=== PATIENT | male | born 1975 | race Caucasian/White ===

== ENCOUNTER → 2018-03-05 10:16 | Outpatient (CLI) | payer MEDICARE, MEDICAID, SELFPAY ==
--- NOTE | 2018-03-05 10:34 | XR_ITS ---
XR chest 2V HISTORY: ITS.REASON: COUGH, cough one year ORDERING PHYSICIAN: Fatimah Granger PATIENT AGE: 42 years Technique: PA and lateral chest COMPARISON: May 2017 FINDINGS:. Nothing definitely acute. No definite change since 2016. large patient,, diminished detail. Minimal density towards the lung bases reflects overlapping structures including overlapping of vascular marking, ribs, costochondral calcification and chest soft tissue density as well as some minimal linear scarring/atelectasis just above the right and left hemidiaphragm.... On final review Also note upper normal prominence at the right suprahilar region. If chest symptoms should persist or progress consider follow-up CT chest. No significant acute findings. The. Pulmonary vascularity are within normal limits. .. But no pleural findings no pleural effusion. Chest wall unremarkable. No acute bony abnormalities. IMPRESSION: Nothing definitely acute. However I would question very slight additional density at right suprahilar region.-Upper normal prominence Also trace minimal density towards the lung bases which currently attending to minimal overlapping structures,. If symptoms should persist, low threshold for CT chest would be encouraged
== END ==
PROVIDERS: PCP Nurse Practitioner Family; Visit Provider Nurse Practitioner Family
DX: R05 Cough (principal)
CPT/HCPCS: 71046

== ENCOUNTER → 2018-05-22 08:36 | Outpatient (CLI) | payer MEDICARE, MEDICAID, SELFPAY ==
[2018-05-22 14:07] LABS: Basophils % 0.4 % (0.1-2.0); Eosinophils # 0.2 K/mm3 (0.0-0.4); Hematocrit 44.1 % (42.0-52.0); Hemoglobin 14.6 g/dL (14.1-18.0); Lymphocytes # 1.1 K/mm3 (0.7-4.5); Lymphocytes % 25.7 % (10-50); Mean Corpuscular HGB Conc 33.1 g/dL (31.8-35.4); Mean Corpuscular Hemoglobin 29.2 pg (27.0-31.2); Mean Corpuscular Volume 88.1 fl (80-94); Mean Platelet Volume 9.3 fl (7.4-10.4); Monocytes # 0.3 K/mm3 (0.1-1.0); Monocytes % 7.6 % (1.7-9.3); Neutrophils # 2.7 K/mm3 (1.8-7.8); Neutrophils % 61.3 % (37.0-80.0); Platelet Count 155 K/mm3 (142-424); Red Cell Distribution Width 13.3 % (11.5-17.5); White Blood Count 4.4 K/mm3 (4.8-10.8)
[2018-05-22 14:50] LABS: Alanine Aminotransferase 39 U/L (12-78); Albumin Level 3.4 gm/dL (3.4-5.0); Albumin/Globulin Ratio 1.3 (1.1-1.8); Alkaline Phosphatase 83 U/L (46-116); Anion Gap 11.7 mEq/L (5-15); Aspartate Amino Transferase 17 U/L (15-37); Bilirubin,Total 0.6 mg/dL (0.2-1.0); Blood Urea Nitrogen 11 mg/dL (7-18); Calcium 8.3 mg/dL (8.5-10.1); Carbon Dioxide 30 mmol/L (21.0-32.0); Chloride 106 mmol/L (98-107); Creatinine,Serum 1.32 mg/dL (0.70-1.30); Estimated Glomerular Filt Rate 59 ml/min (>60); GFR (African American) 71 ML/MIN (>60); Globulin 2.7 gm/dl (1.3-3.2); Glucose 108 mg/dL (74-106); Potassium 3.7 mmoL/L (3.5-5.1); Sodium 144 mmol/L (136-145); Total Protein,Serum 6.1 gm/dL (6.4-8.2); Valproic Acid, (Depakene) 28.9 ug/mL (50-100)
== END ==
PROVIDERS: PCP Nurse Practitioner Family; Visit Provider Psychiatry & Neurology Psychiatry
DX: F31.32 Bipolar disorder, current episode depressed, moderate (principal)
CPT/HCPCS: 36415; 80053; 80164; 85025

== ENCOUNTER → 2018-06-13 09:15 | Outpatient (CLI) | payer MEDICARE, MEDICAID, SELFPAY ==
[2018-06-13 14:32] LABS: Valproic Acid, (Depakene) 52.6 ug/mL (50-100)
== END ==
PROVIDERS: PCP Nurse Practitioner Family; Visit Provider Psychiatry & Neurology Psychiatry
DX: F31.32 Bipolar disorder, current episode depressed, moderate (principal)
CPT/HCPCS: 36415; 80164

== ENCOUNTER → 2018-10-30 08:35 | Outpatient (CLI) | payer MEDICARE, MEDICAID, SELFPAY ==
[2018-10-30 14:42] LABS: Alanine Aminotransferase 36 U/L (12-78); Albumin Level 3.4 gm/dL (3.4-5.0); Albumin/Globulin Ratio 1.2 (1.1-1.8); Alkaline Phosphatase 86 U/L (46-116); Anion Gap 14.9 mEq/L (5-15); Aspartate Amino Transferase 13 U/L (15-37); Bilirubin,Total 0.5 mg/dL (0.2-1.0); Blood Urea Nitrogen 11 mg/dL (7-18); Calcium 8.2 mg/dL (8.5-10.1); Carbon Dioxide 25 mmol/L (21.0-32.0); Chloride 105 mmol/L (98-107); Creatinine,Serum 1.34 mg/dL (0.70-1.30); Estimated Glomerular Filt Rate 58 ml/min (>60); GFR (African American) 70 ML/MIN (>60); Globulin 2.8 gm/dl (1.3-3.2); Glucose 103 mg/dL (74-106); Potassium 3.9 mmoL/L (3.5-5.1); Sodium 141 mmol/L (136-145); Thyroid Stimulating Hormone 0.82 uIU/ml (0.358-3.740); Total Protein,Serum 6.2 gm/dL (6.4-8.2)
[2018-10-30 15:12] LABS: Hemoglobin A1C 5.2 % (0.0-7.0)
[2018-10-30 15:42] LABS: Basophils % 0.4 % (0.1-2.0); Eosinophils # 0.2 K/mm3 (0.0-0.4); Hematocrit 41.8 % (42.0-52.0); Hemoglobin 14.3 g/dL (14.1-18.0); Lymphocytes % 24.9 % (10-50); Mean Corpuscular HGB Conc 34.3 g/dL (31.8-35.4); Mean Corpuscular Hemoglobin 29.7 pg (27.0-31.2); Mean Corpuscular Volume 86.7 fl (80-94); Mean Platelet Volume 10.8 fl (7.4-10.4); Monocytes # 0.3 K/mm3 (0.1-1.0); Monocytes % 6.2 % (1.7-9.3); Neutrophils # 2.6 K/mm3 (1.8-7.8); Neutrophils % 64.6 % (37.0-80.0); Platelet Count 117 K/mm3 (142-424); Red Blood Count 4.82 M/mm3 (4.60-6.20); Red Cell Distribution Width 12.7 % (11.5-17.5); White Blood Count 4.1 K/mm3 (4.8-10.8)
== END ==
PROVIDERS: Visit Provider Psychiatry & Neurology Psychiatry
DX: F31.32 Bipolar disorder, current episode depressed, moderate (principal); Z79.899 Other long term (current) drug therapy
CPT/HCPCS: 36415; 80053; 80164; 83036; 84443; 85025

== ENCOUNTER → 2019-06-27 09:29 | Outpatient (CLI) | payer MEDICARE, MEDICAID, SELFPAY ==
[2019-06-27 14:16] LABS: Alanine Aminotransferase 25 U/L (12-78); Albumin/Globulin Ratio 1.3 (1.1-1.8); Alkaline Phosphatase 64 U/L (46-116); Anion Gap 12.4 mEq/L (5-15); Aspartate Amino Transferase 13 U/L (15-37); Bilirubin,Total 0.4 mg/dL (0.2-1.0); Blood Urea Nitrogen 7 mg/dL (7-18); Carbon Dioxide 26 mmol/L (21.0-32.0); Chloride 107 mmol/L (98-107); Chol/HDL Ratio 3.5 (1-3.5); Cholesterol 128 mg/dL (140-200); Creatinine,Serum 1.55 mg/dL (0.70-1.30); Estimated Glomerular Filt Rate 49 ml/min (>60); GFR (African American) 59 ML/MIN (>60); Globulin 2.3 gm/dl (1.3-3.2); Glucose 124 mg/dL (74-106); HDL Cholesterol 37 mg/dL (27-67); LDL Cholesterol 68 mg/dL (0-130); Potassium 3.4 mmoL/L (3.5-5.1); Sodium 142 mmol/L (136-145); Thyroid Stimulating Hormone 1.82 uIU/ml (0.358-3.740); Total Protein,Serum 5.3 gm/dL (6.4-8.2); Triglycerides 114 mg/dL (30-200); VLDL Cholesterol 23 mg/dL (0-40); Valproic Acid, (Depakene) 38.6 ug/mL (50-100)
[2019-06-27 14:21] LABS: Hemoglobin A1C 5.1 % (0.0-7.0)
[2019-06-27 15:25] LABS: Basophils % 0.5 % (0.1-2.0); Eosinophils # 0.3 K/mm3 (0.0-0.4); Hematocrit 40.9 % (42.0-52.0); Hemoglobin 13.9 g/dL (14.1-18.0); Lymphocytes # 1.2 K/mm3 (0.7-4.5); Lymphocytes % 25.2 % (10-50); Mean Corpuscular HGB Conc 33.9 g/dL (31.8-35.4); Mean Corpuscular Volume 88.5 fl (80-94); Mean Platelet Volume 11.1 fl (7.4-10.4); Monocytes # 0.3 K/mm3 (0.1-1.0); Monocytes % 5.7 % (1.7-9.3); Neutrophils # 2.9 K/mm3 (1.8-7.8); Neutrophils % 61.7 % (37.0-80.0); Platelet Count 132 K/mm3 (142-424); Red Blood Count 4.62 M/mm3 (4.60-6.20); Red Cell Distribution Width 13.5 % (11.5-17.5); White Blood Count 4.7 K/mm3 (4.8-10.8)
== END ==
PROVIDERS: Visit Provider Psychiatry & Neurology Psychiatry
DX: F31.32 Bipolar disorder, current episode depressed, moderate (principal); Z79.899 Other long term (current) drug therapy
CPT/HCPCS: 36415; 80053; 80061; 80164; 83036; 84443; 85025

== ENCOUNTER 2020-04-19 11:49 | Inpatient (IN) | payer MEDICARE, MEDICAID, SELFPAY ==
[2020-04-19] VITALS (10 sets, daily range): BP systolic 142–178; BP diastolic 88–110; PULSE 71–92; RESP 16–20; TEMP 36.5–37.4; O2SAT 92–96; BMI 48.4; BMI 47.7
--- NOTE | 2020-04-19 12:06 | HMH.EDGENADL ---
ED Disposition Clinical Impression: Left ureteral calculus Closed left ankle fracture Qualifiers: Encounter type: initial encounter Qualified Code(s): S82.892A - Other fracture of left lower leg, initial encounter for closed fracture Disposition: Admitted as Observation Condition on Discharge: Fair - Critical Care Critical Care Time: No Attestation: On 04/19/20, the high probability of a clinically significant, sudden or life threatening deterioration of the following system(s) required my full and direct attention, intervention and personal management. The time I documented below is in addition to time spent performing reported procedures but includes the following listed in this critical care notation. Medical Decision Making - Talha Inquiry Pt receiving controlled substance: Yes Talha was queried for this patient: No Reason not queried -: Emergent pt cond-no time Risks and benefits of using a controlled substance: were not discussed with pt by me Vital Signs: 04/19/20 11:49 04/19/20 12:36 04/19/20 13:00 Temperature 99.3 F Temperature Source Oral Pulse Rate [Right Radial] 74 75 76 Respiratory Rate 18 20 18 Blood Pressure [Right Arm] 155/99 H 155/107 H 178/97 H Blood Pressure Mean [Right Arm] 117 123 124 Blood Pressure Source [Right Arm] Automatic Cuff Automatic Cuff Automatic Cuff Blood Pressure Position [Right Arm] Sitting Sitting Sitting 02 Sat by Pulse Oximetry 95 95 96 Oxygen Delivery Method Room Air Room Air Room Air 04/19/20 13:31 04/19/20 15:19 04/19/20 16:00 Temperature Temperature Source Pulse Rate [Right Radial] 73 77 78 Respiratory Rate 18 16 16 Blood Pressure [Right Arm] 155/88 H 163/101 H 151/110 H Blood Pressure Mean [Right Arm] 110 121 123 Blood Pressure Source [Right Arm] Automatic Cuff Automatic Cuff Automatic Cuff Blood Pressure Position [Right Arm] Sitting Supine 02 Sat by Pulse Oximetry 94 L 95 93 L Oxygen Delivery Method Room Air Room Air Room Air 04/19/20 16:30 Temperature Temperature Source Pulse Rate [Right Radial] 79 Respiratory Rate 16 Blood Pressure [Right Arm] 161/97 H Blood Pressure Mean [Right Arm] 118 Blood Pressure Source [Right Arm] Automatic Cuff Blood Pressure Position [Right Arm] Sitting 02 Sat by Pulse Oximetry 93 L Oxygen Delivery Method Room Air - Lab Data Lab Results 04/19/20 12:11: WBC 8.8, RBC 4.66, Hgb 14.7, Hct 42.6, MCV 91.3, MCH 31.4 H, MCHC 34.4, RDW 14.1, Plt Count 113 L, MPV 9.5, Neut % (Auto) 69.5, Lymph % (Auto) 17.6, [place] % (Auto) 10.3 H, Eos % (Auto) 2.5, Baso % (Auto) 0.2, Neut # (Auto) 6.1, Lymph # (Auto) 1.5, [place] # (Auto) 0.9, Eos # (Auto) 0.2, Baso # (Auto) 0.0 04/19/20 12:11: Sodium 138, Potassium 4.1, Chloride 105, Carbon Dioxide 28, Anion Gap 9.1, BUN 23 H, Creatinine 1.90 H, Estimated Creat Clear 44, Estimated GFR 38 L, Est GFR ( Amer) 46 L, Glucose 101 H, Calcium 8.8, Total Bilirubin 1.1, AST 27, ALT 20, Alkaline Phosphatase 50, Total Protein 6.0 L, Albumin 3.4 L, Globulin 2.6, Albumin/Globulin Ratio 1.3, Amylase 57, Lipase 34 04/19/20 12:11: SARS-CoV-2 IgG Ab (Rapid) Negative, SARS-CoV-2 IgM Ab (Rapid) Negative 04/19/20 14:45: Urine Color Yellow, Urine Appearance Clear, Urine pH 6.0, Ur Specific [place] >= 1.030, Urine Protein Negative, Urine Glucose (UA) Negative, Urine Ketones Negative, Urine Blood 2+, Urine Nitrate Negative, Urine Bilirubin Negative, Urine Urobilinogen 0.2, Ur Leukocyte Esterase Negative, Urine RBC 3-5, Urine WBC 3-5, Ur Squamous Epith Cells Occasional, Amorphous Sediment Trace, Urine Bacteria None, Urine Mucus 1+ Result diagrams: 04/19/20 12:11 04/19/20 12:11 Orders (Tests/Meds): ED MEDICATIONS Generic Name Dose Route Start Last Admin Trade Name Freq PRN Reason Stop Dose Admin Acetaminophen 650 mg 04/19/20 17:00 Acetaminophen 325mg Tab PO 05/19/20 16:59 Q4HP PRN As Needed for Fever or Pain Hydromorphone HCl 1 mg 04/19/20 17:00 Hydromorphone 2mg/Ml Syringe IV
--- NOTE | 2020-04-19 12:17 | CT_ITS ---
Procedure: CT ABDOMEN PELVIS W CON Referring Doctor: Sander Villegas Patient Age:44Y CLINICAL INDICATION: lower abdominal pain Lower abdominal pain since last night. 1 episode of vomiting. Last bowel movement 3 days ago. COMPARISON: No exams were available for comparison TECHNIQUE: 75 cc Isovue 370 IV contrast utilized Axial images obtained with sagittal and coronal reformats. All CT scans at the facility use one or more dose reduction, viz: automated exposure control, ma/kV adjustment per patient size (including targeted exams where dose is matched to indication, i.e. head), or iterative reconstruction technique. FINDINGS: Lower thorax: No significant findings trace basilar atelectasis left base. Heart upper normal in size ABDOMEN: Postcontrast Liver: Unremarkable no masses or biliary dilatation. Gallbladder: Nondistended. No radio opaque stones. Pancreas: No masses or peripancreatic fluid collections. Spleen: Overall normal volume but does measures slight increase length at 15 cm Adrenals unremarkable. tract Left kidney: Mild hydronephrosis with mild dilatation left ureter down to a 7.5 mm AP 5.5 mm transverse X 8 mm length stone at the distal left ureter just above the left UVJ. With this there is periureteral stranding and subtle hazy appearance about the ureter. Also subtle perinephric stranding minimal wispy tracking inferior to Gerota fascia along the left para colic gutter with some subtle scant fluid inferior left pericolic gutter towards pelvis,) axial image [id number] coronal 45, 44)... These above features reflection of the obstructive uropathy. Right kidney 18 mm cyst upper pole. Equivocal tiny less than just over 1 mm calculus lower pole calyx nonobstructive Bladder: Nondistended. No obvious stones or masses. Prostate normal size with central calcification. Appendix: Unremarkable. No distention or periappendiceal phlegmonous change. GI tract Stomach and small bowel bowel: Nondistended. No obvious mass or thickening. Appendix normal Large bowel. Gaseous distension hepatic flexure, transverse colon and descending colon. Gas distended transverse colon measuring up to 8 cm with air-fluid levels at the transverse colon and splenic flexure. Findings suggest localized ileus secondary to the a the obstructive uropathy and the wispy fluid along the left pericolic gutter Upper normal wall thickness at rectum likely reflecting lack of distension Moderate residual stool at cecum, right colon and rectosigmoid Laxity at the left inguinal ring with slight increased fat along the left inguinal canal may reflect small developing left inguinal hernia. No bowel loops here. Peritoneum: . No free air.. Wispy fluid and subtle inflammatory changes are mainly along the pericolic gutter and more retroperitoneal on the left Lymph nodes: No enlarged lymph nodes apparent. Vasculature: No evidence of abdominal aortic aneurysm. No retroperitoneal hemorrhage evident. Bones: No acute fracture no lesions. Mild developing facet hypertrophy lower L-spine noted IMPRESSION: 1.. Left obstructive uropathy. Mild left hydronephrosis with mild dilatation of left ureter down to a 7.5 mm x 5.5 mm times 8 mm length stone at the distal left ureter just above the left UVJ. Mild stranding and hazy appearance about left ureter and left kidney reflecting the obstructive uropathy. These features yields minimal trace wispy fluid along the left pericolic gutter to the left pelvis. 2.. Moderate gaseous distention in air-fluid levels at transverse colon and flexures. Likely reflects localized ileus in part secondary to the patient's of the left flank findings and obstructiv
--- NOTE | 2020-04-19 12:19 | PC.NURSE ---
notified rad of CT order, spoke with sandra
[2020-04-19 12:26] LABS: Basophils % 0.2 % (0.1-2.0); Eosinophils # 0.2 K/mm3 (0.0-0.4); Eosinophils % 2.5 % (0.1-12.0); Hematocrit 42.6 % (42.0-52.0); Hemoglobin 14.7 g/dL (14.1-18.0); Lymphocytes # 1.5 K/mm3 (0.7-4.5); Lymphocytes % 17.6 % (10-50); Mean Corpuscular HGB Conc 34.4 g/dL (31.8-35.4); Mean Corpuscular Hemoglobin 31.4 pg (27.0-31.2); Mean Corpuscular Volume 91.3 fl (80-94); Mean Platelet Volume 9.5 fl (7.4-10.4); Monocytes # 0.9 K/mm3 (0.1-1.0); Monocytes % 10.3 % (1.7-9.3); Neutrophils # 6.1 K/mm3 (1.8-7.8); Neutrophils % 69.5 % (37.0-80.0); Platelet Count 113 K/mm3 (142-424); Red Blood Count 4.66 M/mm3 (4.60-6.20); Red Cell Distribution Width 14.1 % (11.5-17.5); White Blood Count 8.8 K/mm3 (4.8-10.8)
[2020-04-19 12:27] LABS: Chloride 105 mmol/L (98-107); Potassium 4.1 mmoL/L (3.5-5.1); Sodium 138 mmol/L (136-145)
[2020-04-19 12:30] LABS: Alanine Aminotransferase 20 U/L (12-78); Alkaline Phosphatase 50 U/L (38-126); Amylase 57 U/L (30-110); Anion Gap 9.1 mEq/L (5-15); Aspartate Amino Transferase 27 U/L (17-59); Bilirubin,Total 1.1 mg/dl (0.2-1.3); Blood Urea Nitrogen 23 mg/dl (9-20); Calcium 8.8 mg/dl (8.4-10.2); Carbon Dioxide 28 mmol/L (22.0-30.0); Creatinine Clearance Estimated 44 mL/min (50-200); Estimated Glomerular Filt Rate 38 ml/min (>60); GFR (African American) 46 ML/MIN (>60); Glucose 101 mg/dl (74-100); Lipase 34 U/L (23-300)
[2020-04-19 12:31] LABS: Albumin Level 3.4 g/dl (3.5-5.0); Albumin/Globulin Ratio 1.3 (1.1-1.8); Globulin 2.6 g/dL (1.3-3.2)
--- NOTE | 2020-04-19 13:00 | PC.NURSE ---
per radiology staff from radiologist pt needs to be hydrated with IV fluids prior to getting IV contrast for CT scan.
[2020-04-19 14:49] LABS: Microscopic, Urine URINE MICROSCOPIC (MICROSCOPIC)
[2020-04-19 14:52] LABS: Appearance,Urine CLEAR (Clear); Blood, Urine 2+ (Negative); Color,Urine YELLOW (Yellow); Glucose,Urine (UA) Negative (Negative); Ketones,Urine Negative (Negative); Leukocyte Esterase,Urine Negative (Negative); Nitrate,Urine Negative (Negative); Protein,Urine Negative (Negative); Specific Gravity, Urine >= 1.030 (1.005-1.030); Urobilinogen,Urine 0.2 EU/dl (0.2)
[2020-04-19 14:54] LABS: Bilirubin,Urine Negative (Negative)
[2020-04-19 15:04] LABS: Amorphous Sediment,Urine Trace /lpf; Mucus,Urine 1+ /lpf; Squamous Epithelial Cell,Urine Occasional #/hpf (0-5)
--- NOTE | 2020-04-19 15:40 | PC.NURSE ---
Dr fontaine speaking with Dr Wei
--- NOTE | 2020-04-19 15:46 | PC.NURSE ---
Dr Villegas speaking with Dr Rai
--- NOTE | 2020-04-19 15:50 | PC.NURSE ---
Placed call to [facility] for records on pt broken foot.
--- NOTE | 2020-04-19 15:52 | XR_ITS ---
PROCEDURE: XR ANKLE LT MIN 3V Referring Doctor: CollinSander aguirre Patient Age:44Y CLINICAL INDICATION: fracture patient fracture left ankle last week but was seen and treated at [facility] no previous ankle studies at this facility COMPARISON: No exams were available for comparison No previous studies at this facility FINDINGS: Bimalleolar fracture with fiberglass cast material/posterior splint in place. There is a slight oblique vertical fracture through the base of the medial malleolus.. Nondisplaced and is seen extending to medial corner of articular cortex distal tibia. Suggestion subtle sclerosis suggested along fracture zone reflects that it is subacute rather than acute . Slight oblique transverse fracture through the base of the lateral malleolus extending to the lateral corner articular cortex distal tibia. Good apposition with no significant displacement-only scant just 1.4 mm lateral offset of the distal fracture fragment Relationships at the ankle mortise appears intact. Dome of the talus is intact but The patient has old healed fracture of the distal tibial shaft with long metallic christiano through the tibia extending to to the distal epiphysis of tibia just above the ankle joint, and secured by 2 screws entering medially. There is good healing at this old fracture with mountain of prominent remodeling bone most evident anteriorly at distal tibial shaft. The fracture of the medial malleolus begins just distal below the more inferior screw.. IMPRESSION: The sub acute/recent bimalleolar fracture is evident with splint/cast in place-Good position of these fracture elements Remote old healed fracture of the distal tibial shaft with long intramedullary christiano at tibia Dictated by: Gerald Quinonez MD 04/19/2020 21:21 Gerald Quinonez MD in [place] 04/19/2020 21:21
--- NOTE | 2020-04-19 15:53 | PC.NURSE ---
notified lab of new orders on pt, spoke with nila
--- NOTE | 2020-04-19 16:03 | PC.NURSE ---
pt unable to give a list of his home medications, pt mother states she will go home and call with the names of his medications, pt mother states he takes a bunch .
--- NOTE | 2020-04-19 16:05 | PC.NURSE ---
notified ER MD of pt bp remaining high despite pt reporting his pain is better, pt reports he has not taken his bp medications today. ER MD states we can reorder his home medications for bp once we know what they are. BP 151/110 at this time, will continue to monitor
[2020-04-19 16:15] LABS: Coronavirus 19 IgG Antibody Negative (Negative); Coronavirus 19 IgM Antibody Negative (Negative)
--- NOTE | 2020-04-19 16:51 | PC.NURSE ---
report given to meg fajardo at this time
--- NOTE | 2020-04-19 16:51 | PC.NURSE ---
pt mother called with list of pt medications at this time, will update medications in the system and notify ER MD.
--- NOTE | 2020-04-19 17:55 | PC.NURSE ---
duplicate insert briscoe order placed deleted one
[2020-04-19 18:01] LABS: Microscopic, Urine URINE MICROSCOPIC (MICROSCOPIC)
[2020-04-19 18:09] LABS: Appearance,Urine CLEAR (Clear); Bilirubin,Urine Negative (Negative); Blood, Urine 1+ (Negative); Color,Urine YELLOW (Yellow); Glucose,Urine (UA) Negative (Negative); Ketones,Urine Negative (Negative); Leukocyte Esterase,Urine Negative (Negative); Nitrate,Urine Negative (Negative); PH,Urine 5.5 (5.0-8.5); Protein,Urine Negative (Negative); Specific Gravity, Urine >= 1.030 (1.005-1.030); Urobilinogen,Urine 0.2 EU/dl (0.2)
[2020-04-19 18:13] LABS: Amorphous Sediment,Urine 1+ /lpf; Mucus,Urine 1+ /lpf
--- NOTE | 2020-04-19 18:37 | PC.NURSE ---
ABRASION NOTED MEASURING 5IN IN LENGTH AND 1IN IN WIDTH. NO DRAINAGE NOTED.
--- NOTE | 2020-04-19 18:38 | PC.NURSE ---
SCRATHCES NOTED, 6IN IN LENGTH.
--- NOTE | 2020-04-19 18:40 | PC.NURSE ---
DURING REPORT FROM Gaby KRISHNAMURTHY RN IN ED, PATIENT'S MOTHER PHONED AND PROVIDED A MEDICATION LIST FOR PATIENT. PER Gaby KRISHNAMURTHY RN, SHE WILL COMPLETE MED REC AND SPEAK WITH ER MD ON HOME MEDICATIONS. PATIENT ARRIVED ON FLOOR VIA STRETCHER, THIS RN ALONG WITH Estrella HUNT RN AND Kunal LLANOS RN PROVIDED A BED BATH AND ASSESSED PATIENT' SKIN, PATIENT ARRIVED WITH A LEFT ANKLE FRACTURE, WRAPPED IN CHENTE BANDAGE. PATIENT COMPLAINED OF PRESSURE TO URINATE, AFTER SEVERAL ATTEMPTS, PATIENT WAS UNABLE TO PRODUCE URINE. THIS RN PHONED DR. CHANG AND OBTAINED AN ORDER FOR A HARDING CATH. FIRST ATEMPT WAS MADE BY Estrella HUNT RN WITH A 16FR. RESISTANCE WAS MET, A SECOND ATTEMPT WAS MADE WITH A 14FR COUDE CATH, INSERTED BY THIS RN. PATIENT DENIES ANY PROSTATE PROBLEMS. PATIENT'S SKIN HAS AN ABRASION ON THE LOWER RIGHT SIDE OF ABDOMEN. PATIENT STATED THAT IT IS FROM WHEN HE FELL. PATIENT STATES THAT HE HAS NO HEART OR LUNG PROBLEMS. THIS RN INQUIRED WHY HE IS TAKING THE MEDICATIONS THAT HE TAKES, PATIENT STATED, I DON'T KNOW, THERE ARE SO MANY. PATIENT STATED DURING HIS ADMISSION THAT HE HAS BEEN SUICIDAL IN THE PAST AND IS UNDER THERAPY. PATIENT STATES THAT IT HAS BEEN OVER A YEAR SINCE ATTEMPTING TO TAKE HIS LIFE. THIS RN ATTEMPTED TO COMPLETE MED REC AND WOULD NOT ALLOW A DUPLICATE SOURCE FOR INFORMATION.
[2020-04-20 03:24] VITALS: BP 133/91; PULSE 91; RESP 18; TEMP 36.9; O2SAT 95
--- NOTE | 2020-04-20 05:33 | PC.NURSE ---
pt refused to be weight at this time due to pain. will pass on to dayshift RN for pt to be weigh once pain is better
--- NOTE | 2020-04-20 05:35 | PC.NURSE ---
Pt A&OX4 diminished throughout lungs. prt c/o abd pain medicated per AUG. f/c draining taryn urine. pt has slept intervals throughout shift
[2020-04-20 07:03] LABS: Chloride 108 mmol/L (98-107)
[2020-04-20 07:04] LABS: Potassium 4.8 mmoL/L (3.5-5.1); Sodium 136 mmol/L (136-145)
[2020-04-20 07:07] LABS: Anion Gap 11.8 mEq/L (5-15); Blood Urea Nitrogen 24 mg/dl (9-20); Calcium 8.4 mg/dl (8.4-10.2); Carbon Dioxide 21 mmol/L (22.0-30.0); Creatinine Clearance Estimated 52 mL/min (50-200); Estimated Glomerular Filt Rate 47 ml/min (>60); GFR (African American) 57 ML/MIN (>60); Glucose 94 mg/dl (74-100)
--- NOTE | 2020-04-20 07:29 | HMH.PHAVTE ---
[facility] Pharm[facility] VTE Monitoring - Patient Demographics Admission date: 04/19/20 Report Date: 04/20/20 Time: 07:29 Allergies/Adverse Reactions: Patient Allergies prochlorperazine [From COMPAZINE] Allergy (Unknown, Verified 04/19/20 12:18) Height: 1.7 m Weight: 137.92 kg Patient Problems: Current Active Problems Left ureteral calculus (Acute) Closed left ankle fracture (Acute) - VTE Risk Labs: VTE Related Lab Results Hgb 14.7 g/dL (14.1-18.0) 04/19/20 12:11 Hct 42.6 % (42.0-52.0) 04/19/20 12:11 Plt Count 113 K/mm3 (142-424) L 04/19/20 12:11 BUN 24 mg/dl (9-20) H 04/20/20 06:16 Creatinine 1.60 mg/dl (0.66-1.25) H 04/20/20 06:16 Estimated Creat Clear 52 mL/min (50-200) 04/20/20 06:16 VTE Score: 7 VTE Risk Level: Moderate Risk - Prophylaxis VTE Prophylaxis Ordered?: Yes Types of VTE Prophylaxis: TEDS Knee High Location of Applied Device: Bilateral Lower Extremeties
[2020-04-20 08:00] VITALS: BP 159/95; PULSE 77; RESP 20; TEMP 36.8; O2SAT 96
--- NOTE | 2020-04-20 08:18 | PC.NURSE ---
Notified Addis about Dr. Smiley consult.
--- NOTE | 2020-04-20 11:58 | HMH.CONS ---
*Admission Date: 04/19/20 *Reason for consult:: Left ureteral stone *History of present illness: Patient is a 44-year-old white male who presented to the emergency room yesterday with left lower quadrant pain. He had some associated nausea and a CT scan revealed an 8 x 7 mm distal left ureteral stone. He was admitted for pain control. This morning he had a pretty comfortable night and is afebrile. His white count in the emergency room was 8.8 and his creatinine was elevated to 1.9 that has improved as of this morning. Patient had difficulty urinating on the floor last evening and the German catheter was placed with a 700 cc residual reported. Patient denies a history of urinary difficulties. He did have a recent ankle fracture and has a cast on his left ankle. [facility] History Medical History: Reports:: Hypertension Denies:: Cancer, Diabetes Mellitus Type 1, Diabetes Mellitus Type 2, MRSA *Have you ever received a pneumonia vaccine?: No *Have you received a flu vaccine this season?: No Fractures: Yes (L ankle) - *Social History Last grade of school completed: High school graduate Smoking Status: Never smoker Alcohol Intake: never *Occupational Status:: employed Housing: house Household Members: family *Travel in the last 8 weeks: None Family Hx:: Cancer Review of Systems - Review of Systems Review of systems:: pertinent systems reviewed and negative unless documented below Meds Home Medications Medication Instructions Recorded Confirmed Type Benztropine Mesylate 0.5 mg PO BID 04/19/20 04/19/20 History Buspirone HCl [Buspirone 15 mg 15 mg PO TID 04/19/20 04/19/20 History Tablets] Divalproex Sodium [Depakote 125 mg PO QID 04/19/20 04/19/20 History Sprinkle 125mg capsule] Hydrocodone/Acetaminophen 1 each PO Q6HP PRN 04/19/20 04/19/20 History [Hydrocodone-Acetamin 5-325 mg] Lurasidone HCl [Latuda] 80 mg PO DAILY 04/19/20 04/19/20 History Simvastatin 20 mg PO DAILY 04/19/20 04/19/20 History buPROPion HCL [Bupropion Xl] 300 mg PO DAILY 04/19/20 04/19/20 History Propranolol HCl [Inderal 20mg 20 mg PO BID 04/20/20 04/20/20 History Tablet] Allergies Allergy/AdvReac Type Severity Reaction Status Date / Time prochlorperazine Allergy Unknown Verified 04/19/20 12:18 [From COMPAZINE] Exam Vital signs and Labs for Last 24 Hours: Temp Pulse Resp BP Pulse Ox 98.2 F 77 20 159/95 H 96 04/20/20 08:00 04/20/20 08:00 04/20/20 08:00 04/20/20 08:00 04/20/20 08:00 Laboratory Results - last 24 hr 04/19/20 12:11: WBC 8.8, RBC 4.66, Hgb 14.7, Hct 42.6, MCV 91.3, MCH 31.4 H, MCHC 34.4, RDW 14.1, Plt Count 113 L, MPV 9.5, Neut % (Auto) 69.5, Lymph % (Auto) 17.6, [place] % (Auto) 10.3 H, Eos % (Auto) 2.5, Baso % (Auto) 0.2, Neut # (Auto) 6.1, Lymph # (Auto) 1.5, [place] # (Auto) 0.9, Eos # (Auto) 0.2, Baso # (Auto) 0.0 04/19/20 12:11: Sodium 138, Potassium 4.1, Chloride 105, Carbon Dioxide 28, Anion Gap 9.1, BUN 23 H, Creatinine 1.90 H, Estimated Creat Clear 44, Estimated GFR 38 L, Est GFR ( Amer) 46 L, Glucose 101 H, Calcium 8.8, Total Bilirubin 1.1, AST 27, ALT 20, Alkaline Phosphatase 50, Total Protein 6.0 L, Albumin 3.4 L, Globulin 2.6, Albumin/Globulin Ratio 1.3, Amylase 57, Lipase 34 04/19/20 12:11: SARS-CoV-2 IgG Ab (Rapid) Negative, SARS-CoV-2 IgM Ab (Rapid) Negative 04/19/20 14:45: Urine Color Yellow, Urine Appearance Clear, Urine pH 6.0, Ur Specific [place] >= 1.030, Urine Protein Negative, Urine Glucose (UA) Negative, Urine Ketones Negative, Urine Blood 2+, Urine Nitrate Negative, Urine Bilirubin Negative, Urine Urobilinogen 0.2, Ur Leukocyte Esterase Negative, Urine RBC 3-5, Urine WBC 3-5, Ur Squamous Epith Cells Occasional, Amorphous Sediment Trace, Urine Bacteria None, Urine Mucus 1+ 04/19/20 17:45: Urine Color Yellow, Urine Appearance Clear, Urine pH 5.5, Ur Specific [place] >= 1.030, Urine Protein Negative, Urine Glucose (UA) Negative, Urine Ketones Negative, Urine Blood 1+, Urine Nitrate Negative,
--- NOTE | 2020-04-20 12:02 | HMH.HP ---
*Admission Date: 04/19/20 *Chief complaint: abd pain *History of present illness: 44 yr old male presented to ed c/o lower abd pain. Pt describes pain sharp in nature. Pt states pain began last night, pt reports 3 episode of vomiting last night. Pt states he recently starting a prescriptions for norco for pain r/t L ankle fracture, pt reports last BM was 2-3 days ago.Diagnosed with a left ankle fracture on 3 days ago in [place] at [facility]. He has a splint on his left ankle. He is on pain medication for that condition. He has not yet seen orthopedics and does not have an appointment. He would like to see orthopedics at this hospital. No prior similar abdominal pain. No history of abdominal surgeries. Pt admitted for urology and ortho consult. [facility] History I have reviewed the patient's past medical history: Yes Medical History: Reports:: Hypertension Denies:: Cancer, Diabetes Mellitus Type 1, Diabetes Mellitus Type 2, MRSA *Have you ever received a pneumonia vaccine?: No *Have you received a flu vaccine this season?: No Fractures: Yes (L ankle) - *Social History Last grade of school completed: High school graduate Smoking Status: Never smoker Alcohol Intake: never *Occupational Status:: employed Housing: house Household Members: family *Travel in the last 8 weeks: None Family Hx:: Cancer Review of Systems - Review of Systems Review of systems:: pertinent systems reviewed and negative unless documented below - Constitutional Denies body ache(s) - Eyes Denies bulging eyes - ENT Denies neck pain - *Cardiovascular Denies chest pain with activity - *Respiratory Denies chest congestion - *Gastrointestinal Reports abdominal pain, Denies change in bowel habits, Denies nausea, Denies vomiting - *Genitourinary Denies difficulty urinating, Denies painful urination, Denies urinary frequency - *Musculoskeletal Denies decreased muscle mass, Denies back pain - Integumentary/Breasts Denies rash - *Neurologic Denies dizziness - Psychiatric Denies anxiety - Endocrine Denies heat intolerance - Hematologic/Lymphatic Denies enlarged lymph nodes - Allergic/Immunologic Denies itchy eyes Meds Home Medications Medication Instructions Recorded Confirmed Type Benztropine Mesylate 0.5 mg PO BID 04/19/20 04/19/20 History Buspirone HCl [Buspirone 15 mg 15 mg PO TID 04/19/20 04/19/20 History Tablets] Divalproex Sodium [Depakote 125 mg PO QID 04/19/20 04/19/20 History Sprinkle 125mg capsule] Hydrocodone/Acetaminophen 1 each PO Q6HP PRN 04/19/20 04/19/20 History [Hydrocodone-Acetamin 5-325 mg] Lurasidone HCl [Latuda] 80 mg PO DAILY 04/19/20 04/19/20 History Simvastatin 20 mg PO DAILY 04/19/20 04/19/20 History buPROPion HCL [Bupropion Xl] 300 mg PO DAILY 04/19/20 04/19/20 History Propranolol HCl [Inderal 20mg 20 mg PO BID 04/20/20 04/20/20 History Tablet] Allergies Allergy/AdvReac Type Severity Reaction Status Date / Time prochlorperazine Allergy Unknown Verified 04/19/20 12:18 [From COMPAZINE] Exam Vital signs and Labs for Last 24 Hours: Temp Pulse Resp BP Pulse Ox 98.2 F 77 20 159/95 H 96 04/20/20 08:00 04/20/20 08:00 04/20/20 08:00 04/20/20 08:00 04/20/20 08:00 Laboratory Results - last 24 hr 04/19/20 12:11: WBC 8.8, RBC 4.66, Hgb 14.7, Hct 42.6, MCV 91.3, MCH 31.4 H, MCHC 34.4, RDW 14.1, Plt Count 113 L, MPV 9.5, Neut % (Auto) 69.5, Lymph % (Auto) 17.6, [place] % (Auto) 10.3 H, Eos % (Auto) 2.5, Baso % (Auto) 0.2, Neut # (Auto) 6.1, Lymph # (Auto) 1.5, [place] # (Auto) 0.9, Eos # (Auto) 0.2, Baso # (Auto) 0.0 04/19/20 12:11: Sodium 138, Potassium 4.1, Chloride 105, Carbon Dioxide 28, Anion Gap 9.1, BUN 23 H, Creatinine 1.90 H, Estimated Creat Clear 44, Estimated GFR 38 L, Est GFR ( Amer) 46 L, Glucose 101 H, Calcium 8.8, Total Bilirubin 1.1, AST 27, ALT 20, Alkaline Phosphatase 50, Total Protein 6.0 L, Albumin 3.4 L, Globulin 2.6, [place]
--- NOTE | 2020-04-20 12:09 | HMH.ORTHOCON ---
*Admission Date: 04/19/20 *Reason for consult:: Bimalleolar fracture, left ankle *History of present illness: Patient is a 44-year-old male presented to the ER yesterday with left lower abdominal pain. Patient's mother is by his bedside at the time of the consultation. Following evaluation in the ER he was diagnosed with a left ureteric stone and is admitted for management of the same. Patient states he fell down from a height of about 6 feet 4 days ago at a ball game, injuring his left ankle. He says he was seen for this injury in the ER at [facility]. As per the patient, he was diagnosed with a left ankle fracture and was placed in a short leg splint. He was advised to follow-up with orthopedics for further management. Patient says he has not seen any orthopedic surgeon yet for this injury. He reports no other injuries from this fall. No history of any distal tingling or numbness. He has remote history of left tibial fracture treated with intramedullary nailing. I understand, patient is provisionally scheduled for urological procedure tomorrow here at [facility]. His medical history includes hyperlipidemia, hypertension, bipolar disorder and obesity. 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 [facility] History I have reviewed the patient's past medical history: Yes Medical History: Reports:: Hypertension Denies:: Cancer, Diabetes Mellitus Type 1, Diabetes Mellitus Type 2, MRSA *Have you ever received a pneumonia vaccine?: No *Have you received a flu vaccine this season?: No Fractures: Yes (L ankle) - *Social History Last grade of school completed: High school graduate Smoking Status: Never smoker Alcohol Intake: never *Occupational Status:: employed Housing: house Household Members: family *Travel in the last 8 weeks: None Family Hx:: Cancer Review of Systems - Review of Systems Review of systems:: pertinent systems reviewed and negative unless documented below - Constitutional Denies body ache(s), Denies chills, Denies fever(s) - Eyes Denies change in vision - ENT Denies neck pain - *Cardiovascular Denies chest pain, Denies shortness of breath - *Respiratory Denies chest congestion, Denies cough, Denies shortness of breath - *Gastrointestinal Reports abdominal pain, Denies change in bowel habits, Denies nausea, Denies vomiting - *Genitourinary Denies difficulty urinating, Denies painful urination - *Musculoskeletal Reports abnormal walking, Reports joint pain, Reports joint swelling, Reports limited joint movement - Integumentary/Breasts Denies rash - *Neurologic Reports abnormal walking, Reports unsteadiness, Denies seizure-like activity, Denies dizziness - Hematologic/Lymphatic Denies easy bleeding, Denies easy bruising Meds Home Medications Medication Instructions Recorded Confirmed Type Benztropine Mesylate 1 mg PO BID 04/19/20 04/20/20 History Buspirone HCl [Buspirone 15 mg 15 mg PO TID 04/19/20 04/19/20 History Tablets] Divalproex Sodium [Depakote 500 mg PO TID 04/19/20 04/20/20 History Sprinkle 125mg capsule] Hydrocodone/Acetaminophen 1 each PO Q6HP PRN 04/19/20 04/19/20 History [Hydrocodone-Acetamin 5-325 mg] Lurasidone HCl [Latuda] 80 mg PO DAILY 04/19/20 04/19/20 History Simvastatin 20 mg PO HS 04/19/20 04/20/20 History buPROPion HCL [Bupropion Xl] 300 mg PO DAILY 04/19/20 04/19/20 History Propranolol HCl [Inderal 20mg 20 mg PO BID 04/20/20 04/20/20 History Tablet] cloNIDine HCL [cloNIDine 0.1mg 0.1 mg PO TID 04/20/20 04/20/20 History Tablet] Allergies Allergy/AdvReac Type Severity Reaction Status Date / Time prochlorperazine Allergy Unknown Verified 04/19/20 12:18 [From COMPAZINE] Exam Vital signs and Labs for Last 24 Hours: Temp Pulse Resp BP Pulse Ox 98.2 F 77 20 159/95 H 96 04/20/20 08:00 04/20/20 08:00 04/20/20 08:00 04/20/20 08:00 04/20/20 08:00 Laboratory Results - last 24 hr 04/19
--- NOTE | 2020-04-20 12:19 | HMH.PHAINT ---
MEDICATION RECONCILIATION COMPLETED ON PATIENT USING EXTERNAL FILL HISTORY FROM PHARMACY AND LIST FROM MD OFFICE. -GRIFFIN QUINONESD
[2020-04-20 14:14] VITALS: BMI 47.7
--- NOTE | 2020-04-20 15:42 | SW/DCPLANNER ---
Addendum entered by [facility] 04/24/20 11:39: No further COVID testing is needed per [facility]. Patient will discharge once orders are in computer. Addendum entered by [facility] 04/24/20 11:30: PT/OT evaluation has been faxed to [facility]. Addendum entered by [facility] 04/24/20 09:49: Updated patient information has been faxed to [facility]. I will also fax therapy notes once available in computer. Alem has stated she can accept this patient for today after lunch. Patient will discharge later today. Addendum entered by [facility] 04/23/20 16:33: I have informed mother of discharge plans to [facility] and being accepted. Patient is currently still in surgery at this time. Addendum entered by [facility] 04/23/20 13:36: This patient has been accepted to [facility] at time of discharge. I will follow up with this patient once he is out of surgery regarding being accept to [facility]. I will also contact patients mother. Addendum entered by [facility] 04/23/20 10:47: I have spoke with this patient again this morning regarding discharge plans. Patient again was limited with communication but agreeable to explore the option of [facility] level of care at time of discharge. Patient will have ankle surgery today and will be non weight bearing afterwards. Alem at [facility] has stated that she does have a bed available. Patient information has been faxed to [facility]. Patient could be ready for discharge tomorrow. Original Note: I have spoke with this patient regarding discharge plans. Patient stated that he was unsure regarding discharge plans: I haven't really thought about it . Patients mother did contact me this afternoon stating that patient will need an ambulance transportation home at time of discharge. I have explain to patient and his mother that an ambulance would not cover non emergent transportation home and this would have to be private pay. I also explained different discharge plans to this patient: home health vs placement. I explained the importance of considering discharge options tonight and I would follow up with patient tomorrow morning. Patient did not communicate a lot during my visit.
[2020-04-20 16:00] VITALS: BP 155/80; PULSE 78; RESP 20; TEMP 36.7; O2SAT 97
--- NOTE | 2020-04-20 19:27 | PC.NURSE ---
PATIENT A&O X4, LUNGS DIMINISHED, PULSES EQUAL. DR. KIMBLE AT BEDSIDE, REMOVED SOFT CAST AND SPOKE WITH PATIENT IN REGARDS TO SURGERY AFTER UROLOGY CLEARS PATIENT. PATIENT'S MOTHER AT BEDSIDE. PATIENT'S MOTHER VOICED CONCERN IN REGARDS TO HER AND HER FRAILE BEING ABLE TO TAKE CARE OF PATIENT AT HOME. PATIENT'S MOTHER STATED THAT THEY CAN NOT DO IT. PATIENT HAS A FLAT EFFECT. DR. OLIVO AT BEDSIDE, SURGERY WILL BE ON 04/21/2020 @ 10:30. KUB ORDERED FOR 8:00AM. PATIENT REFUSED TO BE TURNED OR AMBULATE THRU THIS RN SHIFT. PATIENT REFUSED TO BE WEIGHED. NO OTHER CONCERNS AT THIS TIME.
[2020-04-20 20:00] VITALS: BP 134/75; PULSE 89; RESP 17; TEMP 36.6; O2SAT 90
[2020-04-21] VITALS (23 sets, daily range): BP systolic 125–172; BP diastolic 77–105; PULSE 60–94; RESP 16–22; TEMP 36.3–37.6; O2SAT 91–97; BMI 47.7
--- NOTE | 2020-04-21 04:32 | PC.NURSE ---
Pt has slept little this shift. Dilaudid has been administered thrice thus far this shift for severe pain. Lung sounds remain clear. Urine dk yellow in appearance. Denies soa. Pt has declined repositioning, other than slight self movement of his upper body.
--- NOTE | 2020-04-21 08:00 | XR_ITS ---
PROCEDURE: XR KUB CLINICAL INDICATION: LEFT CALCULI Follow-up renal calculi COMPARISON: CT CT ABDOMEN PELVIS W CON from 04/19/2020 FINDINGS: There is moderate gaseous distension of the entire colon. Calcification is present in the left pelvic region and may be related to residual ureteral calculus having a similar appearance on the component prep operator exam of the CT of the [facility]. This measures approximately 6-7 mm. IMPRESSION: Persistent left distal ureteral calculus. Persistent gaseous distention of the colon Dictated by: Landen Sal MD 04/21/2020 09:26 Landen Sal MD in OV 04/21/2020 09:26
--- NOTE | 2020-04-21 08:46 | PC.NURSE ---
Told ZARIA Haro about BP 147/105
--- NOTE | 2020-04-21 09:21 | HMH.ACPN2 ---
Internal Medicine - PN: Subj *Date: 04/21/20 *Time: 16:09 Interval history: 44 YOM in bed, reports Abd feels full, he denies pain and reports tenderness. awaiting Urology to see. 04/21/20 KUB XR: FINDINGS: There is moderate gaseous distension of the entire colon. Calcification is present in the left pelvic region and may be related to residual ureteral calculus having a similar appearance on the clinical transplant coordinator exam of the CT of the [facility]. This measures approximately 6-7 mm. IMPRESSION: Persistent left distal ureteral calculus. Persistent gaseous distention of the colon Dictated by: Doron, Exam Vital signs and Labs for Last 24 Hours: Temp Pulse Resp BP Pulse Ox 98.5 F 94 H 20 152/98 H 93 L 04/21/20 08:00 04/21/20 08:00 04/21/20 08:00 04/21/20 09:01 04/21/20 08:00 I & O for Last 24 hours: Intake & Output 04/18/20 04/19/20 04/20/20 04/21/20 23:59 23:59 23:59 23:59 Intake Total 1000 / 1000 1679 / 1679 1539 / 1539 Output Total 700 / 700 1400 / 1400 400 / 400 Balance 300 / 300 279 / 279 1139 / 1139 Weight 304 lb 1 oz 304 lb 3.806 oz 304 lb - Constitutional no acute distress, obese - *Routine HEENT Exam Head: Present: normocephalic ENT: Present: mucous membranes moist - *Routine Neck Exam Present: trachea midline. Absent: JVD, tracheal deviation - *Routine Respiratory Exam Present: CTA bilaterally. Absent: accessory muscle use - *Routine Cardiovascular Exam Present: RRR - *Routine Abdominal Exam Present: soft, normoactive bowel sounds, distended, obese - *Routine Extremities Exam Present: edema, full ROM, pulses intact. Absent: clubbing, calf tenderness - *Routine Skin Exam Present: intact, warm. Absent: erythema - *Routine Neurological Exam Present: alert Flat Affect - Routine Psychiatric Exam Present: normal thought process Comments: Flat Affect Assessment and Plan (1) Left ureteral calculus Status: Acute Category: Medical Code(s): N20.1 - Calculus of ureter (2) Closed left ankle fracture Status: Acute Qualifiers: Encounter type: initial encounter Qualified Code(s): S82.892A - Other fracture of left lower leg, initial encounter for closed fracture Category: Medical Code(s): S82.892A - Other fracture of left lower leg, initial encounter for closed fracture (3) BMI greater than 40 Status: Acute Category: Medical (4) Obesity Status: Acute Qualifiers: Obesity type: due to excess calories Body mass index: BMI 45.0-49.9 Category: Medical Code(s): E66.9 - Obesity, unspecified - Assessment and plan all Dx Assessment and Plan for all problems:: Rounded w/ Dr. Rai, alll orders per Dr. Rai 1. Awaiting Urology to see 2. Bisacodyl Suppos 3. Up to chair and walking
--- NOTE | 2020-04-21 10:02 | P.PN_ITS ---
Internal Medicine - PN: Subj *Date: 04/21/20 *Time: 17:13 Interval history: Patient continues to have some mild to moderate left flank discomfort. KUB reveals the stone is still in the distal left ureter. Unfortunately the patient had breakfast this morning in the n.p.o. order did not make it to the chart. His KUB shows an ileus type pattern. Vital signs are stable and he is afebrile Exam Vital signs and Labs for Last 24 Hours: Temp Pulse Resp BP Pulse Ox 98.5 F 94 H 20 152/98 H 93 L 04/21/20 08:00 04/21/20 08:00 04/21/20 08:00 04/21/20 09:01 04/21/20 08:00 I & O for Last 24 hours: Intake & Output 04/18/20 04/19/20 04/20/20 04/21/20 23:59 23:59 23:59 23:59 Intake Total 1000 / 1000 1679 / 1679 1539 / 1539 Output Total 700 / 700 1400 / 1400 400 / 400 Balance 300 / 300 279 / 279 1139 / 1139 Weight 137.92 kg 138 kg 137.892 kg Radiology Reports for the Last 24 Hours: KUB today shows a calcification in the distal ureter Narrative: Obese white male in no apparent distress Pupils equal round react light Head is normocephalic Neck is symmetric Normal respiratory effort Abdomen soft nontender Alert and oriented x3 - *Routine HEENT Exam Head: Present: normocephalic Eye: Present: PERRL ENT: Present: mucous membranes dry - *Routine Respiratory Exam Present: accessory muscle use - *Routine Cardiovascular Exam Present: RRR - *Routine Abdominal Exam Present: soft - *Routine Extremities Exam Absent: cyanosis, clubbing, edema Comments: Patient with a cast on his left lower extremity Assessment and Plan (1) Left ureteral calculus Start date: 04/19/20 Status: Acute Category: Medical Code(s): N20.1 - Calculus of ureter 44-year-old white male with distal left ureteral calculus. unFortunately he had breakfast this morning and we will reschedule his procedure for later this afternoon. - Assessment and plan all Dx Assessment and Plan for all problems:: 44-year-old white male with a 7 mm distal left ureteral calculus. Fortunately he had breakfast this morning so will have to put his procedure off till this afternoon. The KUB indicates the stone is still present in the distal ureter a nd he remains symptomatic. Continue to strain the urine today until the operating room.
--- NOTE | 2020-04-21 15:20 | PC.NURSE ---
Pt. to surgery via bed with surgery staff.
--- NOTE | 2020-04-21 15:23 | XR_ITS ---
PROCEDURE: XR KUB CLINICAL INDICATION: C-ARM CASE CYSTO IN OR Ureteral stone COMPARISON: CT CT ABDOMEN PELVIS W CON from 04/19/2020 FINDINGS: Fluoroscopy time: 1 minutes and 24 seconds. C-arm is utilized for placement of a left ureteral stent with select images submitted during the stent placement showing the proximal aspect of the stent curled in the left upper quadrant of the distal aspect curled in the region the urinary bladder. IMPRESSION: Status post stent placement with fluoroscopic guidance Dictated by: Landen Sal MD 04/21/2020 17:39 Landen Sal MD in OV 04/21/2020 17:39
--- NOTE | 2020-04-21 15:46 | PC.NURSE ---
Spoke with Ike Cummings APRN Update given on Pt. in surgery with Urology. MIL wishes pt. to get up and move today after surgery.
--- NOTE | 2020-04-21 16:14 | SUR.OPER ---
1549-while prepping pt, pt had large, loose/liquid light brown bowel movement, pt re-prepped and draped at this time
--- NOTE | 2020-04-21 17:01 | PC.NURSE ---
Pt. remains off floor at this time.
--- NOTE | 2020-04-21 17:04 | P.OP_ITS ---
Date of procedure: 04/21/20 Pre-op Diagnosis:: Left ureteral stone Post-op Diagnosis:: Left ureteral stone, left ureteral stenosis Procedure performed:: Left ureteroscopy dilation of the ureter, laser lithotripsy of stone, left stent placement Surgeon:: Ford Wei MD ROOF MECHANIC:: Erik Ozuna Anesthesia: GETA Estimated blood loss (mL): 0 Clinical Note:: Patient is 44-year-old white male admitted for left renal colic and noted to have a 7 mm distal ureteral stone on CT scan. He presents for urologic management. Operative findings:: Patient has a very high bladder neck making cystoscopy and ureteroscopy difficult. The left ureter was stenotic and was dilated to accept the rigid ureteroscope. The ureter was very inflamed and the stone was difficult to reach. We were able to laser it but it was a very hard stone and retracted more proximally where we could not get to it with the semirigid ureteroscope. Operative note:: Patient taken to the operating room after informed consent was obtained. Placed on the operating table in the supine position and general anesthesia administered. Preoperative antibiotics administered and sequential compression devices placed on the right leg. His left leg he has a cast for ankle fracture that was suffered recently. He was gently placed into the dorsolithotomy position and prepped and draped in the standard surgical fashion. A 22 Kosovan cystoscope was passed into the urethra and patient had to have a very high bladder neck making it very difficult to place a scope in the bladder but we were able to do so by torquing the scope pretty significantly. Bladder was examined in a systematic fashion there was no abnormalities. The ureteral o rifices in their normal anatomic position. A 0.035 guidewire was passed into the left ureteral orifice and under fluoroscopy passed into the renal pelvis without difficulty. We then removed the cystoscope and placed our semirigid ureteroscope into the bladder but we were unable to negotiate that distal ureter due to some stenosis. The cystoscope removed and the distal ureter dilated to 12 julieta for 3 minutes. The balloon then deflated and removed and the ureteroscope passed by the stricture down up to the level of the stone which was noted to be several centimeters above the left ureteral orifice and was difficult to negotiate due to the patient's high bladder neck. We were able to get up to the stone in the we attempted to basket it with the triceps basket to try to bring it down a bit where we could laser it better but we could not get a good purchase on the stone. And then were able to pass the scope up to the level of the stone and a 200 nm laser fiber used to fragment the stone and was found to be very hard and a couple fragments chipped off but the stone migrated more proximally where we could not reach it. At this point I decided to just place a stent and dilate the ureter and come back another time. The ureteroscope removed and the cystoscope was replaced and and a 6 x 28 Kosovan stent was passed over the safety wire and the safety wire removed with a good curl proximally and distally. We taped the end of the string attached to the distal of the stent onto the glans penis and a 16 Kosovan coud? German placed without difficulty. Patient tolerated seizure well for to recovery in stable condition. Condition: stable Disposition: PACU Specimens:: None Complications:: None
--- NOTE | 2020-04-21 17:17 | P.PN_ITS ---
[facility] Anesthesia Checklist - Patient Identification Patient Identification: Arm Band - Structural Data Admitted From: Inpatient Planned Operative Procedure/s: Left ureteroscopy with stone extraction Consent for Planned Operative Procedure(s) Verified: Yes Verified Documents: Surgical Consent, History and Physical - NPO Status Verified Time NPO: 00:00 - Additional verifications Anesthesia Reactions: No - Airway Assessment C-Spine Mobility Assessed: Yes (mp3) TMJ Mobility Assessed: Yes Dentition: Poor Dentition - Neurological Assessment Level of Consciousness: Awake, Alert - Anesthesia Plan Anesthesia Risk discussed: Yes Anesthesia Plan: Verified ASA Class: III Anesthesia Type: General [facility] History I have reviewed the patient's past medical history: Yes Medical History: Reports:: Hypertension, Lung Disease (QUAN-cpap hs) Denies:: Cancer, Diabetes Mellitus Type 1, Diabetes Mellitus Type 2, MRSA *Have you ever received a pneumonia vaccine?: No *Have you received a flu vaccine this season?: No Anesthesia experience/problems:: nac Other Surgeries: Yes: Other Fractures: Yes (L ankle) - *Social History Last grade of school completed: High school graduate Smoking Status: Never smoker Alcohol Intake: never Substance Use Type: denies use *Occupational Status:: employed Housing: house Household Members: family *Travel in the last 8 weeks: None Family Hx:: Cancer
--- NOTE | 2020-04-21 17:17 | HMH.ANESI ---
[facility] Anesthesia Record Part I Intake, IV Amount: 1,000 Estimated blood loss (mL): 0 Urine output (mL): 0 Blood Pressure: 125/95 SaO2: 93 Pulse Rate: 92 Respiratory Rate: 16 Temperature: 99.7 F Patient is:: Drowsy, Stable Stable to PACU at:: 17:10
--- NOTE | 2020-04-21 17:40 | PC.NURSE ---
Report Received from David Johnson RN.
--- NOTE | 2020-04-21 17:52 | PC.NURSE ---
1732-detailed report called to ZARIA Mendoza 0919-pt transported to 2nd floor room 208 via hospital bed with miracle rails up per ZARIA Chua and HOWARD Camargo, pt left in care of ZARIA Mendoza with bed locked in lowest position, pt's mother at bedside, vss, pt stable
--- NOTE | 2020-04-21 17:55 | PC.NURSE ---
Pt. arrived to room 208 via bed, by David Johnson RN, and Bipin Ozuna CRNA. Pt. alert to person, place, and situation, unsure of date/time. Pt. denies pain and nausea. Stent wire remains in place with tegaderm. Assessment completed. BS present but hypoactive x4. No further acute changes noted from previous assessment. Post op vitals started. Ice water and Popcicle provided. Pt. denies needs, will continue to monitor.
--- NOTE | 2020-04-21 19:35 | PC.NURSE ---
Report given to Kunal Arango RN.
[2020-04-21 21:30] LABS: POC Glucose,Bedside 150 (70-110)
[2020-04-22] VITALS (7 sets, daily range): BP systolic 124–175; BP diastolic 82–99; PULSE 58–88; RESP 16–18; TEMP 36.6–37.1; O2SAT 94–98; BMI 47.5
--- NOTE | 2020-04-22 05:13 | PC.NURSE ---
Pt A&O x3 is currently up to chair this am. Ambulated with asssist x2 to chair. Tolerated fair. Pt has c/o discomfort to abdomen, oanh area and LLE this shift. Medication administered per aug. Coude catheter draining to chairside with dark taryn urine. DSG remains on LLE. VSS. at this time. Call light within reach. Will continue to monitor.
[2020-04-22 07:07] LABS: Basophils % 0.2 % (0.1-2.0); Eosinophils # 0.1 K/mm3 (0.0-0.4); Hematocrit 38.4 % (42.0-52.0); Hemoglobin 12.5 g/dL (14.1-18.0); Lymphocytes # 0.9 K/mm3 (0.7-4.5); Lymphocytes % 16.7 % (10-50); Mean Corpuscular HGB Conc 32.6 g/dL (31.8-35.4); Mean Corpuscular Hemoglobin 29.8 pg (27.0-31.2); Mean Corpuscular Volume 91.5 fl (80-94); Mean Platelet Volume 10.5 fl (7.4-10.4); Monocytes # 0.4 K/mm3 (0.1-1.0); Neutrophils # 4.1 K/mm3 (1.8-7.8); Neutrophils % 74.1 % (37.0-80.0); Platelet Count 116 K/mm3 (142-424); Red Blood Count 4.19 M/mm3 (4.60-6.20); Red Cell Distribution Width 13.1 % (11.5-17.5); White Blood Count 5.5 K/mm3 (4.8-10.8)
[2020-04-22 07:17] LABS: Chloride 110 mmol/L (98-107); Sodium 136 mmol/L (136-145)
[2020-04-22 07:18] LABS: Potassium 4.2 mmoL/L (3.5-5.1)
[2020-04-22 07:20] LABS: Blood Urea Nitrogen 22 mg/dl (9-20); Creatinine Clearance Estimated 76 mL/min (50-200); Estimated Glomerular Filt Rate 72 ml/min (>60); GFR (African American) 87 ML/MIN (>60)
[2020-04-22 07:21] LABS: Anion Gap 11.2 mEq/L (5-15); Calcium 8.3 mg/dl (8.4-10.2); Carbon Dioxide 19 mmol/L (22.0-30.0); Glucose 137 mg/dl (74-100)
--- NOTE | 2020-04-22 09:07 | P.PN_ITS ---
[facility] Anesthesia Record Part II Discharge Time: 17:40 Destination: Medical Surgical Department PACU nurse assessment reviewed?: Yes Patient Condition:: Good Anesthesia Complications:: None Swallowing reflex intact?: Yes Cyanosis?: No Blood Pressure: 158/92 Pulse Rate: 88 Temperature: 98.1 F Mental Status: Alert & Oriented Pain level:: 0 Nausea and/or vomitting:: None Intake, IV Amount: 0
--- NOTE | 2020-04-22 09:15 | PC.NURSE ---
Dark taryn / blood colored urine noted in drainage bag. Coude briscoe remains in place to bsd.
--- NOTE | 2020-04-22 09:57 | HMH.ACPN2 ---
Internal Medicine - PN: Subj *Date: 04/22/20 *Time: 13:02 Interval history: 44-year-old male patient sitting up in the recliner, he reports he is feeling a lot better German catheter draining pinkish urine he did have a lithotripsy performed yesterday. Geophysical Support Specialist discussed care with Ortho, Ortho reported that they will operate on him tomorrow. Informed patient of decision he is agreeable to this. Patient has a very flat affect requiring longer time to answer questions. Exam Vital signs and Labs for Last 24 Hours: Temp Pulse Resp BP Pulse Ox 98.1 F 88 16 158/92 H 96 04/22/20 09:08 04/22/20 09:08 04/22/20 08:00 04/22/20 09:08 04/22/20 08:00 Laboratory Results - last 24 hr 04/21/20 21:08: POC Glucose 150 H 04/22/20 06:27: WBC 5.5 D, RBC 4.19 L, Hgb 12.5 L, Hct 38.4 L, MCV 91.5, MCH 29.8, MCHC 32.6, RDW 13.1, Plt Count 116 L, MPV 10.5 H, Neut % (Auto) 74.1, Lymph % (Auto) 16.7, [place] % (Auto) 8.0, Eos % (Auto) 1.0, Baso % (Auto) 0.2, Neut # (Auto) 4.1, Lymph # (Auto) 0.9, [place] # (Auto) 0.4, Eos # (Auto) 0.1, Baso # (Auto) 0.0 04/22/20 06:27: Sodium 136, Potassium 4.2, Chloride 110 H, Carbon Dioxide 19 L, Anion Gap 11.2, BUN 22 H, Creatinine 1.10 D, Estimated Creat Clear 76, Estimated GFR 72, Est GFR ( Amer) 87 D, Glucose 137 H, Calcium 8.3 L I & O for Last 24 hours: Intake & Output 04/19/20 04/20/20 04/21/20 04/22/20 23:59 23:59 23:59 23:59 Intake Total 1000 / 1000 1679 / 1679 2539 / 2539 240 / 240 Output Total 700 / 700 1400 / 1400 550 / 550 900 / 900 Balance 300 / 300 279 / 279 1989 / 1988 -660 / -660 Weight 304 lb 1 oz 304 lb 3.806 oz 304 lb 303 lb - Constitutional no acute distress, obese - *Routine HEENT Exam Head: Present: normocephalic ENT: Present: mucous membranes moist - *Routine Neck Exam Present: trachea midline. Absent: JVD, tracheal deviation - *Routine Respiratory Exam Present: CTA bilaterally - *Routine Cardiovascular Exam Present: RRR - *Routine Abdominal Exam Present: normoactive bowel sounds, distended. Absent: tenderness - *Routine Extremities Exam Present: full ROM, pulses intact. Absent: cyanosis, calf tenderness Comments: Mark wrap L toes to L Mid-calf - *Routine Skin Exam Present: intact, erythema, warm. Absent: pallor, jaundice - *Routine Neurological Exam Present: alert, altered mental status - Routine Psychiatric Exam Present: unable to assess. Absent: normal affect Comments: Flat Affect Assessment and Plan (1) Left ureteral calculus Start date: 04/19/20 Status: Acute Category: Medical Code(s): N20.1 - Calculus of ureter (2) Closed left ankle fracture Status: Acute Qualifiers: Encounter type: initial encounter Qualified Code(s): S82.892A - Other fracture of left lower leg, initial encounter for closed fracture Category: Medical Code(s): S82.892A - Other fracture of left lower leg, initial encounter for closed fracture (3) BMI greater than 40 Status: Acute Category: Medical (4) Obesity Status: Acute Qualifiers: Obesity type: due to excess calories Body mass index: BMI 45.0-49.9 Category: Medical Code(s): E66.9 - Obesity, unspecified - Assessment and plan all Dx Assessment and Plan for all problems:: Rounded w/ Dr. Rai, all orders per Dr. Rai: 1. L Ankle Surg tomorrow
--- NOTE | 2020-04-22 10:45 | PC.NURSE ---
Discontinued IV site from right hand r/t infiltration. Rt hand swollen. Warm compress applied and elevated. 2x2 gauze and coban applied to site. Pt tolerated well.
[2020-04-22 11:40] LABS: Appearance,Urine CLEAR (Clear); Blood, Urine 3+ (Negative); Color,Urine BROWN (Yellow); Glucose,Urine (UA) Negative (Negative); Ketones,Urine Negative (Negative); Leukocyte Esterase,Urine TRACE (Negative); Microscopic, Urine URINE MICROSCOPIC (MICROSCOPIC); Nitrate,Urine Negative (Negative); Protein,Urine 2+ (Negative); Specific Gravity, Urine >= 1.030 (1.005-1.030)
[2020-04-22 11:42] LABS: Bilirubin,Urine 1+ (Negative)
[2020-04-22 11:48] LABS: RBC,Urine 20-50 #/hpf (0-3)
--- NOTE | 2020-04-22 12:40 | DIET.NUTRFU ---
PO intakes 75%, weight stable, pt with no nutritional questions/concerns at this time.
--- NOTE | 2020-04-22 17:16 | HMH.ORTHPN ---
Subjective Date: 04/22/20 Time: 09:00 Principal diagnosis: Bimalleolar fracture, left ankle Interval history: Patient is 44-year-old male with a minimally displaced bimalleolar fracture left ankle. He underwent a urological procedure yesterday. There are no and symptoms of any urological infection. Patient is keen for his ankle fracture to be fixed during this admission. The ankle is in a short leg splint and he reports minimal pain around the left ankle. No fevers, chills or rigors. No history of any distal tingling or numbness. He is eating and drinking well. PN: Obj Ex Vital signs: Temp Pulse Resp BP Pulse Ox 97.8 F 62 18 163/91 H 97 04/22/20 16:00 04/22/20 16:00 04/22/20 16:00 04/22/20 16:00 04/22/20 16:00 Narrative: Laboratory Results - last 24 hr 04/21/20 21:08: POC Glucose 150 H 04/22/20 06:27: WBC 5.5 D, RBC 4.19 L, Hgb 12.5 L, Hct 38.4 L, MCV 91.5, MCH 29.8, MCHC 32.6, RDW 13.1, Plt Count 116 L, MPV 10.5 H, Neut % (Auto) 74.1, Lymph % (Auto) 16.7, [place] % (Auto) 8.0, Eos % (Auto) 1.0, Baso % (Auto) 0.2, Neut # (Auto) 4.1, Lymph # (Auto) 0.9, [place] # (Auto) 0.4, Eos # (Auto) 0.1, Baso # (Auto) 0.0 04/22/20 06:27: Sodium 136, Potassium 4.2, Chloride 110 H, Carbon Dioxide 19 L, Anion Gap 11.2, BUN 22 H, Creatinine 1.10 D, Estimated Creat Clear 76, Estimated GFR 72, Est GFR ( Amer) 87 D, Glucose 137 H, Calcium 8.3 L Exam General appearance: alert, active, awake, no acute distress Eyes: normal exam ENT: normal exam Neck: normal inspection Cardiovascular: regular rate & rhythm, normal peripheral pulses Respiratory: Clear to auscultation, normal breath sounds no respiratory distress noted, speaks in full sentences ABD: soft and non tender Neuro: alert, awake, oriented x 3 On examination of the lower extremities the limb lengths are equal. Thigh and calf are soft and nontender. On examination of the left ankle, the short leg splint is in place. No purulence from the splint noted. Distal sensation is intact to light touch throughout. He has good range of toe movements and the toes are pink and warm. - Urinary Catheter Management Coude Cath placed during this visit: no Progress Note: A&P (1) Left ureteral calculus Status: Acute (2) Closed left ankle fracture Status: Acute Assessment and plan: I have again reviewed the clinical and x-ray findings and with the patient. Patient is keen for surgical fixation of the left ankle during this admission. As there is no evidence of neurological infection, I am planning for ORIF of the left ankle tomorrow. I have again discussed about the procedure, risks and benefits cellulitis in detail. I told the patient that I may need to remove the distal locking screws from the tibial nail in order to fix the medial malleolus in a stable f fashion. The complications discussed include but are not limited to infection, injury to nerves and blood vessels, bleeding, loss of fixation, arthritis, stiffness, likely need for further surgery in future. All the questions were answered and he verbalized a good understanding. No guarantees or assurances were given or implied. Consent patient for open reduction internal fixation of the left ankle. Keep n.p.o. after midnight. Continue elevation of the ankle, ice frequently, mobilize nonweightbearing on the left side and mobilize the toes. Patient is scheduled for surgery with OR on 04/23/2020. Continue medical management as per Dr. Rai. (3) BMI greater than 40 Status: Acute (4) Obesity Status: Acute
--- NOTE | 2020-04-22 19:14 | PC.NURSE ---
report given to hyun
[2020-04-23] VITALS (19 sets, daily range): BP systolic 116–165; BP diastolic 67–99; PULSE 51–82; RESP 16–20; TEMP 36.4–43; O2SAT 93–97; BMI 47.5
--- NOTE | 2020-04-23 06:13 | PC.NURSE ---
Pt is A&Ox3 and lopez ambulated to BSC 1x this shift and tolerated fair with staff x3 assist and walker. Pt has c/o pain 3x and medicated per AUG. Lovenox for VT. Dressing and splint to LLE and elevated on a pillow for most of the shift. Naqvi cath draining dark tea/red-brown colored urine, a few clots noted. Lungs CTA. Swelling to R Hand d/t infiltrated IV from previous shift. VSS, call light within reach, will continue to monitor.
--- NOTE | 2020-04-23 09:30 | PC.NURSE ---
PT STATES THAT HE CANNOT TAKE MEDICATIONS WITHOUT FOOD, BP MEDICATIONS HAVE BEEN GIVEN, DR KIMBLE CONTACTED REGARDING LOVENOX INJECTIONS AND IT HAS BEEN HELD WELL, REFUSED MEDICATIONS HAVE BEEN CHARTED ON MAR
--- NOTE | 2020-04-23 13:07 | HMH.ACPN2 ---
Internal Medicine - PN: Subj *Date: 04/23/20 *Time: 09:00 Interval history: pt has no c/o today. surgery today Exam Vital signs and Labs for Last 24 Hours: Temp Pulse Resp BP Pulse Ox 98.7 F 82 16 130/78 96 04/23/20 12:00 04/23/20 12:00 04/23/20 12:00 04/23/20 12:00 04/23/20 12:00 I & O for Last 24 hours: Intake & Output 04/21/20 04/22/20 04/23/20 04/24/20 11:59 11:59 11:59 11:59 Intake Total 2821 / 2821 1480 / 1480 2510 / 2510 Output Total 1300 / 1300 950 / 950 1575 / 1575 Balance 1521 / 1521 530 / 530 935 / 935 Weight 304 lb 303 lb 302 lb 15.983 oz - Constitutional no acute distress, morbidly obese - *Routine HEENT Exam Head: Present: normocephalic Eye: Present: PERRL ENT: Present: mucous membranes moist - *Routine Neck Exam Present: supple. Absent: lymphadenopathy - *Routine Respiratory Exam Present: CTA bilaterally - *Routine Cardiovascular Exam Present: RRR - *Routine Abdominal Exam Present: soft, normoactive bowel sounds. Absent: tenderness - *Routine Extremities Exam Absent: cyanosis, clubbing, edema Comments: left foot in splint - *Routine Skin Exam Present: warm. Absent: rash - *Routine Neurological Exam Present: alert, oriented X3 - Routine Psychiatric Exam Present: normal affect Assessment and Plan (1) Left ureteral calculus Start date: 04/19/20 Status: Acute Category: Medical Code(s): N20.1 - Calculus of ureter (2) Closed left ankle fracture Status: Acute Qualifiers: Encounter type: initial encounter Qualified Code(s): S82.892A - Other fracture of left lower leg, initial encounter for closed fracture Category: Medical Code(s): S82.892A - Other fracture of left lower leg, initial encounter for closed fracture (3) BMI greater than 40 Status: Acute Category: Medical (4) Obesity Status: Acute Qualifiers: Obesity type: due to excess calories Body mass index: BMI 45.0-49.9 Category: Medical Code(s): E66.9 - Obesity, unspecified - Assessment and plan all Dx Assessment and Plan for all problems:: rounded with dr de oliveira all orders per dr de oliveira
--- NOTE | 2020-04-23 15:09 | P.PN_ITS ---
[facility] Anesthesia Checklist - Patient Identification Patient Identification: Arm Band - Structural Data Admitted From: Inpatient Planned Operative Procedure/s: ORIF Left Ankle Consent for Planned Operative Procedure(s) Verified: Yes Verified Documents: Surgical Consent, History and Physical - NPO Status Verified Time NPO: 00:00 - Additional verifications Anesthesia Reactions: No - Airway Assessment C-Spine Mobility Assessed: Yes (mp2) TMJ Mobility Assessed: Yes Dentition: Poor Dentition - Neurological Assessment Level of Consciousness: Awake, Alert - Anesthesia Plan Anesthesia Risk discussed: Yes Anesthesia Plan: Verified ASA Class: III Anesthesia Type: General w/block (Popliteal/saphenous. Risks/benefits of nerve block explained. Pt verbalizes understanding) [facility] History I have reviewed the patient's past medical history: Yes Medical History: Reports:: Hypertension, Lung Disease (QUAN-cpap hs) Denies:: Cancer, Diabetes Mellitus Type 1, Diabetes Mellitus Type 2, MRSA *Have you ever received a pneumonia vaccine?: No *Have you received a flu vaccine this season?: No Anesthesia experience/problems:: nac Other Surgeries: Yes: Other Fractures: Yes (L ankle) - *Social History Last grade of school completed: High school graduate Smoking Status: Never smoker Alcohol Intake: never Substance Use Type: denies use *Occupational Status:: employed Housing: house Household Members: family *Travel in the last 8 weeks: None Family Hx:: Cancer
--- NOTE | 2020-04-23 16:34 | XR_ITS ---
PROCEDURE: XR ANKLE LT 2V CLINICAL INDICATION: ORIF LEFT ANKLE IN OR COMPARISON: No exams were available for comparison FINDINGS: Fluoroscopy time: 2 minutes and 15 seconds. Multiple images are submitted with C-arm demonstrating placement a lateral bone plate at the distal fibula. Two screws were removed from the intramedullary christiano that was present in the distal tibia. A bone plate is placed also at the medial aspect of the distal tibia stabilizing the medial malleolar fracture. An additional oblique screw is pressed through the medial malleolar fragment as well into the distal tibia. IMPRESSION: Good alignment status post ORIF distal tib fib. Dictated by: Landen Sal MD 04/23/2020 18:08 Landen Sal MD in OV 04/23/2020 18:08
--- NOTE | 2020-04-23 17:15 | P.PN_ITS ---
[facility] Anesthesia Record Part I Intake, IV Amount: 1,500 Estimated blood loss (mL): 10 Urine output (mL): 100 Blood Pressure: 143/67 SaO2: 93 Pulse Rate: 72 Respiratory Rate: 16 Temperature: 97.5 F Patient is:: Drowsy, Stable Stable to PACU at:: 17:05
--- NOTE | 2020-04-23 18:10 | HMH.OPNOTE ---
Date of procedure: 04/23/20 Pre-op Diagnosis:: 1. Closed, bimalleolar fracture, left ankle 2. History of tibial nailing, left Post-op Diagnosis:: Same Procedure performed:: 1. Removal of distal locking screws, left tibia 2. Open reduction and internal fixation, left ankle Surgeon:: Xander Smiley MD Program Services Planner(s):: Queenie Fischer GROCERY CLERK STOCKING:: Erik Feeruthie Anesthesia: GETA, regional (Saphenous and popliteal nerve blocks) Estimated blood loss (mL): 10 Clinical Note:: Patient is a 44-year-old male who sustained a closed, mildly displaced and unstable bimalleolar fracture of the LEFT ankle about a week ago after a fall. Patient is admitted to hospital 4 days ago with abdominal pain secondary to ureteric calculus. Patient underwent urological surgery 2 days ago. Following detailed discussion regarding management options including both nonoperative and operative, for his left ankle fracture, he opted for surgical remediation in the form of ORIF left ankle. Patient has a left tibial nail in place which was performed many years ago. We have discussed about removal of the distal locking screws given that they are in the way of fixing the medial malleus fracture. He was brought to the OR for surgery after he recovered from his urological procedure and the swelling has sufficiently improved following few days of elevation and icing. Surgery is indicated to anatomically reduce and stabilize the fracture in order to relieve the pain and restore/improve the function. Operative findings:: Preoperative imaging findings and diagnosis correlate with the intraoperative findings. There is contusion of the soft tissue with ecchymosis over both medial and lateral aspect of the ankle. There is a minimally displaced Maldonado B type lateral malleolus fracture with a displaced vertical fracture of the medial malleolus. There is a tibial nail in situ with 2 distal interlocking screws; the distal tibial fracture is old and well-healed. The inferior tibiofibular syndesmosis is noted to be stable and was therefore fixation was not needed. Operative note:: On the day of surgery patient was met on the floor and positively identified. I again reviewed the clinical and imaging findings, diagnosis, management options including both nonsurgical and surgical and the expected results. Given the clinical and radiological findings, I have recommended an open reduction and internal fixation of the left ankle fractures. I have told the patient that I may have to remove the distal locking screws from the tibial nail in order to fix the medial malleolus fracture in a stable fashion. I have outlined where the incisions would be on the skin. Risks of surgery discussed include but are not limited to- infection, injury to nerves and blood vessels, injury to tendons, compartment syndrome, DVT/PE, malunion, nonunion, stiffness, CRPS (complex regional pain syndrome- pain, sensory and temperature changes, swelling and stiffness), painful hardware, loss of fixation, arthritis, incomplete relief of pain, incomplete return of function, and likely need for further surgery in future and also the risks of anesthesia including heart attack, stroke, and even . We've discussed how there is a small but real possibility of loss of use of the leg, loss of the leg or loss of life itself. I have explained the weightbearing status, immobilization required, the likely need for physical therapy, the possibility of stiffness, chronic pain and we've also discussed the option of nonsurgical treatment. The patient expressed full understanding and asked appropriate questions. All the questions were answered by me and patient verbalized a good understanding. Patient understood the risks, agreed to proceed with surgery, signed the consent form and no guarantees or assurances were given or implied. A physical examination was performed and documented. The limb was marked and the consent form was reviewed and signed. The tea
--- NOTE | 2020-04-23 18:14 | PC.NURSE ---
1733-detailed report called to ZARIA Moreno 1738-pt transported to 2nd floor room 208 via hospital bed with miracle rails up per ZARIA Chua and HOWARD Fortune and left in care of ZARIA Moreno with bed locked in lowest position, vss, family at bedside, pt stable
--- NOTE | 2020-04-23 19:15 | PC.NURSE ---
report given to hyun
[2020-04-24] VITALS (7 sets, daily range): BP systolic 116–148; BP diastolic 73–96; PULSE 53–80; RESP 16–20; TEMP 36.6–36.9; O2SAT 93–98; BMI 47.8
--- NOTE | 2020-04-24 04:29 | PC.NURSE ---
Pt is A&Ox4 and has c/o pain 1x thus far, medicated per MAR with effectiveness noted. LLE elevated on 2 pillows with ice pack in place. RLE also elevated on 1 pillow for comfort. PT was able to be wean off NC that had been started in PACU. Current SaO2 96%. IS teaching given to pt and goal not met but pt has been completing IS very often, currently reaches 750ml. Diminished base on lung auscultation. Pt denies any nausea and has had a great appetite this shift, eating several snacks and has great oral intake. 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 Pt can move toes well. Lovenox for VTE. German cath in place draining red/brown colored urine and is being strained. VSS, call light in place, report passed onto Kunal Bar RN
--- NOTE | 2020-04-24 07:00 | P.PN_ITS ---
[facility] Anesthesia Record Part II Discharge Time: 17:35 Destination: Medical Surgical Department PACU nurse assessment reviewed?: Yes Patient Condition:: Good Anesthesia Complications:: None Swallowing reflex intact?: Yes Cyanosis?: No Blood Pressure: 116/76 Pulse Rate: 73 Temperature: 97.8 F Mental Status: Alert & Oriented Pain level:: 0 Nausea and/or vomitting:: None Intake, IV Amount: 30
[2020-04-24 07:05] LABS: Chloride 108 mmol/L (98-107); Potassium 3.5 mmoL/L (3.5-5.1); Sodium 138 mmol/L (136-145)
[2020-04-24 07:08] LABS: Anion Gap 11.5 mEq/L (5-15); Blood Urea Nitrogen 19 mg/dl (9-20); Calcium 8.3 mg/dl (8.4-10.2); Carbon Dioxide 22 mmol/L (22.0-30.0); Creatinine Clearance Estimated 93 mL/min (50-200); Estimated Glomerular Filt Rate 91 ml/min (>60); GFR (African American) 110 ML/MIN (>60); Glucose 108 mg/dl (74-100)
[2020-04-24 07:12] LABS: Basophils % 0.1 % (0.1-2.0); Eosinophils % 0.4 % (0.1-12.0); Hemoglobin 13.3 g/dL (14.1-18.0); Lymphocytes # 0.8 K/mm3 (0.7-4.5); Lymphocytes % 12.1 % (10-50); Mean Corpuscular HGB Conc 34.2 g/dL (31.8-35.4); Mean Corpuscular Hemoglobin 30.8 pg (27.0-31.2); Mean Corpuscular Volume 89.9 fl (80-94); Mean Platelet Volume 10.7 fl (7.4-10.4); Monocytes # 0.4 K/mm3 (0.1-1.0); Neutrophils # 5.6 K/mm3 (1.8-7.8); Neutrophils % 81.4 % (37.0-80.0); Platelet Count 156 K/mm3 (142-424); Red Blood Count 4.33 M/mm3 (4.60-6.20); Red Cell Distribution Width 13.8 % (11.5-17.5); White Blood Count 6.9 K/mm3 (4.8-10.8)
--- NOTE | 2020-04-24 08:25 | PC.NURSE ---
Told ZARIA Baldwin about BP 148/93
--- NOTE | 2020-04-24 09:49 | HMH.CONFU ---
Internal Medicine - PN: Subj *Date: 04/24/20 *Time: 09:49 Interval history: Patient sitting up in chair, denies any significant flank pain. He appears to be tolerating the stent well. Vital signs are stable and he is afebrile Exam Vital signs and Labs for Last 24 Hours: Temp Pulse Resp BP Pulse Ox 97.9 F 61 18 148/93 H 98 04/24/20 08:00 04/24/20 08:00 04/24/20 08:14 04/24/20 08:00 04/24/20 08:00 Laboratory Results - last 24 hr 04/24/20 06:04: WBC 6.9 D, RBC 4.33 L, Hgb 13.3 L, Hct 39.0 L, MCV 89.9, MCH 30.8, MCHC 34.2, RDW 13.8, Plt Count 156 D, MPV 10.7 H, Neut % (Auto) 81.4 H, Lymph % (Auto) 12.1, [place] % (Auto) 6.0, Eos % (Auto) 0.4, Baso % (Auto) 0.1, Neut # (Auto) 5.6, Lymph # (Auto) 0.8, [place] # (Auto) 0.4, Eos # (Auto) 0.0, Baso # (Auto) 0.0 04/24/20 06:04: Sodium 138, Potassium 3.5, Chloride 108 H, Carbon Dioxide 22, Anion Gap 11.5, BUN 19, Creatinine 0.90, Estimated Creat Clear 93, Estimated GFR 91, Est GFR ( Amer) 110 D, Glucose 108 H, Calcium 8.3 L I & O for Last 24 hours: Intake & Output 04/21/20 04/22/20 04/23/20 04/24/20 23:59 23:59 23:59 23:59 Intake Total 2539 / 2539 2610 / 2990 1905 / 1905 933 / 933 Output Total 550 / 550 1475 / 1475 1250 / 1250 1075 / 1075 Balance 1988 / 1988 1135 / 1515 655 / 655 -142 / -142 Weight 137.892 kg 137.438 kg 137.438 kg 138.348 kg Narrative: Pupils equal round reactive to light Head is normocephalic Neck is symmetric Normal respiratory effort Abdomen normal visual inspection Alert and oriented x3 - *Routine HEENT Exam Head: Present: normocephalic Eye: Present: EOMI, PERRL ENT: Present: mucous membranes moist - *Routine Neck Exam Present: supple. Absent: lymphadenopathy - *Routine Respiratory Exam Present: CTA bilaterally - *Routine Cardiovascular Exam Present: RRR - *Routine Abdominal Exam Present: soft, normoactive bowel sounds. Absent: tenderness Assessment and Plan (1) Left ureteral calculus Start date: 04/19/20 Status: Acute Category: Medical Code(s): N20.1 - Calculus of ureter Patient status post left ureteroscopy attempted stone removal earlier this week but ureter was too narrow and inflamed and stent was placed for passive dilation and repeat ureteroscopy and stone extraction planned. Patient going to rehab facility today and we will arrange operative procedure from there. He has had a German catheter in during his admission and it may be removed prior to discharge. Patient does have a ureteral stent in place with a string on it and I will order a KUB after the German is removed to make sure the stent has not been dislodged. (2) Closed left ankle fracture Status: Acute Qualifiers: Encounter type: initial encounter Qualified Code(s): S82.892A - Other fracture of left lower leg, initial encounter for closed fracture Category: Medical Code(s): S82.892A - Other fracture of left lower leg, initial encounter for closed fracture (3) BMI greater than 40 Status: Acute Category: Medical (4) Obesity Status: Acute Qualifiers: Obesity type: due to excess calories Body mass index: BMI 45.0-49.9 Category: Medical Code(s): E66.9 - Obesity, unspecified
--- NOTE | 2020-04-24 09:55 | XR_ITS ---
PROCEDURE: XR KUB CLINICAL INDICATION: ensure stent placement Evaluate stent placement COMPARISON: CT CT ABDOMEN PELVIS W CON from 04/19/2020 FINDINGS: Left ureteral stent is in place. The proximal aspect is curled in the left mid abdominal region and distal aspect curled in the region of the lower pelvis. There is mild gaseous distention of the transverse colon at 10 cm. IMPRESSION: Left ureteral stent in good position. Mild gaseous distention of the colon Dictated by: Landen Sal MD 04/24/2020 13:59 Landen Sal MD in OV 04/24/2020 13:59
--- NOTE | 2020-04-24 11:04 | HMH.OTEV ---
OT Inpatient Evaluation Rehab OT IP Evaluation Start: 04/23/20 18:04 Freq: ONCE Status: Complete Protocol: Document 04/24/20 10:54 [facility] (Rec: 04/24/20 11:03 [facility] [id number]) Rehab OT IP Assessment Subjective History Pt oriented x 3 on arrival. Pt admitted via ED on 04/19 due to abdominal pain and vomiting. Pt had fallen and broken his left ankle 3 days prior to admission and had not seen ortho since [place]. Pt required surgery on 04/23 for removal of distal lokcing screws and open reduction and internal fixation of left ankle. Pt has a past medical history of HTN. Pt reports prior to being hospitalized he lived at home with his parents. He claims he was independent with all ADL's and IADL's. Pt also still drove. He did not require any type of AE during ambulation. Subjective It is hurting. Objective Patient Orientation Person,Place,Birthday Upper Extremity Gross ROM WFL Transfer Training Sit/Stand Transfer Assist Level Maximum x 1 (75% assist) Rehab OT IP prob,goals,plan Problems Date of Evaluation: 04/24/20 OT IP Problems Bed Mobility,Transfers,Gait, Balance,Self care,Safety Rehab Potential Rehab Potential Good Equipment Needs Assistive Devices Rolling / Wheeled Walker Plan OT intervention Plan Bed Mobility,Transfers,Gait, Balance,Self care,Safety, Therapeutic Exercise OT Plan Frequency Daily Duration LOS Discharge Goals Bed Mobility Ability Assistance x1 Sit to Stand Chair Transfer Ability Moderate x 1 (50% assist) Chair Transfer Ability Moderate x 1 (50% assist) Chair Transfer Technique Sit to/from Ambulatory Chair Transfer Assistive Devices Rolling Walker Feeding Ability Independent Lower Body Dressing Ability Assistance X1 Upper Body Dressing Ability Standby Assistance Bathing Ability Assistance x1 Performing Toilet Hygiene Ability Standby Assistance Overall Commode/Toilet Transfer Ability Assistance x1 Commode/Toilet Transfer Technique Sit to/from Ambulatory Discharge Plan OT Discharge Plan
--- NOTE | 2020-04-24 11:19 | PC.NURSE ---
Told ZARIA Baldwin about BP 148/83
--- NOTE | 2020-04-24 11:25 | HMH.PTEV ---
Physical Therapy Evaluation Rehab PT IP Evaluation Start: 04/23/20 18:04 Freq: ONCE Status: Active Protocol: Document 04/24/20 11:23 [facility] (Rec: 04/24/20 11:25 [facility] [id number]) Subjective/History History History 44 yowm adm to [facility] with abd pain, now S/P L ankle ORIF. Pt reports he lives with family, no steps to enter the home. Subjective Subjective Pt c/o pain in L ankle 8 currently. Rehab PT IP Eval Objective Appearance Patient Behavior Appropriate Patient Orientation Person,Place,Time Difficulty following instructions none Speech Pattern Clear Ambulation Patient Able to Ambulate No Balance Ability to Arise Able, uses arms to help Sitting Balance Steady, safe Standing Balance Steady, wide stance Dynamic Sitting Balance Ability Good Dynamic Standing Balance Ability Fair Transfers Bed Transfer Ability Minimal x 1 (25% assist) Chair Transfer Ability Minimal x 1 (25% assist) Sit to Stand Bed Transfer Ability Minimal x 1 (25% assist) Sit to Stand Chair Transfer Ability Minimal x 1 (25% assist) ROM All Extremities PT ROM Status WFL Abnormal ROM Comment except L ankle NT MMT All Extremities PT MMT WFL Abnormal MMT Grade except L ankle NT Rehab PT IP prob,goals,plan Problems Date of Evaluation: 04/24/20 PT IP Problems Bed Mobility,Transfers,Gait Rehab Potential Rehab Potential Good Equipment Needs Assistive Devices Rolling / Wheeled Walker Plan PT Intervention Plan Bed Mobility,Transfers,Gait, Therapeutic Exercise PT Plan Frequency BID Duration LOS Discharge Goals Bed Transfer Ability Contact Guard/Hand Hold Sit to Stand Chair Transfer Ability Minimal x 1 (25% assist) Ambulation Assistive Device Rolling Walker Ambulation Distance (feet) 3 Discharge Plan PT Discharge Plan Pt is most appropriate for rehab placement once medically stable. G -code Required No Eval Complexity Eval Charge Codes 32354 - Moderate Complexity PHYSICIAN CERTIFICATION: I certify the specified therapy services for Taurus Senior are required, authorized, and reviewed every 30 days.
--- NOTE | 2020-04-24 12:56 | HMH.DCSUM ---
General - General Admission date:: 04/19/20 Discharge date: 04/24/20 HPI HPI: 44 yr old male presented to ed c/o lower abd pain. Pt describes pain sharp in nature. Pt states pain began last night, pt reports 3 episode of vomiting last night. Pt states he recently starting a prescriptions for norco for pain r/t L ankle fracture, pt reports last BM was 2-3 days ago.Diagnosed with a left ankle fracture on 3 days ago in [place] at [facility]. He has a splint on his left ankle. He is on pain medication for that condition. He has not yet seen orthopedics and does not have an appointment. He would like to see orthopedics at this hospital. No prior similar abdominal pain. No history of abdominal surgeries. Pt admitted for urology and ortho consult. Hospital Course Hospital Course: Laboratory Tests 04/19/20 04/19/20 04/19/20 12:11 12:11 12:11 WBC 8.8 RBC 4.66 Hgb 14.7 Hct 42.6 MCV 91.3 MCH 31.4 H MCHC 34.4 RDW 14.1 Plt Count 113 L MPV 9.5 Neut % (Auto) 69.5 Lymph % (Auto) 17.6 [place] % (Auto) 10.3 H Eos % (Auto) 2.5 Baso % (Auto) 0.2 Neut # (Auto) 6.1 Lymph # (Auto) 1.5 [place] # (Auto) 0.9 Eos # (Auto) 0.2 Baso # (Auto) 0.0 Sodium 138 Potassium 4.1 Chloride 105 Carbon Dioxide 28 Anion Gap 9.1 BUN 23 H Creatinine 1.90 H Estimated Creat Clear 44 Estimated GFR 38 L Est GFR ( Amer) 46 L Glucose 101 H POC Glucose Calcium 8.8 Total Bilirubin 1.1 AST 27 ALT 20 Alkaline Phosphatase 50 Total Protein 6.0 L Albumin 3.4 L Globulin 2.6 Albumin/Globulin Ratio 1.3 Amylase 57 Lipase 34 Urine Color Urine Appearance Urine pH Ur Specific [place] Urine Protein Urine Glucose (UA) Urine Ketones Urine Blood Urine Nitrate Urine Bilirubin Urine Urobilinogen Ur Leukocyte Esterase Urine RBC Urine WBC Ur Squamous Epith Cells Amorphous Sediment Urine Bacteria Urine Mucus SARS-CoV-2 IgG Ab (Rapid) Negative SARS-CoV-2 IgM Ab (Rapid) Negative 04/19/20 04/19/2020 14:45 17:45 06:16 WBC RBC Hgb Hct MCV MCH MCHC RDW Plt Count MPV Neut % (Auto) Lymph % (Auto) [place] % (Auto) Eos % (Auto) Baso % (Auto) Neut # (Auto) Lymph # (Auto) [place] # (Auto) Eos # (Auto) Baso # (Auto) Sodium 136 Potassium 4.8 Chloride 108 H Carbon Dioxide 21 L D Anion Gap 11.8 BUN 24 H Creatinine 1.60 H Estimated Creat Clear 52 Estimated GFR 47 L Est GFR ( Amer) 57 L D Glucose 94 POC Glucose Calcium 8.4 Total Bilirubin AST ALT Alkaline Phosphatase Total Protein Albumin Globulin Albumin/Globulin Ratio Amylase Lipase Urine Color Yellow Yellow Urine Appearance Clear Clear Urine pH 6.0 5.5 Ur Specific [place] >= 1.030 >= 1.030 Urine Protein Negative Negative Urine Glucose (UA) Negative Negative Urine Ketones Negative Negative Urine Blood 2+ 1+ Urine Nitrate Negative Negative Urine Bilirubin Negative Negative Urine Urobilinogen 0.2 0.2 Ur Leukocyte Esterase Negative Negative Urine RBC 3-5 3-5 Urine WBC 3-5 Ur Squamous Epith Cells Occasional 5-10 Amorphous Sediment Trace 1+ Urine Bacteria None Urine Mucus 1+ 1+ SARS-CoV-2 IgG Ab (Rapid) SARS-CoV-2 IgM Ab (Rapid) 04/21/20 04/22/20 04/22/20 21:08 06:27 06:27 WBC 5.5 D RBC 4.19 L Hgb 12.5 L Hct 38.4 L MCV 91.5 MCH 29.8 MCHC 32.6 RDW 13.1 Plt Count 116 L MPV 10.5 H Neut % (Auto) 74.1 Lymph % (Auto) 16.7 J[place] % (Auto) 8.0 Eos % (Auto) 1.0 Baso % (Auto) 0.2 Neut # (Auto) 4.1 Lymph # (Auto) 0.9 Jasper # (Auto) 0.4 Eos # (Auto) 0.1 Baso # (Auto) 0.0 Sodium 136 Potassium 4.2 Chloride
--- NOTE | 2020-04-24 13:24 | P.PN_ITS ---
Subjective Date: 04/24/20 Time: 13:00 Principal diagnosis: Bimalleolar fracture, left ankle Interval history: Status post ORIF left ankle, postop day 1. Patient says he is doing well and reports no problems in relation to his left ankle. He reports minimal pain and says it is well controlled with as needed pain medication. I understand he is being discharged today. No history of any fevers, chills or rigors. No history of any distal tingling or numbness. He is eating and drinking well. PN: Obj Ex Vital signs: Temp Pulse Resp BP Pulse Ox 98.5 F 80 18 148/83 H 96 04/24/20 11:16 04/24/20 11:16 04/24/20 13:03 04/24/20 11:16 04/24/20 11:16 Narrative: Laboratory Results - last 24 hr 04/24/20 06:04: WBC 6.9 D, RBC 4.33 L, Hgb 13.3 L, Hct 39.0 L, MCV 89.9, MCH 30.8, MCHC 34.2, RDW 13.8, Plt Count 156 D, MPV 10.7 H, Neut % (Auto) 81.4 H, Lymph % (Auto) 12.1, [place] % (Auto) 6.0, Eos % (Auto) 0.4, Baso % (Auto) 0.1, Neut # (Auto) 5.6, Lymph # (Auto) 0.8, [place] # (Auto) 0.4, Eos # (Auto) 0.0, Baso # (Auto) 0.0 04/24/20 06:04: Sodium 138, Potassium 3.5, Chloride 108 H, Carbon Dioxide 22, Anion Gap 11.5, BUN 19, Creatinine 0.90, Estimated Creat Clear 93, Estimated GFR 91, Est GFR ( Amer) 110 D, Glucose 108 H, Calcium 8.3 L Exam General appearance: alert, active, awake, no acute distress; morbidly obese Cardiovascular: regular rate & rhythm, normal peripheral pulses Respiratory: No respiratory distress noted, speaks in full sentences ABD: soft and non tender Neuro: alert, awake, oriented x 3 On examination of the left ankle, he is in a well fitting short leg splint. He reports no problems with the splint. No bleeding or soakage noted. Thigh is soft and nontender. Patient has good range of active toe movements. No stretch pain or signs of compartment syndrome noted. Capillary refill is brisk. Sensation is intact to light touch throughout. The toes are pink and warm. - Urinary Catheter Management Coude Cath placed during this visit: no German Cath placed during this visit: no Progress Note: A&P (1) Left ureteral calculus Status: Acute (2) Closed left ankle fracture Status: Acute (3) BMI greater than 40 Status: Acute (4) Obesity Status: Acute Assessment and Plan for All Diagnoses:: I have reviewed the clinical and operative findings and procedure performed progress with the patient. Patient is doing well from an orthopedic standpoint and reports no problems. Mobilize nonweightbearing on the left lower extremity as comfortable. Continue elevation, icing, active toe movements and as needed pain medication. DVT prophylaxis as per admitting physician. I understand patient is being discharged today. Follow-up in my office in 7 to 10 days? time. Please feel free to call our office at [phone] for any orthopaedic questions. Continue medical management as per Dr. Rai.
[2020-04-24 15:36] LABS: Coronavirus 19 IgG Antibody Negative (Negative); Coronavirus 19 IgM Antibody Negative (Negative)
== END 2020-04-24 15:35 | DRG 660 ==
LOC: ER 15:55 → 2ND 16:06
PROVIDERS: Nurse Practitioner Family; Orthopaedic Surgery; Urology; Admitting Provider Emergency Medicine; Emergency Provider Emergency Medicine; PCP Nurse Practitioner; Visit Provider Emergency Medicine
PROC: 0T778DZ Dilation of Left Ureter with Intraluminal Device, Via Natural or Artificial Opening Endoscopic (ICD-10-PCS; CPT 52352; principal; 2020-04-21 15:15)
PROC: 0QSK04Z Reposition Left Fibula with Internal Fixation Device, Open Approach (ICD-10-PCS; principal; 2020-04-23 13:30)
DX: N20.1 Calculus of ureter (principal); Z68.42 Body mass index [BMI] 45.0-49.9, adult; S82.842A Displaced bimalleolar fracture of left lower leg, initial encounter for closed fracture; I10 Essential (primary) hypertension; E66.9 Obesity, unspecified; W17.89XA Other fall from one level to another, initial encounter; Z87.81 Personal history of (healed) traumatic fracture; N13.5 Crossing vessel and stricture of ureter without hydronephrosis
CPT/HCPCS: 52356; 52344; 27814; 36415; 73600; 73610; 74018; 74177; 76000; 80048; 80053; 81001; 82150; 82962; 83690; 85025; 86328; 96365; 96375; 96376; 97162; 97166; 97530; 99282; C1713; C1776; C2617; J2405; J2710; Q9967

== ENCOUNTER 2020-04-27 08:30 | Day surgery (SDC) | payer MEDICARE, MEDICAID, SELFPAY ==
[2020-04-24 15:25] VITALS: BMI 47.7
[2020-04-27 08:58] VITALS: BP 139/77; PULSE 96; RESP 18; TEMP 36.6; O2SAT 96
--- NOTE | 2020-04-27 09:40 | SUR.PREOP ---
Pt. ate breakfast at 0630 am this morning, per Dr. Wei, pt. will be rescheduled for 05/01/20 at 1045 am.
--- NOTE | 2020-04-27 09:45 | SUR.PREOP ---
NOTIFIED SUNI DEAN, PT'S MOTHER AND DIANE AT [facility]. [facility] NOTIFIED FOR TRANSPORT BACK TO FACILITY. PT RESTING AT PRESENT WITH EYES CLOSED, NO C/O.
--- NOTE | 2020-04-27 10:35 | SUR.PREOP ---
PT RESTING IN BED, STILL AWAITING [facility] FOR TRANSPORT TO [facility]. HAVE CHECKED ON PT T/O STAY IN PREOP. PT HAING DISCOMFORT IN GROWN AREA/LOWER ABDOMEN AREA, REQUESTED WATER. WATCHING CARTOONS AND SLEEPING OFF AND ON.
--- NOTE | 2020-04-27 12:19 | HMH.OPNOTE ---
Date of procedure: 04/27/20 Pre-op Diagnosis:: Left ureteral stone Post-op Diagnosis:: Left ureteral stone Procedure performed:: Procedure not performed today as patient ate breakfast before coming to the hospital. Surgeon:: Ford Wei MD Anesthesia: none Estimated blood loss (mL): 0 Operative findings:: Procedure canceled Operative note:: Procedure canceled Condition: stable Disposition: no change (Patient's procedure canceled due to the fact that he ate breakfast before coming to the hospital today.) Complications:: None
== END 2020-06-08 09:40 | disposition home or self-care (01) ==
LOC: OR 08:32
PROVIDERS: PCP Emergency Medicine; Visit Provider Urology
PROC: (CPT 52352; principal; 2020-04-27 10:00)
DX: N20.1 Calculus of ureter (principal); Z53.8 Procedure and treatment not carried out for other reasons; Z91.19 Patient's noncompliance with other medical treatment and regimen
CPT/HCPCS: 52000

== ENCOUNTER 2020-05-01 09:01 | Day surgery (SDC) | payer MEDICARE, MEDICAID, SELFPAY ==
[2020-04-28 10:59] VITALS: BMI 47.7
[2020-05-01] VITALS (18 sets, daily range): BP systolic 137–233; BP diastolic 74–160; PULSE 56–78; RESP 13–19; TEMP 36.4–43; O2SAT 93–98
--- NOTE | 2020-05-01 10:56 | HMH.ANESCL ---
[facility] Anesthesia Checklist - Patient Identification Patient Identification: Arm Band, Verbal (Name & ) - Structural Data Admitted From: Long-term Nursing Facility Planned Operative Procedure/s: cysto Consent for Planned Operative Procedure(s) Verified: Yes Verified Documents: History and Physical - NPO Status Verified Time NPO: 00:00 - Additional verifications Patient : No Anesthesia Reactions: No Hx Blood Transfusions: No Blood Transfusion Reaction: No Cephalosporin Allergy: No Previous Colonoscopy: No - Cardiovascular Assessment Heart Sounds: S1 & S2 Pulse Strength: Baseline Pulse Rhythm: Regular - Airway Assessment C-Spine Mobility Assessed: No TMJ Mobility Assessed: No Dentition: Poor Dentition - Neurological Assessment Level of Consciousness: Awake, Alert, Lethargic Hx Seizures: No Numbness or tingling in extremities: No - Anesthesia Plan Anesthesia Risk discussed: Yes Anesthesia Plan: Verified ASA Class: III Anesthesia Type: General [facility] History I have reviewed the patient's past medical history: Yes Medical History: Reports:: Hypertension, Lung Disease (QUAN-cpap hs) Denies:: Cancer, Diabetes Mellitus Type 1, Diabetes Mellitus Type 2, Internal Pacemaker, MRSA, Seizures *Have you ever received a pneumonia vaccine?: No *Have you received a flu vaccine this season?: Yes Other Medical History: Denies: Blood Transfusion Reaction Anesthesia experience/problems:: none Other Surgeries: Yes: Other. No: Pacemaker Amputation: No Fractures: Yes (L ankle) - *Social History Smoking Status: Never smoker Alcohol Intake: never Substance Use Type: denies use *Occupational Status:: disabled Housing: assisted living facility Household Members: family *Travel in the last 8 weeks: None Family Hx:: Cancer
--- NOTE | 2020-05-01 13:19 | P.PN_ITS ---
[facility] Anesthesia Record Part I Intake, IV Amount: 800 Estimated blood loss (mL): 0 Urine output (mL): 0 Blood Products used (#): none Blood Pressure: 190/105 SaO2: 93 Pulse Rate: 59 Respiratory Rate: 16 Temperature: 98.2 F Patient is:: Drowsy, Nasal O2, Stable Stable to PACU at:: 13:15
--- NOTE | 2020-05-01 13:19 | XR_ITS ---
PROCEDURE: XR ABDOMEN MIN 2V CLINICAL INDICATION: Stent placement COMPARISON: No exams were available for comparison FINDINGS: Fluoroscopy: 51 seconds There are 3 images submitted 1 showing a ureteral scope in place on the left with a wire the lower pelvis the 2nd showing a ureteral stent with the catheter in the lower pelvic region on left IMPRESSION: Status post left-sided stent placed. Dictated by: Landen Sal MD 05/02/2020 09:32 Landen Sal MD in [place] 05/02/2020 09:32
--- NOTE | 2020-05-01 15:55 | P.OP_ITS ---
Date of procedure: 05/01/20 Pre-op Diagnosis:: Left ureteral stone Post-op Diagnosis:: Left ureteral stone Procedure performed:: Left ureteroscopy with laser lithotripsy, stone extraction and left stent placement/cystoscopy with left stent removal Surgeon:: Ford Wei MD MENAGERIE SUPERINTENDENT:: Byron Carvalho Anesthesia: GETA Estimated blood loss (mL): 0 Clinical Note:: Patient is a 44-year-old white male with history of left ureteral stone. He underwent attempted ureteroscopy stone extraction 2 weeks ago but stone was too high in the ureter and too narrow to allow the ureteroscope access so a stent was placed and he returns today for ureteroscopy and stone extraction. Operative findings:: Patient with high bladder neck and access again to the stone was difficult due to the patient's body habitus but we were able to place the ureteroscope up to the stone and fragment the stone and remove all the fragments. The stent was removed prior to procedure and replaced at the end. Operative note:: Patient taken to the operating room after informed consent was obtained. Placed on the operating table in the supine position and general anesthesia administered. Antibiotics and sequential compression devices placed. Then placed into the dorsolithotomy position and prepped and draped in the standard surgical fashion. The 25 Lithuanian cystoscope sheath was passed into the urethra after dilating the distal urethra to 28 Lithuanian. Scope passed to the bladder neck which was noted to be quite high and was able to be manipulated into the bladder. A flexible grasper was passed through the scope and the left ureteral stent was grasped and removed to the urethral meatus. The end of the stent was then cannulated with a 0.035 guidewire and passed cephalad through the stent and into the left renal pelvis which was visualized under fluoroscopy. The stent was removed and our semirigid ureteroscope was then passed into the bladder and into the left ureter. We again passed the ureteroscope into the left ureter but there was some angulation of the ureter which made passing it more proximally very diffic ult. The rigid ureteroscope was removed and an 04/24 navigator ureteral sheath then passed over a second guidewire that was placed. The flexible ureteroscope was passed through the sheath and into the ureter. Scope passed up to the kidney without difficulty and no stone was visualized above the sheath. On removing the scope we observe the ureter in its entirety while pulling the sheath back as well and the stone was noted to be just below the pelvic brim. Triceps graspers were used to grasp the stone and it was brought down a little more distally and it was then thought that I could get the semirigid ureteroscope up to the stone in its current location. So the flexible scope and sheath were removed and the semirigid ureteroscope passed into the left ureter and was able to pass it up to the level of the stone. The 200 nm laser fiber was used to fragment the stone into small pieces and the 1.9 Lithuanian stone basket then used to basket all the stone fragments out of the ureter. Scope then removed and the cystoscope was replaced over the guidewire and a 6 x 26 Lithuanian stent was passed over the guidewire and under fluoroscopy. The wire was removed and a good curl was noted proximally and distally. String was left on for later removal and a Tegaderm was used to tape it to the glans penis. Urojet was placed into the urethra. The patient tolerated the procedure well there are no complications. Stone was sent off for evaluation as it was not well seen on fluoroscopic images. Condition: stable Disposition: same day Specimens:: Stone Complica
--- NOTE | 2020-05-01 18:27 | P.PN_ITS ---
[facility] Anesthesia Record Part II Discharge Time: 14:00 Destination: Surgical Day Care (OP Surgery) PACU nurse assessment reviewed?: Yes Patient Condition:: Good Anesthesia Complications:: None Swallowing reflex intact?: Yes Cyanosis?: No Blood Pressure: 184/103 Pulse Rate: 59 Temperature: 98.2 F Mental Status: Alert & Oriented Pain level:: 0 Nausea and/or vomitting:: None Intake, IV Amount: 0
[2020-05-23 06:34] LABS: Specimen Type LEFT URETER
[2020-05-23 06:35] LABS: Photo TO FOLLOW
== END 2020-05-01 15:30 | disposition home or self-care (01) ==
LOC: OR 09:03
PROVIDERS: PCP Nurse Practitioner; Visit Provider Urology
PROC: (CPT 52352; principal; 2020-05-01 10:45)
DX: N20.1 Calculus of ureter (principal); I10 Essential (primary) hypertension; G47.33 Obstructive sleep apnea (adult) (pediatric); Z80.9 Family history of malignant neoplasm, unspecified
CPT/HCPCS: 52310; 74019; 76000; 82370; 96374; C2617; J2405

== ENCOUNTER → 2020-05-05 10:20 | Outpatient (CLI) | payer MEDICARE, MEDICAID, SELFPAY ==
--- NOTE | 2020-05-05 10:27 | XR_ITS ---
PROCEDURE: XR ANKLE LT MIN 3V CLINICAL INDICATION: LT ankle FX Follow-up fracture/ORIF COMPARISON: CR XR ANKLE LT MIN 3V from 04/19/2020 FINDINGS: There has been interval placement of a lateral and medial bone plate as well as a screw within the medial malleolar region. And I am christiano is present in the distal tibia. There is good alignment fracture fragments. There is an overlying cast in place. IMPRESSION: Good alignment status post ORIF distal tib fib Dictated by: Landen Sal MD 05/05/2020 15:29 Landen Sal MD in [place] 05/05/2020 15:29
== END ==
PROVIDERS: PCP Nurse Practitioner; Visit Provider Orthopaedic Surgery
DX: S82.892A Other fracture of left lower leg, initial encounter for closed fracture
CPT/HCPCS: 73610

== ENCOUNTER → 2020-05-15 13:58 | Outpatient (CLI) | payer MEDICARE, MEDICAID, SELFPAY ==
--- NOTE | 2020-05-15 14:07 | XR_ITS ---
PROCEDURE: XR KUB CLINICAL INDICATION: KIDNEY STONE Left flank pain COMPARISON: CT CT ABDOMEN PELVIS W CON from 04/19/2020 FINDINGS: Nonspecific bowel gas pattern. There is a mild amount of retained colonic feces. Previously noted left distal ureteral stone is no longer identified. IMPRESSION: Left distal ureteral calculus no longer identified Dictated by: Ladnen Sal MD 05/15/2020 15:13 Landen Sal MD in [facility] 05/15/2020 15:13
== END ==
PROVIDERS: PCP Nurse Practitioner; Visit Provider Urology
DX: N20.0 Calculus of kidney (principal)
CPT/HCPCS: 74018

== ENCOUNTER → 2020-06-17 09:10 | Outpatient (CLI) | payer MEDICARE, MEDICAID, SELFPAY ==
--- NOTE | 2020-06-17 09:17 | XR_ITS ---
PROCEDURE: XR ANKLE LT MIN 3V CLINICAL INDICATION: sp ORIF LT ankle, dos 04/23/2020, OUT OF CAST COMPARISON: CR XR ANKLE LT MIN 3V from 04/19/2020 CR XR ANKLE LT MIN 3V from 05/05/2020 FINDINGS: The cast has been removed. Lateral fibular bone plate mural tibial bone plate and intramedullary christiano remain in place along with a cortical screw stabilizing the medial malleolar fracture. Fracture line is somewhat less apparent. There is an old fracture of the distal tibia. IMPRESSION: Good alignment status post ORIF distal tib fib as described above Dictated by: Landen Sal MD 06/17/2020 18:39 Landen Sal MD in [place] 06/17/2020 18:39
== END ==
PROVIDERS: PCP Emergency Medicine; Visit Provider Orthopaedic Surgery
DX: S82.892A Other fracture of left lower leg, initial encounter for closed fracture (principal); Z09 Encounter for follow-up examination after completed treatment for conditions other than malignant neoplasm
CPT/HCPCS: 73610

== ENCOUNTER 2020-06-17 10:11 | Outpatient (RCR) | payer MEDICARE, MEDICAID, SELFPAY | END 2020-06-17 11:00 | disposition home or self-care (01) | LOC: PT 10:11 | PROVIDERS: Visit Provider Orthopaedic Surgery | DX: Z09 Encounter for follow-up examination after completed treatment for conditions other than malignant neoplasm (principal); M25.572 Pain in left ankle and joints of left foot | CPT/HCPCS: 97760 ==

== ENCOUNTER 2020-07-03 11:36 | Emergency (ER) | payer MEDICARE, MEDICAID, SELFPAY ==
[2020-07-03 11:38] VITALS: BP 122/78; PULSE 62; RESP 18; TEMP 37.1; O2SAT 98; BMI 47.0
--- NOTE | 2020-07-03 11:39 | HMH.EDGENADL ---
ED Disposition Clinical Impression: Cellulitis Qualifiers: Site of cellulitis: extremity Site of cellulitis of extremity: lower extremity Laterality: right Qualified Code(s): L03.115 - Cellulitis of right lower limb Disposition: Home, Self-Care Condition on Discharge: Good Additional Instructions: Use antibiotic as prescribed. If any worsening symptoms such as increased pain, decreased ability to range ankle, decreased ability to bear weight, fever/chills, other systemic signs of illness, spread of redness, or any other new concerning symptoms please immediately report back to our emergency department. Prescriptions: cephALEXin [cephALEXin 500mg capsule*] 500 mg PO Q6H 7 Days #28 cap Transmission Status: Pending to [facility] Referrals: Palak Martinez APRN [Primary Care Provider] - - Critical Care Critical Care Time: No Attestation: On , the high probability of a clinically significant, sudden or life threatening deterioration of the following system(s) required my full and direct attention, intervention and personal management. The time I documented below is in addition to time spent performing reported procedures but includes the following listed in this critical care notation. Medical Decision Making - Medical Records Medical records reviewed: Yes: I reviewed the patient's medical records. - Talha Inquiry Pt receiving controlled substance: No Vital Signs: 07/03/20 11:38 07/03/20 12:24 07/03/20 13:50 Temperature 98.8 F Temperature Source Oral Pulse Rate [Left Radial] 62 62 54 L Respiratory Rate 18 20 16 Blood Pressure [Right Arm] 122/78 119/78 124/70 Blood Pressure Mean [Right Arm] 92 91 88 Blood Pressure Source [Right Arm] Automatic Cuff Blood Pressure Position [Right Arm] Sitting 02 Sat by Pulse Oximetry 98 96 100 Oxygen Delivery Method Room Air Medical Decision Narrative: patient is a 44-year-old male presenting with right lower extremity swelling and pain. Differential diagnosis does include DVT versus chronic venous insufficiency versus lymphedema versus infectious process versus traumatic injury. Patient with no overlying skin changes such as erythema. No warmth to touch. No reduced range of active or passive range of motion of the right ankle/foot. At this time, DVT is of concern as patient does have injury to his left lower extremity and has been somewhat immobile over the past several weeks. Ultrasound will be obtained to ensure no DVT. Also plain films of patient's ankle/foot will also be obtained to ensure no bony injury or other acute abnormalities. DVT study negative. X-ray demonstrates no bony abnormality but there is some swelling noted to the dorsum of patient's foot. At this time, patient could be suffering from some early cellulitis as there is mild erythema noted to the lateral aspect of his right foot with swelling as noted above. I do believe a conservative approach would be to start patient on Keflex as he has a nonpurulent cellulitis suspicious for MSSA/strep infection. I have urged patient to elevate his foot at night, use ice, and compression socks. Patient and family bedside verbalized understanding agree. He does need to follow-up with his PCP for recheck within 24 to 48 hours. If any worsening symptoms such as increased pain, decreased ability to range ankle, decreased ability to bear weight, fever/chills, other systemic signs of illness, spread of redness, or any other new concerning symptoms he is to immediately report back to our emergency department. Assessment: Right foot swelling Cellulitis Disposition: Home on antibiotics with follow-up General Adult HPI - General Stated complaint: R ankle pain/swelling Time Seen by Provider: 07/03/20 12:04 - History of Present Illness HPI narrative: Patient 44-year-old male history of obesity presenting with right lower leg complaint. Patient recently had injury to his left lower extremity and was
--- NOTE | 2020-07-03 12:01 | XR_ITS ---
PROCEDURE: XR FOOT RT MIN 3V CLINICAL INDICATION: R ankle/foot pain lateral aspect COMPARISON: CR XR ANKLE RT MIN 3V from 07/03/2020 FINDINGS: No fracture or dislocation. No lytic or blastic change. There is normal mineralization. Mild soft tissue swelling is present at the mid foot dorsally. Minimal metatarsus varus. There is an intramedullary christiano in the distal tibia with an old fracture of the distal tibia and mid shaft of the fibula. Other findings:None. IMPRESSION: Soft tissue swelling along the dorsal aspect of the foot with postsurgical changes of the distal tib fib. No acute finding Dictated by: Landen Sal MD 07/03/2020 12:57 Landen Sal MD in [place] 07/03/2020 12:57
[2020-07-03 12:24] VITALS: BP 119/78; PULSE 62; RESP 20; O2SAT 96
--- NOTE | 2020-07-03 12:35 | CA_ITS ---
APPROVED REPORT Right Lower Extremity Venous Study for DVT. Cushion Installer: DARYL ShearerT Indications Lower Extremity Pain: Right Lower Extremity Edema: Right rule out dvt,PAIN SWELLING RT ANKLE/FOOT,S/P FX LLE Risk Factors Obesity Vein Imaging CFV (R): compressive, spontaneous, phasic, augmentation FEM (R): compressive, spontaneous, phasic, augmentation POP (R): compressive, spontaneous, phasic, augmentation PTV (R): Compressible GSV (R): Compressible Peroneals (R):Compressible GAS (R): Compressible Findings Study suggests no evidence of DVT of the right lower extremity. Study suggests no evidence of SVT of the right lower extremity. Conclusion Study suggests no evidence of DVT of the right lower extremity. Study suggests no evidence of SVT of the right lower extremity. Critical Notification Physician Notified Date: 07/03/2020 Time: 13:22 Physician Name: Dr Parker Electronically signed by : Landen Sal MD 07/03/2020 15:18:34
--- NOTE | 2020-07-03 12:36 | PC.NURSE ---
called vascular for Doppler study
--- NOTE | 2020-07-03 12:58 | PC.NURSE ---
vascular here to do doppler study
[2020-07-03 13:50] VITALS: BP 124/70; PULSE 54; RESP 16; O2SAT 100
[2020-07-03 14:30] VITALS: BP 139/78; PULSE 78; RESP 16; TEMP 36.6; O2SAT 98
== END 2020-07-03 14:32 | disposition home or self-care (01) ==
PROVIDERS: Emergency Provider Emergency Medicine; PCP Nurse Practitioner
DX: L03.115 Cellulitis of right lower limb (principal); F41.9 Anxiety disorder, unspecified; E78.5 Hyperlipidemia, unspecified; I10 Essential (primary) hypertension; G40.909 Epilepsy, unspecified, not intractable, without status epilepticus; Z87.442 Personal history of urinary calculi; Z79.899 Other long term (current) drug therapy
CPT/HCPCS: 73610; 73630; 93971; 99282

== ENCOUNTER → 2020-07-29 10:12 | Outpatient (CLI) | payer MEDICARE, MEDICAID, SELFPAY ==
--- NOTE | 2020-07-29 10:16 | XR_ITS ---
PROCEDURE: XR ANKLE LT MIN 3V CLINICAL INDICATION: sp ORIF LT ankle, dos 04/23/2020 COMPARISON: CR XR ANKLE LT MIN 3V from 04/19/2020 CR XR ANKLE LT MIN 3V from 05/05/2020 CR XR ANKLE LT MIN 3V from 06/17/2020 CR XR ANKLE RT MIN 3V from 07/03/2020 FINDINGS: There is redemonstration of plate and screw, there is complete or near complete fusion of the bone across the fracture. There is questionable slight retraction of the middle screw of the medial fixation plate. There is persistent distal tibial cortical thickening similar to the contralateral tibia. There is no acute fracture. IMPRESSION: Questionable slight amount of movement of the middle medial hardware screw. Near-complete healing across the bimalleolar fracture. Dictated by: Annabelle Lincoln MD 07/29/2020 11:23 Annabelle Lincoln MD in [place] 07/29/2020 11:23
== END ==
PROVIDERS: PCP Nurse Practitioner; Visit Provider Orthopaedic Surgery
DX: Z09 Encounter for follow-up examination after completed treatment for conditions other than malignant neoplasm (principal); S82.892D Other fracture of left lower leg, subsequent encounter for closed fracture with routine healing
CPT/HCPCS: 73610

== ENCOUNTER 2020-09-29 11:00 | Outpatient (RCR) | payer MEDICARE, MEDICAID, SELFPAY ==
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
== END 2020-09-29 14:07 | disposition home or self-care (01) ==
LOC: PT.CARL 11:00
PROVIDERS: PCP Physician Assistant; Visit Provider Orthopaedic Surgery
DX: S82.892D Other fracture of left lower leg, subsequent encounter for closed fracture with routine healing (principal)
CPT/HCPCS: 97010; 97014; 97110; 97112; 97116; 97140; 97163; 97164; G0283

== ENCOUNTER 2021-01-13 15:28 | Emergency (ER) | payer MEDICARE, MEDICAID, SELFPAY ==
[2021-01-13] VITALS (8 sets, daily range): BP systolic 136–166; BP diastolic 87–106; PULSE 62–88; RESP 16–18; TEMP 36.6–36.9; O2SAT 96–99; BMI 46.0
[2021-01-13 16:06] LABS: Coronavirus 19, PCR Not Detected (NotDetected); Influenza A, PCR Not Detected (NotDetected); Influenza B, PCR Not Detected (NotDetected)
[2021-01-13 16:59] LABS: Basophils % 0.7 % (0.1-2.0); Eosinophils # 0.3 K/mm3 (0.0-0.4); Eosinophils % 6.1 % (0.1-12.0); Hematocrit 40.5 % (42.0-52.0); Hemoglobin 14.2 g/dL (14.1-18.0); Lymphocytes # 1.5 K/mm3 (0.7-4.5); Lymphocytes % 29.6 % (10-50); Mean Corpuscular Hemoglobin 29.7 pg (27.0-31.2); Mean Corpuscular Volume 84.7 fl (80-94); Monocytes # 0.4 K/mm3 (0.1-1.0); Monocytes % 6.8 % (1.7-9.3); Neutrophils # 2.9 K/mm3 (1.8-7.8); Neutrophils % 56.8 % (37.0-80.0); Platelet Count 135 K/mm3 (142-424); Red Blood Count 4.79 M/mm3 (4.60-6.20); Red Cell Distribution Width 13.7 % (11.5-17.5); White Blood Count 5.1 K/mm3 (4.8-10.8)
[2021-01-13 17:07] LABS: Alanine Aminotransferase 26 U/L (12-78); Albumin Level 3.8 g/dl (3.5-5.0); Albumin/Globulin Ratio 1.7 (1.1-1.8); Alkaline Phosphatase 71 U/L (38-126); Aspartate Amino Transferase 28 U/L (17-59); Bilirubin,Total 1.2 mg/dl (0.2-1.3); Blood Urea Nitrogen 12 mg/dl (9-20); Calcium 8.5 mg/dl (8.4-10.2); Carbon Dioxide 27 mmol/L (22.0-30.0); Chloride 107 mmol/L (98-107); Creatinine Clearance Estimated 85 mL/min (50-200); Estimated Glomerular Filt Rate 80 ml/min (>60); GFR (African American) 97 ML/MIN (>60); Globulin 2.3 g/dL (1.3-3.2); Glucose 100 mg/dl (74-100); Lipase 68 U/L (23-300); Sodium 142 mmol/L (136-145); Total Protein,Serum 6.1 g/dl (6.3-8.2)
--- NOTE | 2021-01-13 17:29 | HMH.EDGENADL ---
ED Disposition Clinical Impression: Viral gastroenteritis Disposition: Home, Self-Care Condition on Discharge: Good Instructions: DI for Acute Abdominal Pain Additional Instructions: Stay well-hydrated. Follow-up with PCP in 2 to 3 days. Return to emergency department for fever, abdominal distention/bloating, blood per rectum. Referrals: Palak Martinez APRN [Primary Care Provider] - 3 days Time of Disposition: 19:13 - Critical Care Critical Care Time: No Attestation: On 01/13/21, the high probability of a clinically significant, sudden or life threatening deterioration of the following system(s) required my full and direct attention, intervention and personal management. The time I documented below is in addition to time spent performing reported procedures but includes the following listed in this critical care notation. Medical Decision Making - Talha Inquiry Pt receiving controlled substance: No Vital Signs: 01/13/21 15:30 01/13/21 15:50 01/13/21 16:01 Temperature 98.4 F Temperature Source Oral Pulse Rate 80 68 Pulse Rate [Left Radial] 85 Respiratory Rate 18 18 18 Blood Pressure 145/92 H 136/87 Blood Pressure [Left Arm] 145/92 H Blood Pressure Mean 101 103 Blood Pressure Mean [Left Arm] 109 Blood Pressure Source [Left Arm] Automatic Cuff Blood Pressure Position [Left Arm] Sitting 02 Sat by Pulse Oximetry 96 98 98 Oxygen Delivery Method Room Air 01/13/21 16:35 01/13/21 17:03 01/13/21 17:31 Temperature Temperature Source Pulse Rate 68 68 62 Pulse Rate [Left Radial] Respiratory Rate 18 18 18 Blood Pressure 147/93 H 166/98 H 163/96 H Blood Pressure [Left Arm] Blood Pressure Mean 111 115 114 Blood Pressure Mean [Left Arm] Blood Pressure Source [Left Arm] Blood Pressure Position [Left Arm] 02 Sat by Pulse Oximetry 98 98 99 Oxygen Delivery Method 01/13/21 18:01 Temperature Temperature Source Pulse Rate 62 Pulse Rate [Left Radial] Respiratory Rate 18 Blood Pressure 163/106 H Blood Pressure [Left Arm] Blood Pressure Mean 114 Blood Pressure Mean [Left Arm] Blood Pressure Source [Left Arm] Blood Pressure Position [Left Arm] 02 Sat by Pulse Oximetry 98 Oxygen Delivery Method - Lab Data Lab results reviewed: Yes: I reviewed the patient's lab results. Lab Results 01/13/21 16:00: SARS-CoV-2 (PCR) Not detected, Influenza A Untype (PCR) Not detected, Influenza Type B (PCR) Not detected 01/13/21 16:35: WBC 5.1, RBC 4.79, Hgb 14.2, Hct 40.5 L, MCV 84.7, MCH 29.7, MCHC 35.0, RDW 13.7, Plt Count 135 L, MPV 9.0, Neut % (Auto) 56.8, Lymph % (Auto) 29.6, [place] % (Auto) 6.8, Eos % (Auto) 6.1, Baso % (Auto) 0.7, Neut # (Auto) 2.9, Lymph # (Auto) 1.5, [place] # (Auto) 0.4, Eos # (Auto) 0.3, Baso # (Auto) 0.0 01/13/21 16:35: Sodium 142, Potassium 4.0, Chloride 107, Carbon Dioxide 27, Anion Gap 12.0, BUN 12, Creatinine 1.00, Estimated Creat Clear 85, Estimated GFR 80, Est GFR ( Amer) 97, Glucose 100, Calcium 8.5, Total Bilirubin 1.2, AST 28, ALT 26, Alkaline Phosphatase 71, Total Protein 6.1 L, Albumin 3.8, Globulin 2.3, Albumin/Globulin Ratio 1.7, Lipase 68 Result diagrams: 01/13/21 16:35 01/13/21 16:35 Orders (Tests/Meds): ED MEDICATIONS Generic Name Dose Route Start Last Admin Trade Name Freq PRN Reason Stop Dose Admin Lactated Ringer's 1,000 mls @ 999 mls/hr 01/13/21 17:30 01/13/21 17:46 Lactated Ringer's 1000 Ml Bag IV 01/13/21 18:30 999 mls/hr .Q1H1M LIDIA Administration Discontinued Medications Generic Name Dose Route Start Last Admin Trade Name Freq PRN Reason Stop Dose Admin Dicyclomine HCl 10 mg 01/13/21 17:28 01/13/21 17:46 Dicyclomine 10mg Capsule PO 01/13/21 17:29 10 mg ONCE ONE Administration Ketorolac Tromethamine 15 mg 01/13/21 17:28 01/13/21 17:46 Ketorolac 30mg/Ml Vial IV 01/13/21 17:29 15 mg ONCE ONE Administration Ondansetron HCl 4 mg 01/13/21 17:27 01/13/21 17:46 Ondansetr
== END 2021-01-13 19:25 | disposition home or self-care (01) ==
PROVIDERS: Emergency Provider Family Medicine; PCP Nurse Practitioner
DX: A08.4 Viral intestinal infection, unspecified (principal); I10 Essential (primary) hypertension; E78.5 Hyperlipidemia, unspecified; F41.9 Anxiety disorder, unspecified; Z79.899 Other long term (current) drug therapy
CPT/HCPCS: 80053; 83690; 85025; 96365; 96375; 99282; J2405; U0003

== ENCOUNTER → 2021-01-15 14:45 | Outpatient (CLI) | payer MEDICARE, MEDICAID, SELFPAY ==
--- NOTE | 2021-01-15 15:07 | XR_ITS ---
PROCEDURE: XR ABDOMEN MIN 2V CLINICAL INDICATION: GENERALIZED ABD PAIN COMPARISON: No exams were available for comparison FINDINGS: The bowel gas pattern is nonspecific. There is no evidence of obstruction. The hemidiaphragms are not covered by the upright views therefore, cannot exclude the possibility of a pneumoperitoneum. No acute bony anomalies or abnormal calcifications. IMPRESSION: No acute finding. Please see above for detail. Dictated by: Landen Sal MD 01/15/2021 18:22 Landen Sal MD in [place] 01/15/2021 18:22
[2021-01-15 16:07] LABS: Amylase 46 U/L (30-110); Lipase 65 U/L (23-300)
== END ==
PROVIDERS: PCP Nurse Practitioner; Visit Provider Nurse Practitioner
DX: R10.84 Generalized abdominal pain (principal)
CPT/HCPCS: 36415; 74019; 82150; 83690

== ENCOUNTER → 2021-02-16 08:14 | Outpatient (CLI) | payer MEDICARE, MEDICAID, SELFPAY ==
[2021-02-16 09:02] LABS: Basophils % 0.7 % (0.1-2.0); Eosinophils # 0.4 K/mm3 (0.0-0.4); Hematocrit 45.2 % (42.0-52.0); Hemoglobin 15.3 g/dL (14.1-18.0); Lymphocytes # 1.5 K/mm3 (0.7-4.5); Lymphocytes % 27.3 % (10-50); Mean Corpuscular Hemoglobin 30.4 pg (27.0-31.2); Mean Corpuscular Volume 89.5 fl (80-94); Mean Platelet Volume 9.8 fl (7.4-10.4); Monocytes # 0.4 K/mm3 (0.1-1.0); Monocytes % 7.1 % (1.7-9.3); Neutrophils # 3.2 K/mm3 (1.8-7.8); Neutrophils % 57.9 % (37.0-80.0); Platelet Count 176 K/mm3 (142-424); Red Blood Count 5.05 M/mm3 (4.60-6.20); Red Cell Distribution Width 13.5 % (11.5-17.5); White Blood Count 5.5 K/mm3 (4.8-10.8)
[2021-02-16 11:09] LABS: Alanine Aminotransferase 26 U/L (12-78); Albumin Level 3.8 g/dl (3.5-5.0); Albumin/Globulin Ratio 1.6 (1.1-1.8); Alkaline Phosphatase 70 U/L (38-126); Aspartate Amino Transferase 26 U/L (17-59); Bilirubin,Total 0.5 mg/dl (0.2-1.3); Blood Urea Nitrogen 12 mg/dl (9-20); Calcium 8.7 mg/dl (8.4-10.2); Carbon Dioxide 23 mmol/L (22.0-30.0); Chloride 109 mmol/L (98-107); Chol/HDL Ratio 3.4 (1-3.5); Cholesterol 110 mg/dl (140-200); Estimated Glomerular Filt Rate 72 ml/min (>60); GFR (African American) 87 ML/MIN (>60); Globulin 2.4 g/dL (1.3-3.2); Glucose 101 mg/dl (74-100); HDL Cholesterol 32 mg/dl (40-60); Sodium 143 mmol/L (136-145); Total Protein,Serum 6.2 g/dl (6.3-8.2); Triglycerides 102 mg/dl (30-150); VLDL Cholesterol 20 mg/dL (0-40)
[2021-02-16 11:20] LABS: Direct LDL Cholesterol 61.38 mg/dL (100-129)
[2021-02-17 06:12] LABS: Hemoglobin A1C 5.1 % (4.0-6.0)
[2021-03-06 15:45] LABS: Free Valproic Acid (Depakote) 5.9
== END ==
PROVIDERS: PCP Nurse Practitioner; Visit Provider Psychiatry & Neurology Psychiatry
DX: F31.32 Bipolar disorder, current episode depressed, moderate (principal); Z79.899 Other long term (current) drug therapy
CPT/HCPCS: 36415; 80053; 80061; 80165; 83036; 84443; 85025

== ENCOUNTER → 2021-05-25 10:08 | Outpatient (CLI) | payer MEDICARE, MEDICAID, SELFPAY ==
[2021-05-25 11:01] LABS: Basophils % 0.4 % (0.1-2.0); Eosinophils # 0.3 K/mm3 (0.0-0.4); Hematocrit 44.4 % (42.0-52.0); Hemoglobin 15.7 g/dL (14.1-18.0); Lymphocytes # 1.4 K/mm3 (0.7-4.5); Lymphocytes % 25.4 % (10-50); Mean Corpuscular HGB Conc 35.5 g/dL (31.8-35.4); Mean Corpuscular Hemoglobin 30.8 pg (27.0-31.2); Mean Corpuscular Volume 86.9 fl (80-94); Mean Platelet Volume 9.3 fl (7.4-10.4); Monocytes # 0.4 K/mm3 (0.1-1.0); Monocytes % 7.1 % (1.7-9.3); Neutrophils # 3.5 K/mm3 (1.8-7.8); Neutrophils % 61.2 % (37.0-80.0); Platelet Count 127 K/mm3 (142-424); Red Blood Count 5.11 M/mm3 (4.60-6.20); Red Cell Distribution Width 13.1 % (11.5-17.5); White Blood Count 5.6 K/mm3 (4.8-10.8)
[2021-05-25 12:13] LABS: Alanine Aminotransferase 21 U/L (12-78); Albumin Level 4.1 g/dl (3.5-5.0); Albumin/Globulin Ratio 1.8 (1.1-1.8); Alkaline Phosphatase 77 U/L (38-126); Anion Gap 12.9 mEq/L (5-15); Aspartate Amino Transferase 25 U/L (17-59); Bilirubin,Total 0.6 mg/dl (0.2-1.3); Blood Urea Nitrogen 11 mg/dl (9-20); Calcium 8.7 mg/dl (8.4-10.2); Carbon Dioxide 26 mmol/L (22.0-30.0); Chloride 105 mmol/L (98-107); Cholesterol 142 mg/dl (140-200); Estimated Glomerular Filt Rate 65 ml/min (>60); GFR (African American) 79 ML/MIN (>60); Globulin 2.3 g/dL (1.3-3.2); Glucose 101 mg/dl (74-100); HDL Cholesterol 47 mg/dl (40-60); Potassium 3.9 mmoL/L (3.5-5.1); Sodium 140 mmol/L (136-145); Total Protein,Serum 6.4 g/dl (6.3-8.2); Triglycerides 100 mg/dl (30-150); VLDL Cholesterol 20 mg/dL (0-40)
[2021-05-25 12:24] LABS: Valproic Acid, (Depakene) 33.2 ug/ml (50-100)
[2021-05-25 12:43] LABS: Thyroid Stimulating Hormone 1.18 uIU/mL (0.465-4.68)
== END ==
PROVIDERS: Visit Provider Psychiatry & Neurology Psychiatry
DX: F31.32 Bipolar disorder, current episode depressed, moderate (principal); Z79.899 Other long term (current) drug therapy
CPT/HCPCS: 36415; 80053; 80061; 80164; 83036; 84443; 85025

== ENCOUNTER → 2021-10-18 13:54 | Outpatient (CLI) | payer MEDICARE, MEDICAID, SELFPAY ==
--- NOTE | 2021-10-18 13:58 | CT_ITS ---
FINAL REPORT CLINICAL HISTORY: MIGRAINE FINDINGS: Axial images of the head were obtained without contrast. Coronal reformatted images were also obtained.This study was performed with techniques to keep radiation doses as low as reasonably achievable (ALARA). Individualized dose reduction techniques using automated exposure control or adjustment of mA and/or kV according to the patient''s size were employed. There is no evidence of intracranial hemorrhage or mass. The ventricular size is within normal limits. There is no evidence of shift of the midline structures. No abnormal extra axial fluid collection is identified. No skull abnormality is seen on the bone window images. There is a retention cyst or polyp in the left maxillary sinus. IMPRESSION: No acute intracranial abnormality. Reviewed, Interpreted and Dictated by Eugenio Sandy III, MD Transcribed by Vin Mackey Authenticated by Eugenio Sandy III, MD on 10/18/2021 04:37:20 PM [facility]
== END ==
PROVIDERS: PCP Nurse Practitioner; Visit Provider Nurse Practitioner
DX: G43.909 Migraine, unspecified, not intractable, without status migrainosus (principal)
CPT/HCPCS: 70450

== ENCOUNTER 2021-12-29 07:54 | Emergency (ER) | payer MEDICARE, MEDICAID, SELFPAY ==
[2021-12-29] VITALS (11 sets, daily range): BP systolic 99–143; BP diastolic 64–93; PULSE 60–90; RESP 18–20; TEMP 36.7–37; O2SAT 95–100; BMI 44.6
--- NOTE | 2021-12-29 08:11 | PC.NURSE ---
ED MD AT BEDSIDE FOR EVALUATION
--- NOTE | 2021-12-29 08:27 | HMH.EDGENADL ---
ED Disposition Clinical Impression: Gastroenteritis Disposition: Home, Self-Care Condition on Discharge: Good Instructions: DI for Nausea -- Adult Prescriptions: Ondansetron [Zofran 4mg ODT] 4 mg PO BIDP PRN #10 tab PRN Reason: Nausea Transmission Status: Pending to [facility] Referrals: Palak Martinez APRN [Primary Care Provider] - - Critical Care Critical Care Time: No Attestation: On 12/29/21, the high probability of a clinically significant, sudden or life threatening deterioration of the following system(s) required my full and direct attention, intervention and personal management. The time I documented below is in addition to time spent performing reported procedures but includes the following listed in this critical care notation. Medical Decision Making - Medical Records Medical records reviewed: Yes: I reviewed the patient's medical records. - Talha Inquiry Pt receiving controlled substance: No Vital Signs: 12/29/21 07:55 12/29/21 08:21 12/29/21 08:30 Temperature 98.6 F Temperature Source Oral Pulse Rate 82 77 Pulse Rate [Brachial] 90 Respiratory Rate 20 18 Blood Pressure 119/87 127/90 Blood Pressure [Left Arm] 99/64 L Blood Pressure Mean 97 103 Blood Pressure Mean [Left Arm] 75 Blood Pressure Source [Left Arm] Automatic Cuff Blood Pressure Position [Left Arm] Supine 02 Sat by Pulse Oximetry 96 95 97 Oxygen Delivery Method Room Air Room Air 12/29/21 09:00 12/29/21 09:31 12/29/21 09:40 Temperature Temperature Source Pulse Rate 75 64 66 Pulse Rate [Brachial] Respiratory Rate 19 18 Blood Pressure 120/81 135/89 139/85 Blood Pressure [Left Arm] Blood Pressure Mean 93 104 103 Blood Pressure Mean [Left Arm] Blood Pressure Source [Left Arm] Blood Pressure Position [Left Arm] 02 Sat by Pulse Oximetry 98 100 99 Oxygen Delivery Method Room Air 12/29/21 10:01 12/29/21 10:30 12/29/21 11:01 Temperature Temperature Source Pulse Rate 62 60 63 Pulse Rate [Brachial] Respiratory Rate Blood Pressure 117/84 133/85 129/88 Blood Pressure [Left Arm] Blood Pressure Mean 95 104 109 Blood Pressure Mean [Left Arm] Blood Pressure Source [Left Arm] Blood Pressure Position [Left Arm] 02 Sat by Pulse Oximetry 99 98 98 Oxygen Delivery Method Room Air Room Air Room Air - Lab Data Lab Results 12/29/21 08:20: WBC 7.2, RBC 5.18, Hgb 15.6, Hct 43.9, MCV 84.8, MCH 30.1, MCHC 35.5 H, RDW 13.5, Plt Count 158, MPV 9.3, Neut % (Auto) 75.2, Lymph % (Auto) 12.1, [place] % (Auto) 8.4, Eos % (Auto) 4.0, Baso % (Auto) 0.2, Neut # (Auto) 5.4, Lymph # (Auto) 0.9, [place] # (Auto) 0.6, Eos # (Auto) 0.3, Baso # (Auto) 0.0 12/29/21 08:20: Sodium 139, Potassium 3.1 L, Chloride 110 H, Carbon Dioxide 20 L, Anion Gap 12.1, BUN 15, Creatinine 1.50 H, Estimated Creat Clear 58, Estimated GFR 50 L, Est GFR ( Amer) 60, Glucose 115 H, Calcium 8.2 L, Total Bilirubin 0.6, AST 18, ALT 19, Alkaline Phosphatase 79, Total Protein 6.2 L, Albumin 3.7, Globulin 2.5, Albumin/Globulin Ratio 1.5, Lipase 61 12/29/21 09:33: Urine Color Yellow, Urine Appearance Clear, Urine pH 6.0, Ur Specific [place] <= 1.005, Urine Protein Negative, Urine Glucose (UA) Negative, Urine Ketones Negative, Urine Blood Negative, Urine Nitrate Negative, Urine Bilirubin Negative, Urine Urobilinogen 0.2, Ur Leukocyte Esterase Negative, Urine RBC None, Urine WBC None, Ur Squamous Epith Cells Occasional, Urine Bacteria Trace, Urine Mucus Trace Result diagrams: 12/29/21 08:20 12/29/21 08:20 Orders (Tests/Meds): ED MEDICATIONS Generic Name Dose Route Start Last Admin Trade Name Freq PRN Reason Stop Dose Admin Sodium Chloride 8 ml 12/29/21 08:13 Sodium Chloride 0.9% 10ml Vial IV 01/28/22 08:12 NEEDED PRN dilute pepcid Discontinued Medications Generic Name Dose Route Start Last Admin Trade Name Freq PRN Reason Stop Dose Admin Diphenhydramine HCl 25 mg
[2021-12-29 08:33] LABS: Basophils % 0.2 % (0.1-2.0); Eosinophils # 0.3 K/mm3 (0.0-0.4); Hematocrit 43.9 % (42.0-52.0); Hemoglobin 15.6 g/dL (14.1-18.0); Lymphocytes # 0.9 K/mm3 (0.7-4.5); Lymphocytes % 12.1 % (10-50); Mean Corpuscular HGB Conc 35.5 g/dL (31.8-35.4); Mean Corpuscular Hemoglobin 30.1 pg (27.0-31.2); Mean Corpuscular Volume 84.8 fl (80-94); Mean Platelet Volume 9.3 fl (7.4-10.4); Monocytes # 0.6 K/mm3 (0.1-1.0); Monocytes % 8.4 % (1.7-9.3); Neutrophils # 5.4 K/mm3 (1.8-7.8); Neutrophils % 75.2 % (37.0-80.0); Platelet Count 158 K/mm3 (142-424); Red Blood Count 5.18 M/mm3 (4.60-6.20); Red Cell Distribution Width 13.5 % (11.5-17.5); White Blood Count 7.2 K/mm3 (4.8-10.8)
--- NOTE | 2021-12-29 08:41 | PC.NURSE ---
PT MEDICATED AT THIS TIME, WARM BLANKET PROVIDED, ROOM DARKENED. PT WITHOUT FURTHER NEEDS. CALL LIGHT WITHIN REACH
[2021-12-29 08:42] LABS: Alanine Aminotransferase 19 U/L (12-78); Albumin Level 3.7 g/dl (3.5-5.0); Albumin/Globulin Ratio 1.5 (1.1-1.8); Alkaline Phosphatase 79 U/L (38-126); Anion Gap 12.1 mEq/L (5-15); Aspartate Amino Transferase 18 U/L (17-59); Bilirubin,Total 0.6 mg/dl (0.2-1.3); Blood Urea Nitrogen 15 mg/dl (9-20); Calcium 8.2 mg/dl (8.4-10.2); Carbon Dioxide 20 mmol/L (22.0-30.0); Chloride 110 mmol/L (98-107); Creatinine Clearance Estimated 58 mL/min (50-200); Estimated Glomerular Filt Rate 50 ml/min (>60); GFR (African American) 60 ML/MIN (>60); Globulin 2.5 g/dL (1.3-3.2); Glucose 115 mg/dl (74-100); Lipase 61 U/L (23-300); Potassium 3.1 mmoL/L (3.5-5.1); Sodium 139 mmol/L (136-145); Total Protein,Serum 6.2 g/dl (6.3-8.2)
--- NOTE | 2021-12-29 09:00 | PC.NURSE ---
Patient called out and said that his belly was still hurting. RN and aware.
--- NOTE | 2021-12-29 09:17 | PC.NURSE ---
pt lying in bed with light dimmed for comfort. Pain medicine given per mar
--- NOTE | 2021-12-29 09:18 | CT_ITS ---
FINAL REPORT TECHNIQUE: Axial images through the abdomen and pelvis were performed without contrast. This study was performed with techniques to keep radiation doses as low as reasonably achievable, (ALARA). Individualized dose reduction techniques using automated exposure control or adjustment of mA and/or kV according to the patient's size were employed. CLINICAL HISTORY: abdominal pain x 1 week with NVD COMPARISON: 04/19/2020 FINDINGS: ABDOMEN: There is calcified granuloma in the left lung base. The heart size is normal. Limited images of the liver are unremarkable. There are numerous gallstones in the gallbladder, new since previous. There is no evidence of gallbladder wall thickening. There is no biliary ductal dilatation. The spleen is normal. No adrenal mass is identified. The aorta is normal in caliber. There is no significant free fluid. There is no nephrolithiasis. There is no hydronephrosis. PELVIS: The appendix is normal. There are multiple mildly enlarged mesenteric nodes which are nonspecific, may be reactive. There is a small left inguinal hernia containing fat. There is also a small umbilical hernia containing fat. The urinary bladder is unremarkable. There is no significant free fluid. IMPRESSION: The left phthisis common new since prior. Small left inguinal hernia and umbilical hernia, both containing fat. Reviewed, Interpreted and Dictated by Eugenio Sandy III, MD Transcribed by Camila Koroma Authenticated and [facility]
--- NOTE | 2021-12-29 09:33 | PC.NURSE ---
PT ASSISTED TO BR. UA OBTAINED AT THIS TIME
[2021-12-29 09:41] LABS: Microscopic, Urine URINE MICROSCOPIC (MICROSCOPIC)
[2021-12-29 09:42] LABS: Appearance,Urine CLEAR (Clear); Bilirubin,Urine Negative (Negative); Blood, Urine Negative (Negative); Color,Urine YELLOW (Yellow); Glucose,Urine (UA) Negative (Negative); Ketones,Urine Negative (Negative); Leukocyte Esterase,Urine Negative (Negative); Nitrate,Urine Negative (Negative); Protein,Urine Negative (Negative); Specific Gravity, Urine <= 1.005 (1.005-1.030); Urobilinogen,Urine 0.2 EU/dl (0.2)
--- NOTE | 2021-12-29 09:47 | PC.NURSE ---
PT TO CT AT THIS TIME PER WC
[2021-12-29 09:55] LABS: Bacteria,Urine Trace /lpf; Mucus,Urine Trace /lpf; Squamous Epithelial Cell,Urine Occasional #/hpf (0-5)
--- NOTE | 2021-12-29 09:55 | PC.NURSE ---
PT RETURNED FROM CT AT THIS TIME
--- NOTE | 2021-12-29 11:03 | PC.NURSE ---
PT RESTING WITH EYES CLOSED. AWAKENS EASILY UPON ENTERING ROOM. UPDATED ON POC. NO NEEDS AT THIS TIME
--- NOTE | 2021-12-29 11:04 | PC.NURSE ---
Preliminary report of CT given to GABRIELA TOVAR
--- NOTE | 2021-12-29 11:24 | PC.NURSE ---
ER reviewing pt Ct scan at this time
--- NOTE | 2021-12-29 12:00 | PC.NURSE ---
[place] RN at going over discharge instructions
== END 2021-12-29 12:04 | disposition home or self-care (01) ==
PROVIDERS: Emergency Medicine; Emergency Provider Emergency Medicine; PCP Nurse Practitioner
DX: K52.9 Noninfective gastroenteritis and colitis, unspecified (principal); Z88.8 Allergy status to other drugs, medicaments and biological substances
CPT/HCPCS: 74176; 80053; 81001; 83690; 85025; 96365; 96375; 99284; J2405

== ENCOUNTER 2022-01-14 11:51 | Emergency (ER) | payer MEDICARE, MEDICAID, SELFPAY ==
[2022-01-14 11:52] VITALS: BP 159/91; PULSE 62; RESP 18; TEMP 36.8; O2SAT 99; BMI 44.6
--- NOTE | 2022-01-14 12:07 | XR_ITS ---
FINAL REPORT CLINICAL HISTORY: FALL FINDINGS: TWO-VIEW CHEST The heart size is normal. The mediastinum is normal. There is no focal infiltrate or edema. There are no pleural effusions. There is no pneumothorax. IMPRESSION: No acute cardiopulmonary process. RIBS UNIL 3 views of the left ribs were obtained. There are fractures of the left 6th and 7th distal ribs. There is no pleural fluid collection or pneumothorax. IMPRESSION: Distal left 6th and 7th rib fractures without pneumothorax. Reviewed, Interpreted and Dictated by Eugenio Sandy III, MD Transcribed by Vin Mackey Authenticated and . [facility]
[2022-01-14 12:10] VITALS: BP 159/91; PULSE 62; RESP 18; TEMP 36.8; O2SAT 99; BMI 44.5
--- NOTE | 2022-01-14 12:16 | HMH.EDUTC ---
[facility] [place] Clinical Impression: Ribs, multiple fractures Qualifiers: Encounter type: initial encounter Fracture type: closed Laterality: left Qualified Code(s): S22.42XA - Multiple fractures of ribs, left side, initial encounter for closed fracture Disposition: Home, Self-Care Condition on Discharge: Good Instructions: Rib Fracture, DI for Rib Fracture, Lidocaine Transdermal Patch, Ibuprofen Additional Instructions: Over the counter Motrin as directed on package if you have been told that you can take it if you need something more you take Tylenol Topical lidocaine patch may help with pain and discomfort Follow up with your Family Doctor if no improvement or any worsening of symptoms Make sure to be taking deep breaths and cough to help prevent pneumonia Straight to ER if any shortness of breath Prescriptions: Lidocaine [Lidocaine Pain Relief] 1 each TP DIRECTED #6 patch Transmission Status: Received by [facility] Referrals: Palak Martinez APRN [Primary Care Provider] - As needed Time of Disposition: 14:12 Medical Decision Making - Talha Inquiry Pt receiving controlled substance: No Talha was queried for this patient: No Vital Signs: 01/14/22 11:52 01/14/22 12:10 01/14/22 12:41 Temperature 98.2 F 98.2 F 98.2 F Temperature Source Oral Oral Pulse Rate 62 Pulse Rate [Radial] 62 62 Respiratory Rate 18 18 18 Blood Pressure 159/91 H Blood Pressure [Right Arm] 159/91 H 159/91 H Blood Pressure Mean [Right Arm] 113 113 Blood Pressure Source [Right Arm] Automatic Cuff Automatic Cuff Blood Pressure Position [Right Arm] Sitting Sitting 02 Sat by Pulse Oximetry 99 99 Oxygen Delivery Method Room Air Room Air Orders (Tests/Meds): ED MEDICATIONS Discontinued Medications Generic Name Dose Route Start Last Admin Trade Name Freq PRN Reason Stop Dose Admin Ketorolac Tromethamine 30 mg 01/14/22 14:10 01/14/22 14:15 Ketorolac 60mg/2ml Vial IM 01/14/22 14:11 30 mg ONCE ONE Administration - Radiology Data #1 Image(s): Chest (with left ribs) Image Reviewed: Yes I reviewed the patient's radiology image fractures of 6th and 7th ribs no acute finding in CXR [facility] [place] - General Stated complaint: Fell 01/10/22; pain on LT side Time Seen by Provider: 01/14/22 12:16 Mode of Arrival: Ambulatory Source of Information: Patient Limitations: No Limitations Description of Symptoms (Recalled from Triage Doc. by RN): SLIPPED ON SHOWER ON MONDAY AND STRUCK LEFT SIDE ON TUB WALL, NO LOC, DID NOT STRIKE HEAD. - History of Present Illness Provider Complaint: Patient states that he slipped in the tub on Monday and landed on his left side on the tub wall States that he has been having pain in his left ribs ever since Denies any other injury States that pain is worse with movement - Related Data Previous Rx's Medication Instructions Recorded Lidocaine [Lidocaine Pain Relief] 1 each TP DIRECTED #6 patch 01/14/22 Allergies Allergy/AdvReac Type Severity Reaction Status Date / Time prochlorperazine Allergy Verified 01/14/22 12:18 [From Compazine] [facility] History - Hepatitis A Screen Attestation statement:: This patient has been screened for Hepatitis A risk factors. I have reviewed the patient's past medical history: Yes ROS Obtained: Yes All systems reviewed & no additional complaints, Yes Systems reviewed as appropriate & no additional complaints - Constitutional Constitutional: Reports system reviewed and no additional complaints, except as docu, Denies body ache, Denies chills, Denies fever(s) - ENT Ears, Nose, Mouth, and Throat: Reports system reviewed and no additional complaints, except as docu - Cardiovascular Cardiovascular: Reports system reviewed and no additional complaints, except as docu - Respiratory Respiratory: Reports system reviewed and no additional complaints, except as docu - Musculoskeletal Musculoskeletal: Reports system
[2022-01-14 12:41] VITALS: BP 159/91; PULSE 62; RESP 18; TEMP 36.8; O2SAT 99
== END 2022-01-14 14:25 | disposition home or self-care (01) ==
PROVIDERS: Emergency Provider Nurse Practitioner; PCP Nurse Practitioner
DX: S22.42XA Multiple fractures of ribs, left side, initial encounter for closed fracture (principal); W18.2XXA Fall in (into) shower or empty bathtub, initial encounter; Y92.002 Bathroom of unspecified non-institutional (private) residence as the place of occurrence of the external cause
CPT/HCPCS: 71101; 96372; 99213; 99283; G0463

== ENCOUNTER 2023-03-19 10:23 | Emergency (ER) | payer MEDICARE, MEDICAID, SELFPAY ==
[2023-03-19 10:25] VITALS: BP 162/101; PULSE 78; RESP 19; TEMP 36.8; O2SAT 99; BMI 45.6
--- NOTE | 2023-03-19 10:40 | HMH.EDGENADL ---
Discharge Plan Disposition Patient Disposition: Home, Self-Care Condition: Good Prescriptions Prescriptions: New ondansetron 4 mg tablet,disintegrating 4 mg PO Q8H PRN (Reason: nausea and vomiting) 5 Days Qty: 10 0RF No Action hydrocodone-acetaminophen 5-325 mg tablet 1 tab PO Q6H PRN (Reason: pain) Qty: 120 0RF bupropion HCl 300 mg tablet extended release 24 hr 300 mg PO DAILY Qty: 30 0RF buspirone 15 mg tablet 15 mg PO TID Qty: 90 0RF divalproex 125 mg capsule, delayed rel sprinkle 500 mg PO TID Qty: 360 0RF simvastatin 20 mg tablet 20 mg PO HS Qty: 30 0RF lurasidone [Latuda] 80 mg tablet See Rx Instructions .ROUTE .COMPLEX Qty: 30 0RF Dose Instruction: TAKE 1 TABLET BY MOUTH DAILY FOR MOOD Rx Instructions: TAKE 1 TABLET BY MOUTH DAILY FOR MOOD propranolol 20 mg tablet See Rx Instructions .ROUTE .COMPLEX Qty: 60 0RF Dose Instruction: TAKE 1 TABLET BY MOUTH TWICE DAILY FOR HIGH BLOOD PRESSURE Rx Instructions: TAKE 1 TABLET BY MOUTH TWICE DAILY FOR HIGH BLOOD PRESSURE benztropine 1 mg tablet See Rx Instructions .ROUTE .COMPLEX Qty: 60 0RF Dose Instruction: TAKE 1 TABLET BY MOUTH TWICE DAILY Rx Instructions: TAKE 1 TABLET BY MOUTH TWICE DAILY clonidine HCl 0.1 mg tablet See Rx Instructions .ROUTE .COMPLEX Qty: 90 0RF Dose Instruction: TAKE 1 TABLET BY MOUTH THREE TIMES DAILY FOR HYPERTENSION Rx Instructions: TAKE 1 TABLET BY MOUTH THREE TIMES DAILY FOR HYPERTENSION cephalexin 500 MG capsule 500 mg PO Q6H 7 Days Qty: 28 0RF ondansetron 4 MG tablet,disintegrating 4 mg PO BIDP PRN (Reason: Nausea) Qty: 10 0RF Referrals Follow up/Referrals: Palak Martinez APRN [Primary Care Provider] - See instructions Activity Restrictions/Add. Instructions Additional Instructions/Restrictions: Please continue to drink plenty of liquids. I have prescribed nausea medication for you to have as needed. Please return to the emergency department if you experience any new or worsening symptoms. Clinical Impressions Clinical Impression: Gastroenteritis Instructions Patient Instructions: DI for Bacterial Gastroenteritis -- Adult Discharge ED Provider: Bob Cleveland Adult [facility] General Chief complaint: Nausea/Vomiting/Diarrhea Stated complaint: V/D stomach ache Time Seen by Provider: 03/19/23 10:29 History of Present Illness HPI narrative: The patient presents with chief complaints of vomiting, stomach ache, and diarrhea, which began this morning after consuming hush puppies from [employer] last night. The patient suspects food poisoning as the cause of their symptoms. The patient denies experiencing any fevers, chills, pain with urination, blood in diarrhea, or vomiting up blood. They report a history of bipolar disorder and hypertension, for which they take Latuda and an unspecified high blood pressure medication. The patient has a surgical history involving their legs but no abdominal surgeries. Upon examination, the patient describes generalized abdominal soreness without any specific focal point of pain. They have been unable to keep liquids down. Related Data Previous Rx's Medication Instructions Recorded hydrocodone 5 mg-acetaminophen 325 1 tab PO Q6H PRN pain #120 tabs 11/16/20 mg tablet bupropion HCl 300 mg 24 hr tablet, 300 mg PO DAILY mood #30 tabs 06/30/20 extended release buspirone 15 mg tablet 15 mg PO TID Anxiety #90 tabs 06/30/20 divalproex 125 mg capsule,delayed 500 mg PO TID SEIZURES #360 caps 06/30/20 release sprinkle simvastatin 20 mg tablet 20 mg PO HS Cholesterol #30 tabs 06/30/20 cephalexin 500 mg capsule 500 mg PO Q6H 7 days #28 caps 07/03/20 lurasidone 80 mg tablet (Latuda) See Rx Instructions .Route 07/21/20 .COMPLEX #30 tabs benztropine 1 mg tablet See Rx Instructions .Route 08/05/20 .COMPLEX #60 tabs propranolol 20 mg tablet See Rx Instructions .Route 07/14
[2023-03-19 10:56] LABS: Basophils % 0.4 % (0.1-2.0); Eosinophils # 0.3 K/mm3 (0.0-0.4); Eosinophils % 5.2 % (0.1-12.0); Hematocrit 47.2 % (42.0-52.0); Hemoglobin 15.8 g/dL (14.1-18.0); Lymphocytes # 1.3 K/mm3 (0.7-4.5); Lymphocytes % 21.2 % (10-50); Mean Corpuscular HGB Conc 33.6 g/dL (31.8-35.4); Mean Corpuscular Hemoglobin 29.7 pg (27.0-31.2); Mean Corpuscular Volume 88.5 fl (80-94); Mean Platelet Volume 9.9 fl (7.4-10.4); Monocytes # 0.3 K/mm3 (0.1-1.0); Monocytes % 5.4 % (1.7-9.3); Neutrophils # 4.2 K/mm3 (1.8-7.8); Neutrophils % 67.8 % (37.0-80.0); Platelet Count 163 K/mm3 (142-424); Red Blood Count 5.33 M/mm3 (4.60-6.20); Red Cell Distribution Width 13.7 % (11.5-17.5); White Blood Count 6.2 K/mm3 (4.8-10.8)
[2023-03-19 10:57] LABS: Chloride 111 mmol/L (98-107)
[2023-03-19 10:58] LABS: Potassium 3.9 mmoL/L (3.5-5.1); Sodium 140 mmol/L (136-145)
[2023-03-19 11:00] LABS: Alanine Aminotransferase 35 U/L (12-78); Alkaline Phosphatase 70 U/L (38-126); Anion Gap 10.9 mEq/L (5-15); Aspartate Amino Transferase 33 U/L (17-59); Bilirubin,Total 0.7 mg/dl (0.2-1.3); Blood Urea Nitrogen 9 mg/dl (9-20); Carbon Dioxide 22 mmol/L (22.0-30.0); Creatinine Clearance Estimated 79 mL/min (50-200); Estimated Glomerular Filt Rate 71 ml/min (>60); GFR (African American) 86 ML/MIN (>60); Lipase 66 U/L (23-300)
[2023-03-19 11:01] VITALS: BP 174/96; PULSE 75; RESP 18; O2SAT 97
[2023-03-19 11:01] LABS: Albumin Level 3.9 g/dl (3.5-5.0); Albumin/Globulin Ratio 1.4 (1.1-1.8); Calcium 8.3 mg/dl (8.4-10.2); Globulin 2.7 g/dL (1.3-3.2); Glucose 124 mg/dl (74-100); Total Protein,Serum 6.6 g/dl (6.3-8.2)
[2023-03-19 11:31] VITALS: BP 157/88; PULSE 58; RESP 20; O2SAT 98
--- NOTE | 2023-03-19 12:13 | PC.NURSE ---
Dr. Cleveland at bedside discussing d/c
[2023-03-19 12:17] VITALS: BP 161/83; PULSE 68; RESP 18; TEMP 36.8; O2SAT 98
== END 2023-03-19 12:17 | disposition home or self-care (01) ==
PROVIDERS: Emergency Provider Emergency Medicine; PCP Nurse Practitioner
DX: K52.9 Noninfective gastroenteritis and colitis, unspecified (principal); R10.9 Unspecified abdominal pain; R11.2 Nausea with vomiting, unspecified; I10 Essential (primary) hypertension; F31.9 Bipolar disorder, unspecified
CPT/HCPCS: 80053; 83690; 85025; 96361; 96374; 99284

== ENCOUNTER 2023-06-15 08:57 | Outpatient (CLI) | payer MEDICARE, MEDICAID, SELFPAY ==
[2023-06-15 09:10] LABS: Microscopic, Urine URINE MICROSCOPIC (MICROSCOPIC)
[2023-06-15 09:32] LABS: Appearance,Urine CLEAR (Clear); Bilirubin,Urine Negative (Negative); Blood, Urine Negative (Negative); Color,Urine YELLOW (Yellow); Glucose,Urine (UA) Negative (Negative); Ketones,Urine Negative (Negative); Leukocyte Esterase,Urine Negative (Negative); Nitrate,Urine Negative (Negative); Protein,Urine Negative (Negative); Specific Gravity, Urine 1.025 (1.005-1.030); Urobilinogen,Urine 0.2 EU/dl (0.2)
[2023-06-15 09:34] LABS: Basophils % 0.7 % (0.1-2.0); Eosinophils # 0.3 K/mm3 (0.0-0.4); Hematocrit 44.9 % (42.0-52.0); Hemoglobin 15.6 g/dL (14.1-18.0); Lymphocytes # 1.3 K/mm3 (0.7-4.5); Lymphocytes % 25.3 % (10-50); Mean Corpuscular HGB Conc 34.8 g/dL (31.8-35.4); Mean Corpuscular Hemoglobin 31.1 pg (27.0-31.2); Mean Corpuscular Volume 89.3 fl (80-94); Mean Platelet Volume 9.9 fl (7.4-10.4); Monocytes # 0.4 K/mm3 (0.1-1.0); Platelet Count 163 K/mm3 (142-424); Red Blood Count 5.03 M/mm3 (4.60-6.20); Red Cell Distribution Width 13.7 % (11.5-17.5)
[2023-06-15 09:48] LABS: Bacteria,Urine Trace /lpf; Mucus,Urine 2+ /lpf; Squamous Epithelial Cell,Urine Occasional #/hpf (0-5)
[2023-06-15 10:05] LABS: Alanine Aminotransferase 34 U/L (12-78); Albumin Level 3.9 g/dl (3.5-5.0); Albumin/Globulin Ratio 1.9 (1.1-1.8); Alkaline Phosphatase 79 U/L (38-126); Anion Gap 5.9 mEq/L (5-15); Aspartate Amino Transferase 32 U/L (17-59); Bilirubin,Total 0.4 mg/dl (0.2-1.3); Blood Urea Nitrogen 13 mg/dl (9-20); Calcium 8.4 mg/dl (8.4-10.2); Carbon Dioxide 27 mmol/L (22.0-30.0); Chloride 109 mmol/L (98-107); Estimated Glomerular Filt Rate 59 ml/min (>60); GFR (African American) 71 ML/MIN (>60); Globulin 2.1 g/dL (1.3-3.2); Glucose 99 mg/dl (74-100); Potassium 3.9 mmoL/L (3.5-5.1); Sodium 138 mmol/L (136-145)
[2023-06-20 12:28] LABS: 25-OH Vitamin D, Total 25.1 ng/mL (30-100)
== END 2023-06-15 23:59 ==
LOC: LAB 08:59
PROVIDERS: PCP Nurse Practitioner; Visit Provider Internal Medicine Nephrology
DX: I10 Essential (primary) hypertension (principal); E78.5 Hyperlipidemia, unspecified; F31.9 Bipolar disorder, unspecified; N18.2 Chronic kidney disease, stage 2 (mild); E55.9 Vitamin D deficiency, unspecified
CPT/HCPCS: 36415; 80053; 81001; 82306; 85025

== ENCOUNTER 2023-06-23 09:43 | Emergency (ER) | payer MEDICARE, MEDICAID, SELFPAY ==
[2023-06-23] VITALS (9 sets, daily range): BP systolic 141–188; BP diastolic 88–110; PULSE 63–78; RESP 17–20; TEMP 36.7–36.8; O2SAT 96–100; BMI 49.8
--- NOTE | 2023-06-23 09:56 | CT_ITS ---
FINAL REPORT TECHNIQUE: Thin section axial CT with IV contrast supplemented with multiplanar reconstruction under CT angiogram protocol. 3-D reconstructions were performed. This study was performed with techniques to keep radiation doses as low as reasonably achievable (ALARA). Individualized dose reduction techniques using automated exposure control or adjustment of mA and/or kV according to the patient''s size were employed. CLINICAL HISTORY: numbness BLE, shuffling gait FINDINGS: The distal vertebral, basilar and distal internal carotid arteries have an unremarkable appearance. No aneurysm is seen. Major intracranial vessels are patent without significant stenosis. IMPRESSION: No evidence of significant stenosis. Reviewed, Interpreted and Dictated by Eugenio Sandy III, MD Transcribed by Camila Koroma Authenticated and [facility]
--- NOTE | 2023-06-23 09:56 | CT_ITS ---
FINAL REPORT TECHNIQUE: Axial images were performed through the lumbar spine by computed tomography. Sagittal reconstruction images were also performed. This study was performed with techniques to keep radiation doses as low as reasonably achievable, (ALARA). Individualized dose reduction techniques using automated exposure control or adjustment of mA and/or kV according to the patient''s size were employed. CLINICAL HISTORY: numbness BLE, shuffling gait FINDINGS: Sagittal reconstruction images demonstrate no subluxation. No fracture is identified. There are mild degenerative changes. There are multilevel disc bulges and osteophytes. L1-2: An annular disc bulge and osteophytes are present. There is no significant canal stenosis or neural foraminal narrowing. L2-3: An annular disc bulge and osteophytes are present. There is moderate bilateral neural foraminal narrowing. L3-4: An annular disc bulge and osteophytes are present. There is severe right and moderate left neural foraminal narrowing. L4-5: An annular disc bulge is present with moderate bilateral neural foraminal narrowing. L5-S1: An annular disc bulge is present. Facet arthropathy and osteophytes are present. There is severe right and moderate left neural foraminal narrowing. Note is made of multiple gallstones in the gallbladder. IMPRESSION: Multilevel degenerative disc disease and spondylosis. Cholelithiasis. Reviewed, Interpreted and Dictated by Eugenio Sandy III, MD Transcribed by Camila Koroma Authenticated and [facility]
--- NOTE | 2023-06-23 09:56 | CT_ITS ---
FINAL REPORT TECHNIQUE: Thin section axial CT with IV contrast supplemented with multiplanar reconstruction under CT angiogram protocol. This study was performed with techniques to keep radiation doses as low as reasonably achievable (ALARA). Individualized dose reduction techniques using automated exposure control or adjustment of mA and/or kV according to the patient''s size were employed. NASCET criteria was utilized during interpretation. CLINICAL HISTORY: numbness BLE, shuffling gait FINDINGS: Aortic arch: Arch shows no significant narrowing. Great vessel origins are widely patent. Right carotid: No significant stenosis is seen of the cervical common or internal carotid artery. Left carotid: No significant stenosis is seen of the cervical common or internal carotid artery. Vertebral: Left vertebral artery is dominant. No significant stenosis is present. IMPRESSION: No evidence of significant stenosis. Reviewed, Interpreted and Dictated by Eugenio Sandy III, MD Transcribed by Camila Koroma Authenticated and [facility]
--- NOTE | 2023-06-23 09:56 | CT_ITS ---
FINAL REPORT CLINICAL HISTORY: numbness BLE, shuffling gait COMPARISON: 10/18/2021 FINDINGS: Axial images of the head were obtained without contrast. Coronal reformatted images were also obtained.This study was performed with techniques to keep radiation doses as low as reasonably achievable (ALARA). Individualized dose reduction techniques using automated exposure control or adjustment of mA and/or kV according to the patient's size were employed. There is no evidence of intracranial hemorrhage or mass. The ventricular size is within normal limits. There is no evidence of shift of the midline structures. No abnormal extra axial fluid collection is identified. No skull abnormality is seen on the bone window images. IMPRESSION: No acute intracranial abnormality. Reviewed, Interpreted and Dictated by Eugenio Sandy III, MD Transcribed by Camila Koroma Authenticated and [facility]
--- NOTE | 2023-06-23 10:00 | HMH.EDGENADL ---
Discharge Plan Disposition Patient Disposition: Xfer Short-Term Hosp Prescriptions Prescriptions: No Action hydrocodone-acetaminophen 5-325 mg tablet 1 tab PO Q6H PRN (Reason: pain) Qty: 120 0RF bupropion HCl 300 mg tablet extended release 24 hr 300 mg PO DAILY Qty: 30 0RF buspirone 15 mg tablet 15 mg PO TID Qty: 90 0RF divalproex 125 mg capsule, delayed rel sprinkle 500 mg PO TID Qty: 360 0RF simvastatin 20 mg tablet 20 mg PO HS Qty: 30 0RF lurasidone [Latuda] 80 mg tablet See Rx Instructions .ROUTE .COMPLEX Qty: 30 0RF Dose Instruction: TAKE 1 TABLET BY MOUTH DAILY FOR MOOD Rx Instructions: TAKE 1 TABLET BY MOUTH DAILY FOR MOOD propranolol 20 mg tablet See Rx Instructions .ROUTE .COMPLEX Qty: 60 0RF Dose Instruction: TAKE 1 TABLET BY MOUTH TWICE DAILY FOR HIGH BLOOD PRESSURE Rx Instructions: TAKE 1 TABLET BY MOUTH TWICE DAILY FOR HIGH BLOOD PRESSURE benztropine 1 mg tablet See Rx Instructions .ROUTE .COMPLEX Qty: 60 0RF Dose Instruction: TAKE 1 TABLET BY MOUTH TWICE DAILY Rx Instructions: TAKE 1 TABLET BY MOUTH TWICE DAILY clonidine HCl 0.1 mg tablet See Rx Instructions .ROUTE .COMPLEX Qty: 90 0RF Dose Instruction: TAKE 1 TABLET BY MOUTH THREE TIMES DAILY FOR HYPERTENSION Rx Instructions: TAKE 1 TABLET BY MOUTH THREE TIMES DAILY FOR HYPERTENSION cephalexin 500 MG capsule 500 mg PO Q6H 7 Days Qty: 28 0RF ondansetron 4 MG tablet,disintegrating 4 mg PO BIDP PRN (Reason: Nausea) Qty: 10 0RF ondansetron 4 mg tablet,disintegrating 4 mg PO Q8H PRN (Reason: nausea and vomiting) 5 Days Qty: 10 0RF lidocaine 1 EACH adhesive patch,medicated 1 each TP DIRECTED Qty: 6 0RF Rx Instructions: Apply patch and wear for 12 hours then remove and leave off for 12 hrs Referrals Follow up/Referrals: Palak Martinez APRN [Primary Care Provider] - See instructions Clinical Impressions Clinical Impression: Polyneuropathy Stand Alone Forms Stand Alone Forms: Transfer Record - ED Discharge ED Provider: Vito Clifton General Adult HPI General Chief complaint: Neuro Symptoms/Deficit Stated complaint: number feet and legs, referred by Dr. Martinez Time Seen by Provider: 01/12/24 09:48 History of Present Illness HPI narrative: Patient is a 47-year-old male with past medical history of hypertension, bipolar disorder, seizure disorder well-controlled on divalproex who presents emergency department for evaluation of altered sensorium. Patient states that beginning on Monday patient had numbness in his bilateral lower extremities which is since a ascended to his hips. States that he has decreased or absent sensation bilateral lower extremities. No urinary or bowel incontinence. No falls. No preceding viral or diarrheal prodrome. Patient has a history of traumatic fractures of the lower extremities bilaterally status post surgical intervention many years ago without resultant sequela. Patient's seizure frequency is less than 1 a year and has been over a year since his most recent one. Due to the symptoms he presents here for continued evaluation. Related Data Previous Rx's Medication Instructions Recorded hydrocodone 5 mg-acetaminophen 325 1 tab PO Q6H PRN pain #120 tabs 16/20 mg tablet bupropion HCl 300 mg 24 hr tablet, 300 mg PO DAILY mood #30 tabs 06/30/20 extended release buspirone 15 mg tablet 15 mg PO TID Anxiety #90 tabs 06/30/20 divalproex 125 mg capsule,delayed 500 mg PO TID SEIZURES #360 caps 06/30/20 release sprinkle simvastatin 20 mg tablet 20 mg PO HS Cholesterol #30 tabs 06/30/20 cephalexin 500 mg capsule 500 mg PO Q6H 7 days #28 caps 07/03/20 lurasidone 80 mg tablet (Latuda) See Rx Instructions .Route 07/21/20 .COMPLEX #30 tabs benztropine 1 mg tablet See Rx Instructions .Route 08/05/20 .COMPLEX #60 tabs propranolol 20 mg tablet See Rx Instructions .Route 08/05/20 .COMPLEX #60 tabs clonidine HCl 0.1 mg tablet See Rx Instructions .Route 09/24/20 .COMPLEX #90 tabs ondansetron 4 mg disintegrating 4 mg PO BIDP PRN Nausea #10 tabs 12/29/21 tablet lidocaine 4 % topical patch 1 each topical DIRECTED #6 01/14/22 patches ondansetron 4 mg disintegrating 4 mg PO Q8H PRN nausea and 03/19/23 tablet vomiting 5 days #10 tabs Allergies Allergy/AdvReac Type Severity Reaction Status Date / Time prochlorperazine Allergy Unknown Verified 06/23/23 09:43 [From COMPAZINE] [facility] Disclaimer: The information contained in this section may have been updated after the patient was seen, as this information can be updated by other users. 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 current occupational exposures/hazards: No caffeine: Yes ROS Obtained: Yes Systems reviewed as appropriate & no additional complaints except as documented Physical Exam General General appearance: alert and in no apparent distress Head Head exam: atraumatic and normocephalic Eye Eye exam: Present PERRL and EOMI ENT ENT exam: Present mucous membranes moist Neck Neck exam: Present normal inspection Chest Chest inspection: Present normal inspection and symmetric chest wall rise Respiratory Respiratory exam: Present normal lung sounds bilaterally; Absent respiratory distress Cardiovascular Cardiovascular exam: Present regular rate and normal rhythm Abdominal Exam Abdominal exam: Present soft; Absent tenderness Extremities Exam Extremities exam: Present normal inspection Neurological Exam Neurological exam: Present alert, oriented X3, CN II-XII intact and motor sensory deficit (5 out of 5 strength bilateral lower extremities, rhythmic firing of extensors at the knee when strength is assessed. Palpable dorsal pedal pulses bilaterally. Decreased sensation thighs, absent sensation distal to the knees bilaterally. Downgoing Babinski's.) Psychiatric Psychiatric exam: Present normal affect Skin Skin exam: Present warm and dry Medical Decision Making Talha Inquiry Pt receiving controlled substance: No Vital Signs: 06/23/23 09:44 06/23/23 10:00 06/23/23 11:54 Temperature 98.3 F Temperature Source Oral Pulse Rate 70 66 Pulse Rate [Left Radial] 78 Respiratory Rate 17 20 Blood Pressure 141/100 H 183/101 H Blood Pressure [Right Arm] 155/110 H Blood Pressure Mean 124 115 Blood Pressure Mean [Right Arm] 125 02 Sat by Pulse Oximetry 96 96 99 Oxygen Delivery Method Room Air Room Air 06/23/23 12:00 06/23/23 12:30 06/23/23 13:00 Temperature Temperature Source Pulse Rate 69 63 65 Pulse Rate [Left Radial] Respiratory Rate Blood Pressure 142/91 H 159/88 H 173/99 H Blood Pressure [Right Arm] Blood Pressure Mean 108 108 109 Blood Pressure Mean [Right Arm] 02 Sat by Pulse Oximetry 99 100 99 Oxygen Delivery Method Room Air Room Air Room Air 06/23/23 13:31 Temperature Temperature Source Pulse Rate 66 Pulse Rate [Left Radial] Respiratory Rate Blood Pressure 188/99 H Blood Pressure [Right Arm] Blood Pressure Mean Blood Pressure Mean [Right Arm] 02 Sat by Pulse Oximetry 99 Oxygen Delivery Method Room Air Lab Data Lab Results 06/23/23 10:20: WBC 5.5, RBC 5.23, Hgb 16.0, Hct 47.2, MCV 90.3, MCH 30.7, MCHC 34.0, RDW 13.8, Plt Count 154, MPV 10.0, Neut % (Auto) 60.0, Lymph % (Auto) 26.7, Cobb % (Auto) 6.0, Eos % (Auto) 6.8, Baso % (Auto) 0.6, Neut # (Auto) 3.3, Lymph # (Auto) 1.5, Cobb # (Auto) 0.3, Eos # (Auto) 0.4, Baso # (Auto) 0.0, ESR 1, Sodium 141, Potassium 4.4, Chloride 110 H, Carbon Dioxide 25, Anion Gap 10.4, BUN 14, Creatinine 1.30 H, Estimated Creat Clear 67, Estimated GFR 59, Est GFR ( Amer) 71, Glucose 80, Calcium 8.4, Magnesium 2.3, Total Bilirubin 0.7, AST 37, ALT 32, Alkaline Phosphatase 60, C-Reactive Protein 2.2, Total Protein 6.8, Albumin 4.0, Globulin 2.8, Albumin/Globulin Ratio 1.4 06/23/23 10:20 06/23/23 10:20 Orders (Tests/Meds): ED MEDICATIONS Generic Name Dose Route Start Last Admin Trade Name Freq PRN Reason Stop Dose Admin Sodium Chloride 10 ml 06/23/23 11:02 Sodium Chloride 0.9% 10ml Syr (Rad Only) IV 07/23/23 11:01 NEEDED PRN Maintain IV Site Discontinued Medications Generic Name Dose Route Start Last Admin Trade Name Freq PRN Reason Stop Dose Admin Lactated Ringer's 1,000 mls @ 999 mls/hr 06/23/23 11:26 06/23/23 11:59 Lactated Ringer's 1000 Ml Bag IV 06/23/23 12:26 999 mls/hr .Q1H1M ONE Administration Iopamidol 100 ml 06/23/23 11:02 06/23/23 11:49 Iopamidol-370 (76%);100ml Bottle IV 06/23/23 11:03 Not Given ONCE ONE Iopamidol 75 ml 06/23/23 11:20 06/23/23 11:30 Iopamidol-370 (76%);100ml Bottle IV 06/23/23 11:21 Not Given ONCE ONE Iopamidol 275 ml 06/23/23 11:50 06/23/23 11:51 Iopamidol-370 (76%);100ml Bottle IV 06/23/23 11:51 275 ml ONCE ONE Administration Sodium Chloride 50 ml 06/23/23 11:02 06/23/23 11:49 0.9 % Sodium Chloride 50 Ml Vial IV 06/23/23 11:03 50 ml ONCE ONE Administration Sodium Chloride 50 ml 06/23/23 11:50 06/23/23 11:51 0.9 % Sodium Chloride 50 Ml Vial IV 06/23/23 11:51 50 ml ONCE ONE Administration ORDERS Category Date Time Status CT angio head Stat Cat Scan 06/23/23 09:[address] angio neck Stat Cat Scan 06/23/23 09:[address] head/brain wo con Stat Cat Scan 06/23/23 09:[address] lumbar spine wo con Stat Cat Scan 06/23/23 09:56 Completed CBC w/Auto Diff [Complete Blood Count Auto Diff] Stat Lab 06/23/23 10:20 Completed CMP [Comprehensive Metabolic Panel] Stat Lab 06/23/23 10:20 Completed CRP [C-Reactive Protein] Stat Lab 06/23/23 10:20 Completed ESR [Erythrocyte Sedimentation Rate] Stat Lab 06/23/23 10:20 Completed Magnesium Stat Lab 06/23/23 10:20 Completed US Arterial Lower Ext Rest Routine Ultrasound 06/23/23 10:28 Completed Medical Decision Narrative: In summary patient is a 47-year-old male with past medical history described above presents emergency department for evaluation of altered sensation of bilateral lower extremities. Patient is hemodynamically stable nontoxic-appearing upon arrival, afebrile. Clinically patient has ascending polyneuropathy of undetermined etiology. Doubt Guillain-Miller? because patient has 5 out of 5 strength in his bilateral lower extremities and his chief complaint is sensory. Differential includes demyelinating polyneuropathy, electrolyte abnormality, atypical CVA, among others. Workup will be conducted with hematologic labs, noncontrasted CT scan lumbar spine and head, CTA of the head and neck. Repeat evaluation patient has significant burning of his bilateral lower extremities in a nondermatomal distribution, he has absent sensation to sharp touch distal to the knee, decreased sensation proximal to the knee right worse than left. Broad-based shuffling gait staring at his feet while they walk. ABIs were obtained bilaterally and are nonactionable. Patient does have some evidence of arterial disease in the digits with the right MICHELLE digit 0.76, left MICHELLE digit 0.88, all other ABIs proximally including the ankle, calf, thighs are greater than 0.9 and do not explain patient's symptoms. Workup reviewed by me, hematologic labs are nonactionable, inflammatory markers negative. Stable CKD. CT imaging shows no acute pathology. The case was discussed with [facility] neurology who recommends inpatient evaluation due to progressive symptoms. Unfortunately they are on high-level divert and recommended contacting [place] for transfer for neurology evaluation. Case was discussed with [place] transfer center who graciously accepted patient for transfer for continued evaluation at this time. Procedure: Procedure performed was ultrasound-guided IV. Procedure performed by Vito Clifton. Using real-time ultrasound a long 18-gauge IV was inserted into the left basilic vein. Patient tolerated the procedure well. There were no immediate complications. Images were not saved to apartment archive. Critical Care Critical Care Time Critical Care Time: No
--- NOTE | 2023-06-23 10:28 | US_ITS ---
FINAL REPORT CLINICAL HISTORY: HTN, hyperlipidemia, bilateral rest pain, bilateral claudication, obesity. COMPARISON: None FINDINGS: ANKLE-BRACHIAL PRESSURE INDICES Pressure indices are as follows: RIGHT LOWER EXTREMITY: Ankle-brachial pressure index: 1.1 Comments: Normal LEFT LOWER EXTREMITY: Ankle-brachial pressure index: 1.2 Comments: Normal IMPRESSION: No evidence of significant obstructive peripheral vascular disease of the lower extremities Reviewed, Interpreted and Dictated by Eugenio Sandy III, MD Transcribed by Breanne Mendez Authenticated and [facility]
[2023-06-23 10:31] LABS: Basophils % 0.6 % (0.1-2.0); Eosinophils # 0.4 K/mm3 (0.0-0.4); Eosinophils % 6.8 % (0.1-12.0); Hematocrit 47.2 % (42.0-52.0); Lymphocytes # 1.5 K/mm3 (0.7-4.5); Lymphocytes % 26.7 % (10-50); Mean Corpuscular Hemoglobin 30.7 pg (27.0-31.2); Mean Corpuscular Volume 90.3 fl (80-94); Monocytes # 0.3 K/mm3 (0.1-1.0); Neutrophils # 3.3 K/mm3 (1.8-7.8); Platelet Count 154 K/mm3 (142-424); Red Blood Count 5.23 M/mm3 (4.60-6.20); Red Cell Distribution Width 13.8 % (11.5-17.5); White Blood Count 5.5 K/mm3 (4.8-10.8)
[2023-06-23 10:32] LABS: Chloride 110 mmol/L (98-107)
[2023-06-23 10:33] LABS: Potassium 4.4 mmoL/L (3.5-5.1); Sodium 141 mmol/L (136-145)
[2023-06-23 10:35] LABS: Alanine Aminotransferase 32 U/L (12-78); Alkaline Phosphatase 60 U/L (38-126); Aspartate Amino Transferase 37 U/L (17-59); Bilirubin,Total 0.7 mg/dl (0.2-1.3); Blood Urea Nitrogen 14 mg/dl (9-20); Creatinine Clearance Estimated 67 mL/min (50-200); Estimated Glomerular Filt Rate 59 ml/min (>60); GFR (African American) 71 ML/MIN (>60)
[2023-06-23 10:36] LABS: Albumin/Globulin Ratio 1.4 (1.1-1.8); Anion Gap 10.4 mEq/L (5-15); Calcium 8.4 mg/dl (8.4-10.2); Carbon Dioxide 25 mmol/L (22.0-30.0); Globulin 2.8 g/dL (1.3-3.2); Glucose 80 mg/dl (74-100); Magnesium 2.3 mg/dl (1.6-2.3); Total Protein,Serum 6.8 g/dl (6.3-8.2)
[2023-06-23 10:41] LABS: C-Reactive Protein 2.2 mg/L (0-4)
--- NOTE | 2023-06-23 10:47 | PC.NURSE ---
Vascular at BS
[2023-06-23 11:01] LABS: Erythrocyte Sedimentation Rate 1 mm/hr (0-15)
[2023-06-23] MEDS: 0.9 % SODIUM CHLORIDE 50 ML VIAL IV ×2 (11:49→11:51)
[2023-06-23] MEDS: IOPAMIDOL-370 (76%);100ML BOTTLE 275 ML IV (11:51)
--- NOTE | 2023-06-23 11:54 | PC.NURSE ---
ice pack placed on pts right arm due to infiltration of contrast during CT scan.
[2023-06-23] MEDS: LACTATED RINGERS 1000ML 1,000 ML 999 ML IV (11:59)
--- NOTE | 2023-06-23 13:18 | PC.NURSE ---
call made to transfer center for neurology consult.
--- NOTE | 2023-06-23 14:02 | PC.NURSE ---
placed call to [place] for possible transfer
== END 2023-06-23 15:17 | disposition short-term general hospital (02) ==
PROVIDERS: Emergency Provider Emergency Medicine; PCP Nurse Practitioner
DX: G62.9 Polyneuropathy, unspecified (principal); R20.0 Anesthesia of skin; I10 Essential (primary) hypertension; G40.909 Epilepsy, unspecified, not intractable, without status epilepticus; F31.9 Bipolar disorder, unspecified; M79.604 Pain in right leg; M79.605 Pain in left leg
CPT/HCPCS: 70450; 70496; 70498; 72131; 80053; 83735; 85025; 85651; 86140; 93923; 96360; 99285; Q9967

== ENCOUNTER 2023-08-20 11:45 | Emergency (ER) | payer MEDICARE, MEDICAID, SELFPAY ==
[2023-08-20 11:48] VITALS: BP 137/103; PULSE 79; RESP 20; TEMP 36.7; O2SAT 97; BMI 50.1
--- NOTE | 2023-08-20 12:49 | PC.NURSE ---
DR BOSE AT BEDSIDE
--- NOTE | 2023-08-20 12:51 | CT_ITS ---
PROCEDURE INFORMATION: Exam: CT Abdomen And Pelvis With Contrast Exam date and time: 08/20/2023 12:09 PM Age: 47 years old Clinical indication: Abdominal pain; Additional info: Diffuse cramping, no bm 48h TECHNIQUE: Imaging protocol: Computed tomography of the abdomen and pelvis with contrast. Radiation optimization: All CT scans at this facility use at least one of these dose optimization techniques: automated exposure control; mA and/or kV adjustment per patient size (includes targeted exams where dose is matched to clinical indication); or iterative reconstruction. Contrast material: ISOVUE; Contrast volume: 75 ml; Contrast route: IV; COMPARISON: CT ABDOMEN PELVIS WO CON 12/29/2021 9:45 AM FINDINGS: Liver: Normal. No mass. Gallbladder and bile ducts: Numerous stones in the gallbladder. Pancreas: Normal. No ductal dilation. Spleen: Normal. No splenomegaly. Adrenal glands: Normal. No mass. Kidneys and ureters: 1.8 cm simple appearing right kidney cyst. Left kidney unremarkable. Stomach and bowel: Unremarkable. No obstruction. No mucosal thickening. Appendix: No evidence of appendicitis. Intraperitoneal space: Unremarkable. No free air. No significant fluid collection. Vasculature: Atherosclerosis. Lymph nodes: Unremarkable. No enlarged lymph nodes. Urinary bladder: Unremarkable as visualized. Reproductive: Prostate calcifications. Bones/joints: Unremarkable. No acute fracture. Soft tissues: Mild dependent subcutaneous edema. Small fat containing left inguinal hernia. Small fat containing umbilical hernia. IMPRESSION: No acute findings. COMMENTS: Consistent with the [employer]'s Incidental Findings Committee white paper (J Am Marie Radiol 2018): Any incidental renal lesion less than 1 cm or classified as too small to characterize, or any incidental cystic renal lesion characterized as simple-appearing, is likely benign. No follow-up imaging is recommended for these lesions per consensus recommendations based on imaging criteria.
--- NOTE | 2023-08-20 12:54 | ECG_ITS ---
APPROVED REPORT Exam: Resting ECG HR:77 bpm ECG Measurements Heart Rate 77 AXES NV 163 P 33 QRSd 95 QRS 2 QT 391 T 41 QTc 423 Conclusion SINUS RHYTHM LOW QRS VOLTAGE IN PRECORDIAL LEADS [QRS DEFLECTION < 1.0 mV IN CHEST LEADS] BORDERLINE ECG Electronically signed by : SHARATH BOSE, 08/21/2023 07:31:17
--- NOTE | 2023-08-20 12:55 | HMH.EDGENADL ---
Discharge Plan Disposition Patient Disposition: Home, Self-Care Chief Complaint: Nausea/Vomiting/Diarrhea Prescriptions Prescriptions: No Action hydrocodone-acetaminophen 5-325 mg tablet 1 tab PO Q6H PRN (Reason: pain) Qty: 120 0RF bupropion HCl 300 mg tablet extended release 24 hr 300 mg PO DAILY Qty: 30 0RF buspirone 15 mg tablet 15 mg PO TID Qty: 90 0RF divalproex 125 mg capsule, delayed rel sprinkle 500 mg PO TID Qty: 360 0RF simvastatin 20 mg tablet 20 mg PO HS Qty: 30 0RF lurasidone [Latuda] 80 mg tablet See Rx Instructions .ROUTE .COMPLEX Qty: 30 0RF Dose Instruction: TAKE 1 TABLET BY MOUTH DAILY FOR MOOD Rx Instructions: TAKE 1 TABLET BY MOUTH DAILY FOR MOOD propranolol 20 mg tablet See Rx Instructions .ROUTE .COMPLEX Qty: 60 0RF Dose Instruction: TAKE 1 TABLET BY MOUTH TWICE DAILY FOR HIGH BLOOD PRESSURE Rx Instructions: TAKE 1 TABLET BY MOUTH TWICE DAILY FOR HIGH BLOOD PRESSURE benztropine 1 mg tablet See Rx Instructions .ROUTE .COMPLEX Qty: 60 0RF Dose Instruction: TAKE 1 TABLET BY MOUTH TWICE DAILY Rx Instructions: TAKE 1 TABLET BY MOUTH TWICE DAILY clonidine HCl 0.1 mg tablet See Rx Instructions .ROUTE .COMPLEX Qty: 90 0RF Dose Instruction: TAKE 1 TABLET BY MOUTH THREE TIMES DAILY FOR HYPERTENSION Rx Instructions: TAKE 1 TABLET BY MOUTH THREE TIMES DAILY FOR HYPERTENSION cephalexin 500 MG capsule 500 mg PO Q6H 7 Days Qty: 28 0RF ondansetron 4 MG tablet,disintegrating 4 mg PO BIDP PRN (Reason: Nausea) Qty: 10 0RF ondansetron 4 mg tablet,disintegrating 4 mg PO Q8H PRN (Reason: nausea and vomiting) 5 Days Qty: 10 0RF lidocaine 1 EACH adhesive patch,medicated 1 each TP DIRECTED Qty: 6 0RF Rx Instructions: Apply patch and wear for 12 hours then remove and leave off for 12 hrs Referrals Follow up/Referrals: Palak Martinez APRN [Primary Care Provider] - See instructions Activity Restrictions/Add. Instructions Additional Instructions/Restrictions: At this time it was felt you are safe to be discharged home. If new or worsening symptoms please do not hesitate to return the emergency department. If symptoms persist please follow-up with your family doctor as you are able. Clinical Impressions Clinical Impression: Headache, Abdominal pain, Acute viral syndrome, Hypokalemia Instructions Patient Instructions: DI for Diarrhea and Traveler's Diarrhea -- Adult, DI for Nausea -- Adult Discharge ED Provider: [facility] HPI General Chief complaint: Nausea/Vomiting/Diarrhea Stated complaint: lopez vomiting abd pain Time Seen by Provider: 08/20/23 12:03 Mode of Arrival: Ambulatory Source of Information: Patient Limitations: No Limitations Description of Symptoms (Recalled from ER Triage Doc. by RN): nausea,vomiting, stomach cramping History of Present Illness HPI narrative: Patient is a 47-year-old male with no pertinent past medical history who presents emergency department for evaluation of multiple complaints. Over the last 48 hours patient has had diffuse abdominal cramping, frontal headache. No chest pain, no vomiting. Last bowel movement 48 hours ago however he is still able to pass flatus. Nonbloody bowel movement. Due to persistent symptoms he presents here for continued evaluation. Related Data Previous Rx's Medication Instructions Recorded hydrocodone 5 mg-acetaminophen 325 1 tab PO Q6H PRN pain #120 tabs 11/16/20 mg tablet bupropion HCl 300 mg 24 hr tablet, 300 mg PO DAILY mood #30 tabs 06/30/20 extended release buspirone 15 mg tablet 15 mg PO TID Anxiety #90 tabs 06/30/20 divalproex 125 mg capsule,delayed 500 mg (4 x 125 mg) PO TID 06/30/20 release sprinkle SEIZURES #360 caps simvastatin 20 mg tablet 20 mg PO HS Cholesterol #30 tabs 06/30/20 cephalexin 500 mg capsule 500 mg PO Q6H 7 days #28 caps 07/03/20 lurasidone 80 mg tablet (Latuda) See Rx Instructions .Route 07/21/20 .COMPLEX #30 tabs benztropine 1 mg tablet See Rx Instructions .Route 08/05/20 .COMPLEX #60 tabs propranolol 20 mg tablet See Rx Instructions .Route 08/05/20 .COMPLEX #60 tabs clonidine HCl 0.1 mg tablet See Rx Instructions .Route 09/24/20 .COMPLEX #90 tabs ondansetron 4 mg disintegrating 4 mg PO BIDP PRN Nausea #10 tabs 12/29/21 tablet lidocaine 4 % topical patch 1 each topical DIRECTED #6 01/14/22 patches ondansetron 4 mg disintegrating 4 mg PO Q8H PRN nausea and 03/19/23 tablet vomiting 5 days #10 tabs Allergies Allergy/AdvReac Type Severity Reaction Status Date / Time prochlorperazine Allergy Unknown Verified 06/23/23 09:43 [From COMPAZINE] [facility] Disclaimer: The information contained in this section may have been updated after the patient was seen, as this information can be updated by other users. 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 current occupational exposures/hazards: No caffeine: Yes ROS Obtained: Yes Systems reviewed as appropriate & no additional complaints except as documented Physical Exam General General appearance: alert and in no apparent distress Head Head exam: atraumatic and normocephalic Eye Eye exam: Present PERRL and EOMI ENT ENT exam: Present mucous membranes moist Neck Neck exam: Present normal inspection Chest Chest inspection: Present normal inspection and symmetric chest wall rise Respiratory Respiratory exam: Present normal lung sounds bilaterally; Absent respiratory distress Cardiovascular Cardiovascular exam: Present regular rate and normal rhythm Abdominal Exam Abdominal exam: Present soft and tenderness (Mild, diffuse); Absent guarding or rebound Extremities Exam Extremities exam: Present normal inspection Neurological Exam Neurological exam: Present alert Psychiatric Psychiatric exam: Present normal affect Skin Skin exam: Present warm and dry Medical Decision Making Talha Inquiry Pt receiving controlled substance: No Vital Signs: 08/20/23 11:48 08/20/23 13:44 08/20/23 14:00 Temperature 98.1 F Temperature Source Oral Pulse Rate 78 81 Pulse Rate [Right Radial] 79 Respiratory Rate 20 20 20 Blood Pressure 127/82 133/79 Blood Pressure [Right Arm] 137/103 H Blood Pressure Mean 97 98 Blood Pressure Mean [Right Arm] 114 02 Sat by Pulse Oximetry 97 95 95 Oxygen Delivery Method Room Air Lab Data Lab Results 08/20/23 11:50: WBC 5.4, RBC 5.07, Hgb 15.7, Hct 46.0, MCV 90.9, MCH 31.0, MCHC 34.2, RDW 13.7, Plt Count 151, MPV 9.3, Neut % (Auto) 65.9, Lymph % (Auto) 22.9, [place] % (Auto) 6.8, Eos % (Auto) 3.8, Baso % (Auto) 0.6, Neut # (Auto) 3.5, Lymph # (Auto) 1.2, [place] # (Auto) 0.4, Eos # (Auto) 0.2, Baso # (Auto) 0.0, Sodium 139, Potassium 3.3 L, Chloride 112 H, Carbon Dioxide 22, Anion Gap 8.3, BUN 11, Creatinine 1.20, Estimated Creat Clear 72, Estimated GFR 64, Est GFR ( Amer) 78, Glucose 109 H, Calcium 7.8 L, Total Bilirubin 0.6, AST 30, ALT 32, Alkaline Phosphatase 97, Troponin I < 0.01, Total Protein 5.9 L, Albumin 3.5, Globulin 2.4, Albumin/Globulin Ratio 1.5, Lipase 44, SARS-CoV-2 (PCR) Not detected, Influenza A Untype (PCR) Not detected, Influenza Type B (PCR) Not detected 08/20/23 12:20: Urine Color Yellow, Urine Appearance Clear, Urine pH 7.0, Ur Specific [place] 1.010, Urine Protein Negative, Urine Glucose (UA) Negative, Urine Ketones Negative, Urine Blood Negative, Urine Nitrate Negative, Urine Bilirubin Negative, Urine Urobilinogen 0.2, Ur Leukocyte Esterase Negative, Urine RBC None, Urine WBC None, Ur Squamous Epith Cells None, Urine Bacteria None 08/20/23 11:50 08/20/23 11:50 Orders (Tests/Meds): ED MEDICATIONS Discontinued Medications Generic Name Dose Route Start Last Admin Trade Name Maged PRN Reason Stop Dose Admin Acetaminophen 1,000 mg 08/20/23 12:51 08/20/23 13:24 Acetaminophen 1,000mg/100ml Vial IV 08/20/23 12:52 1,000 mg ONCE ONE Administration Belladonna Alkaloids 60 ml 08/20/23 12:51 08/20/23 13:24 Belladonna Alkaloids 60 Ml Ml PO 08/20/23 12:52 60 ml ONCE ONE Administration Lactated Ringer's 1,000 mls @ 999 mls/hr 08/20/23 12:51 08/20/23 13:24 Lactated Ringer's 1000 Ml Bag IV 08/20/23 13:51 999 mls/hr .Q1H1M ONE Administration Iopamidol 75 ml 08/20/23 13:19 08/20/23 13:20 Iopamidol-370 (76%);100ml Bottle IV 08/20/23 13:20 75 ml ONCE ONE Administration Ketorolac Tromethamine 30 mg 08/20/23 12:51 08/20/23 13:24 Ketorolac 30mg/Ml Vial IV 08/20/23 12:52 30 mg ONCE ONE Administration Ondansetron HCl 4 mg 08/20/23 12:51 08/20/23 13:24 Ondansetron 4mg/2ml Vial IV 08/20/23 12:52 4 mg ONCE ONE Administration Sodium Chloride 10 ml 08/20/23 13:19 08/20/23 13:20 Sodium Chloride 0.9% 10ml Syr (Rad Only) IV 08/20/23 13:20 10 ml ONCE ONE Administration ORDERS Category Date Time Status CT abdomen pelvis w con Stat Cat Scan 08/20/23 12:51 Completed CBC w/Auto Diff [Complete Blood Count Auto Diff] Stat Lab 08/20/23 11:50 Completed CMP [Comprehensive Metabolic Panel] Stat Lab 08/20/23 11:50 Completed Lipase Stat Lab 08/20/23 11:50 Completed Rapid PCR Covid and Flu A/B Stat Lab 08/20/23 11:50 Completed Trop I [Troponin I] Stat Lab 08/20/23 11:50 Completed Troponin I Q3H Lab 08/20/23 16:00 Ordered Troponin I Q3H Lab 08/20/23 19:00 Ordered UA [Urinalysis and Microscopic] Stat Lab 08/20/23 12:20 Completed EKG Request [ECG Request] Stat Y 08/20/23 12:54 Ordered ECG Data Tracing #1: Independently interpreted by me, rate is 77, rhythm is regular, axis is normal, no ST elevation in anatomical contiguous leads, QTc 423. Medical Decision Narrative: In summary patient is a 47-year-old male with past medical history described above presents emergency department for evaluation of abdominal pain and headache. Patient is hemodynamically stable nontoxic-appearing upon arrival, afebrile. Given the patient normally has multiple bowel movements a day and has not had 1 in 48 hours incomplete bowel obstruction is on the differential however he is still passing flatus. Viral syndrome with constipation is more likely. Given epigastric pain atypical ACS is also a consideration although unlikely. Workup will be conducted with hematologic labs, urinalysis, viral swab, CT of the abdomen pelvis IV contrast. Initial inventions include multimodal pain control, crystalloid bolus, Zofran. Patient has a nonfocal neurologic exam therefore workup with intracranial imaging was considered but will be deferred. Initial workup reviewed by me, hematologic labs are nonactionable, mild hypokalemia which will be repleted orally. Initial troponin below detectable limit. Urinalysis interpreted by me and not consistent with infection. Viral swab negative. CT abdomen pelvis shows no acute pathology. Given this patient likely has viral syndrome and is appropriate for outpatient management at this time. Critical Care Critical Care Time Critical Care Time: No
[2023-08-20 12:59] LABS: Coronavirus 19, PCR Not Detected (NotDetected); Influenza A, PCR Not Detected (NotDetected); Influenza B, PCR Not Detected (NotDetected)
[2023-08-20 13:01] LABS: Basophils % 0.6 % (0.1-2.0); Eosinophils # 0.2 K/mm3 (0.0-0.4); Eosinophils % 3.8 % (0.1-12.0); Hemoglobin 15.7 g/dL (14.1-18.0); Lymphocytes # 1.2 K/mm3 (0.7-4.5); Lymphocytes % 22.9 % (10-50); Mean Corpuscular HGB Conc 34.2 g/dL (31.8-35.4); Mean Corpuscular Volume 90.9 fl (80-94); Mean Platelet Volume 9.3 fl (7.4-10.4); Monocytes # 0.4 K/mm3 (0.1-1.0); Monocytes % 6.8 % (1.7-9.3); Neutrophils # 3.5 K/mm3 (1.8-7.8); Neutrophils % 65.9 % (37.0-80.0); Platelet Count 151 K/mm3 (142-424); Red Blood Count 5.07 M/mm3 (4.60-6.20); Red Cell Distribution Width 13.7 % (11.5-17.5); White Blood Count 5.4 K/mm3 (4.8-10.8)
[2023-08-20 13:02] LABS: Chloride 112 mmol/L (98-107)
[2023-08-20 13:03] LABS: Potassium 3.3 mmoL/L (3.5-5.1); Sodium 139 mmol/L (136-145)
[2023-08-20 13:05] LABS: Alanine Aminotransferase 32 U/L (12-78); Alkaline Phosphatase 97 U/L (38-126); Aspartate Amino Transferase 30 U/L (17-59); Bilirubin,Total 0.6 mg/dl (0.2-1.3); Blood Urea Nitrogen 11 mg/dl (9-20); Creatinine Clearance Estimated 72 mL/min (50-200); Estimated Glomerular Filt Rate 64 ml/min (>60); GFR (African American) 78 ML/MIN (>60)
[2023-08-20 13:06] LABS: Albumin Level 3.5 g/dl (3.5-5.0); Albumin/Globulin Ratio 1.5 (1.1-1.8); Anion Gap 8.3 mEq/L (5-15); Calcium 7.8 mg/dl (8.4-10.2); Carbon Dioxide 22 mmol/L (22.0-30.0); Globulin 2.4 g/dL (1.3-3.2); Glucose 109 mg/dl (74-100); Lipase 44 U/L (23-300); Total Protein,Serum 5.9 g/dl (6.3-8.2)
[2023-08-20 13:19] LABS: Troponin I < 0.01 ng/ml (0.00-0.034)
[2023-08-20] MEDS: IOPAMIDOL-370 (76%);100ML BOTTLE 75 ML IV (13:20)
[2023-08-20] MEDS: SODIUM CHLORIDE 0.9% 10ML SYR (RAD ONLY) 10 ML IV (13:20)
[2023-08-20] MEDS: BELLADONNA ALKALOIDS 60 ML ML PO (13:24)
[2023-08-20] MEDS: ONDANSETRON 4MG/2ML VIAL 4 MG IV (13:24)
[2023-08-20] MEDS: KETOROLAC 30MG/ML VIAL 30 MG IV (13:24)
[2023-08-20] MEDS: ACETAMINOPHEN 1,000MG/100ML VIAL 1000 MG IV (13:24)
[2023-08-20] MEDS: LACTATED RINGERS 1000ML 1,000 ML 999 ML IV (13:24)
[2023-08-20 13:44] VITALS: BP 127/82; PULSE 78; RESP 20; O2SAT 95
--- NOTE | 2023-08-20 13:45 | PC.NURSE ---
Rounded on pt. No needs voiced at this time. Call light within reach.
[2023-08-20 14:00] VITALS: BP 133/79; PULSE 81; RESP 20; O2SAT 95
--- NOTE | 2023-08-20 14:14 | PC.NURSE ---
I rounded on the pt, he is going to attempt to give us a urine sample.
[2023-08-20 14:23] LABS: Microscopic, Urine URINE MICROSCOPIC (MICROSCOPIC)
[2023-08-20 14:26] LABS: Appearance,Urine CLEAR (Clear); Bilirubin,Urine Negative (Negative); Blood, Urine Negative (Negative); Color,Urine YELLOW (Yellow); Glucose,Urine (UA) Negative (Negative); Ketones,Urine Negative (Negative); Leukocyte Esterase,Urine Negative (Negative); Nitrate,Urine Negative (Negative); Protein,Urine Negative (Negative); Urobilinogen,Urine 0.2 EU/dl (0.2)
[2023-08-20 14:30] VITALS: BP 131/94; PULSE 79; RESP 20; O2SAT 97
[2023-08-20 15:01] VITALS: BP 147/104; PULSE 72; RESP 20; O2SAT 97
--- NOTE | 2023-08-20 15:05 | PC.NURSE ---
PT PROVIDED PEPSI AT THIS TIME
[2023-08-20] MEDS: POTASSIUM CHLORIDE 20MEQ TAB 40 MEQ PO (15:16)
[2023-08-20] MEDS: ONDANSETRON 4MG ODT 4 MG SL (15:16)
[2023-08-20 15:20] VITALS: BP 130/100; PULSE 86; RESP 18; TEMP 36.7; O2SAT 97
== END 2023-08-20 15:20 | disposition home or self-care (01) ==
PROVIDERS: Emergency Provider Emergency Medicine; PCP Nurse Practitioner
DX: R10.84 Generalized abdominal pain (principal); E87.6 Hypokalemia; R11.2 Nausea with vomiting, unspecified; R51.9 Headache, unspecified
CPT/HCPCS: 74177; 80053; 81001; 83690; 84484; 85025; 87636; 93005; 96361; 96374; 96375; 99285; J0131; J2405; Q9967

== ENCOUNTER 2023-10-03 08:00 | Outpatient (RCR) | payer MEDICARE, MEDICAID, SELFPAY | END 2023-10-12 10:59 | disposition home or self-care (01) | LOC: PT 08:00 | PROVIDERS: PCP Nurse Practitioner; Visit Provider Nurse Practitioner | DX: G62.89 Other specified polyneuropathies (principal) | CPT/HCPCS: 97110; 97112; 97116; 97163; 97164; 97530 ==

== ENCOUNTER 2023-10-18 07:49 | Outpatient (CLI) | payer MEDICARE, MEDICAID, SELFPAY ==
--- NOTE | 2023-10-18 07:50 | MR_ITS ---
FINAL REPORT CLINICAL HISTORY: numbness,tingling waist to toes FINDINGS: Multiplanar MR imaging of the thoracic spine was performed without and with contrast. On the sagittal T2-weighted images, disc degeneration is seen at multiple levels. There is no evidence of fracture. The vertebral alignment is normal. No bony mass is identified. Focal abnormal T2 signal is seen within the dorsal aspect of the thoracic cord centered at T9-10. This measures 14 mm in length and 5 mm in diameter. There is no evidence of significant canal stenosis. On the axial images, annular bulges are seen at multiple levels. Multiple vertebral osteophytes are present. There is no evidence of disc protrusion. No significant canal stenosis is identified. On the postcontrast images, no abnormal contrast enhancement is identified. No abnormal contrast-enhancement is seen of the thoracic cord lesion. IMPRESSION: Focal area of abnormal T2 signal in the dorsal thoracic cord centered at T9-10. This has a nonspecific appearance but does not have the typical appearance of neoplasm and is worrisome for demyelination. Multilevel mild degenerative change. Authenticated and [facility]
--- NOTE | 2023-10-18 07:50 | MR_ITS ---
FINAL REPORT CLINICAL HISTORY: numbness,tingling waist to toes FINDINGS: Multiplanar MR imaging of the brain was performed without contrast. There is no evidence of intracranial hemorrhage or mass. The ventricular size is normal. There is no evidence of shift of the midline structures. No abnormal extra-axial fluid collection is identified. The posterior fossa and brainstem have an unremarkable appearance. No area of abnormal restricted diffusion is identified. Normal major vessel vascular flow voids are seen. IMPRESSION: Unremarkable brain with no acute intracranial abnormality. Reviewed, Interpreted and Dictated by Eugenio Sandy III, MD Transcribed by Camila Koroma Authenticated and [facility]
[2023-10-18] MEDS: SODIUM CHLORIDE 0.9% 10ML SYR (RAD ONLY) 10 ML IV (09:55)
[2023-10-18] MEDS: GADOTERIDOL INJ 17ML SYRINGE 30 ML IV (09:56)
== END 2023-10-18 23:59 | disposition home or self-care (01) ==
LOC: RAD 07:50
PROVIDERS: PCP Nurse Practitioner; Visit Provider Specialist
DX: G37.3 Acute transverse myelitis in demyelinating disease of central nervous system (principal); R25.1 Tremor, unspecified
CPT/HCPCS: 70551; 72157; A9576

== ENCOUNTER 2023-10-20 09:18 | Outpatient (CLI) | payer MEDICARE, MEDICAID, SELFPAY ==
[2023-10-20] MEDS: METHYLPREDN SOD SUCC 1,000 MG in 0.9 % SODIUM CHLORIDE 250 ML 500 MG IV (10:01)
[2023-10-20] MEDS: SODIUM CHLORIDE 0.9% 50ML BAG 50 ML IV (10:02)
[2023-10-20 10:05] VITALS: BP 150/89; PULSE 58; RESP 18; O2SAT 99
[2023-10-20 10:15] VITALS: BP 144/76; PULSE 59; RESP 18
[2023-10-20 10:45] VITALS: BP 151/86; PULSE 61; RESP 18; O2SAT 96
== END 2023-10-20 10:45 | disposition home or self-care (01) ==
LOC: INF 09:19
PROVIDERS: PCP Nurse Practitioner; Visit Provider Specialist
DX: G37.3 Acute transverse myelitis in demyelinating disease of central nervous system (principal)
CPT/HCPCS: 96365

== ENCOUNTER 2023-10-21 09:13 | Outpatient (CLI) | payer MEDICARE, MEDICAID, SELFPAY ==
[2023-10-21 09:13] VITALS: BP 163/85; PULSE 89; RESP 16; TEMP 36.7; O2SAT 97
[2023-10-21] MEDS: METHYLPREDN SOD SUCC 1,000 MG in 0.9 % SODIUM CHLORIDE 250 ML 500 MG IV (09:42)
== END 2023-10-21 10:55 | disposition home or self-care (01) ==
LOC: INF 09:14
PROVIDERS: PCP Nurse Practitioner; Visit Provider Specialist
DX: G37.3 Acute transverse myelitis in demyelinating disease of central nervous system (principal)
CPT/HCPCS: 96365; G0463

== ENCOUNTER 2023-10-22 09:17 | Outpatient (CLI) | payer MEDICARE, MEDICAID, SELFPAY ==
[2023-10-22 09:17] VITALS: BP 160/89; PULSE 67; RESP 18; TEMP 36.6; O2SAT 100
[2023-10-22] MEDS: METHYLPREDN SOD SUCC 1,000 MG in 0.9 % SODIUM CHLORIDE 250 ML 500 MG IV (09:55)
== END 2023-10-22 10:35 | disposition home or self-care (01) ==
LOC: INF 09:18
PROVIDERS: PCP Physician Assistant; Visit Provider Specialist
DX: G37.3 Acute transverse myelitis in demyelinating disease of central nervous system (principal)
CPT/HCPCS: 96365; G0463

== ENCOUNTER 2023-12-07 12:48 | Outpatient (CLI) | payer MEDICARE, MEDICAID, SELFPAY ==
--- NOTE | 2023-12-07 12:49 | MR_ITS ---
FINAL REPORT CLINICAL HISTORY: Repeat TSpine in 6-8weeks. ABNORMAL PRIOR MRI COMPARISON: 10/18/2023 FINDINGS: MRI THORACIC SPINE, WITHOUT AND WITH CONTRAST TECHNIQUE: Multiplanar MR without and with contrast administration. FINDINGS: No acute fracture is present. Alignment is normal. The marrow signal pattern is normal. There is an ovoid lesion in the thoracic spinal cord extending inferiorly from the T9-10 disc space level in the posterior aspect of the cord. The lesion measures up to 14 mm in length and 4 mm in diameter. This abnormal signal focus does not enhance after contrast administration.. Minimal changes of degenerative disc disease are present scattered in the thoracic region. There is no canal stenosis or cord compression. There is no abnormal enhancement. IMPRESSION: Abnormal signal in the thoracic spinal cord, unchanged since the prior MRI of October 17, and not enhancing on either exam. The differential diagnosis includes demyelination or low-grade tumor. Reviewed, Interpreted and Dictated by Estrella Napoles MD Transcribed by Jojo Andres Authenticated and . [facility]
[2023-12-07 13:20] LABS: Blood Urea Nitrogen 12 mg/dl (9-20); Estimated Glomerular Filt Rate 59 ml/min (>60); GFR (African American) 71 ML/MIN (>60)
[2023-12-07] MEDS: SODIUM CHLORIDE 0.9% 10ML SYR (RAD ONLY) 10 ML IV (14:05)
[2023-12-07] MEDS: GADOTERIDOL INJ 20ML SYRINGE 20 ML IV (14:06)
[2023-12-07] MEDS: GADOTERIDOL INJ 10ML SYRINGE 9 ML IV (14:06)
== END 2023-12-07 23:59 | disposition home or self-care (01) ==
LOC: RAD 12:49
PROVIDERS: PCP Nurse Practitioner; Visit Provider Specialist
DX: G37.3 Acute transverse myelitis in demyelinating disease of central nervous system (principal)
CPT/HCPCS: 36415; 72157; 82565; 84520; A9576

== ENCOUNTER 2023-12-20 15:48 | Outpatient (CLI) | payer MEDICARE, MEDICAID, SELFPAY ==
--- NOTE | 2023-12-20 15:48 | MR_ITS ---
FINAL REPORT CLINICAL HISTORY: lumbar radiculopathy FINDINGS: Multiplanar MR imaging of the lumbar spine was performed without and with contrast. On the sagittal T2-weighted images, disc degeneration is seen at multiple levels. The vertebral alignment is normal. Endplate changes are noted at multiple levels. There is no evidence of fracture. The conus is seen at approximately the L1 level and has an unremarkable appearance. L1-2: Unremarkable. L2-3: An annular bulge is present. Vertebral osteophytes and bilateral facet arthropathy are present. There is a small right foraminal disc protrusion. Mild bilateral neural foraminal narrowing is seen. L3-4: An annular bulge is present. Mild bilateral neural foraminal narrowing is seen. L4-5: An annular bulge is present. There is mild left neural foraminal narrowing. L5-S1: An annular bulge is present. Mild bilateral neural foraminal narrowing is seen. A focus of contrast-enhancement is seen in the anterior aspect of the L5-S1 disc that may represent an annular tear. IMPRESSION: Multilevel mild degenerative disc disease and spondylosis with areas of neural foraminal narrowing as described. Small right foraminal L2-3 disc protrusion. Authenticated and [facility]
[2023-12-20] MEDS: GADOTERIDOL INJ 20ML SYRINGE 20 ML IV (16:55)
[2023-12-20] MEDS: GADOTERIDOL INJ 10ML SYRINGE 9 ML IV (16:55)
[2023-12-20] MEDS: SODIUM CHLORIDE 0.9% 10ML FLUSH SYRINGE 10 ML IV (16:55)
== END 2023-12-20 23:59 | disposition home or self-care (01) ==
LOC: RAD 15:48
PROVIDERS: PCP Nurse Practitioner; Visit Provider Specialist
DX: M54.16 Radiculopathy, lumbar region (principal)
CPT/HCPCS: 72158; A9576

== ENCOUNTER 2024-02-17 11:12 | Emergency (ER) | payer MEDICARE, MEDICAID, SELFPAY ==
[2024-02-17 11:14] VITALS: BP 139/97; PULSE 77; RESP 18; TEMP 36.8; O2SAT 100; BMI 48.4
[2024-02-17 11:30] VITALS: BP 147/82; PULSE 62; RESP 18; O2SAT 95
[2024-02-17] MEDS: MAGNESIUM CITRATE 10OZ BOTTLE 10 OZ PO (11:31)
--- NOTE | 2024-02-17 11:36 | HMH.EDGENADL ---
Discharge Plan Disposition Patient Disposition: Home, Self-Care Chief Complaint: Recheck/Abnormal Lab/Rx Prescriptions Prescriptions: No Action methylprednisolone 4 mg tablets,dose pack See Rx Instructions PO PER PKG DIR Qty: 21 0RF Rx Instructions: PO PER PKG DIR for 6 days topiramate 50 mg tablet 50 mg PO BID propranolol 20 mg tablet 20 mg PO BID hydrocodone-acetaminophen 5-325 mg tablet 1 tab PO Q6H PRN (Reason: pain) Qty: 120 0RF bupropion HCl 300 mg tablet extended release 24 hr 300 mg PO DAILY Qty: 30 0RF buspirone 15 mg tablet 15 mg PO TID Qty: 90 0RF divalproex 125 mg capsule, delayed rel sprinkle 500 mg PO TID Qty: 360 0RF simvastatin 20 mg tablet 20 mg PO HS Qty: 30 0RF lurasidone [Latuda] 80 mg tablet See Rx Instructions .ROUTE .COMPLEX Qty: 30 0RF Dose Instruction: TAKE 1 TABLET BY MOUTH DAILY FOR MOOD Rx Instructions: TAKE 1 TABLET BY MOUTH DAILY FOR MOOD benztropine 1 mg tablet See Rx Instructions .ROUTE .COMPLEX Qty: 60 0RF Dose Instruction: TAKE 1 TABLET BY MOUTH TWICE DAILY Rx Instructions: TAKE 1 TABLET BY MOUTH TWICE DAILY clonidine HCl 0.1 mg tablet See Rx Instructions .ROUTE .COMPLEX Qty: 90 0RF Dose Instruction: TAKE 1 TABLET BY MOUTH THREE TIMES DAILY FOR HYPERTENSION Rx Instructions: TAKE 1 TABLET BY MOUTH THREE TIMES DAILY FOR HYPERTENSION Referrals Follow up/Referrals: Palak Martinez APRN [Primary Care Provider] - See instructions Activity Restrictions/Add. Instructions Additional Instructions/Restrictions: supervisory it specialist some MiraLAX (polyethylene glycol is the generic) from local pharmacy and take 1 capful daily for the next 3 days. If you continue to become constipated, 2 capfuls of MiraLAX a day for 3 days, 1 capful thereafter. Titrate up or down from 1 capful until having 1-2 soft bowel movements a day the consistency of toothpaste. Chronically could help. Call your family doctor to establish care for this visit to the emergency department and schedule follow-up within 48 hours to ensure improvement. If you have any worsening of your condition or any other concerning signs or symptoms, return to the emergency department or your primary care doctor for further evaluation. Clinical Impressions Clinical Impression: Acute constipation, Abdominal pain Print Language Print Language: Lithuanian Discharge ED Provider: Francisco Traylor General Adult HPI General Chief complaint: Recheck/Abnormal Lab/Rx Stated complaint: hasnt had a BM since 02/15/24, abd pain Time Seen by Provider: 02/17/24 11:18 Mode of Arrival: Ambulatory Source of Information: Patient Limitations: No Limitations Description of Symptoms (Recalled from ER Triage Doc. by RN): pt has not pooped since night History of Present Illness HPI narrative: Please note that above description of symptoms, in this electronic medical record under categorization of recalled from ER triage doctor by RN are reflective of an initial nursing assessment, however, is not reflective of my full history and physical exam that was personally taken and clarified. Consequentially, this preceding description of symptoms, which may include the patient's categorized chief complaint in the EMR, do not reflect my personal clinical impression, and the ultimate description of history of present illness and patient stated complaints should be deferred to this section of the note. Unless stated otherwise or congruent with this section of the note, additional signs, symptoms, or incongruence should be interpreted as inaccurate with my clinical impression. Related Data Home Medications ?Medication ?Instructions ?Recorded ?Confirmed propranolol 20 mg tablet 20 mg PO BID 10/02/23 01/09/24 topiramate 50 mg tablet 50 mg PO BID 10/02/23 12/12/23 Previous Rx's ?Medication ?Instructions ?Recorded hydrocodone 5 mg-acetaminophen 325 1 tab PO Q6H PRN pain #120 tabs 11/16/20 mg tablet bupropion HCl 300 mg 24 hr tablet, 300 mg PO DAILY mood #30 tabs 06/30/20 extended release buspirone 15 mg tablet 15 mg PO TID Anxiety #90 tabs 06/30/20 divalproex 125 mg capsule,delayed 500 mg (4 x 125 mg) PO TID 06/30/20 release sprinkle SEIZURES #360 caps simvastatin 20 mg tablet 20 mg PO HS Cholesterol #30 tabs 06/30/20 lurasidone 80 mg tablet (Latuda) See Rx Instructions .Route 07/21/20 .COMPLEX #30 tabs benztropine 1 mg tablet See Rx Instructions .Route 08/05/20 .COMPLEX #60 tabs clonidine HCl 0.1 mg tablet See Rx Instructions .Route 09/24/20 .COMPLEX #90 tabs methylprednisolone 4 mg tablets in See Rx Instructions PO PER PKG DIR 01/09/24 a dose pack #21 tabs Allergies Allergy/AdvReac Type Severity Reaction Status Date / Time prochlorperazine Allergy Unknown Verified 01/09/24 08:20 [From [facility]PAZINE] [facility] Disclaimer: The information contained in this section may have been updated after the patient was seen, as this information can be updated by other users. 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 current occupational exposures/hazards: No caffeine: Yes ROS Obtained: Yes All systems reviewed & no additional complaints except as documented Physical Exam General General appearance: alert Head Head exam: atraumatic and normocephalic Eye Eye exam: Present normal appearance, PERRL and EOMI Neck Neck exam: Present normal inspection, full ROM and trachea midline Respiratory Respiratory exam: Absent respiratory distress, wheezes, stridor, accessory muscle use or prolonged expiratory phase Cardiovascular Cardiovascular exam: Present other (Pulses equal symmetric in upper and lower extremities) Abdominal Exam Abdominal exam: Present soft; Absent distention, tenderness or pulsatile mass Extremities Exam Extremities exam: Absent edema Neurological Exam Neurological exam: Present alert, oriented X3 and CN II-XII intact; Absent motor sensory deficit Skin Skin exam: Present warm and dry; Absent diaphoresis or erythema Medical Decision Making Medical Records Medical records reviewed: Yes I reviewed the patient's medical records. Talha Inquiry Pt receiving controlled substance: No Talha was queried for this patient: No Vital Signs: 02/17/24 11:14 02/17/24 11:30 Temperature 98.3 F Temperature Source Oral Pulse Rate 62 Pulse Rate [Right] 77 Respiratory Rate 18 18 Blood Pressure 147/82 H Blood Pressure [Right Arm] 139/97 H Blood Pressure Mean [Right Arm] 111 02 Sat by Pulse Oximetry 100 95 Oxygen Delivery Method Room Air Lab Data Lab Results 02/17/24 13:13: Urine Color Yellow, Urine Appearance Clear, Urine pH 6.0, Ur Specific Reasnor 1.025, Urine Protein Negative, Urine Glucose (UA) Negative, Urine Ketones Negative, Urine Blood Negative, Urine Nitrate Negative, Urine Bilirubin Negative, Urine Urobilinogen 0.2, Ur Leukocyte Esterase Negative Orders (Tests/Meds): ED MEDICATIONS Discontinued Medications Generic Name Dose Route Start Last Admin Trade Name Freq PRN Reason Stop Dose Admin Magnesium Citrate 10 oz 02/17/24 11:28 02/17/24 11:31 Magnesium Citrate 10oz Bottle PO 02/17/24 11:29 10 oz ONCE ONE Administration ORDERS Category Date Time Status UA [Urinalysis and Microscopic] Stat Lab 02/17/24 13:13 Results Medical Decision Narrative: 48-year-old male no relevant medical history presenting with concern for constipation. Patient states that he has not had a bowel movement in approximately 48 hours, this is abnormal for him, he normally has 1-2 bowel movements a day that are soft. States he is having lower abdominal cramping. No overt pain. Tried 3 stimulant laxatives at home, did not produce bowel movement. Came in for further evaluation. No fevers or chills, nausea or vomiting, no radiation of pain. Its dull, cramping. States that he is still passing gas without issue. History obtained with patient. On arrival, patient very well-appearing. Walking around the room. Abdomen is soft, nontender, nondistended. Not actually tender on my exam. Fluids constipation, enteritis, gastritis, diverticulitis, nephrolithiasis, among others. Because patient so well-appearing, nontachycardic, normotensive, afebrile, no hematologic workup initially deemed necessary. Magnesium citrate was offered. Patient drink this, result was 2 bowel movements and improvement in symptoms. Nonactionable findings without concern for UTI on UA. Previous imaging from August 2023 was independently interpreted. Patient does not have nephrolithiasis, diverticulosis, or any other acute abdominal pathology at that time. Aorta is normal caliber. Because patient at baseline without signs or symptoms of clinical decompensation, deemed appropriate for discharge. Results were relayed to patient who voiced understanding and were agreeable to outpatient management and follow up. I discussed my clinical impression with patient and answered all questions. At this time, the evidence for any other entities in the differential is insufficient to warrant any further testing or ED observation. This was explained as well. Advisory was given that persistent or worsening symptoms require further evaluation. I confirmed the understanding of this discussion. Tube Machine Operator Helper disclaimer Much of this encounter note is an electronic aircraft refueler spoken language to printed text. Electronic aircraft refueler of the spoken language may permit errors. Although I have reviewed the note, some errors may still exist. Critical Care Critical Care Time Critical Care Time: No
--- NOTE | 2024-02-17 12:04 | PC.NURSE ---
SMALL SOFT BOWEL MOVEMENT NOTED
[2024-02-17 13:19] LABS: Microscopic, Urine URINE MICROSCOPIC (MICROSCOPIC)
[2024-02-17 13:21] LABS: Appearance,Urine CLEAR (Clear); Bilirubin,Urine Negative (Negative); Blood, Urine Negative (Negative); Color,Urine YELLOW (Yellow); Glucose,Urine (UA) Negative (Negative); Ketones,Urine Negative (Negative); Leukocyte Esterase,Urine Negative (Negative); Nitrate,Urine Negative (Negative); Protein,Urine Negative (Negative); Specific Gravity, Urine 1.025 (1.005-1.030); Urobilinogen,Urine 0.2 EU/dl (0.2)
[2024-02-17 13:37] VITALS: BP 158/111; PULSE 86; RESP 18; TEMP 36.7; O2SAT 98
[2024-02-17 13:44] LABS: Bacteria,Urine Trace /lpf; Mucus,Urine Trace /lpf; Squamous Epithelial Cell,Urine Occasional #/hpf (0-5); WBC,Urine Occasional #/hpf (0-3)
== END 2024-02-17 13:40 | disposition home or self-care (01) ==
PROVIDERS: Emergency Provider Emergency Medicine; PCP Nurse Practitioner
DX: R10.30 Lower abdominal pain, unspecified (principal); K59.00 Constipation, unspecified; G37.3 Acute transverse myelitis in demyelinating disease of central nervous system; E78.5 Hyperlipidemia, unspecified
CPT/HCPCS: 81001; 99283

== ENCOUNTER 2024-03-31 14:19 | Observation (INO) | payer MEDICARE, MEDICAID, SELFPAY ==
[2024-03-31] VITALS (8 sets, daily range): BP systolic 144–161; BP diastolic 82–99; PULSE 67–88; RESP 16–20; TEMP 36.6–37.1; O2SAT 95–98; BMI 49.8; BMI 47.7
--- NOTE | 2024-03-31 14:31 | ED_ITS ---
<Statement entered by Se Sabillon MD - 04/01/24 15:49> I was consulted by the LESLIE, and we discussed the complexity of the problems being addressed. I approved the treatment and management plan for this patient's care in the emergency department, thus performing a substantive portion of the medical decision making. Se Sabillon MD, CHRIS, FACEP Discharge Plan Disposition Patient Disposition: Admitted Condition: Good Clinical Impressions Clinical Impression: Abdominal pain, acute Acute appendicitis Qualifiers: Acute appendicitis type: unspecified acute appendicitis type Qualified Code(s): K35.80 - Unspecified acute appendicitis Discharge ED Provider: Se Sabillon General Adult HPI <АЛЕКСАНДР White - Last Filed: 03/31/24 17:16> General Chief complaint: Headache Stated complaint: vomiting,abd pain, headache Time Seen by Provider: 03/31/24 14:27 Mode of Arrival: Ambulatory Source of Information: Patient Limitations: No Limitations Description of Symptoms (Recalled from ER Triage Doc. by RN): States that he has a stomach ache that started yesterday. States he has vomitted once and has a headache. History of Present Illness HPI narrative: Patient presents for evaluation of multiple complaints. Patient states that his chief complaint is a headache that began last night now followed by diffuse abdominal pain. Patient denies shortness of breath fever chills cough hemoptysis hematochezia melena hematemesis hematuria and reports that he has had a bowel movement today as well as passing flatus. He is not intolerant of oral intake. Patient has attempted to treat it with Gatorade which did not help. Regarding his headache he had no prodrome that began slowly and has persisted since last night. Patient reports that he has had no abdominal surgery. Related Data Home Medications ?Medication ?Instructions ?Recorded ?Confirmed propranolol 20 mg tablet 20 mg PO BID 10/02/23 03/31/24 topiramate 50 mg tablet 50 mg PO BID 10/02/23 03/31/24 Previous Rx's ?Medication ?Instructions ?Recorded bupropion HCl 300 mg 24 hr tablet, 300 mg PO DAILY mood #30 tabs 06/30/20 extended release buspirone 15 mg tablet 15 mg PO TID Anxiety #90 tabs 06/30/20 divalproex 125 mg capsule,delayed 500 mg (4 x 125 mg) PO TID 06/30/20 release sprinkle SEIZURES #360 caps lurasidone 80 mg tablet (Latuda) See Rx Instructions .Route 07/21/20 .COMPLEX #30 tabs benztropine 1 mg tablet See Rx Instructions .Route 08/05/20 .COMPLEX #60 tabs clonidine HCl 0.1 mg tablet See Rx Instructions .Route 09/24/20 .COMPLEX #90 tabs methylprednisolone 4 mg tablets in See Rx Instructions PO PER PKG DIR 01/09/24 a dose pack #21 tabs Allergies Allergy/AdvReac Type Severity Reaction Status Date / Time prochlorperazine Allergy Unknown Verified 01/09/24 08:20 [From COMPAZINE] [facility] <АЛЕКСАНДР White - Last Filed: 03/31/24 17:16> [facility] Disclaimer: The information contained in this section may have been updated after the patient was seen, as this information can be updated by other users. 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 No evidence of demyelinating lesions on brain MRI Bipolar 1 disorder Active [facility] [facility] [place] Hyperlipidemia Arthritis Depression Acute adjustment disorder with anxiety Surgical History History of surgery on lower extremity History of ankle surgery Family History Other Cancer Diabetes Heart attack Hypertension Social History (Updated 03/31/24 @ 18:40 by Larissa Arango RN) Smoking Status: Never smoker alcohol intake: former substance use type: denies use current occupational status: employed, unemployed and disabled Travel in the last 8 weeks: None household members: family housing: house marital status: single 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 current occupational exposures/hazards: No caffeine: Yes Other Medical History Have you received the Flu Vaccine for this season: No Have you received the Pneumonia Vaccine: No <АЛЕКСАНДР White - Last Filed: 03/31/24 17:16> ROS Obtained: Yes Systems reviewed as appropriate & no additional complaints except as documented Physical Exam <АЛЕКСАНДР White - Last Filed: 03/31/24 17:16> General General appearance: alert and in no apparent distress Respiratory Respiratory exam: Present normal lung sounds bilaterally Cardiovascular Cardiovascular exam: Present regular rate Neurological Exam Neurological exam: Present alert and oriented X3 Medical Decision Making <АЛЕКСАНДР White - Last Filed: 03/31/24 17:16> Medical Records Medical records reviewed: Yes I reviewed the patient's medical records. Screening: Per USPSTF and CDC recommendations, given the prevalence of disease in our region, it is our hospital?s policy to screen for HIV and viral Hepatitis for all patients aged 18 and over and those with ongoing risk factors. Talha Inquiry Pt receiving controlled substance: No Vital Signs: 03/31/24 14:20 03/31/24 14:27 03/31/24 14:30 Temperature 98.7 F Temperature Source Oral Pulse Rate 82 88 Pulse Rate [Radial] 87 Respiratory Rate 16 Blood Pressure 147/98 H 151/95 H Blood Pressure [Right Arm] 147/98 H Blood Pressure Mean 114 108 Blood Pressure Mean [Right Arm] 114 Blood Pressure Source [Right Arm] Automatic Cuff Blood Pressure Position [Right Arm] Sitting 02 Sat by Pulse Oximetry 97 98 97 Oxygen Delivery Method Room Air Room Air Room Air 03/31/24 15:30 03/31/24 16:01 03/31/24 17:47 Temperature 98.2 F Temperature Source Pulse Rate 77 77 77 Pulse Rate [Radial] Respiratory Rate 20 Blood Pressure 161/88 H 145/82 H 145/82 H Blood Pressure [Right Arm] Blood Pressure Mean 112 109 Blood Pressure Mean [Right Arm] Blood Pressure Source [Right Arm] Blood Pressure Position [Right Arm] 02 Sat by Pulse Oximetry 96 97 Oxygen Delivery Method Room Air Room Air Room Air Lab Data Lab results reviewed: Yes I reviewed the patient's lab results. Lab Results 03/31/24 14:26: Urine Color Yellow, Urine Appearance Clear, Urine pH 6.5, Ur Specific [place] 1.020, Urine Protein Negative, Urine Glucose (UA) Negative, Urine Ketones Negative, Urine Blood Negative, Urine Nitrate Negative, Urine Bilirubin 1+ A, Urine Urobilinogen 1.0, Ur Leukocyte Esterase Negative, Urine RBC None, Urine WBC None, Ur Squamous Epith Cells Occasional, Urine Bacteria None 03/31/24 14:38: WBC 3.4 L, RBC 4.76, Hgb 14.4, Hct 41.9 L, MCV 88.0, MCH 30.1, MCHC 34.2, RDW 13.5, Plt Count 110 L, MPV 9.0, Neut % (Auto) 73.6, Lymph % (Auto) 15.0, Archer % (Auto) 7.6, Eos % (Auto) 3.2, Baso % (Auto) 0.5, Neut # (Auto) 2.5, Lymph # (Auto) 0.5 L, Archer # (Auto) 0.3, Eos # (Auto) 0.1, Baso # (Auto) 0.0, Sodium 139, Potassium 3.4 L, Chloride 108 H, Carbon Dioxide 25, Anion Gap 9.4, BUN 10, Creatinine 1.30 H, Estimated Creat Clear 66, Estimated GFR 58 L, Est GFR ( Amer) 71, Glucose 114 H, Calcium 8.9, Total Bilirubin 1.2, AST 37, ALT 38, Alkaline Phosphatase 82, Total Protein 6.7, Albumin 4.0, Globulin 2.7, Albumin/Globulin Ratio 1.5, Lipase 37, Procalcitonin 1.73, HIV 1&2 Antibody Rapid Nonreactive 03/31/24 16:48: SARS-CoV-2 (PCR) Not detected, Influenza A Untype (PCR) Not detected, Influenza Type B (PCR) Not detected 03/31/24 14:38 03/31/24 14:38 Orders (Tests/Meds): ED MEDICATIONS Generic Name Dose Route Start Last Admin Trade Name Freq PRN Reason Stop Dose Admin Acetaminophen 650 mg 03/31/24 17:19 Acetaminophen 325mg Tab PO 04/30/24 17:18 Q4HP PRN Fever or Mild Pain (1-3) Enoxaparin Sodium 40 mg 04/01/24 09:00 Enoxaparin 40mg/0.4ml Syringe SQ 05/01/24 08:59 DAILY LIDIA Piperacillin Sod/Tazobactam 50 mls @ 100 mls/hr 03/31/24 17:15 03/31/24 17:23 Sod 3.375 gm/ Sodium Chloride IV 04/10/24 17:14 100 mls/hr Q6H LIDIA Administration Lactated Ringer's 1,000 mls @ 100 mls/hr 03/31/24 17:30 03/31/24 18:08 Lactated Ringer's 1000 Ml Bag IV 04/30/24 17:29 100 mls/hr .Q10H LIDIA Administration Piperacillin Sod/Tazobactam 50 mls @ 100 mls/hr 03/31/24 17:30 03/31/24 18:00 Sod 3.375 gm/ Sodium Chloride IV 04/10/24 17:29 Not Given Q8H LIDIA Morphine Sulfate 1 mg 03/31/24 17:19 03/31/24 18:07 Morphine 2mg/Ml Syringe IV 04/30/24 17:18 1 mg Q4HP PRN Administration Moderate Pain (4-6) Morphine Sulfate 2 mg 03/31/24 17:19 Morphine 4mg/Ml Syringe IV 04/30/24 17:18 Q4HP PRN Severe Pain (7-10) Nicotine 21 mg 03/31/24 17:19 Nicotine 21mg/24hr Patch TD 04/30/24 17:18 DAILYP PRN Nicotine Cravings Ondansetron HCl 4 mg 03/31/24 17:19 03/31/24 18:07 Ondansetron 4mg/2ml Vial IV 04/30/24 17:18 4 mg Q8HP PRN Administration Nausea Sodium Chloride 10 ml 03/31/24 15:27 03/31/24 15:28 Sodium Chloride 0.9% 10ml Syr (Rad Only) IV 04/30/24 15:26 10 ml NEEDED PRN Administration Maintain IV Site Sodium Chloride 10 ml 03/31/24 17:19 Sodium Chloride 0.9% 10ml Flush Syringe IV 04/30/24 17:18 NEEDED PRN Maintain IV Site Discontinued Medications Generic Name Dose Route Start Last Admin Trade Name Freq PRN Reason Stop Dose Admin Acetaminophen 1,000 mg 03/31/24 14:32 03/31/24 14:52 Acetaminophen 500mg Tab PO 03/31/24 14:33 1,000 mg ONCE ONE Administration Dexamethasone Sodium Phosphate 10 mg 03/31/24 14:32 03/31/24 14:52 Dexamethasone 4mg/Ml 5ml Mdv IV 03/31/24 14:33 10 mg ONCE ONE Administration Diphenhydramine HCl 50 mg 03/31/24 14:32 03/31/24 14:52 Diphenhydramine 50mg/Ml Vial IV 03/31/24 14:33 50 mg ONCE ONE Administration Iopamidol 75 ml 03/31/24 15:27 03/31/24 15:28 Iopamidol-370 (76%);100ml Bottle IV 03/31/24 15:28 75 ml ONCE ONE Administration Ketorolac Tromethamine 15 mg 03/31/24 14:32 03/31/24 14:52 Ketorolac 30mg/Ml Vial IV 03/31/24 14:33 15 mg ONCE ONE Administration Prochlorperazine Edisylate 10 mg 03/31/24 14:32 03/31/24 14:59 Prochlorperazine 10mg/2ml Vial IV 03/31/24 14:33 Not Given ONCE ONE ORDERS Category Date Time Status CT abdomen pelvis w con Stat Cat Scan 03/31/24 14:32 Completed General Surgery Consult [Consult to General Surgery] [ Cons 03/31/24 17:24 Ordered CONS] Routine Chest XR 2 view (NOT portable) [XR chest 2V] Stat Exams 03/31/24 14:32 Completed CBC w/Auto Diff [Complete Blood Count Auto Diff] Stat Lab 03/31/24 14:38 Completed CMP [Comprehensive Metabolic Panel] Stat Lab 03/31/24 14:38 Completed Complete Blood Count Auto Diff AMLAB Lab 04/01/24 06:00 Ordered Complete Blood Count Auto Diff AMLAB Lab 04/02/24 06:00 Ordered Complete Blood Count Auto Diff AMLAB Lab 04/03/24 06:00 Ordered Complete Blood Count Auto Diff AMLAB Lab 04/04/24 06:00 Ordered Complete Blood Count Auto Diff AMLAB Lab 04/05/24 06:00 Ordered Comprehensive Metabolic Panel AMLAB Lab 04/01/24 06:00 Ordered Comprehensive Metabolic Panel AMLAB Lab 04/02/24 06:00 Ordered Comprehensive Metabolic Panel AMLAB Lab 04/03/24 06:00 Ordered Comprehensive Metabolic Panel AMLAB Lab 04/04/24 06:00 Ordered Comprehensive Metabolic Panel AMLAB Lab 04/05/24 06:00 Ordered HIV (1&2) Antibody Rapid Stat Lab 03/31/24 14:38 Completed Hep C Ab with Reflex to RNA Stat Lab 03/31/24 14:38 Received Lipase Stat Lab 03/31/24 14:38 Completed Procalcitonin Stat Lab 03/31/24 14:38 Completed Rapid PCR Covid and Flu A/B Stat Lab 03/31/24 16:48 Completed UA [Urinalysis and Microscopic] Stat Lab 03/31/24 14:26 Completed Medical Decision Narrative: In summary patient is a 48-year-old male who presents to the emergency department for evaluation of headache and abdominal pain. Patient is hemodynamically stable upon arrival, afebrile. Physical exam is remarkable for diffusely mildly tender abdomen with no rebound or guarding no rigidity. Bowel sounds normal active. [place] Coma Score 15, patient has no nuchal rigidity, patient has normal oropharynx with no exudate, patient has no lymphadenopathy. Breath sounds are clear and equal bilaterally to the bases.. Differential diagnosis includes viral syndrome versus headache versus gastroenteritis versus cholecystitis etc. Initial workup will be conducted with hematologic labs urinalysis CT scan abdomen pelvis plain film chest x-ray. Initial interventions include Tylenol Decadron Benadryl Compazine Toradol. Initial workup reviewed by me shows that he actually has slight leukopenia with no neutrophilic shift and the remainder of his hematologic labs are nonactionable. My informal interpretation of his CT scan abdomen pelvis shows possible periappendiceal stranding but the appendix is retrocecal otherwise there is no acute findings although he does have hepatosplenomegaly chronically. Upon repeat evaluation patient actually reported that his headaches improved but his belly pain is not. Given this I had interactive discussion with Dr. Null of general surgery about patient management and patient will be admitted for IV antibiotics and serial abdominal exams and further evaluation and care <Francisco Traylor MD - Last Filed: 03/31/24 19:36> Vital Signs: 03/31/24 14:20 03/31/24 14:27 03/31/24 14:30 Temperature 98.7 F Temperature Source Oral Pulse Rate 82 88 Pulse Rate [Radial] 87 Respiratory Rate 16 Blood Pressure 147/98 H 151/95 H Blood Pressure [Right Arm] 147/98 H Blood Pressure Mean 114 108 Blood Pressure Mean [Right Arm] 114 Blood Pressure Source [Right Arm] Automatic Cuff Blood Pressure Position [Right Arm] Sitting 02 Sat by Pulse Oximetry 97 98 97 Oxygen Delivery Method Room Air Room Air Room Air 03/31/24 15:30 03/31/24 16:01 03/31/24 17:47 Temperature 98.2 F Temperature Source Pulse Rate 77 77 77 Pulse Rate [Radial] Respiratory Rate 20 Blood Pressure 161/88 H 145/82 H 145/82 H Blood Pressure [Right Arm] Blood Pressure Mean 112 109 Blood Pressure Mean [Right Arm] Blood Pressure Source [Right Arm] Blood Pressure Position [Right Arm] 02 Sat by Pulse Oximetry 96 97 Oxygen Delivery Method Room Air Room Air Room Air Lab Data Lab Results 03/31/24 14:26: Urine Color Yellow, Urine Appearance Clear, Urine pH 6.5, Ur Specific [place] 1.020, Urine Protein Negative, Urine Glucose (UA) Negative, Urine Ketones Negative, Urine Blood Negative, Urine Nitrate Negative, Urine Bilirubin 1+ A, Urine Urobilinogen 1.0, Ur Leukocyte Esterase Negative, Urine RBC None, Urine WBC None, Ur Squamous Epith Cells Occasional, Urine Bacteria None 03/31/24 14:38: WBC 3.4 L, RBC 4.76, Hgb 14.4, Hct 41.9 L, MCV 88.0, MCH 30.1, MCHC 34.2, RDW 13.5, Plt Count 110 L, MPV 9.0, Neut % (Auto) 73.6, Lymph % (Auto) 15.0, [place] % (Auto) 7.6, Eos % (Auto) 3.2, Baso % (Auto) 0.5, Neut # (Auto) 2.5, Lymph # (Auto) 0.5 L, [place] # (Auto) 0.3, Eos # (Auto) 0.1, Baso # (Auto) 0.0, Sodium 139, Potassium 3.4 L, Chloride 108 H, Carbon Dioxide 25, Anion Gap 9.4, BUN 10, Creatinine 1.30 H, Estimated Creat Clear 66, Estimated GFR 58 L, Est GFR ( Amer) 71, Glucose 114 H, Calcium 8.9, Total Bilirubin 1.2, AST 37, ALT 38, Alkaline Phosphatase 82, Total Protein 6.7, Albumin 4.0, Globulin 2.7, Albumin/Globulin Ratio 1.5, Lipase 37, Procalcitonin 1.73, HIV 1&2 Antibody Rapid Nonreactive 03/31/24 16:48: SARS-CoV-2 (PCR) Not detected, Influenza A Untype (PCR) Not detected, Influenza Type B (PCR) Not detected Orders (Tests/Meds): ED MEDICATIONS Generic Name Dose Route Start Last Admin Trade Name Freq PRN Reason Stop Dose Admin Acetaminophen 650 mg 03/31/24 17:19 Acetaminophen 325mg Tab PO 04/30/24 17:18 Q4HP PRN Fever or Mild Pain (1-3) Enoxaparin Sodium 40 mg 04/01/24 09:00 Enoxaparin 40mg/0.4ml Syringe SQ 05/01/24 08:59 DAILY LIDIA Piperacillin Sod/Tazobactam 50 mls @ 100 mls/hr 03/31/24 17:15 03/31/24 17:23 Sod 3.375 gm/ Sodium Chloride IV 04/10/24 17:14 100 mls/hr Q6H LIDIA Administration Lactated Ringer's 1,000 mls @ 100 mls/hr 03/31/24 17:30 03/31/24 18:08 Lactated Ringer's 1000 Ml Bag IV 04/30/24 17:29 100 mls/hr .Q10H LIDIA Administration Piperacillin Sod/Tazobactam 50 mls @ 100 mls/hr 03/31/24 17:30 03/31/24 18:00 Sod 3.375 gm/ Sodium Chloride IV 04/10/24 17:29 Not Given Q8H LIDIA Morphine Sulfate 1 mg 03/31/24 17:19 03/31/24 18:07 Morphine 2mg/Ml Syringe IV 04/30/24 17:18 1 mg Q4HP PRN Administration Moderate Pain (4-6) Morphine Sulfate 2 mg 03/31/24 17:19 Morphine 4mg/Ml Syringe IV 04/30/24 17:18 Q4HP PRN Severe Pain (7-10) Nicotine 21 mg 03/31/24 17:19 Nicotine 21mg/24hr Patch TD 04/30/24 17:18 DAILYP PRN Nicotine Cravings Ondansetron HCl 4 mg 03/31/24 17:19 03/31/24 18:07 Ondansetron 4mg/2ml Vial IV 04/30/24 17:18 4 mg Q8HP PRN Administration Nausea Sodium Chloride 10 ml 03/31/24 15:27 03/31/24 15:28 Sodium Chloride 0.9% 10ml Syr (Rad Only) IV 04/30/24 15:26 10 ml NEEDED PRN Administration Maintain IV Site Sodium Chloride 10 ml 03/31/24 17:19 Sodium Chloride 0.9% 10ml Flush Syringe IV 04/30/24 17:18 NEEDED PRN Maintain IV Site Discontinued Medications Generic Name Dose Route Start Last Admin Trade Name Freq PRN Reason Stop Dose Admin Acetaminophen 1,000 mg 03/31/24 14:32 03/31/24 14:52 Acetaminophen 500mg Tab PO 03/31/24 14:33 1,000 mg ONCE ONE Administration Dexamethasone Sodium Phosphate 10 mg 03/31/24 14:32 03/31/24 14:52 Dexamethasone 4mg/Ml 5ml Mdv IV 03/31/24 14:33 10 mg ONCE ONE Administration Diphenhydramine HCl 50 mg 03/31/24 14:32 03/31/24 14:52 Diphenhydramine 50mg/Ml Vial IV 03/31/24 14:33 50 mg ONCE ONE Administration Iopamidol 75 ml 03/31/24 15:27 03/31/24 15:28 Iopamidol-370 (76%);100ml Bottle IV 03/31/24 15:28 75 ml ONCE ONE Administration Ketorolac Tromethamine 15 mg 03/31/24 14:32 03/31/24 14:52 Ketorolac 30mg/Ml Vial IV 03/31/24 14:33 15 mg ONCE ONE Administration Prochlorperazine Edisylate 10 mg 03/31/24 14:32 03/31/24 14:59 Prochlorperazine 10mg/2ml Vial IV 03/31/24 14:33 Not Given ONCE ONE ORDERS Category Date Time Status CT abdomen pelvis w con Stat Cat Scan 03/31/24 14:32 Completed General Surgery Consult [Consult to General Surgery] [ Cons 03/31/24 17:24 Ordered CONS] Routine Chest XR 2 view (NOT portable) [XR chest 2V] Stat Exams 03/31/24 14:32 Completed CBC w/Auto Diff [Complete Blood Count Auto Diff] Stat Lab 03/31/24 14:38 Completed CMP [Comprehensive Metabolic Panel] Stat Lab 03/31/24 14:38 Completed Complete Blood Count Auto Diff AMLAB Lab 04/01/24 06:00 Ordered Complete Blood Count Auto Diff AMLAB Lab 04/02/24 06:00 Ordered Complete Blood Count Auto Diff AMLAB Lab 04/03/24 06:00 Ordered Complete Blood Count Auto Diff AMLAB Lab 04/04/24 06:00 Ordered Complete Blood Count Auto Diff AMLAB Lab 04/05/24 06:00 Ordered Comprehensive Metabolic Panel AMLAB Lab 04/01/24 06:00 Ordered Comprehensive Metabolic Panel AMLAB Lab 04/02/24 06:00 Ordered Comprehensive Metabolic Panel AMLAB Lab 04/03/24 06:00 Ordered Comprehensive Metabolic Panel AMLAB Lab 04/04/24 06:00 Ordered Comprehensive Metabolic Panel AMLAB Lab 04/05/24 06:00 Ordered HIV (1&2) Antibody Rapid Stat Lab 03/31/24 14:38 Completed Hep C Ab with Reflex to RNA Stat Lab 03/31/24 14:38 Received Lipase Stat Lab 03/31/24 14:38 Completed Procalcitonin Stat Lab 03/31/24 14:38 Completed Rapid PCR Covid and Flu A/B Stat Lab 03/31/24 16:48 Completed UA [Urinalysis and Microscopic] Stat Lab 03/31/24 14:26 Completed Medical Decision Narrative: In summary patient is a 48-year-old male who presents to the emergency department for evaluation of headache and abdominal pain. Patient is hemodynamically stable upon arrival, afebrile. Physical exam is remarkable for diffusely mildly tender abdomen with no rebound or guarding no rigidity. Bowel sounds normal active. [place] Coma Score 15, patient has no nuchal rigidity, patient has normal oropharynx with no exudate, patient has no lymphadenopathy. Breath sounds are clear and equal bilaterally to the bases.. Differential diagnosis includes viral syndrome versus headache versus gastroenteritis versus cholecystitis etc. Initial workup will be conducted with hematologic labs urinalysis CT scan abdomen pelvis plain film chest x-ray. Initial interventions include Tylenol Decadron Benadryl Compazine Toradol. Initial workup reviewed by me shows that he actually has slight leukopenia with no neutrophilic shift and the remainder of his hematologic labs are nonactionable. My informal interpretation of his CT scan abdomen pelvis shows possible periappendiceal stranding but the appendix is retrocecal otherwise there is no acute findings although he does have hepatosplenomegaly chronically. Upon repeat evaluation patient actually reported that his headaches improved but his belly pain is not. Given this I had interactive discussion with Dr. Null of general surgery about patient management and patient will be admitted for IV antibiotics and serial abdominal exams and further evaluation and care I was consulted by the LESLIE, and we discussed the complexity of the problems being addressed. I approved the treatment and management plan for this patient's care in the Emergency Department, thus performing a substantive portion of the medical decision making. Francisco Traylor MD Critical Care <АЛЕКСАНДР White - Last Filed: 03/31/24 17:16> Critical Care Time Critical Care Time: No
--- NOTE | 2024-03-31 14:32 | XR_ITS ---
PROCEDURE INFORMATION: Exam: XR Chest Exam date and time: 03/31/2024 3:08 PM Age: 48 years old Clinical indication: Other: Epigastric abominal pain; Additional info: Epigastric abdominal pain TECHNIQUE: Imaging protocol: Radiologic exam of the chest. Views: 2 views. COMPARISON: DX CXR2V XR chest 2V 03/05/2018 10:38 AM FINDINGS: Lungs: Unremarkable. No consolidation. Pleural spaces: Unremarkable. No pleural effusion. No pneumothorax. Heart/Mediastinum: Unremarkable. No cardiomegaly. Bones/joints: Unremarkable. Gastrointestinal tract: Air-filled loops of colon under the right hemidiaphragm IMPRESSION: No focal consolidation
--- NOTE | 2024-03-31 14:32 | CT_ITS ---
PROCEDURE INFORMATION: Exam: CT Abdomen And Pelvis With Contrast Exam date and time: 03/31/2024 3:26 PM Age: 48 years old Clinical indication: Abdominal pain; Acute; Additional info: Acute abdominal pain TECHNIQUE: Imaging protocol: Computed tomography of the abdomen and pelvis with contrast. Radiation optimization: All CT scans at this facility use at least one of these dose optimization techniques: automated exposure control; mA and/or kV adjustment per patient size (includes targeted exams where dose is matched to clinical indication); or iterative reconstruction. Contrast material: ISOVUE; Contrast volume: 75 ml; Contrast route: IV; COMPARISON: CT ABDOMEN PELVIS W CON 08/20/2023 12:09 PM FINDINGS: Liver: Hepatomegaly 21 cm. Gallbladder and biliary ducts: Gallstones in the gallbladder . Pancreas: Pancreatic atrophy Spleen: Splenomegaly 15.5 cm. Adrenal glands: Normal. No mass. Kidneys and ureters: 16 mm simple cyst posterior right kidney . No follow-up imaging recommended . Stomach and bowel: Unremarkable. No obstruction. No mucosal thickening. Appendix: The appendix measures 10 mm. There are mild periappendiceal inflammatory changes. Previously the appendix measured 6.8 mm. This may represent early acute appendicitis.. Intraperitoneal space: Unremarkable. No free air. No significant fluid collection. Vasculature: Unremarkable. No abdominal aortic aneurysm. Lymph nodes: Unremarkable. No enlarged lymph nodes. Urinary bladder: Unremarkable as visualized. Reproductive: Unremarkable as visualized. Bones/joints: Unremarkable. No acute fracture. Soft tissues: Unremarkable. IMPRESSION: 1. The appendix measures 10 mm. There are mild periappendiceal inflammatory changes. Previously the appendix measured 6.8 mm. This may represent early acute appendicitis.. 2. Gallstones in the gallbladder . 3. Splenomegaly 15.5 cm. 4. Hepatomegaly 21 cm. COMMENTS: Consistent with the [employer]'s Incidental Findings Committee white paper (J Am Marie Radiol 2018): Any incidental renal lesion less than 1 cm or classified as too small to characterize, or any incidental cystic renal lesion characterized as simple-appearing, is likely benign. No follow-up imaging is recommended for these lesions per consensus recommendations based on imaging criteria.
[2024-03-31 14:38] LABS: Microscopic, Urine URINE MICROSCOPIC (MICROSCOPIC)
[2024-03-31 14:44] LABS: Appearance,Urine CLEAR (Clear); Blood, Urine Negative (Negative); Color,Urine YELLOW (Yellow); Glucose,Urine (UA) Negative (Negative); Ketones,Urine Negative (Negative); Leukocyte Esterase,Urine Negative (Negative); Nitrate,Urine Negative (Negative); PH,Urine 6.5 (5.0-8.5); Protein,Urine Negative (Negative)
[2024-03-31 14:47] LABS: Bilirubin,Urine 1+ (Negative)
[2024-03-31 14:51] LABS: Basophils % 0.5 % (0.1-2.0); Eosinophils # 0.1 K/mm3 (0.0-0.4); Eosinophils % 3.2 % (0.1-12.0); Hematocrit 41.9 % (42.0-52.0); Hemoglobin 14.4 g/dL (14.1-18.0); Lymphocytes # 0.5 K/mm3 (0.7-4.5); Mean Corpuscular HGB Conc 34.2 g/dL (31.8-35.4); Mean Corpuscular Hemoglobin 30.1 pg (27.0-31.2); Monocytes # 0.3 K/mm3 (0.1-1.0); Monocytes % 7.6 % (1.7-9.3); Neutrophils # 2.5 K/mm3 (1.8-7.8); Neutrophils % 73.6 % (37.0-80.0); Platelet Count 110 K/mm3 (142-424); Red Blood Count 4.76 M/mm3 (4.60-6.20); Red Cell Distribution Width 13.5 % (11.5-17.5); White Blood Count 3.4 K/mm3 (4.8-10.8)
[2024-03-31] MEDS: DEXAMETHASONE 4MG/ML 5ML MDV 10 MG IV (14:52)
[2024-03-31] MEDS: diphenhydrAMINE 50MG/ML VIAL 50 MG IV (14:52)
[2024-03-31] MEDS: ACETAMINOPHEN 500MG TAB 1000 MG PO (14:52)
[2024-03-31] MEDS: KETOROLAC 30MG/ML VIAL 15 MG IV (14:52)
[2024-03-31 14:57] LABS: Chloride 108 mmol/L (98-107); Sodium 139 mmol/L (136-145)
[2024-03-31 14:58] LABS: Potassium 3.4 mmoL/L (3.5-5.1)
[2024-03-31 15:00] LABS: Alanine Aminotransferase 38 U/L (12-78); Anion Gap 9.4 mEq/L (5-15); Aspartate Amino Transferase 37 U/L (17-59); Blood Urea Nitrogen 10 mg/dl (9-20); Carbon Dioxide 25 mmol/L (22.0-30.0); Creatinine Clearance Estimated 66 mL/min (50-200); Estimated Glomerular Filt Rate 58 ml/min (>60); GFR (African American) 71 ML/MIN (>60)
[2024-03-31 15:01] LABS: Albumin/Globulin Ratio 1.5 (1.1-1.8); Alkaline Phosphatase 82 U/L (38-126); Bilirubin,Total 1.2 mg/dl (0.2-1.3); Calcium 8.9 mg/dl (8.4-10.2); Globulin 2.7 g/dL (1.3-3.2); Glucose 114 mg/dl (74-100); Lipase 37 U/L (23-300); Total Protein,Serum 6.7 g/dl (6.3-8.2)
[2024-03-31 15:02] LABS: Squamous Epithelial Cell,Urine Occasional #/hpf (0-5)
--- NOTE | 2024-03-31 15:13 | ECG_ITS ---
APPROVED REPORT Exam: Resting ECG HR:77 bpm ECG Measurements Heart Rate 77 AXES IN 160 P 33 QRSd 99 QRS -8 QT 406 T 50 QTc 438 Conclusion Sinus rhythm Electronically signed by : SHERLYN HORN, 03/31/2024 20:01:07
[2024-03-31] MEDS: SODIUM CHLORIDE 0.9% 10ML SYR (RAD ONLY) 10 ML IV (15:28)
[2024-03-31] MEDS: IOPAMIDOL-370 (76%);100ML BOTTLE 75 ML IV (15:28)
[2024-03-31 16:55] LABS: Coronavirus 19, PCR Not Detected (NotDetected); Influenza A, PCR Not Detected (NotDetected); Influenza B, PCR Not Detected (NotDetected)
--- NOTE | 2024-03-31 17:06 | PC.NURSE ---
[employer]ICE B[employer]ING OFFICER NOTIFIED OF ADMISSION
--- NOTE | 2024-03-31 17:21 | PC.NURSE ---
Report given to ZARIA Stoner on Med Surg.
[2024-03-31] MEDS: PIPERCILLIN/TAZO 3.375 GM in 0.9 % SODIUM CHLORIDE 50 ML IV ×2 (17:23→23:38)
[2024-03-31 17:26] LABS: Procalcitonin 1.73 ng/mL (0.0-2.0)
[2024-03-31 17:37] LABS: HIV (1&2) Antibody Rapid NONREACTIVE (NONREACTIVE)
[2024-03-31] MEDS: ONDANSETRON 4MG/2ML VIAL 4 MG IV (18:07)
[2024-03-31] MEDS: MORPHINE 2MG/ML SYRINGE 1 MG IV (18:07)
[2024-03-31] MEDS: LACTATED RINGERS 1000ML 1,000 ML 100 ML IV (18:08)
--- NOTE | 2024-03-31 19:56 | P.HP_ITS ---
History of Present Illness *Admission Date: 03/31/24 *Reason for visit:: Abdominal pain *History of present illness: Patient is a 48-year-old male past medical history of morbid obesity hyperlipidemia, depression who presents to the hospital for generalized abdominal pain. According to patient he has been having abdominal pain for past 1 day, has associated vomiting nausea. Patient otherwise denied chest pain shortness of breath diarrhea constipation dysuria fevers and chills. [facility] Disclaimer: The information contained in this section may have been updated after the patient was seen, as this information can be updated by other users. 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 No evidence of demyelinating lesions on brain MRI Bipolar 1 disorder Active follow-up with Scott Owens [place], [place] Hyperlipidemia Arthritis Depression Acute adjustment disorder with anxiety Surgical History History of surgery on lower extremity History of ankle surgery Family History Other Cancer Diabetes Heart attack Hypertension Social History (Updated 03/31/24 @ 18:40 by Larissa Arango RN) Smoking Status: Never smoker alcohol intake: former substance use type: denies use current occupational status: employed, unemployed and disabled Travel in the last 8 weeks: None household members: family housing: house marital status: single 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 current occupational exposures/hazards: No caffeine: Yes Other Medical History Have you received the Flu Vaccine for this season: No Have you received the Pneumonia Vaccine: No Review of Systems Review of Systems Review of systems:: pertinent systems reviewed and negative unless documented below Meds Home Medications and Allergies Home Medications ?Medication ?Instructions ?Recorded ?Confirmed ?Type bupropion HCl 300 mg 24 hr tablet, 300 mg PO DAILY mood #30 tabs 06/30/20 03/31/24 Rx extended release buspirone 15 mg tablet 15 mg PO TID Anxiety #90 tabs 06/30/20 03/31/24 Rx divalproex 125 mg capsule,delayed 500 mg (4 x 125 mg) PO TID 06/30/20 03/31/24 Rx release sprinkle SEIZURES #360 caps lurasidone 80 mg tablet (Latuda) See Rx Instructions .Route 07/21/20 03/31/24 Rx .COMPLEX #30 tabs benztropine 1 mg tablet See Rx Instructions .Route 08/05/20 03/31/24 Rx .COMPLEX #60 tabs clonidine HCl 0.1 mg tablet See Rx Instructions .Route 09/24/20 03/31/24 Rx .COMPLEX #90 tabs propranolol 20 mg tablet 20 mg PO BID 10/02/23 03/31/24 History topiramate 50 mg tablet 50 mg PO BID 10/02/23 03/31/24 History methylprednisolone 4 mg tablets in See Rx Instructions PO PER PKG DIR 01/09/24 03/31/24 Rx a dose pack #21 tabs New Prescriptions to Start Prescriptions: Allergies Allergy/AdvReac Type Severity Reaction Status Date / Time prochlorperazine Allergy Unknown Verified 01/09/24 08:20 [From COMPAZINE] Exam Data for Last 24 hours Vital signs and Labs for Last 24 Hours: Temp Pulse Resp BP Pulse Ox O2 Del Method 98.5 F 67 20 157/99 H 95 Room Air 03/31/24 17:55 03/31/24 17:55 03/31/24 17:55 03/31/24 17:55 03/31/24 17:55 03/31/24 17:55 Laboratory Results - last 24 hr 03/31/24 14:26: Urine Color Yellow, Urine Appearance Clear, Urine pH 6.5, Ur Specific [place] 1.020, Urine Protein Negative, Urine Glucose (UA) Negative, Urine Ketones Negative, Urine Blood Negative, Urine Nitrate Negative, Urine Bilirubin 1+ A, Urine Urobilinogen 1.0, Ur Leukocyte Esterase Negative, Urine RBC None, Urine WBC None, Ur Squamous Epith Cells Occasional, Urine Bacteria None 03/31/24 14:38: WBC 3.4 L, RBC 4.76, Hgb 14.4, Hct 41.9 L, MCV 88.0, MCH 30.1, MCHC 34.2, RDW 13.5, Plt Count 110 L, MPV 9.0, Neut % (Auto) 73.6, Lymph % (Auto) 15.0, [place] % (Auto) 7.6, Eos % (Auto) 3.2, Baso % (Auto) 0.5, Neut # (Auto) 2.5, Lymph # (Auto) 0.5 L, [place] # (Auto) 0.3, Eos # (Auto) 0.1, Baso # (Auto) 0.0, Sodium 139, Potassium 3.4 L, Chloride 108 H, Carbon Dioxide 25, Anion Gap 9.4, BUN 10, Creatinine 1.30 H, Estimated Creat Clear 66, Estimated GFR 58 L, Est GFR ( Amer) 71, Glucose 114 H, Calcium 8.9, Total Bilirubin 1.2, AST 37, ALT 38, Alkaline Phosphatase 82, Total Protein 6.7, Albumin 4.0, Globulin 2.7, Albumin/Globulin Ratio 1.5, Lipase 37, Procalcitonin 1.73, HIV 1&2 Antibody Rapid Nonreactive 03/31/24 16:48: SARS-CoV-2 (PCR) Not detected, Influenza A Untype (PCR) Not detected, Influenza Type B (PCR) Not detected I & O for Last 24 hours: Intake & Output 03/28/24 03/29/24 03/30/24 03/31/24 23:59 23:59 23:59 23:59 Weight 146.68 kg Constitutional Constitutional: no acute distress *Routine HEENT Exam Head: Present normocephalic Eye: Present EOMI and PERRL ENT: Present mucous membranes moist *Routine Neck Exam Neck: Present supple; Absent lymphadenopathy *Routine Respiratory Exam Respiratory: Present CTA bilaterally *Routine Cardiovascular Exam Cardiovascular: Present RRR *Routine Abdominal Exam Abdominal: Present soft and normoactive bowel sounds; Absent tenderness *Routine Rectal Exam Rectal:: deferred *Routine Genitalia Exam Genitalia:: deferred *Routine Extremities Exam Extremities: Absent cyanosis, clubbing or edema *Routine Skin Exam Skin: Present warm; Absent rash *Routine Neurological Exam Neurological: Present alert and oriented X3 Assessment and Plan *Assessment and plan (1) Acute appendicitis: Status: Acute Qualifiers: Acute appendicitis type: unspecified acute appendicitis type Qualified Code(s): K35.80 - Unspecified acute appendicitis Category: Medical Code(s): K35.80 - Unspecified acute appendicitis (2) Abdominal pain, acute: Status: Acute Category: Medical Code(s): R10.9 - Unspecified abdominal pain (3) Hyperlipidemia: Status: Acute Category: Medical Code(s): E78.5 - Hyperlipidemia, unspecified (4) Bipolar 1 disorder: Problem Comment: Active follow-up with Scott Owens [place], [place] Status: Chronic Category: Medical Code(s): F31.9 - Bipolar disorder, unspecified Plan Patient is a 48-year-old male past medical history of morbid obesity hyperlipidemia, depression who presents to the hospital for generalized abdominal pain. According to patient he has been having abdominal pain for past 1 day, has associated vomiting nausea. Patient otherwise denied chest pain shortness of breath diarrhea constipation dysuria fevers and chills. Assessment and plan Abdominal pain likely secondary to acute appendicitis N.p.o IV fluids Consult general surgery started on IV Zosyn Monitor and replace electrolytes CT abdomen pelvis reviewed, periappendiceal inflammatory changes consistent with early acute appendicitis chronic Medical conditions Bipolar disorder type I Hyperlipidemia Depression Resume home medications when able to take p.o. DVT prophylaxis-heparin
[2024-04-01] VITALS: BP 129/77; PULSE 63; RESP 18; TEMP 36.4; O2SAT 97
[2024-04-01 04:00] VITALS: BP 148/81; PULSE 61; RESP 18; TEMP 36.4; O2SAT 97; BMI 48.7
[2024-04-01] MEDS: LACTATED RINGERS 1000ML 1,000 ML 100 ML IV (05:11)
[2024-04-01] MEDS: PIPERCILLIN/TAZO 3.375 GM in 0.9 % SODIUM CHLORIDE 50 ML IV ×3 (05:12→17:23)
--- NOTE | 2024-04-01 05:49 | PC.NURSE ---
Pt is a&Ox4. Pt did c/o pain this shift and was treated per AUG. Pt has tolerated antibiotic therapy well this shift. Pt remains NPO for surgery consult. Pt denies pain and needs at this time.
--- NOTE | 2024-04-01 06:06 | EXP.SURG.CON ---
History of Present Illness *Admission Date: 03/31/24 *Reason for visit:: Possible appendicitis *History of present illness: Patient is a 48-year-old obese (BMI 49) male from [place] who presented to the emergency department with complaints of headache, nausea, and vague abdominal pain. He is somewhat of a poor historian. Evaluation in the emergency department revealed some mild diffuse abdominal tenderness and he therefore underwent CT scan. This revealed findings of 10 mm appendix with possible mild periappendiceal inflammatory changes. It was felt that this may represent early acute appendicitis. Given the possibility of early appendicitis he was admitted for inpatient management and surgical consultation. CBC reveals a white blood cell count of 3400 with normal differential. Of note, he had presentation to the emergency department with similar symptoms (headache and abdominal pain) in August of this year. [facility] Disclaimer: The information contained in this section may have been updated after the patient was seen, as this information can be updated by other users. 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 No evidence of demyelinating lesions on brain MRI Bipolar 1 disorder Active follow-up with [place], [place] Hyperlipidemia Arthritis Depression Acute adjustment disorder with anxiety Surgical History History of surgery on lower extremity History of ankle surgery Family History Other Cancer Diabetes Heart attack Hypertension Social History (Updated 03/31/24 @ 18:40 by Larissa Arango RN) Smoking Status: Never smoker alcohol intake: former substance use type: denies use current occupational status: employed, unemployed and disabled Travel in the last 8 weeks: None household members: family housing: house marital status: single 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 current occupational exposures/hazards: No caffeine: Yes Meds Home Medications and Allergies Home Medications ?Medication ?Instructions ?Recorded ?Confirmed ?Type bupropion HCl 300 mg 24 hr tablet, 300 mg PO DAILY mood #30 tabs 06/30/20 03/31/24 Rx extended release buspirone 15 mg tablet 15 mg PO TID Anxiety #90 tabs 06/30/20 03/31/24 Rx divalproex 125 mg capsule,delayed 500 mg (4 x 125 mg) PO TID 06/30/20 03/31/24 Rx release sprinkle SEIZURES #360 caps lurasidone 80 mg tablet (Latuda) See Rx Instructions .Route 07/21/20 03/31/24 Rx .COMPLEX #30 tabs benztropine 1 mg tablet See Rx Instructions .Route 08/05/20 03/31/24 Rx .COMPLEX #60 tabs clonidine HCl 0.1 mg tablet See Rx Instructions .Route 09/24/20 03/31/24 Rx .COMPLEX #90 tabs propranolol 20 mg tablet 20 mg PO BID 10/02/23 03/31/24 History topiramate 50 mg tablet 50 mg PO BID 10/02/23 03/31/24 History methylprednisolone 4 mg tablets in See Rx Instructions PO PER PKG DIR 01/09/24 03/31/24 Rx a dose pack #21 tabs New Prescriptions to Start Prescriptions: Allergies Allergy/AdvReac Type Severity Reaction Status Date / Time prochlorperazine Allergy Unknown Verified 01/09/24 08:20 [From COMPAZINE] Exam (Inpt) Vital signs and Labs for Last 24 Hours: Temp Pulse Resp BP Pulse Ox O2 Del Method 97.6 F 61 18 148/81 H 97 Room Air 04/01/24 04:00 04/01/24 04:00 04/01/24 04:00 04/01/24 04:00 04/01/24 04:00 04/01/24 05:00 Laboratory Results - last 24 hr 03/31/24 14:26: Urine Color Yellow, Urine Appearance Clear, Urine pH 6.5, Ur Specific [place] 1.020, Urine Protein Negative, Urine Glucose (UA) Negative, Urine Ketones Negative, Urine Blood Negative, Urine Nitrate Negative, Urine Bilirubin 1+ A, Urine Urobilinogen 1.0, Ur Leukocyte Esterase Negative, Urine RBC None, Urine WBC None, Ur Squamous Epith Cells Occasional, Urine Bacteria None 03/31/24 14:38: WBC 3.4 L, RBC 4.76, Hgb 14.4, Hct 41.9 L, MCV 88.0, MCH 30.1, MCHC 34.2, RDW 13.5, Plt Count 110 L, MPV 9.0, Neut % (Auto) 73.6, Lymph % (Auto) 15.0, [place] % (Auto) 7.6, Eos % (Auto) 3.2, Baso % (Auto) 0.5, Neut # (Auto) 2.5, Lymph # (Auto) 0.5 L, [place] # (Auto) 0.3, Eos # (Auto) 0.1, Baso # (Auto) 0.0, Sodium 139, Potassium 3.4 L, Chloride 108 H, Carbon Dioxide 25, Anion Gap 9.4, BUN 10, Creatinine 1.30 H, Estimated Creat Clear 66, Estimated GFR 58 L, Est GFR ( Amer) 71, Glucose 114 H, Calcium 8.9, Total Bilirubin 1.2, AST 37, ALT 38, Alkaline Phosphatase 82, Total Protein 6.7, Albumin 4.0, Globulin 2.7, Albumin/Globulin Ratio 1.5, Lipase 37, Procalcitonin 1.73, HIV 1&2 Antibody Rapid Nonreactive 03/31/24 16:48: SARS-CoV-2 (PCR) Not detected, Influenza A Untype (PCR) Not detected, Influenza Type B (PCR) Not detected I & O for Labs for Last 24 Hours: Intake & Output 03/29/24 03/30/24 03/31/24 04/01/24 11:59 11:59 11:59 11:59 Intake Total 410 / 410 Output Total 0 / 0 Balance 410 / 410 Weight 329 lb 1.6 oz Comments:: Obese, soft, nontender. Results Labs 03/31/24 14:38 03/31/24 14:38 Labs: Laboratory Results - last 24 hr 03/31/24 14:26: Urine Color Yellow, Urine Appearance Clear, Urine pH 6.5, Ur Specific [place] 1.020, Urine Protein Negative, Urine Glucose (UA) Negative, Urine Ketones Negative, Urine Blood Negative, Urine Nitrate Negative, Urine Bilirubin 1+ A, Urine Urobilinogen 1.0, Ur Leukocyte Esterase Negative, Urine RBC None, Urine WBC None, Ur Squamous Epith Cells Occasional, Urine Bacteria None 03/31/24 14:38: WBC 3.4 L, RBC 4.76, Hgb 14.4, Hct 41.9 L, MCV 88.0, MCH 30.1, MCHC 34.2, RDW 13.5, Plt Count 110 L, MPV 9.0, Neut % (Auto) 73.6, Lymph % (Auto) 15.0, [place] % (Auto) 7.6, Eos % (Auto) 3.2, Baso % (Auto) 0.5, Neut # (Auto) 2.5, Lymph # (Auto) 0.5 L, [place] # (Auto) 0.3, Eos # (Auto) 0.1, Baso # (Auto) 0.0, Sodium 139, Potassium 3.4 L, Chloride 108 H, Carbon Dioxide 25, Anion Gap 9.4, BUN 10, Creatinine 1.30 H, Estimated Creat Clear 66, Estimated GFR 58 L, Est GFR ( Amer) 71, Glucose 114 H, Calcium 8.9, Total Bilirubin 1.2, AST 37, ALT 38, Alkaline Phosphatase 82, Total Protein 6.7, Albumin 4.0, Globulin 2.7, Albumin/Globulin Ratio 1.5, Lipase 37, Procalcitonin 1.73, HIV 1&2 Antibody Rapid Nonreactive 03/31/24 16:48: SARS-CoV-2 (PCR) Not detected, Influenza A Untype (PCR) Not detected, Influenza Type B (PCR) Not detected Assessment and Plan *Assessment and plan (1) Abdominal pain: Status: Acute Category: Medical Code(s): R10.9 - Unspecified abdominal pain Plan No clear findings on presentation or physical examination suggestive of definite appendicitis at this time. I will send inflammatory markers. I will do a follow-up CT scan with IV and oral contrast.
--- NOTE | 2024-04-01 06:32 | CT_ITS ---
PROCEDURE INFORMATION: Exam: CT Abdomen And Pelvis With Contrast Exam date and time: 04/01/2024 9:20 AM Age: 48 years old Clinical indication: Abdominal pain; Localized; Right lower quadrant (rlq); Additional info: Right lower quadrant pain TECHNIQUE: Imaging protocol: Computed tomography of the abdomen and pelvis with contrast. Radiation optimization: All CT scans at this facility use at least one of these dose optimization techniques: automated exposure control; mA and/or kV adjustment per patient size (includes targeted exams where dose is matched to clinical indication); or iterative reconstruction. Contrast material: ISOVUE; Contrast volume: 75 ml; Contrast route: IV; COMPARISON: CT ABDOMEN PELVIS W CON 03/31/2024 3:26 PM FINDINGS: Lungs: Mild atelectasis is seen in the left lung base. Liver: Normal. No mass. Gallbladder and biliary ducts: Multiple calcified gallstones are seen in the gallbladder. Pancreas: Normal. No ductal dilation. Spleen: Normal. No splenomegaly. Adrenal glands: Normal. No mass. Kidneys and ureters: A cyst measuring 1.8 cm seen in the upper pole of the right kidney. Stomach and bowel: Unremarkable. No obstruction. No mucosal thickening. Appendix: No evidence of appendicitis. Intraperitoneal space: No evidence of free air in the abdomen. Vasculature: Mild atherosclerotic calcifications affect the aorta. Lymph nodes: Unremarkable. No enlarged lymph nodes. Urinary bladder: The urinary bladder is underdistended. Reproductive: Unremarkable as visualized. Bones/joints: Moderate degenerative changes affect the spine. Soft tissues: Unremarkable. IMPRESSION: No acute findings. Cholelithiasis without evidence of cholecystitis. COMMENTS: Consistent with the [employer]'s Incidental Findings Committee white paper (J Am Marie Radiol 2018): Any incidental renal lesion less than 1 cm or classified as too small to characterize, or any incidental cystic renal lesion characterized as simple-appearing, is likely benign. No follow-up imaging is recommended for these lesions per consensus recommendations based on imaging criteria.
[2024-04-01 06:59] LABS: Basophils % 0.1 % (0.1-2.0); Eosinophils % 0.1 % (0.1-12.0); Hemoglobin 13.9 g/dL (14.1-18.0); Lymphocytes # 0.6 K/mm3 (0.7-4.5); Lymphocytes % 9.2 % (10-50); Mean Corpuscular HGB Conc 35.6 g/dL (31.8-35.4); Mean Corpuscular Hemoglobin 31.1 pg (27.0-31.2); Mean Corpuscular Volume 87.4 fl (80-94); Mean Platelet Volume 9.1 fl (7.4-10.4); Monocytes # 0.2 K/mm3 (0.1-1.0); Monocytes % 3.4 % (1.7-9.3); Neutrophils # 5.5 K/mm3 (1.8-7.8); Neutrophils % 87.3 % (37.0-80.0); Platelet Count 120 K/mm3 (142-424); Red Blood Count 4.47 M/mm3 (4.60-6.20); Red Cell Distribution Width 13.8 % (11.5-17.5); White Blood Count 6.3 K/mm3 (4.8-10.8)
[2024-04-01 07:01] LABS: Alanine Aminotransferase 39 U/L (12-78); Albumin Level 3.7 g/dl (3.5-5.0); Albumin/Globulin Ratio 1.5 (1.1-1.8); Alkaline Phosphatase 65 U/L (38-126); Anion Gap 9.4 mEq/L (5-15); Aspartate Amino Transferase 37 U/L (17-59); Bilirubin,Total 0.9 mg/dl (0.2-1.3); Blood Urea Nitrogen 15 mg/dl (9-20); Calcium 8.9 mg/dl (8.4-10.2); Carbon Dioxide 21 mmol/L (22.0-30.0); Chloride 112 mmol/L (98-107); Creatinine Clearance Estimated 78 mL/min (50-200); Estimated Glomerular Filt Rate 71 ml/min (>60); GFR (African American) 86 ML/MIN (>60); Globulin 2.5 g/dL (1.3-3.2); Glucose 152 mg/dl (74-100); Potassium 4.4 mmoL/L (3.5-5.1); Sodium 138 mmol/L (136-145); Total Protein,Serum 6.2 g/dl (6.3-8.2)
[2024-04-01 07:06] LABS: C-Reactive Protein 44.8 mg/L (0-4)
[2024-04-01 07:12] LABS: MANUAL DIFFERENTIAL MANUAL DIFFERENTIAL (MANUAL DIFF)
[2024-04-01 08:00] VITALS: BP 150/88; PULSE 51; RESP 18; TEMP 36.6; O2SAT 97
[2024-04-01 08:19] LABS: Erythrocyte Sedimentation Rate 15 mm/hr (0-15)
[2024-04-01 08:33] LABS: Lymphocytes % 4 % (10-50); Monocytes % 3 % (2-9); Neutrophils % 93 % (42-76); Total Cells Counted 100
[2024-04-01 08:34] LABS: Platelet Estimate Slight Decrease; RBC Morphology Normal
[2024-04-01] MEDS: ENOXAPARIN 40MG/0.4ML SYRINGE 40 MG SQ (08:43)
--- NOTE | 2024-04-01 09:13 | PC.NURSE ---
pt off floor to radiology
[2024-04-01] MEDS: IOPAMIDOL-370 (76%);100ML BOTTLE 75 ML IV (09:26)
[2024-04-01] MEDS: DIATRIZOATE MEGLUMINE(GASTROGRAFIN) 66%-10% 120ML 30 ML PO (09:26)
--- NOTE | 2024-04-01 09:26 | PC.NURSE ---
pt back on floor from radiology
[2024-04-01] MEDS: SODIUM CHLORIDE 0.9% 10ML SYR (RAD ONLY) 10 ML IV (09:27)
[2024-04-01 11:41] VITALS: BP 147/93; PULSE 65; RESP 20; TEMP 36.6; O2SAT 97
[2024-04-01] MEDS: ACETAMINOPHEN 325MG TAB 650 MG PO (13:36)
[2024-04-01] MEDS: MORPHINE 2MG/ML SYRINGE 1 MG IV (14:28)
--- NOTE | 2024-04-01 15:34 | PC.NURSE ---
pt has remained on room air this shift. pt has c/o abdominal pain and been medicated per AUG. pt is currently on bland diet d/t the CT revealing no s/s of appendicitis. pt has been ambulating to and from bathroom w/o assistance. no new orders at this time. call light within reach.
[2024-04-01 16:00] VITALS: BP 150/90; PULSE 71; RESP 18; TEMP 36.7; O2SAT 97
--- NOTE | 2024-04-01 17:49 | P.DS_ITS ---
General Admission date:: 03/31/24 HPI HPI HPI: Patient is a 48-year-old obese (BMI 49) male from [place] who presented to the emergency department with complaints of headache, nausea, and vague abdominal pain. He is somewhat of a poor historian. Evaluation in the emergency department revealed some mild diffuse abdominal tenderness and he therefore underwent CT scan. This revealed findings of 10 mm appendix with possible mild periappendiceal inflammatory changes. It was felt that this may represent early acute appendicitis. Given the possibility of early appendicitis he was admitted for inpatient management and surgical consultation. CBC reveals a white blood cell count of 3400 with normal differential. Of note, he had presentation to the emergency department with similar symptoms (headache and abdominal pain) in August of this year. Hospital Course Hospital Course Hospital Course: Patient is a 48-year-old male past medical history of morbid obesity hyperlipidemia, depression who presents to the hospital for generalized abdominal pain. According to patient he has been having abdominal pain for past 1 day, has associated vomiting nausea. Patient otherwise denied chest pain shortness of breath diarrhea constipation dysuria fevers and chills. #Abdominal pain #Suspected acute appendicitis - Presentation not classical appendicitis, however initial CT abdomen without contrast revealed appendencial dilation to 10cm with mild periappendiceal inflammatory changes. - Corresponded to N/V on presentation. - Started on IV Zosyn. - However, symptoms resolved over the next day. No longer has abdominal pain, N/V. - General surgery was consulted, ordered CT with IV contrast which did not indicate acute appendicitis. - It is likely that, if there was acute appendicitis, it has resolved. - Medically stable to be discharged home. Will follow-up with PCP within 1 week. Exam Data for Last 24 hours Vital signs and Labs for Last 24 Hours: Temp Pulse Resp BP Pulse Ox O2 Del Method 98.1 F 71 18 150/90 H 97 Room Air 04/01/24 16:00 04/01/24 16:00 04/01/24 16:00 04/01/24 16:00 04/01/24 16:00 04/01/24 16:44 Laboratory Results - last 24 hr 04/01/24 06:04: WBC 6.3 D, RBC 4.47 L, Hgb 13.9 L, Hct 39.0 L, MCV 87.4, MCH 31.1, MCHC 35.6 H, RDW 13.8, Plt Count 120 L, MPV 9.1, Neut % (Auto) 87.3 H, Lymph % (Auto) 9.2 L, [place] % (Auto) 3.4, Eos % (Auto) 0.1, Baso % (Auto) 0.1, Neut # (Auto) 5.5, Lymph # (Auto) 0.6 L, [place] # (Auto) 0.2, Eos # (Auto) 0.0, Baso # (Auto) 0.0, Total Counted 100, Neutrophils % (Manual) 93 H, Lymphocytes % (Manual) 4 L, Monocytes % (Manual) 3, Platelet Estimate Slight decrease, RBC Morphology Normal, ESR 15, Sodium 138, Potassium 4.4 D, Chloride 112 H, Carbon Dioxide 21 L, Anion Gap 9.4, BUN 15 D, Creatinine 1.10, Estimated Creat Clear 78, Estimated GFR 71, Est GFR ( Amer) 86 D, Glucose 152 H D, Calcium 8.9, Total Bilirubin 0.9, AST 37, ALT 39, Alkaline Phosphatase 65, C-Reactive Protein 44.8 H, Total Protein 6.2 L, Albumin 3.7, Globulin 2.5, Albumin/Globulin Ratio 1.5 I & O for Last 24 hours: Intake & Output 03/29/24 03/30/24 03/31/24 04/01/24 23:59 23:59 23:59 23:59 Intake Total 2855 / 2855 Output Total 0 / 0 0 / 0 Balance 0 / 410 2855 / 2855 Weight 146.68 kg 149.277 kg Constitutional Constitutional: no acute distress and obese *Routine HEENT Exam Head: Present normocephalic Eye: Present EOMI and PERRL ENT: Present mucous membranes moist *Routine Neck Exam Neck: Present supple; Absent lymphadenopathy *Routine Respiratory Exam Respiratory: Present CTA bilaterally *Routine Cardiovascular Exam Cardiovascular: Present RRR *Routine Abdominal Exam Abdominal: Present soft and normoactive bowel sounds; Absent tenderness *Routine Extremities Exam Extremities: Absent cyanosis, clubbing or edema *Routine Skin Exam Skin: Present warm; Absent rash *Routine Neurological Exam Neurological: Present alert and oriented X3 Results Data Completed and Pending Labs on day of discharge: Labs from last 24 hours 04/01/24 06:04 WBC 6.3 D RBC 4.47 L Hgb 13.9 L Hct 39.0 L MCV 87.4 MCH 31.1 MCHC 35.6 H RDW 13.8 Plt Count 120 L MPV 9.1 Neut % (Auto) 87.3 H Lymph % (Auto) 9.2 L [place] % (Auto) 3.4 Eos % (Auto) 0.1 Baso % (Auto) 0.1 Neut # (Auto) 5.5 Lymph # (Auto) 0.6 L [place] # (Auto) 0.2 Eos # (Auto) 0.0 Baso # (Auto) 0.0 Total Counted 100 Neutrophils % (Manual) 93 H Lymphocytes % (Manual) 4 L Monocytes % (Manual) 3 Platelet Estimate Slight decrease RBC Morphology Normal ESR 15 Sodium 138 Potassium 4.4 D Chloride 112 H Carbon Dioxide 21 L Anion Gap 9.4 BUN 15 D Creatinine 1.10 Estimated Creat Clear 78 Estimated GFR 71 Est GFR ( Amer) 86 D Glucose 152 H D Calcium 8.9 Total Bilirubin 0.9 AST 37 ALT 39 Alkaline Phosphatase 65 C-Reactive Protein 44.8 H Total Protein 6.2 L Albumin 3.7 Globulin 2.5 Albumin/Globulin Ratio 1.5 DS: Diagnosis Discharge Diagnosis (1) Abdominal pain: Status: Acute Code(s): R10.9 - Unspecified abdominal pain Meds Home Medications and Allergies Home Medications ?Medication ?Instructions ?Recorded ?Confirmed ?Type bupropion HCl 300 mg 24 hr tablet, 300 mg PO DAILY mood #30 tabs 06/30/20 03/31/24 Rx extended release buspirone 15 mg tablet 15 mg PO TID Anxiety #90 tabs 06/30/20 03/31/24 Rx divalproex 125 mg capsule,delayed 500 mg (4 x 125 mg) PO TID 06/30/20 03/31/24 Rx release sprinkle SEIZURES #360 caps clonidine HCl 0.1 mg tablet See Rx Instructions .Route 09/24/20 03/31/24 Rx .COMPLEX #90 tabs propranolol 20 mg tablet 20 mg PO BID 10/02/23 03/31/24 History topiramate 50 mg tablet 50 mg PO BID 10/02/23 03/31/24 History benztropine 1 mg tablet 1 mg PO BID 04/01/24 04/01/24 History ciprofloxacin HCl 500 mg tablet 500 mg PO BID 5 days #10 tabs 04/01/24 Rx lurasidone 80 mg tablet (Latuda) 80 mg PO DAILY 04/01/24 04/01/24 History metronidazole 500 mg tablet 500 mg PO BID 5 days #10 tabs 04/01/24 Rx simvastatin 20 mg tablet 20 mg PO HS 04/01/24 04/01/24 History New Prescriptions to Start Prescriptions: ciprofloxacin HCl Herbie Alfredo metronidazole Herbie Alfredo Allergies Allergy/AdvReac Type Severity Reaction Status Date / Time prochlorperazine Allergy Unknown Verified 01/09/24 08:20 [From COMPAZINE] Discharge Plan Disposition Patient Disposition: Home, Self-Care Condition: Good Follow up Plan Follow up with: Palak Martinez, [employer] [Primary Care Provider] - 04/08/24 4:00 pm Prescriptions/Medication Reconciliation: New ciprofloxacin HCl 500 mg tablet 500 mg PO BID 5 Days Qty: 10 0RF metronidazole 500 mg tablet 500 mg PO BID 5 Days Qty: 10 0RF Continued topiramate 50 mg tablet 50 mg PO BID propranolol 20 mg tablet 20 mg PO BID bupropion HCl 300 mg tablet extended release 24 hr 300 mg PO DAILY Qty: 30 0RF buspirone 15 mg tablet 15 mg PO TID Qty: 90 0RF divalproex 125 mg capsule, delayed rel sprinkle 500 mg PO TID Qty: 360 0RF clonidine HCl 0.1 mg tablet See Rx Instructions .ROUTE .COMPLEX Qty: 90 0RF Dose Instruction: TAKE 1 TABLET BY MOUTH THREE TIMES DAILY FOR HYPERTENSION Rx Instructions: TAKE 1 TABLET BY MOUTH THREE TIMES DAILY FOR HYPERTENSION simvastatin 20 mg tablet 20 mg PO HS benztropine 1 mg tablet 1 mg PO BID lurasidone [Latuda] 80 mg tablet 80 mg PO DAILY Problem Reconciliation Problems Reviewed?: Yes Patient Discharge Instructions Patient Instructions: DI for Appendicitis -- Adult Print Language: Vietnamese Providers Primary Care Provider: Palak Martinez Admit Provider: Herbie Alfredo Attending Provider: Herbie Alfredo
[2024-04-02 11:15] LABS: HCV Ab Non Reactive (Non Reactive)
--- NOTE | 2024-04-02 13:19 | CARE MANAGER ---
Called and spoke with patient regarding recent discharge. Patient stated that he is feeling ok, has started new medication prescribed at discharge and was aware of schedule f/u appt. No concerns/questions voiced at time of call.
== END 2024-04-01 18:26 | disposition home or self-care (01) ==
LOC: ER 14:26 → 2ND 17:14
PROVIDERS: Physician Assistant; Surgery; Admitting Provider Student in an Organized Health Care Education/Training Program; Emergency Provider Student in an Organized Health Care Education/Training Program; PCP Nurse Practitioner; Visit Provider Student in an Organized Health Care Education/Training Program
DX: R10.9 Unspecified abdominal pain; E78.5 Hyperlipidemia, unspecified; F31.9 Bipolar disorder, unspecified; Z79.899 Other long term (current) drug therapy; E66.9 Obesity, unspecified; Z68.42 Body mass index [BMI] 45.0-49.9, adult; Z87.891 Personal history of nicotine dependence
CPT/HCPCS: 36415; 71046; 74177; 80053; 81001; 83690; 84145; 85007; 85025; 85027; 85651; 86140; 86803; 87389; 87636; 93005; 99285; G0378; J0780; J1100; J1200; J1650; J1885; J2270; J2405; J2543; J7120; Q9963; Q9967

== ENCOUNTER 2024-05-11 20:59 | Emergency (ER) | payer MEDICARE, MEDICAID, SELFPAY ==
[2024-05-11 21:05] VITALS: BP 150/105; PULSE 90; RESP 20; TEMP 36.8; O2SAT 96; BMI 50.9
--- NOTE | 2024-05-11 21:12 | CT_ITS ---
PROCEDURE INFORMATION: Exam: CT Lumbar Spine Without Contrast Exam date and time: 05/11/2024 9:54 PM Age: 48 years old Clinical indication: Low back pain; Additional info: Midline tenderness no trauma TECHNIQUE: Imaging protocol: Computed tomography of the lumbar spine without contrast. Radiation optimization: All CT scans at this facility use at least one of these dose optimization techniques: automated exposure control; mA and/or kV adjustment per patient size (includes targeted exams where dose is matched to clinical indication); or iterative reconstruction. COMPARISON: 1. MR LUMBAR SPINE WO/W CON 12/20/2023 3:[address] LUMBAR SPINE WO CON 06/23/2023 11:[address] THORACIC SPINE WO CON 05/11/2024 9:51 PM FINDINGS: Bones/joints: There is straightening of the normal spinal curvature. There is mild multilevel degenerative change with loss of intervertebral disc space. Spinal canal is poorly evaluated due to beam hardening artifact, no obvious cord compression is seen. No acute fracture or subluxation. Soft tissues: Unremarkable. IMPRESSION: Mild degenerative disease without acute injury identified.
--- NOTE | 2024-05-11 21:12 | CT_ITS ---
PROCEDURE INFORMATION: Exam: CT Thoracic Spine Without Contrast Exam date and time: 05/11/2024 9:51 PM Age: 48 years old Clinical indication: Pain in thoracic spine; Additional info: Midlione tenderness no trauma TECHNIQUE: Imaging protocol: Computed tomography of the thoracic spine without contrast. Radiation optimization: All CT scans at this facility use at least one of these dose optimization techniques: automated exposure control; mA and/or kV adjustment per patient size (includes targeted exams where dose is matched to clinical indication); or iterative reconstruction. COMPARISON: 1. CT THORACIC SPINE WO CON 05/11/2024 9:51 PM 2. MR THORACIC SPINE WO/W CON 12/07/2023 1:18 PM 3. MR THORACIC SPINE WO/W CON 10/18/2023 8:06 AM FINDINGS: Bones/joints: There is exaggeration of the spinal curvature. No evidence of acute spondylolisthesis or vertebral subluxation. Vertebral body heights are generally preserved, but some endplate sclerosis and anterior osteophytes are noted at multiple levels. Narrowing of multiple intervertebral disc spaces observed, indicative of degenerative disc disease. Hypertrophic changes are seen in the facet joints, consistent with osteoarthritis. No fractures or bony lesions identified. No abnormalities seen in adjacent osseous structures. Soft tissues: Unremarkable. Gallbladder and biliary ducts: There is cholelithiasis within an otherwise normal gallbladder. Other findings: No obvious abnormalities seen in the prevertebral and paravertebral soft tissues. IMPRESSION: Degenerative changes without acute abnormality detected.
[2024-05-11 21:15] VITALS: BP 175/113; PULSE 91; O2SAT 95
--- NOTE | 2024-05-11 21:16 | ED_ITS ---
Discharge Plan Disposition Patient Disposition: Home, Self-Care Prescriptions Prescriptions: New methocarbamol 500 mg tablet 1,000 mg PO Q8H PRN (Reason: muscle pain and spasm) Qty: 30 0RF lidocaine 5 % adhesive patch,medicated 1 patch topical DAILY Qty: 15 0RF Rx Instructions: leave on most painful area for up to 12 hrs No Action topiramate 50 mg tablet 50 mg PO BID propranolol 20 mg tablet 20 mg PO BID bupropion HCl 300 mg tablet extended release 24 hr 300 mg PO DAILY Qty: 30 0RF buspirone 15 mg tablet 15 mg PO TID Qty: 90 0RF divalproex 125 mg capsule, delayed rel sprinkle 500 mg PO TID Qty: 360 0RF clonidine HCl 0.1 mg tablet See Rx Instructions .ROUTE .COMPLEX Qty: 90 0RF Dose Instruction: TAKE 1 TABLET BY MOUTH THREE TIMES DAILY FOR HYPERTENSION Rx Instructions: TAKE 1 TABLET BY MOUTH THREE TIMES DAILY FOR HYPERTENSION simvastatin 20 mg tablet 20 mg PO HS benztropine 1 mg tablet 1 mg PO BID lurasidone [Latuda] 80 mg tablet 80 mg PO DAILY ciprofloxacin HCl 500 mg tablet 500 mg PO BID 5 Days Qty: 10 0RF metronidazole 500 mg tablet 500 mg PO BID 5 Days Qty: 10 0RF Referrals Follow up/Referrals: Palak Martinez APRN [Primary Care Provider] - See instructions Activity Restrictions/Add. Instructions Additional Instructions/Restrictions: At this time it was felt you are safe to be discharged home. If new or worsening symptoms please do not hesitate to return the emergency department. Please follow-up with your neurologist for your MRI as discussed and take your medication as prescribed. Clinical Impressions Clinical Impression: Back pain Instructions Patient Instructions: DI for Low Back Pain Print Language Print Language: Romanian Discharge ED Provider: Vito Clifton General Adult HPI General Chief complaint: Back Pain/Injury Stated complaint: back pain Time Seen by Provider: 05/11/24 21:04 Mode of Arrival: Ambulatory Source of Information: Patient Limitations: No Limitations Description of Symptoms (Recalled from ER Triage Doc. by RN): Pt states he has chronic mid back pain that is worse tonight See's neurologist at for same History of Present Illness HPI narrative: Patient is a 48-year-old male with multiple comorbidities who presents to the emergency department for evaluation of acute on chronic back pain. Patient is in the middle of seeing a neurologist for his back pain has MRIs pending this coming Monday at [facility]. His back pain has become worse it is mid thoracolumbar and does not go down to his feet. It is tender. He has no new trauma. Due to worsening symptoms he presents here for continued evaluation. No urinary or fecal incontinence. No saddle anesthesia Related Data Home Medications ?Medication ?Instructions ?Recorded ?Confirmed propranolol 20 mg tablet 20 mg PO BID 10/02/23 04/23/24 topiramate 50 mg tablet 50 mg PO BID 10/02/23 04/23/24 benztropine 1 mg tablet 1 mg PO BID 04/01/24 04/23/24 lurasidone 80 mg tablet (Latuda) 80 mg PO DAILY 04/01/24 04/23/24 simvastatin 20 mg tablet 20 mg PO HS 04/01/24 04/23/24 Previous Rx's ?Medication ?Instructions ?Recorded bupropion HCl 300 mg 24 hr tablet, 300 mg PO DAILY mood #30 tabs 06/30/20 extended release buspirone 15 mg tablet 15 mg PO TID Anxiety #90 tabs 06/30/20 divalproex 125 mg capsule,delayed 500 mg (4 x 125 mg) PO TID 06/30/20 release sprinkle SEIZURES #360 caps clonidine HCl 0.1 mg tablet See Rx Instructions .Route 09/24/20 .COMPLEX #90 tabs ciprofloxacin HCl 500 mg tablet 500 mg PO BID 5 days #10 tabs 04/01/24 metronidazole 500 mg tablet 500 mg PO BID 5 days #10 tabs 04/01/24 lidocaine 5 % topical patch 1 patch topical DAILY #15 ea 05/11/24 methocarbamol 500 mg tablet 1,000 mg (2 x 500 mg) PO Q8H PRN 05/11/24 muscle pain and spasm #30 tabs Allergies Allergy/AdvReac Type Severity Reaction Status Date / Time prochlorperazine (From Allergy Unknown Verified 04/23/24 08:09 COMPAZINE) [facility] Disclaimer: The information contained in this section may have been updated after the patient was seen, as this information can be updated by other users. 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 current occupational exposures/hazards: No caffeine: Yes Other Medical History Have you received the Flu Vaccine for this season: No Have you received the Pneumonia Vaccine: No ROS Obtained: Yes Systems reviewed as appropriate & no additional complaints except as documented Physical Exam General General appearance: alert and in no apparent distress Head Head exam: atraumatic and normocephalic Eye Eye exam: Present PERRL ENT ENT exam: Present mucous membranes moist Neck Neck exam: Present normal inspection Chest Chest inspection: Present normal inspection and symmetric chest wall rise Respiratory Respiratory exam: Absent respiratory distress Cardiovascular Cardiovascular exam: Present regular rate and normal rhythm Abdominal Exam Abdominal exam: Present soft Extremities Exam Extremities exam: Present normal inspection Back Exam Back exam: Present normal inspection and tenderness (Thoracolumbar) Neurological Exam Neurological exam: Present alert and CN II-XII intact; Absent motor sensory deficit Psychiatric Psychiatric exam: Present normal affect Skin Skin exam: Present warm and dry Medical Decision Making Medical Records Screening: Per USPSTF and CDC recommendations, given the prevalence of disease in our region, it is our hospital?s policy to screen for HIV and viral Hepatitis for all patients aged 18 and over and those with ongoing risk factors. Talha Inquiry Pt receiving controlled substance: No Vital Signs: 05/11/24 21:05 05/11/24 21:15 Temperature 98.3 F Temperature Source Oral Pulse Rate 91 H Pulse Rate [Right Brachial] 90 Respiratory Rate 20 Blood Pressure 175/113 H Blood Pressure [Right Arm] 150/105 H Blood Pressure Mean [Right Arm] 120 Blood Pressure Source [Right Arm] Automatic Cuff 02 Sat by Pulse Oximetry 96 95 Oxygen Delivery Method Room Air Orders (Tests/Meds): ED MEDICATIONS Discontinued Medications Generic Name Dose Route Start Last Admin Trade Name Freq PRN Reason Stop Dose Admin Acetaminophen 1,000 mg 05/11/24 21:16 05/11/24 21:34 Acetaminophen 500mg Tab PO 05/11/24 21:17 1,000 mg ONCE ONE Administration Ibuprofen 800 mg 05/11/24 21:16 05/11/24 21:35 Ibuprofen 400 Mg Tablet PO 05/11/24 21:17 800 mg ONCE ONE Administration Lidocaine 1 each 05/11/24 21:16 05/11/24 21:35 Lidocaine 5% Transdermal Patch TP 05/11/24 21:17 1 each ONCE ONE Administration Methocarbamol 1,000 mg 05/11/24 21:17 05/11/24 21:33 Methocarbamol 500mg Tablet PO 05/11/24 21:18 1,000 mg ONCE ONE Administration ORDERS Category Date Time Status CT lumbar spine wo con Stat Cat Scan 05/11/24 21:[address] thoracic spine wo con Stat Cat Scan 05/11/24 21:12 Completed Medical Decision Narrative: In summary patient is a 48-year-old male past medical history described above presents emergency department for evaluation of acute on chronic atraumatic back pain. Patient is hemodynamically stable nontoxic-appearing upon arrival, afebrile. Tender in the lower lumbar spine warrants CT imaging as differential includes fracture, among others. I suspect the patient has lumbar ago. Initial interventions include multimodal pain control. Noncontrasted images informally visualized by me, no acute large fracture. Formal read shows degenerative changes without acute pathology. Given this patient is appropriate for outpatient management at this time will be discharged with a course of Robaxin and lidocaine patches was given return precautions. Critical Care Critical Care Time Critical Care Time: No
[2024-05-11] MEDS: METHOCARBAMOL 500MG TABLET 1000 MG PO (21:33)
[2024-05-11] MEDS: ACETAMINOPHEN 500MG TAB 1000 MG PO (21:34)
[2024-05-11] MEDS: LIDOCAINE 5% TRANSDERMAL PATCH 1 EACH TP (21:35)
[2024-05-11] MEDS: IBUPROFEN 400 MG TABLET 800 MG PO (21:35)
--- NOTE | 2024-05-11 21:48 | PC.NURSE ---
Patient to CT per wheelchair
--- NOTE | 2024-05-11 21:58 | PC.NURSE ---
Pt back from CT scan
[2024-05-11 22:48] VITALS: BP 171/108; PULSE 84; RESP 20; TEMP 36.8; O2SAT 97
== END 2024-05-11 22:56 | disposition home or self-care (01) ==
PROVIDERS: Emergency Provider Emergency Medicine; PCP Nurse Practitioner
DX: M54.50 Low back pain, unspecified (principal); G89.29 Other chronic pain
CPT/HCPCS: 72128; 72131; 99284

== ENCOUNTER 2024-05-13 08:37 | Outpatient (CLI) | payer MEDICARE, MEDICAID, SELFPAY ==
--- NOTE | 2024-05-13 08:50 | MR_ITS ---
FINAL REPORT CLINICAL HISTORY: 6 MTH F/U ABN MRI 30 ml prohance COMPARISON: 12/07/2023 FINDINGS: Multiplanar MR imaging of the thoracic spine was performed without and with contrast. On the sagittal T2-weighted images, disc degeneration is seen at multiple levels. Mild endplate degenerative changes are noted at multiple levels. There is no evidence of fracture. The vertebral alignment is normal. Several vertebral body hemangiomas are present. There is a focal deformity of the thoracic cord contour at the T8 level, and the cord at that level is displaced anteriorly. This may represent loculated scar or small posterior arachnoid cyst. This is stable in appearance since the prior exam. At the T9-10 level, there is a focus of T2 signal within the spinal cord that measures 14 mm in height. No abnormal enhancement is identified. This is also normal in appearance when compared to the prior exam. On the axial images, annular bulges are seen at multiple levels. There is no evidence of disc protrusion. No significant canal stenosis is identified. On the postcontrast images, no abnormal contrast enhancement is identified. IMPRESSION: Focal deformity of the thoracic cord contour at the T8 level as described above, which may represent localized scar or a small posterior arachnoid cyst. The appearance is stable since the prior MRI. There is T2 abnormal signal in the cord at the T9-10 level, measuring 14 mm in height, without abnormal enhancement. The differential diagnosis includes demyelination and myelomalacia as the most likely, stable. Would consider 12-month follow-up MRI of the thoracic spine with and without contrast to ensure stability. No abnormal contrast enhancement identified. Reviewed, Interpreted and Dictated by Eugenio Sandy III, MD Transcribed by Jojo Andres Authenticated and [facility]
[2024-05-13 09:10] LABS: Blood Urea Nitrogen 16 mg/dl (9-20); Estimated Glomerular Filt Rate 64 ml/min (>60); GFR (African American) 78 ML/MIN (>60)
[2024-05-13] MEDS: SODIUM CHLORIDE 0.9% 10ML SYR (RAD ONLY) 10 ML IV (10:08)
[2024-05-13] MEDS: GADOTERIDOL INJ 10ML SYRINGE 10 ML IV (10:08)
[2024-05-13] MEDS: GADOTERIDOL INJ 20ML SYRINGE 20 ML IV (10:08)
== END 2024-05-13 23:59 | disposition home or self-care (01) ==
LOC: RAD 08:39
PROVIDERS: PCP Nurse Practitioner; Visit Provider Neurological Surgery
DX: M54.16 Radiculopathy, lumbar region (principal); G95.9 Disease of spinal cord, unspecified; R93.7 Abnormal findings on diagnostic imaging of other parts of musculoskeletal system
CPT/HCPCS: 36415; 72157; 82565; 84520; A9576

== ENCOUNTER 2024-06-11 08:00 | Outpatient (RCR) | payer MEDICARE, MEDICAID, SELFPAY | END 2024-06-11 23:59 | disposition home or self-care (01) | LOC: PT 08:00 | PROVIDERS: PCP Nurse Practitioner; Visit Provider Psychiatry & Neurology Neurology | DX: G04.91 Myelitis, unspecified (principal); G37.9 Demyelinating disease of central nervous system, unspecified | CPT/HCPCS: 97110; 97140; 97163 ==

== ENCOUNTER 2024-07-10 08:00 | Outpatient (RCR) | payer MEDICARE, MEDICAID, SELFPAY | END 2024-07-10 23:59 | disposition home or self-care (01) | LOC: PT 08:00 | PROVIDERS: PCP Nurse Practitioner; Visit Provider Psychiatry & Neurology Neurology | DX: G04.91 Myelitis, unspecified (principal); G37.9 Demyelinating disease of central nervous system, unspecified | CPT/HCPCS: 97110; 97140; 97530 ==

== ENCOUNTER 2024-07-31 10:00 | Outpatient (RCR) | payer MEDICARE, MEDICAID, SELFPAY | END 2024-07-31 12:00 | disposition home or self-care (01) | LOC: PT 10:00 | PROVIDERS: PCP Nurse Practitioner; Visit Provider Psychiatry & Neurology Neurology | DX: G04.91 Myelitis, unspecified (principal); G37.9 Demyelinating disease of central nervous system, unspecified | CPT/HCPCS: 97110; 97530 ==

== ENCOUNTER 2024-08-06 07:35 | Outpatient (RCR) | payer MEDICARE, MEDICAID, SELFPAY | END 2024-08-06 23:59 | disposition home or self-care (01) | LOC: PT 07:35 | PROVIDERS: Visit Provider Psychiatry & Neurology Neurology | DX: G35 Multiple sclerosis (principal) | CPT/HCPCS: 97163; 97530 ==

== ENCOUNTER 2024-08-13 07:38 | Outpatient (RCR) | payer MEDICARE, MEDICAID, SELFPAY | END 2024-08-13 23:59 | disposition home or self-care (01) | LOC: PT 07:38 | PROVIDERS: Visit Provider Psychiatry & Neurology Neurology | DX: G35 Multiple sclerosis (principal) | CPT/HCPCS: 97110; 97112; 97530 ==

== ENCOUNTER 2024-09-03 08:48 | Outpatient (CLI) | payer MEDICARE, MEDICAID, SELFPAY ==
[2024-09-03] VITALS (9 sets, daily range): BP systolic 136–151; BP diastolic 68–89; PULSE 63–102; RESP 18; TEMP 36.5; O2SAT 96–97
[2024-09-03] MEDS: SODIUM CHLORIDE 0.9% 50ML BAG 50 ML IV (09:11)
[2024-09-03] MEDS: diphenhydrAMINE 50MG CAPSULE 50 MG PO (09:12)
[2024-09-03] MEDS: ACETAMINOPHEN 325MG TAB 650 MG PO (09:12)
[2024-09-03] MEDS: METHYLPREDNISOLONE SOD SUCC 125MG VIAL 125 MG IV (09:13)
[2024-09-03] MEDS: SODIUM CHLORIDE 0.9% IV (09:48)
[2024-09-03] MEDS: RITUXIMAB IV (09:48)
[2024-09-03] MEDS: SODIUM CHLORIDE 0.9% 10ML FLUSH SYRINGE 10 ML IV (10:46)
== END 2024-09-03 13:38 | disposition home or self-care (01) ==
LOC: INF 08:51
PROVIDERS: PCP Nurse Practitioner; Visit Provider Psychiatry & Neurology Neurology
DX: G37.3 Acute transverse myelitis in demyelinating disease of central nervous system (principal)
CPT/HCPCS: 96413; 96415; J2919; J9312

== ENCOUNTER 2024-09-17 08:47 | Outpatient (CLI) | payer MEDICARE, MEDICAID, SELFPAY ==
[2024-09-17] VITALS (7 sets, daily range): BP systolic 113–134; BP diastolic 62–80; PULSE 63–73; RESP 18; TEMP 36.6; O2SAT 98
[2024-09-17] MEDS: ACETAMINOPHEN 325MG TAB 650 MG (08:55)
[2024-09-17] MEDS: diphenhydrAMINE 50MG CAPSULE 50 MG PO (08:55)
[2024-09-17] MEDS: METHYLPREDNISOLONE SOD SUCC 125MG VIAL 125 MG (08:55)
[2024-09-17] MEDS: SODIUM CHLORIDE 0.9% IV (09:38)
[2024-09-17] MEDS: RITUXIMAB IV (09:38)
[2024-09-17] MEDS: SODIUM CHLORIDE 0.9% 50ML BAG 50 ML IV (09:49)
== END 2024-09-17 13:05 | disposition home or self-care (01) ==
LOC: INF 08:48
PROVIDERS: PCP Nurse Practitioner; Visit Provider Psychiatry & Neurology Neurology
DX: G37.3 Acute transverse myelitis in demyelinating disease of central nervous system (principal)
CPT/HCPCS: 96413; 96415; J2919; J9312

== ENCOUNTER 2024-10-18 16:46 | Emergency (ER) | payer MEDICARE, MEDICAID, SELFPAY ==
[2024-10-18 16:55] VITALS: BP 174/106; PULSE 85; RESP 16; TEMP 36.4; O2SAT 98; BMI 49.7
--- OUTSIDE RECORDS SUMMARY | 2024-10-18 16:59 | XMS_ITS | Continuity of Care Document ---
Author Organization [facility]. If a dditional information is needed, contact Health Information Management at [phone] Address [phone] [place] [address] Phone Care Team Providers Care Compliance Attorney Name Role Phone Unavailable Unavailable Unavailable Unavailable Unavailable Unavailable Unavailable Unavailable Unavailable Problems Bipolar disorder Onset:24-Jun-2023 Luis Enrique Miller MD Status:Acute History of surgery Onset:24-Jun-2023 Luis Enrique Miller MD Status:Acute Comments:Rods in both legs Hypertensive disorder Onset:24-Jun-2023 Luis Enrique Miller MD Status:Acute Numbness of lower limb Onset:24-Jun-2023 Kaz FOUNTAIN Status:Acute Skin sensation disturbance Onset:24-Jun-2023 Kaz [facility] Status:Acute Degeneration of intervertebr al disc Onset:24-Jun-2023 Kaz [facility] Status:Acute Stenosis of lumbar vertebral foramen Onset:24-Jun-2023 Kaz [facility] Status:Acute Functional Status Functional finding 24-Jun-2023 Functional finding 24-Jun-2023 Functional finding 24-Jun-2023 Functional finding 24-Jun-2023 Allergies and Adverse Reactions Prochlorperazine(Allergy) Onset: 24-Jun-2023 Reaction:Hypotension Medications simvastatin 20 MG Oral Table t;20 mg PO Start:24-Jun-2023 Status:Aborted Comments:20 mg PO propranolol 20 mg tablet;20 MG ORAL Daily Start:24-Jun-2023 Comments:20 mg PO DAILY topiramate 50 mg tablet;50 M G ORAL Daily Start:24-Jun-2023 Comments:50 mg PO DAILY Cogentin;1 MG ORAL Daily Start:24-Jun-2023 Comments:1 mg PO DAILY simvastatin 20 MG Oral Table t;20 MG ORAL Daily Start:24-Jun-2023 Comments:20 mg PO DAILY Flexeril;10 MG ORAL Daily Start:24-Jun-2023 Comments:10 mg PO DAILY lurasidone 80 mg tablet;80 M G ORAL Daily Start:24-Jun-2023 Comments:80 mg PO DAILY divalproex sodium 125 MG Del ayed Release Oral Capsule [Depakote];125 MG ORAL Three Times a Day Start:24-Jun-2023 Comments:125 mg PO TID Wellbutrin XL;300 MG ORAL QA M Start:24-Jun-2023 Comments:300 mg PO QAM
--- OUTSIDE RECORDS SUMMARY | 2024-10-18 16:59 | XMS_ITS | Continuity of Care Document ---
Author Organization [facility] Phone Care Team Providers Care Wire Sawyer Name Role Phone PADMINI LEON Unavailable PADMINI LEON Primary Attending HILLARY DIAZ Primary Care PADMINI LEON Admitting TORSTEN MCDANIEL Unavailable ALLERGIES AND ADVERSE REACTIONS ALLERGIES AND ADVERSE REACTIONS Code System Allergy Substance Adverse Reaction Date Reaction (Severity) Comment Status Reported By Updated By [id number] RXNorm COMPAZINE Adverse reaction to substance lowers blood pressure active [id number] on August 15, 2024 8:46:16 PM [place] ASSESSMENTS Major depressive disorder ; Anxiety disorder ; Mood disorder ; Bipolar disorder ; FAMILY HISTORY RELATION: Father Status: LIVING SNOMED-CT Diagnosis Age At Onset [id number] Depressive disorder RELATION: Mother Status: LIVING SNOMED-CT Diagnosis Age At Onset [id number] Falls [id number] Hiatal hernia [id number] Hypertensive disorder PROBLEMS PATIENT PROBLEMS Code Description/Comments Category Status Upda maria a By [id number] Suicidal thoughts completed [id number] on August 26, 2024 2:24:58 PM UT [id number] Major depressive disorder active [id number] on August 15, 2024 8:34:42 PM [facility] [id number] Anxiety disorder active [id number] on August 15, 2024 8:34:53 PM UT [id number] Mood disorder active [id number] on August 16, 2024 1:18:07 PM UT [id number] Bipolar disorder active [id number] on August 25, 2024 5:17:27 PM UT RESULTS Patient: JERMAINE Saez Date of : 1975 LABORATORY RESULTS ORDER 100: ACETAMINOPHEN TYL ENOL (LOINC: 3298-7) ORDER DATE: August 15, 2024 6:31:00 PM UTC Specimen Source: Serum Specimen Type: Serum specime n PERFORMING LAB: [address] [id number] Result Comment: Final Result Date: August 15, 2024 7:56:00 PM UTC (TECH: MRB) LOINC TEST FLAG RESULT REFERENCE RANGE UPDA MARIA A BY 3298-7 Acetaminophen [Mass/volume] in Serum or Plasma L 0 ug/mL 10 ug/mL - 30 ug/mL August 15, 2024 7:56:00 PM UTC (TECH: MRB) ORDER 200: BILIRUBIN DIRECT (LOINC: 1967-12) ORDER DATE: August 15, 2024 6:31:00 PM UTC Specimen Source: Serum Specimen Type: Serum specime n PERFORMING LAB: [address] [id number] Result Comment: Final Result Date: August 15, 2024 7:56:00 PM UTC (TECH: MRB) LOINC TEST FLAG RESULT REFERENCE RANGE UPDA MARIA A BY 1967-12 Bilirubin.direct [Mass/volume] in Serum or Plasma N 0.1 mg/dL 0.0 mg/dL - 0.3 mg/dL August 15, 2024 7:56:00 PM UTC (TECH: MRB) ORDER 300: CBC AUTO W DIFF ( LOINC: 50688-5) ORDER DATE: August 15, 2024 6:31:00 PM UTC Specimen Source: Whole Blood Specimen Type: Whole blood s ample PERFORMING LAB: [address] [id number] Result Comment: Final Result Date: August 15, 2024 7:45:00 PM UTC (TECH: MRB) LOINC TEST FLAG RESULT REFERENCE RANGE UPDA MARIA A BY 6690-2 Leukocytes [#/volume] in Blood by Automated count N 6.1 10^3/uL 4.5 10^3/uL - 11.5 10^3/uL August 15, 2024 7:45:00 PM UTC (TECH: MRB) 789-8 Erythrocytes [#/volume] in Blood by Automated count N 5.43 10^6/uL 4.25 10^6/uL - 5.57 10^6/uL August 15, 2024 7:45:00 PM UTC (TECH: MRB) 718-7 Hemoglobin [Mass/volume] in Blood N 16.0 g/dL 13.5 g/dL - 17.2 g/dL August 15, 2024 7:45:00 PM UTC (TECH: MRB) 23758-8 Hematocrit [Volume Fraction] of Blood N 46.8 % 42.0 % - 52.0 % August 15, 2024 7:45:00 PM UTC (TECH: MRB) 787-2 Erythrocyte mean corpuscular volume [Entitic volume] by Automated count N 86.2 fl 80 fl - 95 fl August 15, 2024 7:45:00 PM UTC (TECH: MRB) 41196-0 Erythrocyte mean corpuscular hemoglobin [Entitic mass] in Blood from Fetus by Automated count N 29.5 pg 27.0 pg - 34.0 pg August 15, 2024 7:45:00 PM UTC (TECH: MRB) 89231-1 Erythrocyte mean corpuscular hemoglobin concentration [Mass/volume] in Blood from Fetus by Automated count N 34.2 g/dL 32.0 g/dL - 36.0 g/dL August 15, 2024 7:45:00 PM UTC (TECH: MRB) 69318-9 Platelets [#/volume] in Blood N 163 10^3/uL 150 10^3/uL - 450 10^3/uL August 15, 2024 7:45:00 PM UTC (TECH: MRB) 35781-3 Erythrocyte distribution width [Ratio] N 12.6 % 12.3 % - 15.1 % August 15, 2024 7:45:00 PM UTC (TECH: MRB) 10689-9 Platelet mean volume [Entitic volume] in Blood by Automated count H 11.9 fl 7.4 fl - 10.4 fl August 15, 2024 7:45:00 PM UTC (TECH: MRB) 28427-0 Granulocytes/100 leukocytes in Blood by Automated count N 64.2 % 40 % - 75 % August 15, 2024 7:45:00 PM UTC (TECH: MRB) 736-9 Lymphocytes/100 leukocytes in Blood by Automated count N 20.9 % 15 % - 57 % August 15, 2024 7:45:00 PM UTC (TECH: MRB) 5905-5 Monocytes/100 leukocytes in Blood by Automated count N 9.7 % 4.0 % - 12.0 % August 15, 2024 7:45:00 PM UTC (TECH: MRB) 713-8 Eosinophils/100 leukocytes in Blood by Automated count H 4.8 % 0.0 % - 4.0 % August 15, 2024 7:45:00 PM UTC (TECH: MRB) 706-2 Basophils/100 leukocytes in Blood by Automated count N 0.2 % 0.0 % - 1.0 % August 15, 2024 7:45:00 PM UTC (TECH: MRB) 98037-3 Immature granulocytes [#/volume] in Blood N 0.2 % 0.0 % - 0.8 % August 15 7:45:00 PM UTC (TECH: MRB) 36737-5 Granulocytes [#/volume] in Blood by Automated count N 3.91 10^3/uL August 15, 2024 7:45:00 PM UTC (TECH: MRB) 731-0 Lymphocytes [#/volume] in Blood by Automated count N 1.27 10^3/uL August 15, 2024 7:45:00 PM UTC (TECH: MRB) 742-7 Monocytes [#/volume] in Blood by Automated count N 0.59 10^3/uL August 15, 2024 7:45:00 PM UTC (TECH: MRB) 711-2 Eosinophils [#/volume] in Blood by Automated count N 0.29 10^3/uL August 15, 2024 7:45:00 PM UTC (TECH: MRB) 704-7 Basophils [#/volume] in Blood by Automated count N 0.01 10^3/uL August 15, 2024 7:45:00 PM UTC (TECH: MRB) 04160-9 Immature granulocytes [#/volume] in Blood N 0.01 10^3/uL August 15 7:45:00 PM UTC (TECH: MRB) 71378-3 Manual differential performed [Presence] in Blood N NO August 15, 2024 7:45:00 PM UTC (TECH: MRB) ORDER 400: COMP METABOLIC PA JAXON (LOINC: 51123-8) ORDER DATE: August 15, 2024 6:31:00 PM UTC Specimen Source: Serum Specimen Type: Serum specime n PERFORMING LAB: [address] [id number] Result Comment: Final Result Date: August 15, 2024 7:57:00 PM UTC (TECH: MRB) LOINC TEST FLAG RESULT REFERENCE RANGE UPDA MARIA A BY 2951-2 Sodium [Moles/volume ] in Serum or Plasma N 139 mmol/L 136 mmol/L - 145 mmol/L August 15, 2024 7:57:00 PM UTC (TECH: MRB) 2823-3 Potassium [Moles/volume] in Serum or Plasma N 3.5 mmol/L 3.5 mmol/L - 5.1 mmol/L August 15, 2024 7:57:00 PM UTC (TECH: MRB) 5-0 Chloride [Moles/volu me] in Serum or Plasma N 106 mmol/L 98 mmol/L - 107 mmol/L August 15, 2024 7:57:00 PM UTC (TECH: MRB) 2027-9 Carbon dioxide, tota l [Moles/volume] in Serum or Plasma N 22 mmol/L 21 mmol/L - 32 mmol/L August 15, 2024 7:57:00 PM UTC (TECH: MRB) 60497-6 Anion gap 3 in Serum or Plasma N 11.0 August 15, 2024 7:57:00 PM UTC (TECH: MRB) 2345-7 Glucose [Mass/volume ] in Serum or Plasma H 126 mg/dL 70 mg/dL - 110 mg/dL August 15, 2024 7:57:00 PM UTC (TECH: MRB) 3094-0 Urea nitrogen [Mass/volume] in Serum or Plasma N 12 mg/dL 7 mg/dL - 18 mg/dL August 15, 2024 7:57:00 PM UTC (TECH: MRB) 2160-0 Creatinine [Mass/volume] in Serum or Plasma H 1.6 mg/dL 0.8 mg/dL - 1.3 mg/dL August 15, 2024 7:57:00 PM UTC (TECH: MRB) 3097-3 Urea nitrogen/Creatinine [Mass Ratio] in Serum or Plasma L 7.5 9 - 21 August 15, 2024 7:57:00 PM UTC (TECH: MRB) 64791-0 Glomerular filtratio n rate/1.73 sq M.predicted by Creatinine-based formula (MDRD) L 52 mL/min >60 August 15, 2024 7:57:00 PM UT (TECH: Picocent) 2885-2 Protein [Mass/volume ] in Serum or Plasma L 6.1 g/dL 6.4 g/dL - 8.2 g/dL August 15, 2024 7:57:00 PM UTC (TECH: MRB) 1751-7 Albumin [Mass/volume ] in Serum or Plasma N 3.5 g/dL 3.4 g/dL - 5.0 g/dL August 15, 2024 7:57:00 PM UT (TECH: MRB) 96776-3 Calcium [Mass/volume ] in Serum or Plasma L 8.3 mg/dL 8.5 mg/dL - 10.1 mg/dL August 15, 2024 7:57:00 PM UT (TECH: TriggerMailB) 67809-4 Calcium [Mass/volume ] corrected for total protein in Serum or Plasma N 8.7 mg/dL 8.5 mg/dL - 10.1 mg/dL August 15, 2024 7:57:00 PM UT (TECH: TriggerMailB) 1975-2 Bilirubin.total [Mass/volume] in Serum or Plasma N 0.5 mg/dL 0.4 mg/dL - 1.5 mg/dL August 15, 2024 7:57:00 PM UT (TECH: MRB) 1920-8 Aspartate aminotransferase [Enzymatic activity/volume] in Serum or Plasma N 33 U/L 15 U/L - 37 U/L August 15, 2024 7:57:00 PM UT (TECH: MRB) 1742-6 Alanine aminotransferase [Enzymatic activity/volume] in Serum or Plasma N 60 U/L 12 U/L - 78 U/L August 15, 2024 7:57:00 PM UT (TECH: MRB) 5868-6 Alkaline phosphatase [Enzymatic activity/volume] in Serum or Plasma N 110 U/L 50 U/L - 170 U/L August 15, 2024 7:57:00 PM UT (TECH: MRB) ORDER 500: ALCOHOL QUANT (LO INC: 5645-7) ORDER DATE: August 15, 2024 6:31:00 PM UTC Specimen Source: Serum Specimen Type: Serum specime n PERFORMING LAB: [address] [id number] Result Comment: Final Result Date: August 15, 2024 7:57:00 PM UTC (TECH: MRB) LOINC TEST FLAG RESULT REFERENCE RANGE UPDA MARIA A BY 5645-7 Ethanol [Mass/volume] in Urine N <3 mg/dL 0 mg/dL - 10 mg/dL August 15, 2024 7:57:00 PM UTC (TECH: MRB) ORDER 600: SALICYLATE QUANT (LOINC: 4024-6) ORDER DATE: August 15, 2024 6:31:00 PM UTC Specimen Source: Serum Specimen Type: Serum specime n PERFORMING LAB: [address] [id number] Result Comment: Final Result Date: August 15, 2024 7:57:00 PM UTC (TECH: MRB) LOINC TEST FLAG RESULT REFERENCE RANGE UPDA MARIA A BY 4024-6 Salicylates [Mass/volume] in Serum or Plasma L 0.4 mg/dl 2.8 mg/dl - 20 mg/dl August 15, 2024 7:57:00 PM UTC (TECH: MRB) ORDER 700: URINE DRUG SCREEN - EXL MAX (LOINC: 10663-5) ORDER DATE: August 15, 2024 6:31:00 PM UTC Specimen Source: URINE Specimen Type: Urine specime n PERFORMING LAB: [address] [id number] Result Comment: Final Result Date: August 15, 2024 7:08:00 PM UTC (TECH: HC) LOINC TEST FLAG RESULT [place] [address]-8 Amphetamine+Methamph eta mine [Presence] in Urine N NEGATIVE NEGATIVE August 15, 2024 7:08:00 PM UTC (TECH: HC) 3377-9 Barbiturates [Presen ce] in Urine N NEGATIVE NEGATIVE August 15, 2024 7:08:00 PM UTC (TECH: HC) 61883-7 Benzodiazepine metabolites [Presence] in Urine by Screen method N NEGATIVE NEGATIVE August 15, 2024 7:08:00 PM UTC (TECH: HC) 3414-0 Buprenorphine [Presence] in Urine N NEGATIVE NEGATIVE August 15 7:08:00 PM UTC (TECH: HC) 3397-7 Cocaine [Presence] i n Urine N NEGATIVE NEGATIVE August 15, 2024 7:08:00 PM UTC (TECH: HC) 33806-6 Methadone [Presence] in Specimen N NEGATIVE NEGATIVE August 15, 2024 7:08:00 PM UTC (TECH: HC) 24181-5 Opiates [Mass/volume ] in Specimen N NEGATIVE NEGATIVE August 15, 2024 7:08:00 PM UTC (TECH: HC) 38930-6 oxyCODONE [Presence] in Specimen N NEGATIVE NEGATIVE August 15, 2024 7:08:00 PM UTC (TECH: HC) 3427-2 Cannabinoids [Presen ce] in Urine N NEGATIVE NEGATIVE August 15, 2024 7:08:00 PM UTC (TECH: HC) 01447-4 Phencyclidine [Presence] in Specimen N NEGATIVE NEGATIVE August 15, 2024 7:08:00 PM UTC (TECH: HC) 84192-3 Fentanyl [Presence] in Urine N NEGATIVE NEGATIVE August 15, 2024 7:08:00 PM UTC (TECH: HC) 98138-1 Tricyclic antidepressants [Presence] in Specimen N NEGATIVE NEGATIVE August 15, 2024 7:08:00 PM UTC (TECH: HC) 96219-8 Internal control result N PASS PASS August 15, 2024 7:08:00 PM UTC (TECH: HC) ORDER 800: UA AND MICRO/CULT IF INDICATED (LOINC: 09644-6) ORDER DATE: August 15, 2024 6:31:00 PM UTC Specimen Source: URINE Specimen Type: Urine specime n PERFORMING LAB: [address] [id number] Result Comment: Final Result Date: August 15, 2024 6:51:00 PM UTC (TECH: LT) LOINC TEST FLAG RESULT REFERENCE RANGE UPDA MARIA A BY 5778-6 Color of Urine N yellow YELLOW August 15, 2024 6:51:00 PM UTC (TECH: LT) 5767-9 Appearance of Urine N clear CLEAR August 15, 2024 6:51:00 PM UTC (TECH: LT) 5792-7 Glucose [Mass/volume] in Urine by Test strip N NORM NORMAL August 15 6:51:00 PM UTC (TECH: LT) 30031-2 Bilirubin.total [Mass/volume] in Urine by Automated test strip N NEGATIVE NEGATIVE August 15, 2024 6:51:00 PM UTC (TECH: LT) 5797-6 Ketones [Mass/volume] in Urine by Test strip N NEGATIVE NEGATIVE August 15 6:51:00 PM UTC (TECH: LT) 2965-2 Specific gravity of Urine N 1.010 1.005 - 1.035 August 15, 2024 6:51:00 PM UTC (TECH: LT) 99732-6 Erythrocytes [#/volume] in Urine by Automated test strip N NEGATIVE NEGATIVE August 15, 2024 6:51:00 PM UTC (TECH: LT) 28342-6 pH of Urine by Automated test strip N 6.00 5.0 - 7.5 August 15, 2024 6:51:00 PM UTC (TECH: LT) 36957-5 Protein [Presence] in Urine by Test strip N 15 (TRACE) mg/dL NEGATIVE August 15, 2024 6:51:00 PM UTC (TECH: LT) 66876-8 Urobilinogen [Mass/volume] in Urine by Automated test strip N NORM NORMAL August 15, 2024 6:51:00 PM UTC (TECH: LT) 40333-5 Nitrate [Presence] in Urine N NEGATIVE NEGATIVE August 15, 2024 6:51:00 PM UTC (TECH: LT) 96183-0 Leukocytes [#/volume] in Urine by Test strip N NEGATIVE NEGATIVE August 15, 2024 6:51:00 PM UTC (TECH: LT) 68526-9 Other elements in Urine sediment N NOT REQUIRED August 15, 2024 6:51:00 PM UTC (TECH: LT) 36334-6 Microscopic observation [Identifier] in Urine sediment by Light microscopy N NO August 15, 2024 6:51:00 PM UTC (TECH: LT) ORDER 2000: LIPID PANEL (GEORGE NC: 87719-0) ORDER DATE: August 15, 2024 8:38:00 PM UTC Specimen Source: Serum/Plasm a Specimen Type: Acellular blo od (serum or plasma) specimen PERFORMING LAB: [address] [id number] Result Comment: Final Result Date: August 16, 2024 12:49:00 PM UTC (TECH: KSM) LOINC TEST FLAG RESULT REFERENCE RANGE UPDA MARIA A BY 2571-8 Triglyceride [Mass/volume] in Serum or Plasma N 107 mg/dL 20 mg/dL - 200 mg/dL August 16, 2024 12:49:00 PM UTC (TECH: KSM) 2092-3 Cholesterol [Mass/volume] in Serum or Plasma N 133 mg/dL 0 mg/dL - 200 mg/dL August 16, 2024 12:49:00 PM UTC (TECH: KSM) 9 Cholesterol in HDL [Mass/volume] in Serum or Plasma L 43 mg/dL 60 mg/dL August 16, 2024 12:49:00 PM UTC (TECH: KSM) 22658-7 Cholesterol in LDL [Mass/volume] in Serum or Plasma by calculation L 69 mg/dL 100 mg/dL August 16, 2024 12:49:00 PM UTC (TECH: KSM) 2095-01 Cholesterol in HDL/Cholesterol.tota l [Mass Ratio] in Serum or Plasma N 3 - 5 August 16, 2024 12:49:00 PM UTC (TECH: [employer]) ORDER 2100: THYROID STIMULAT ING HORMONE (LOINC: 3016-3) ORDER DATE: August 15, 2024 8:38:00 PM UTC Specimen Source: Serum/Plasm a Specimen Type: Acellular blo od (serum or plasma) specimen PERFORMING LAB: [address] [id number] Result Comment: Final Result Date: August 16, 2024 12:49:00 PM UTC (TECH: [employer]) LOINC TEST FLAG RESULT REFERENCE RANGE UPDA MARIA A BY 3016-3 Thyrotropin [Units/volume] in Serum or Plasma N 1.07 mIU/mL 0.34 mIU/mL - 4.80 mIU/mL August 16, 2024 12:49:00 PM UTC (TECH: [employer]) ORDER 2200: BILIRUBIN DIRECT (LOINC: 1968-7) ORDER DATE: August 15, 2024 8:38:00 PM UTC Specimen Source: Serum/Plasm a Specimen Type: Acellular blo od (serum or plasma) specimen PERFORMING LAB: [address] [id number] Result Comment: Final Result Date: August 16, 2024 12:49:00 PM UTC (TECH: [employer]) LOINC TEST FLAG RESULT REFERENCE RANGE UPDA MARIA A BY 1967-12 Bilirubin.direct [Mass/volume] in Serum or Plasma N 0.1 mg/dL 0.0 mg/dL - 0.3 mg/dL August 16, 2024 12:49:00 PM UTC (TECH: KSM) ORDER 2300: T4 TOTAL (LOINC: 3026-2) ORDER DATE: August 15, 2024 8:38:00 PM UTC Specimen Source: Serum/Plasm a Specimen Type: Acellular blo od (serum or plasma) specimen PERFORMING LAB: [address] [id number] Result Comment: Final Result Date: August 16, 2024 12:50:00 PM UTC (TECH: KSM) LOINC TEST FLAG RESULT REFERENCE RANGE UPDA MARIA A BY 3026-2 Thyroxine (T4) [Mass/volume] in Serum or Plasma N 6.8 ug/dL 4.5 ug/dL - 12.1 ug/dL August 16, 2024 12:50:00 PM UTC (TECH: KSM) ORDER 2400: GLUCOSE (LOINC: 2345-7) ORDER DATE: August 15, 2024 8:38:00 PM UTC Specimen Source: Serum/Plasm a Specimen Type: Acellular blo od (serum or plasma) specimen PERFORMING LAB: [address] [id number] Result Comment: Final Result Date: August 16, 2024 12:50:00 PM UTC (TECH: KSM) LOINC TEST FLAG RESULT REFERENCE RANGE UPDA MARIA A BY 2345-7 Glucose [Mass/volume] in Serum or Plasma H 161 mg/dL 70 mg/dL - 110 mg/dL August 16, 2024 12:50:00 PM UTC (TECH: KSM) ORDER 2500: HEMOGLOBIN A1C ( LOINC: 4548-4) ORDER DATE: August 15, 2024 8:38:00 PM UTC Specimen Source: Whole Blood Specimen Type: Whole blood s ample PERFORMING LAB: [address] [id number] Result Comment: Final Result Date: August 16, 2024 12:31:00 PM UTC (TECH: LT) LOINC TEST FLAG RESULT REFERENCE RANGE UPDA MARIA A BY 4548-4 Hemoglobin A1c/Hemoglobin.tota l in Blood N 5.4 % 4.5 % - 6.2 % August 16, 2024 12:31:00 PM UTC (TECH: LT) 18694-6 Glucose mean value [Mass/volume] in Blood Estimated from glycated hemoglobin N 108 mg/dl 82 mg/dl - 131 mg/dl August 16, 2024 12:31:00 PM UTC (TECH: LT) ORDER 3200: VALPROIC ACID DE PAKENE (LOINC: 4086-5) ORDER DATE: August 16, 2024 1:21:00 PM UTC Specimen Source: Serum/Plasm a Specimen Type: Acellular blo od (serum or plasma) specimen PERFORMING LAB: [address] [id number] Result Comment: Final Result Date: August 21, 2024 12:16:00 PM UT (TECH: LT) LOINC TEST FLAG RESULT REFERENCE RANGE UPDA MARIA A BY 4086-5 Valproate [Mass/volume] in Serum or Plasma N 61 mg/L 50 mg/L - 100 mg/L August 21 12:16:00 PM UTC (TECH: LT) ORDER 3300: CBC AUTO W DIFF (LOINC: 39403-1) ORDER DATE: August 16, 2024 1:21:00 PM UTC Specimen Source: Whole Blood Specimen Type: Whole blood s ample PERFORMING LAB: [address] [id number] Result Comment: Final Result Date: August 21, 2024 12:17:00 PM UT (TECH: MRB) LOINC TEST FLAG RESULT REFERENCE RANGE UPDA MARIA A BY 6690-2 Leukocytes [#/volume] in Blood by Automated count N 5.0 10^3/uL 4.5 10^3/uL - 11.5 10^3/uL August 21, 2024 12:17:00 PM UT (TECH: MRB) 789-8 Erythrocytes [#/volume] in Blood by Automated count N 4.72 10^6/uL 4.25 10^6/uL - 5.57 10^6/uL August 21, 2024 12:17:00 PM UT (TECH: MRB) 718-7 Hemoglobin [Mass/volume] in Blood N 14.0 g/dL 13.5 g/dL - 17.2 g/dL August 21, 2024 12:17:00 PM UTC (TECH: MRB) 90715-1 Hematocrit [Volume Fraction] of Blood N 42.2 % 42.0 % - 52.0 % August 21 12:17:00 PM UTC (TECH: MRB) 787-2 Erythrocyte mean corpuscular volume [Entitic volume] by Automated count N 89.4 fl 80 fl - 95 fl August 21, 2024 12:17:00 PM UTC (TECH: MRB) 44924-6 Erythrocyte mean corpuscular hemoglobin [Entitic mass] in Blood from Fetus by Automated count N 29.7 pg 27.0 pg - 34.0 pg August 21, 2024 12:17:00 PM UTC (TECH: MRB) 92283-1 Erythrocyte mean corpuscular hemoglobin concentration [Mass/volume] in Blood from Fetus by Automated count N 33.2 g/dL 32.0 g/dL - 36.0 g/dL August 21, 2024 12:17:00 PM UTC (TECH: MRB) 87435-0 Platelets [#/volume] in Blood L 118 10^3/uL 150 10^3/uL - 450 10^3/uL August 21, 2024 12:17:00 PM UTC (TECH: MRB) 03783-8 Erythrocyte distribution width [Ratio] N 12.8 % 12.3 % - 15.1 % August 21, 2024 12:17:00 PM UTC (TECH: MRB) 52535-7 Platelet mean volume [Entitic volume] in Blood by Automated count H 12.4 fl 7.4 fl - 10.4 fl August 21, 2024 12:17:00 PM UTC (TECH: MRB) 66675-0 Granulocytes/100 leukocytes in Blood by Automated count N 67.0 % 40 % - 75 % August 21 12:17:00 PM UTC (TECH: MRB) 736-9 Lymphocytes/100 leukocytes in Blood by Automated count N 16.3 % 15 % - 57 % August 21 12:17:00 PM UTC (TECH: MRB) 5905-5 Monocytes/100 leukocytes in Blood by Automated count N 11.3 % 4.0 % - 12.0 % August 21 12:17:00 PM UTC (TECH: MRB) 713-8 Eosinophils/100 leukocytes in Blood by Automated count H 4.6 % 0.0 % - 4.0 % August 21 12:17:00 PM UTC (TECH: MRB) 706-2 Basophils/100 leukocytes in Blood by Automated count N 0.2 % 0.0 % - 1.0 % August 21 12:17:00 PM UTC (TECH: MRB) 03176-7 Immature granulocytes [#/volume] in Blood N 0.6 % 0.0 % - 0.8 % August 21 12:17:00 PM UTC (TECH: MRB) 75380-1 Granulocytes [#/volume] in Blood by Automated count N 3.37 10^3/uL August 21 12:17:00 PM UTC (TECH: MRB) 731-0 Lymphocytes [#/volume] in Blood by Automated count N 0.82 10^3/uL August 21 12:17:00 PM UTC (TECH: MRB) 742-7 Monocytes [#/volume] in Blood by Automated count N 0.57 10^3/uL August 21, 2024 12:17:00 PM UTC (TECH: MRB) 711-2 Eosinophils [#/volume] in Blood by Automated count N 0.23 10^3/uL August 21 12:17:00 PM UTC (TECH: MRB) 704-7 Basophils [#/volume] in Blood by Automated count N 0.01 10^3/uL August 21, 2024 12:17:00 PM UTC (TECH: MRB) 80755-7 Immature granulocytes [#/volume] in Blood N 0.03 10^3/uL August 21 12:17:00 PM UTC (TECH: MRB) 52683-8 Manual differential performed [Presence] in Blood N NO August 21, 2024 12:17:00 PM UTC (TECH: MRB) ORDER 3400: COMP METABOLIC P BROCK (LOINC: 70412-6) ORDER DATE: August 16, 2024 1:21:00 PM UTC Specimen Source: Serum/Plasm a Specimen Type: Acellular blo od (serum or plasma) specimen PERFORMING LAB: [address] [id number] Result Comment: Final Result Date: August 21, 2024 12:16:00 PM UTC (TECH: LT) LOINC TEST FLAG RESULT REFERENCE RANGE UPDA MARIA A BY 2951-2 Sodium [Moles/volume ] in Serum or Plasma N 142 mmol/L 136 mmol/L - 145 mmol/L August 21, 2024 12:16:00 PM UTC (TECH: LT) 2823-3 Potassium [Moles/volume] in Serum or Plasma N 3.9 mmol/L 3.5 mmol/L - 5.1 mmol/L August 21, 2024 12:16:00 PM UTC (TECH: LT) 2075-0 Chloride [Moles/volu me] in Serum or Plasma H 108 mmol/L 98 mmol/L - 107 mmol/L August 21, 2024 12:16:00 PM UTC (TECH: LT) 8-9 Carbon dioxide, tota l [Moles/volume] in Serum or Plasma N 26 mmol/L 21 mmol/L - 32 mmol/L August 21, 2024 12:16:00 PM UTC (TECH: LT) 94465-8 Anion gap 3 in Serum or Plasma N 8.0 August 21, 2024 12:16:00 PM UTC (TECH: LT) 2345-7 Glucose [Mass/volume ] in Serum or Plasma H 137 mg/dL 70 mg/dL - 110 mg/dL August 21, 2024 12:16:00 PM UTC (TECH: LT) 3094-0 Urea nitrogen [Mass/volume] in Serum or Plasma N 18 mg/dL 7 mg/dL - 18 mg/dL August 21, 2024 12:16:00 PM UTC (TECH: LT) 2160-0 Creatinine [Mass/volume] in Serum or Plasma N 1.3 mg/dL 0.8 mg/dL - 1.3 mg/dL August 21, 2024 12:16:00 PM UTC (TECH: LT) 3097-3 Urea nitrogen/Creatinine [Mass Ratio] in Serum or Plasma N 13.8 9 - August 21, 2024 12:16:00 PM UTC (TECH: LT) 45761-6 Glomerular filtratio n rate/1.73 sq M.predicted by Creatinine-based formula (MDRD) N 67 mL/min >60 August 21, 2024 12:16:00 PM UTC (TECH: LT) 2885-2 Protein [Mass/volume ] in Serum or Plasma L 5.5 g/dL 6.4 g/dL - 8.2 g/dL August 21, 2024 12:16:00 PM [facility] (TECH: LT) 1751-7 Albumin [Mass/volume ] in Serum or Plasma L 2.9 g/dL 3.4 g/dL - 5.0 g/dL August 21, 2024 12:16:00 PM [facility] (TECH: LT) 16206-9 Calcium [Mass/volume ] in Serum or Plasma N 8.8 mg/dL 8.5 mg/dL - 10.1 mg/dL August 21, 2024 12:16:00 PM [facility] ([facility]: LT) 78697-4 Calcium [Mass/volume ] corrected for total protein in Serum or Plasma N 9.7 mg/dL 8.5 mg/dL - 10.1 mg/dL August 21, 2024 12:16:00 PM [facility] (TECH: LT) 1975-2 Bilirubin.total [Mass/volume] in Serum or Plasma N 0.4 mg/dL 0.4 mg/dL - 1.5 mg/dL August 21, 2024 12:16:00 PM [facility] (TE[facility]: LT) 1920-8 Aspartate aminotransferase [Enzymatic activity/volume] in Serum or Plasma N 16 U/L 15 U/L - 37 U/L August 21, 2024 12:16:00 PM [facility] (TECH: LT) 1742-6 Alanine aminotransferase [Enzymatic activity/volume] in Serum or Plasma N 38 U/L 12 U/L - 78 U/L August 21, 2024 12:16:00 PM [facility] (TECH: LT) 6768-6 Alkaline phosphatase [Enzymatic activity/volume] in Serum or Plasma N 92 U/L 50 U/L - 170 U/L August 21, 2024 12:16:00 PM [facility] (TECH: LT) ORDER 3500: BASIC METABOLIC PANEL (LOINC: 77280-3) ORDER DATE: August 16, 2024 2:15:00 PM [place] Specimen Source: Serum/Plasm a Specimen Type: Acellular blo od (serum or plasma) specimen PERFORMING LAB: [address] [id number] Result Comment: Final Result Date: August 16, 2024 2:23:00 PM UTC (TECH: [facility]) LOINC TEST FLAG RESULT REFERENCE RANGE UPDA MARIA A BY 2951-2 Sodium [Moles/volume] in Serum or Plasma N 142 mmol/L 136 mmol/L - 145 mmol/L August 16, 2024 2:23:00 PM UTC (TECH: [facility]) 2823-3 Potassium [Moles/volume] in Serum or Plasma N 3.6 mmol/L 3.5 mmol/L - 5.1 mmol/L August 16, 2024 2:23:00 PM UTC (TECH: [facility]) 5-0 Chloride [Moles/volume] in Serum or Plasma N 107 mmol/L 98 mmol/L - 107 mmol/L August 16, 2024 2:23:00 PM UTC (TECH: [facility]) 2027-9 Carbon dioxide, total [Moles/volume] in Serum or Plasma N 23 mmol/L 21 mmol/L - 32 mmol/L August 16, 2024 2:23:00 PM UTC (TECH: ItsOn) 50341-6 Anion gap 3 in Serum or Plasma N 12.0 August 16, 2024 2:23:00 PM UTC (TECH: ItsOn) 2345-7 Glucose [Mass/volume] in Serum or Plasma H 163 mg/dL 70 mg/dL - 110 mg/dL August 16, 2024 2:23:00 PM UTC (TECH: ItsOn) 3094-0 Urea nitrogen [Mass/volume] in Serum or Plasma N 14 mg/dL 7 mg/dL - 18 mg/dL August 16, 2024 2:23:00 PM UTC (TECH: ItsOn) 2160-0 Creatinine [Mass/volume] in Serum or Plasma H 1.4 mg/dL 0.8 mg/dL - 1.3 mg/dL August 16, 2024 2:23:00 PM UTC (TECH: ItsOn) 3097-3 Urea nitrogen/Creatinin e [Mass Ratio] in Serum or Plasma N 10.0 - August 16, 2024 2:23:00 PM UTC (TECH: ItsOn) 69350-6 Glomerular filtration rate/1.73 sq M.predicted by Creatinine-based formula (MDRD) N 61 mL/min >60 August 16, 2024 2:23:00 PM UTC (TECH: ItsOn) 14486-4 Calcium [Mass/volume] in Serum or Plasma N 8.6 mg/dL 8.5 mg/dL - 10.1 mg/dL August 16, 2024 2:23:00 PM UT (TECH: KSM) ORDER 4300: B-TYPE NATRIURET IC PEPTIDE BNP (LOINC: 62897-3) ORDER DATE: August 19, 2024 5:43:00 PM UTC Specimen Source: Whole Blood Specimen Type: Whole blood s ample PERFORMING LAB: [address] [id number] Result Comment: Final Result Date: August 21, 2024 12:17:00 PM UTC (TECH: MRB) LOINC TEST FLAG [place]ULT [place] [address]-6 Natriuretic peptide B [Mass/volume] in Serum or Plasma N 48.1 pg/mL 0.0 pg/mL - 100 pg/mL August 21, 2024 12:17:00 PM UTC (TECH: MRB) ORDER 4700: BASIC METABOLIC PANEL (LOINC: 54554-7) ORDER DATE: August 23, 2024 7:06:00 PM UTC Specimen Source: Serum/Plasm a Specimen Type: Acellular blo od (serum or plasma) specimen PERFORMING LAB: [address] [id number] Result Comment: Final Result Date: August 26, 2024 11:13:00 AM UT (TECH: KSM) LOINC TEST FLAG RESULT REFERENCE RANGE UPDA MARIA A BY 2951-2 Sodium [Moles/volume] in Serum or Plasma N 144 mmol/L 136 mmol/L - 145 mmol/L August 26, 2024 11:13:00 AM UT (TECH: KSM) 2823-3 Potassium [Moles/volume] in Serum or Plasma N 4.0 mmol/L 3.5 mmol/L - 5.1 mmol/L August 26, 2024 11:13:00 AM UTC (TECH: KSM) 2075-0 Chloride [Moles/volume] in Serum or Plasma N 107 mmol/L 98 mmol/L - 107 mmol/L August 26, 2024 11:13:00 AM UT (TECH: KSM) 2027-9 Carbon dioxide, total [Moles/volume] in Serum or Plasma N 30 mmol/L 21 mmol/L - 32 mmol/L August 26, 2024 11:13:00 AM UTC (TECH: ItsOn) 19342-3 Anion gap 3 in Serum or Plasma N 7.0 August 26, 2024 11:13:00 AM UTC (TECH: ItsOn) 2345-7 Glucose [Mass/volume] in Serum or Plasma N 109 mg/dL 70 mg/dL - 110 mg/dL August 26, 2024 11:13:00 AM UTC (TECH: ItsOn) 3094-0 Urea nitrogen [Mass/volume] in Serum or Plasma N 17 mg/dL 7 mg/dL - 18 mg/dL August 26, 2024 11:13:00 AM UTC (TECH: ItsOn) 2160-0 Creatinine [Mass/volume] in Serum or Plasma N 1.3 mg/dL 0.8 mg/dL - 1.3 mg/dL August 26, 2024 11:13:00 AM UTC (TECH: ItsOn) 3097-3 Urea nitrogen/Creatinine [Mass Ratio] in Serum or Plasma N 13.1 9 - August 26, 2024 11:13:00 AM UTC (TECH: ItsOn) 24053-8 Glomerular filtration rate/1.73 sq M.predicted by Creatinine-based formula (MDRD) N 67 mL/min >60 August 26, 2024 11:13:00 AM UTC (TECH: ItsOn) 84002-1 Osmolality of Serum or Plasma by calculated by sum of electrolytes N 301 mosm/kg 275 mosm/kg - 301 mosm/kg August 26, 2024 11:13:00 AM UTC (TECH: ItsOn) 25953-1 Calcium [Mass/volume] in Serum or Plasma N 8.7 mg/dL 8.5 mg/dL - 10.1 mg/dL August 26, 2024 11:13:00 AM UTC (TECH: ItsOn) ORDER 4800: GLUCOSE BLD METE R (LOINC: 48995-2) ORDER DATE: August 24, 2024 7:36:00 PM UTC Specimen Source: Whole Blood Specimen Type: Whole blood s ample PERFORMING LAB: [address] [id number] Result Comment: August 24 7:37:00 PM UTC Test performed by: [id number] ; Instrument: [id number] Final Result Date: August 24, 2024 7:36:00 PM UT (TECH: HL7) LOINC TEST FLAG RESULT [place] [address]-6 Glucose [Mass/volume ] in Capillary blood by Glucometer H 165 mg/dl 70 mg/dl - 115 mg/dl August 24 7:36:00 PM [facility] (TECH: HL7) LABORATORY NARRATIVE RESULTS Information is not available RADIOLOGY RESULTS ORDER 4100: CHEST PA AND LAT (LOINC: 04596-6) ORDER DATE: August 19, 2024 5:35:00 PM UT PERFORMING LAB: [address] [id number] Final Result Date: August 19, 2024 6:31:[address] [place] [address] Name: SHARLENE DEAN Exam Date: 08/19/2024 : 1975 Age 48 years Gender: M Physician: PADMINI LEON Facility: [facility] Facility HSV: Inpatient Exam: CHEST PA & LAT EXAM: XR CHEST 2 VIEWS INDICATION: Le edema and wheezing. TECHNIQUE: 2 views of the chest were submitted. COMPARISON: None FINDINGS: Heart size and pulmonary vascularity are normal. No pneumomediastinum or mediastinal widening. Approximately 4 mm superior nodular opacity projecting over the superior segment of the left lower lobe. No pulmonary airspace consolidation or abnormal pulmonary interstitial pattern. No evidence for pneumothorax or sizable pleural fluid collection. No obvious acute osseous abnormality. No obvious acute upper abdominal abnormality. IMPRESSION: 1. No acute cardiopulmonary abnormality. 2. 4 mm superior segment left lower lobe pulmonary nodule. I have no prior study to document long-term stability. Recommend further characterization with chest CT. Electronically signed by: Lisa Bradley DO 08/19/2024 04:54 PM EDT RP Dictated By: LISA BRADLEY Transcribed By: Transcribed On: 08/19/2024 2:31 PM Electronically signed by: LISA BRADLEY 08/19/2024 Thank you for referring SHARLENE DEAN to [facility]. Legally authenticated by PERCY GONZALEZ DO 2024-08-19 14:31:18 ORDER 4200: ECHOCARDIOGRAM ( LOINC: 17086-5) ORDER DATE: August 19, 2024 5:35:00 PM [facility] PERFORMING LAB: [facility] [address] [facility] [place] [id number] Final Result Date: August 21, 2024 12:10:[address] [place] [address] Name: SHARLENE DEAN Exam Date: 08/19/2024 : 1975 Age 48 years Gender: M Physician: PADMINI LEON Facility: [facility] Facility HSV: Inpatient Exam: ECHOCARDIOGRAM Conclusions: 1. Normal LV size and function. 2. Estimated left ventricular ejection fraction is 55-60%. 3. There is borderline concentric left ventricle hypertrophy. 4. There is no significant valvular stenosis or regurgitation by Doppler flow analysis. Findings: Left Ventricle:Normal LV size and function. Normal left ventricular systolic function. There is borderline concentric left ventricle hypertrophy. Normal global wall motion. No regional wall motion abnormalities. Right Ventricle:Mild right ventricular dilatation. Left Atrium:Borderline left atrial enlargement. Right Atrium:Borderline right atrial enlargement. Mitral Valve:Normal mitral valve structure and function. No mitral stenosis. No mitral valve prolapse is present. Trace mitral valve regurgitation. Tricuspid Valve:Normal tricuspid valve structure and function. There is physiologic tricuspid valve regurgitation. Aortic Valve:Normal aortic valve structure and function. Pulmonic Valve:The pulmonic valve is poorly seen. Trace of pulmonic valve regurgitation. Pericardium:Normal pericardium. No pericardial effusion. Electronically signed LANEY OWUSU MD 08/20/24 8:25 AM Study Data 2D Measurements RVIDd:3.19 (1.9-2.6) cm LVIDd:4.6 (4.2-5.9) cm LVIDs:3.01 (2.1-4.0) cm IVSDd:0.88 (0.6-1.0) cm LVPWd:1.2 (0.6-1.0) cm Aortic Root:3.31 (2.0-3.7) cm LA/AR Ratio:1.26 ACS:1.83 cm EF:63.75 (>=55) % FS:34.57 (25-43) % SV:62.05 (70-100) ml SI:23.37 EDV:97.34 (67-155) ml EDV Index:36.67 (35-75) ml/m2 ESV:35.29 (22-58) ml ESV Index:13.29 (12-30) ml/m2 LA:4.17 (3.0-4.0) cm LV Mass:195 (88-224) g LV Mass index:73.46 (49-115) g/m2 LVOT Diam:1.97 (1.8-2.4) cm M-MODE Measurements EPSS:0.74 cm Mitral Valve Peak E:1.15 (0.6-1.3) m/s Peak A:0.93 (<=.7) m/s Peak A Grad:3.46 mmHg Legally authenticated by FRANCOISE DAVISON MD 2024-08-21 08:11:45 E/A Ratio:1.24 (.75-1.5) e' lateral:7 (>=10) cm/s e' Medial:7 (>=10) cm/s E/e' Lateral:16.43 (<=8) E/e' Medial:16.43 (<=8) A' lat:9 cm/s A' sep:9 cm/s MR peak zackery:2.84 m/s DS:472.11 cm/s2 DT:188 (<=200) ms Tricuspid Valve TR Peak Zackery:2.26 m/s TR Peak Grad:20.43 mmHg TAPSE:1.56 (>=1.6) cm RAP:10 (5-10) mmHg RVSP:30.43 (<=30) mmHg Aortic Valve Peak:1.72 (<=2.5) m/s Peak Grad:11.83 (<=16) mmHg Mean:1.08 m/s Mean Grad:5.56 (<=5) mmHg AV VTI:32.33 cm KELLEY(vti):2.26 (3-5) cm2 LVOT PV:1.22 (0.7-1.1) m/s LVOT P.95 mmHg LVOT(vti):24.02 (18-22) cm Pulmonic Valve Report for SHARLENE DAEN [id number] on 08/19/24 Dictated By: LANEY OWUSU Transcribed By: GIORGI BAI Transcribed On: 08/21/2024 8:10 AM Electronically signed by: LANEY OWUSU 08/21/2024 Thank you for referring SHARLENE DEAN to [facility]. Legally authenticated by FRANCOISE DAVISON MD 2024-08-21 08:11:45 ORDER 4400: CT CHEST WO CONT RAST (LOINC: 00419-7) ORDER DATE: August 20, 2024 4:25:00 PM [facility] PERFORMING LAB: [address] [id number] Final Result Date: August 21, 2024 2:28:[address] [place] [address] Name: SHARLENE DEAN Exam Date: 08/21/2024 : 1975 Age 48 years Gender: M Physician: PADMINI LEON Facility: [facility] Facility HSV: Inpatient Exam: CT CHEST WO CONTRAST Blank exam A CT CHEST WITHOUT IV CONTRAST performed on 08/21/2024 9:28 AM CDT. INDICATION: FOLLOW UP ABN CHEST TECHNIQUE: Noncontrast CT of the chest. Dose modulation, automated exposure control, and/or iterative reconstruction technique used for dose reduction. COMPARISON: CXR 08/19/2024 FINDINGS: * No mediastinal adenopathy. * No aortic aneurysm. * No pleural effusion. * No focal consolidation, pulmonary edema or mass. Scattered small calcified granulomas in the left lower lobe, one of which likely accounting for the radiographic finding of interest. * Patent central airways. * Nondistended gallbladder with cholelithiasis. * No pertinent osseous or body wall findings. IMPRESSION: 1. Benign granulomatous changes. No follow-up required. 2. Incidental cholelithiasis. Electronically signed by: Zac Robison DO 08/21/2024 10:58 AM EDT Dictated By: ZAC ROBISON Transcribed By: Transcribed On: 08/21/2024 10:28 AM Electronically signed by: ZAC ROBISON 08/21/2024 Thank you for referring SHARLENE DEAN to [facility]. Legally authenticated by ENRIQUETA PIPER 2024-08-21 10:28:43 PATHOLOGY NARRATIVE RESULTS Information is not available MICROBIOLOGY RESULTS No Micro Labs/Results Exist for Patient BLOOD ADMIN RESULTS Information is not available TREATMENT PLAN DISCHARGE MEDICATIONS Status RXNORM Medication Dose Route Frequency Dates Comments U pdated By Continued [id number] furosemide (LASIX) 40 MG ORAL ONCE DAILY Prescri bed: August 26, 2024 10:44:5 7 AM UTC HTN [id number] on August 26, 2024 10:44:57 AM UT Continued 680337 spironolacton e(ALDACTONE) 25 MG ORAL ONCE DAILY Prescri bed: August 26, 2024 10:44:5 7 AM UTC FOR BLE EDEMA, HTN [id number] on August 26, 2024 10:44:57 AM UT Continued 885934 cloNIDine (CATAPRES) 0.1 MG ORAL TWICE A DAY Prescri bed: August 26, 2024 10:44:5 7 AM UTC for nightmares and BP [id number] on August 26, 2024 10:44:57 AM UT Continued [id number] divalproex DR sprinkle 500 MG ORAL THREE TIMES A DAY Prescri bed: August 26, 2024 10:44:5 7 AM UTC [id number] on August 26, 2024 10:44:57 AM UT Continued 535008 propranolol (INDERAL) 10 MG ORAL THREE TIMES A DAY Prescri bed: August 26, 2024 10:44:5 7 AM UTC [id number] on August 26, 2024 10:44:57 AM UT Continued 323559 busPIRone HCl Oral Tablet 10 MG 10 MG ORAL THREE TIMES A DAY Prescri bed: August 26, 2024 10:44:5 7 AM UTC [id number] on August 26, 2024 10:44:57 AM UT Continued 4147375 Latuda Oral Tablet 120 MG 120 MG ORAL ONCE DAILY Prescri bed: August 26, 2024 10:44:5 7 AM UTC take with breakfast [id number] on August 26, 2024 10:44:57 AM UTC Continued 350885 simvastatin (ZOCOR) 20 MG ORAL AT BEDTIME Prescri bed: August 26, 2024 10:44:5 7 AM UT HLD [id number] on August 26, 2024 10:44:57 AM UT Continued 275782 Wellbutrin XL Oral Tablet Extended Release 24 Hour 300 MG 300 MG ORAL ONCE DAILY Prescri bed: August 26, 2024 10:44:5 7 AM UTC [id number] on August 26, 2024 10:44:57 AM UT PATIENT OPEN ORDERS Code System Description Frequency Occurrences Priority Start Date Ordering Physician Updated By Patient open order informati on is not available. SCHEDULED PROCEDURES Code System Description Status Scheduled Date Upd ated By Patient scheduled procedure information is not available. IMMUNIZATIONS PATIENT IMMUNIZATIONS Code System Vaccine Name Consent Reactions Comments Administered By Route Site Updated By 216 CVX Pneumococc al conjugate PCV 20 OBTAINED [id number] on August 16, 2024 5:46:00 PM UTC INTRAMUS CULAR Right Deltoi d [id number] on August 16, 2024 5:54:38 PM UTC 140 CVX Influenza, seasonal, injectable , preservati ve free OBTAINED [id number] on August 16, 2024 5:55:00 PM UT INTRAMUS CULAR Left Deltoi d [id number] on August 16, 2024 6:02:19 PM UT MEDICATIONS HOME MEDICATIONS Status RXNORM [facility] Medication Dose Route Frequency Dates Comments Reported By Updated By Active [id number] 58268 25911 0 Latuda 80 mg tablet 1.0 TAB ORAL DAILY Last Dose: [id number] on August 15, 2024 8:34:31 PM UT Active 566482 22870 48396 1 propranolol 20 mg tablet 1.0 TAB ORAL DAILY Last Dose: [id number] on August 15, 2024 8:34:32 PM UT Active 618093 76304 27572 0 bupropion HCl 300 mg Tablet, Extended Release 24 hr 1.0 TAB ORAL DAILY Last Dose: [id number] on August 15, 2024 8:34:32 PM UT Active 448423 51735 13254 3 buspirone 15 mg tablet 1.0 TAB ORAL DAILY Last Dose: [id number] on August 15, 2024 8:34:32 PM UTC Active 4653182 23068 76242 3 Depakote Sprinkles 125 mg Capsule, Delayed Release Sprinkle 4.0 CAP ORAL TID Last Dose: [id number] on August 15, 2024 8:34:32 PM UT Active 364337 17594 89513 1 benztropine 1 mg tablet 1.0 TAB ORAL BID Last Dose: [id number] on August 15, 2024 8:34:32 PM UTC Active 359476 02915 40722 4 tizanidine 4 mg tablet 0.0 ORAL Last Dose: [id number] on August 15, 2024 9:06:17 PM UTC Active 4696825 34693 59504 0 lidocaine 5 % adhesive patch, medicated 0.0 TOPICA L Last Dose: [id number] on August 15, 2024 9:06:18 PM UT Active 228097 92548 04804 1 methocarbamo l 500 mg tablet 2.0 TAB ORAL Last Dose: [id number] on August 15, 2024 9:06:18 PM UT Active 730480 13479 86950 0 pregabalin 75 mg capsule 1.0 CAP ORAL Last Dose: [id number] on August 15, 2024 9:06:19 PM UT Active 181437 61393 51504 1 meloxicam 7.5 mg tablet 1.0 TAB ORAL Last Dose: [id number] on August 15, 2024 9:06:19 PM UT Active 778245 16931 63556 1 simvastatin 20 mg tablet 1.0 TAB ORAL Last Dose: [id number] on August 15, 2024 9:06:19 PM UT Active 301896 02940 37352 0 metronidazol e 500 mg tablet 1.0 TAB ORAL Last Dose: [id number] on August 15, 2024 9:06:19 PM UT Active 410498 60074 41009 1 ciprofloxaci n HCl 500 mg tablet 1.0 TAB ORAL Last Dose: [id number] on August 15, 2024 9:06:20 PM UT DISCHARGE MEDICATIONS Status RXNORM NDC Medication Dose Route Frequency Dates Comments Physician Updated By Continue d 696719 8323 9007 301 furosemide (LASIX) 40.0 MG ORAL ONCE DAILY Prescr ibed: August 26, 2024 10:44: 57 AM UT HTN CAROLYN WASHINGTON MD Jr [id number] on August 26, 2024 10:44:57 AM UT Continue d 854113 5989 7046 511 spironolact one(ALDACTO NE) 25.0 MG ORAL ONCE DAILY Prescr ibed: August 26, 2024 10:44: 57 AM UTC FOR BLE EDEMA, HTN CAROLYN WASHINGTON MD Jr [id number] on August 26, 2024 10:44:57 AM UT Continue d 950057 5197 7011 311 cloNIDine (CATAPRES) 0.1 MG ORAL TWICE A DAY Prescr ibed: August 26, 2024 10:44: 57 AM UTC for nightmare s and BP CAROLYN WASHINGTON MD Jr [id number] on August 26, 2024 10:44:57 AM UT Continue d 8863586 [address] sprinkle 500.0 MG ORAL THREE TIMES A DAY Prescr ibed: August 26, 2024 10:44: 57 AM UT CAROLYN WASHINGTON MD Y [id number] on August 26, 2024 10:44:57 AM UT Continue d 332972 2568 4655 061 propranolol (INDERAL) 10.0 MG ORAL THREE TIMES A DAY Prescr ibed: August 26, 2024 10:44: 57 AM UT CAROLYN WASHINGTON MD Y [id number] on August 26, 2024 10:44:57 AM UT Continue d 562457 3080 3005 401 busPIRone HCl Oral Tablet 10 MG 10.0 MG ORAL THREE TIMES A DAY Prescr ibed: August 26, 2024 10:44: 57 AM UTC CAROLYN WASHINGTON MD Y [id number] on August 26, 2024 10:44:57 AM UT Continue d 9280186 6042 2030 230 Latuda Oral Tablet 120 MG 120.0 MG ORAL ONCE DAILY Prescr ibed: August 26, 2024 10:44: 57 AM UTC take with breakfast CAROLYN WASHINGTON MD, PHY [id number] on August 26, 2024 10:44:57 AM [facility] Continue d 024767 7122 4051 211 simvastatin (ZOCOR) 20.0 MG ORAL AT BEDTIME Prescr ibed: August 26, 2024 10:44: 57 AM UT HLD CAROLYN WASHINGTON MD PHY [id number] on August 26, 2024 10:44:57 AM [facility] Continue d 277598 5671 9090 030 Wellbutrin XL Oral Tablet Extended Release 24 Hour 300 MG 300.0 MG ORAL ONCE DAILY Prescr ibed: August 26, 2024 10:44: 57 AM UT CAROLYN WASHINGTON MD PHY [id number] on August 26, 2024 10:44:57 AM [facility] INPATIENT MEDICATIONS Status RXNORM [facility] Medication Dose Route Frequency Rat e Quantity Dates Comments Physician Updated By Yanira inued 049969 0302 7011 311 cloNIDine (CATAPRES) 0.1 MG TABS 0.1 MG ORAL ONE TIME ONLY Start: August 15, 2024 8:03:0 0 PM UT End: August 15, 2024 8:03:0 0 PM [facility] WALT Muñoz MD INTERF ED on August 15, 2024 8:01:00 PM [facility] Discont inued 708491 6312 6589 688 nicotine TD (NICODERM) 21 MG/24HR PT24 21.0 MG TRANSD ERMAL ONCE DAILY NEEDED Start: August 15, 2024 8:32:0 0 PM UT End: August 26, 2024 10:44: 57 AM [facility] CAROLYN WASHINGTON MD [id number] on August 27, 2024 4:25:00 AM [facility] Discont inued 0012 1176 130 MAG-AL PLUS 200-200-20 MG/5 ML LIQD 30.0 ML ORAL EVERY TWO HOURS NEEDED Start: August 15, 2024 8:32:0 0 PM UT End: August 26, 2024 10:44: 57 AM [facility] CAROLYN WASHINGTON MD [id number] on August 27, 2024 4:25:00 AM [facility] Discont inued 394447 1372 9069 020 loperamide (IMODIUM) 2 MG CAPS 4.0 MG ORAL NEEDED Start: August 15, 2024 8:32:0 0 PM UT End: August 16, 2024 1:22:1 2 PM [facility] CAROLYN WASHINGTON MD [id number] on August 16, 2024 1:22:00 PM UTC Discont inued 639156 0835 9030 020 loperamide (IMODIUM) 2 MG CAPS 2.0 MG ORAL NEEDED Start: August 15, 2024 8:32:0 0 PM UTC End: August 26, 2024 10:44: 57 AM UTC CAROLYN WASHINGTON MD [id number] on August 27, 2024 4:25:00 AM UTC Discont inued 011613 0342 7062 211 SENNOSIDES- DOCUSATE SODIUM 8.6-50 MG TABS 1.0 TAB ORAL TWICE A DAY NEEDED Start: August 15, 2024 8:32:0 0 PM UTC End: August 26, 2024 10:44: 57 AM UTC CAROLYN WASHINGTON MD [id number] on August 27, 2024 4:25:00 AM UTC Discont inued 696441 2714 7036 911 dicyclomine (BENTYL) 10 MG CAPS 10.0 MG ORAL EVERY EIGHT HOURS NEEDED Start: August 15, 2024 8:32:0 0 PM UTC End: August 16, 2024 1:22:1 2 PM UTC CAROLYN WASHINGTON MD [id number] on August 16, 2024 1:22:00 PM UTC Discont inued 282620 1185 4015 501 promethazin e (PHENERGAN) 25 MG TABS 25.0 MG ORAL EVERY FOUR HOURS NEEDED Start: August 15, 2024 8:32:0 0 PM UTC End: August 16, 2024 1:22:1 2 PM UTC CAROLYN WASHINGTON MD [id number] on August 16, 2024 1:22:00 PM UTC Discont inued 612844 6619 7055 811 cyclobenzap rine (FLEXERIL) 10 MG TABS 10.0 MG ORAL EVERY EIGHT HOURS NEEDED Start: August 15, 2024 8:32:0 0 PM UTC End: August 16, 2024 1:22:1 2 PM UTC CAROLYN WASHINGTON MD [id number] on August 16, 2024 1:22:00 PM UTC Discont inued 778747 45791635 1572 119 hydrOXYzine PAMOATE (VISTARIL) 50 MG CAPS 50.0 MG ORAL EVERY FOUR HOURS NEEDED Start: August 15, 2024 8:32:0 0 PM UTC End: August 16, 2024 1:22:1 2 PM UTC CAROLYN WASHINGTON MD [id number] on August 16, 2024 1:22:00 PM UTC Discont inued 071233 6986 4032 055 OLANZapine (ZYPREXA ZYDIS) 5 MG TBDP 5.0 MG ORAL EVERY SIX HOURS NEEDED Start: August 15, 2024 8:32:0 0 PM UTC End: August 26, 2024 10:44: 57 AM UTC CAROLYN WASHINGTON MD [id number] on August 27, 2024 4:25:00 AM UTC Discont inued 899200 2942 7044 311 traZODone (DESYREL) 50 MG TABS 50.0 MG ORAL AT BEDTIME NEEDED Start: August 15, 2024 8:32:0 0 PM UTC End: August 16, 2024 1:22:1 2 PM UTC CAROLYN WASHINGTON MD [id number] on August 16, 2024 1:22:00 PM UTC Discont inued 8068 1014 202 CERTAVITE/A NTIOXIDANTS TABS 1.0 TAB ORAL ONCE DAILY Start: August 16, 2024 2:00:0 0 PM UTC End: August 26, 2024 10:44: 57 AM UTC CAROLYN WASHINGTON MD [id number] on August 27, 2024 4:25:00 AM UTC Discont inued 910651 3399 0762 730 ibuprofen (MOTRIN) 600 MG TABS 600.0 MG ORAL EVERY SIX HOURS NEEDED Start: August 15, 2024 8:32:0 0 PM UTC End: August 26, 2024 10:44: 57 AM UTC CAROLYN WASHINGTON MD [id number] on August 27, 2024 4:25:00 AM UTC Discont inued 054019 2893 4655 061 propranolol (INDERAL) 10 MG TABS 20.0 MG ORAL THREE TIMES A DAY Start: August 15, 2024 9:06:0 0 PM UTC End: August 16, 2024 1:22:1 2 PM UTC JONAS SARMIENTO APRN [id number] on August 16, 2024 1:22:00 PM UTC Discont inued 351600 6937 1933 301 hydrALAZINE (APRESOLINE ) 25 MG TABS 25.0 MG ORAL EVERY SIX HOURS NEEDED Start: August 15, 2024 9:05:0 0 PM UTC End: August 26, 2024 10:44: 57 AM UTC JONAS TORSTEN [employer] 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 WORKER [id number] on August 27, 2024 4:25:00 AM UTC Discont inued 4655383 3333 2002 404 Influenza Vaccine TV PF 0.5 ML SHREE 0.5 ML INTRAM USCULA R ONCE DAILY Start: August 17, 2024 2:00:0 0 PM UTC End: August 17, 2024 2:00:0 0 PM UTC CAROLYN WASHINGTON MD [id number] on August 16, 2024 4:48:00 PM UTC Discont inued 7607661 0000 5200 010 PREVNAR 20 0.5 ML SHREE 0.5 ML INTRAM USCULA R ONE TIME ADMINISTRA TION (UNSCHEDUL ED) Start: August 16, 2024 12:44: 00 PM UTC End: August 16, 2024 4:48:5 9 PM UTC CAROLYN WASHINGTON MD [id number] on August 16, 2024 4:48:00 PM UTC Discont inued 1406061 2822 2029 230 lurasidone HCl (LATUDA) 20 MG TABS 80.0 MG ORAL ONCE DAILY Start: August 16, 2024 2:00:0 0 PM UTC End: August 18, 2024 7:22:4 2 PM UTC CAROLYN WASHINGTON MD [id number] on August 18, 2024 7:22:00 PM UTC Discont inued 913249 3866 7023 211 buPROPion XL (WELLBUTRIN XL) 150 MG TB24 300.0 MG ORAL ONCE DAILY Start: August 16, 2024 2:00:0 0 PM UTC End: August 26, 2024 10:44: 57 AM UTC CAROLYN WASHINGTON MD [id number] on August 27, 2024 4:25:00 AM UTC Discont inued 368798 6841 2017 001 busPIRone (BUSPAR) 5 MG TABS 10.0 MG ORAL THREE TIMES A DAY Start: August 16, 2024 2:00:0 0 PM UTC End: August 26, 2024 10:44: 57 AM UTC CAROLYN WASHINGTON MD [id number] on August 27, 2024 4:25:00 AM UTC Discont inued 422881 6529 7011 311 cloNIDine (CATAPRES) 0.1 MG TABS 0.1 MG ORAL TWICE A DAY Start: August 16, 2024 2:00:0 0 PM UTC End: August 26, 2024 4:15:0 0 PM UTC CAROLYN WASHINGTON MD [id number] on August 27, 2024 4:25:00 AM UTC Discont inued 9015740 [address] sprinkle 125 MG CSDR 500.0 MG ORAL THREE TIMES A DAY Start: August 16, 2024 2:00:0 0 PM UTC End: August 26, 2024 4:15:0 0 PM UTC CAROLYN WASHINGTON MD [id number] on August 27, 2024 4:25:00 AM UTC Discont inued 627118 9355 7044 311 traZODone (DESYREL) 50 MG TABS 25.0 MG ORAL AT BEDTIME NEEDED Start: August 16, 2024 1:17:0 0 PM UTC End: August 20, 2024 12:15: 12 AM UTC CAROLYN WASHINGTON MD [id number] on August 20, 2024 12:15:00 AM UTC Discont inued 4254031 3333 2002 404 Influenza Vaccine TV PF 0.5 ML SHREE 0.5 ML INTRAM USCULA R NOW Start: August 16, 2024 4:48:0 0 PM UTC End: August 16, 2024 6:02:2 0 PM UTC CAROLYN WASHINGTON MD [id number] on August 16, 2024 6:02:00 PM UTC Discont inued [id number] PREVNAR 20 0.5 ML SHREE 0.5 ML INTRAM USCULA R NOW Start: August 16, 2024 4:48:0 0 PM UTC End: August 16, 2024 5:54:3 8 PM UTC CAROLYN WASHINGTON MD [id number] on August 16, 2024 5:54:00 PM UTC Discont inued [id number] 211 simvastatin (ZOCOR) 20 MG TABS 20.0 MG ORAL AT BEDTIME Start: August 17, 2024 2:00:0 0 AM UTC End: August 26, 2024 4:15:0 0 PM UTC JONAS FAVIA [employer] WORKER [id number] on August 27, 2024 4:25:00 AM UTC Discont inued [id number] 230 lurasidone HCl (LATUDA) 20 MG TABS 120.0 MG ORAL ONCE DAILY Start: August 19, 2024 1:00:0 0 PM UTC End: August 26, 2024 10:44: 57 AM UTC THADDEUS Monzon MD [id number] on August 27, 2024 4:25:00 AM UTC Discont inued [id number] 061 propranolol (INDERAL) 10 MG TABS 10.0 MG ORAL THREE TIMES A DAY Start: August 19, 2024 1:00:0 0 PM UTC End: August 26, 2024 4:15:0 0 PM UTC THADDEUS Monzon MD [id number] on August 27, 2024 4:25:00 AM UTC Discont inued [id number] traZODone (DESYREL) 50 MG TABS 50.0 MG ORAL ONE TIME ONLY Start: August 20, 2024 12:16: 00 AM UTC End: August 20, 2024 12:16: 00 AM UTC CAROLYN WASHINGTON MD INTERF ED on August 20, 2024 12:14:00 AM UTC Discont inued [id number] 311 cloNIDine (CATAPRES) 0.1 MG TABS 0.1 MG ORAL ONE TIME ADMINISTRA TION (UNSCHEDUL ED) Start: August 23, 2024 2:45:0 0 AM UTC End: August 23, 2024 3:03:3 5 AM UTC BREA PANDEY [id number] on August 23, 2024 3:03:00 AM UTC Discont inued [id number] 7046 511 spironolact one(ALDACTO NE) 25 MG TABS 25.0 MG ORAL ONCE DAILY Start: August 23, 2024 7:04:0 0 PM UTC End: August 26, 2024 4:15:0 0 PM UTC JONAS FAVIA THERAPEUTIC PROGRAM WORKER [id number] on August 27, 2024 4:25:00 AM UTC Discont inued [id number] 301 furosemide (LASIX) 40 MG TABS 40.0 MG ORAL ONCE DAILY Start: August 25, 2024 4:08:0 0 PM UTC End: August 26, 2024 4:15:0 0 PM UTC FIDEL ZEE [id number] on August 27, 2024 4:25:00 AM UTC Discont inued [id number] [phone] *PATIENT INFORMATION MISC 1.0 EA SEE COMMEN TS NEEDED Start: August 25, 2024 5:17:0 0 PM UTC End: August 26, 2024 10:44: 57 AM UTC THADDEUS Monzon MD [id number] on August 27, 2024 4:25:00 AM UTC SOCIAL HISTORY SOCIAL HISTORY SNOMED-CT Social History Element Description Effective Dates Offered Cessation Comment UpdatedBy [id number] Current Tobacco smoking status Never Smoked [id number] on August 15, 2024 6:59:42 PM UTC SOCIAL HISTORY - Gender Sex: Male SOCIAL HISTORY - Status : status i nformation is not available Intention in Next Year: intention information is not available SOCIAL HISTORY - Sexual Behavior Sexual Orientation Gender Identity SNOMED-CT Description SNO MED -CT Description Activity Level No of Partners Partner Type UpdatedBy Information is not available VITAL SIGNS PATIENT VITAL SIGNS This section displays the mo st recent value for each vital sign as of August 27, 2024 12:13:39 PM [place] Loinc Code Vital Sign Activity Date Result Updated By 8302-2 Body height August 15, 2024 9:23:34 PM UTC 172.72 cm (68.0 in) [id number] on August 15, 2024 9:23:[place] [address]-0 Body mass index (BMI ) [Ratio] August 15, 2024 9:23:34 PM UTC 51.408 kg/m2 [id number] on August 15, 2024 9:23:34 PM UT 3140-1 Body Surface Area Derived From Formula August 15, 2024 9:23:34 PM UTC 2.5549 m2 [id number] on August 15, 2024 9:23:[place] [address]-5 Body weight Measured August 15 9:23:34 PM UTC 153.36 kg (338.0 lb) [id number] on August 15, 2024 9:23:34 PM [facility] 8867-4 Heart rate August 26, 2024 10:59:00 AM UTC 56 /min [id number] on August 26, 2024 12:06:23 PM UT 8462-4 Diastolic blood pressure August 26, 2024 10:59:00 AM UTC 77.0 mm[Hg] [id number] on August 26, 2024 12:06:23 PM [facility] 65883-7 Oxygen saturation in Arterial blood by Pulse oximetry August 26, 2024 10:59:00 AM UTC 98.0 % [id number] on August 26, 2024 12:06:23 PM [facility] 9279-1 Respiratory rate August 26, 2024 10:59:00 AM UTC 16 /min [id number] on August 26, 2024 12:06:23 PM [facility] 8480-6 Systolic blood pressure August 26, 2024 10:59:00 AM UTC 156.0 mm[Hg] [id number] on August 26, 2024 12:06:23 PM [facility] PEDIATRIC GROWTH CHART - VITAL SIGNS This section displays Head C ircumference Percentile, Weight for Length Percentile and BMI Percentile Loinc Code Pediatric Measure Age (Months) Result Updat ed By No Pediatric Growth Chart Pe rcentile Information Available. GOALS PATIENT GOALS Goal Assigned Date Updated By SHARLENE Saez JERMAINE REMAINS FREE FROM COMPLICATIONS FOR BEHAVIORAL HEALTH ADMIT August 15, 2024 [id number] on August 15, 2024 8:3 4:00 PM [facility] SHARLENE Saez JERMAINE WILL REM AIN FREE FROM SELF HARM DURING THE CARE PERIOD August 15, 2024 [id number] on August 15, 2024 8:34:00 PM [facility] HEALTH CONCERNS Problems Concern Status Health Concern problem infor mation not available. Smoking Status Status Years Used Consumed packs p er day Health Concern smoking histo ry information not available. Family History Concern Status Health Concern family histor y information not available. ENCOUNTERS ENCOUNTER INFORMATION Reason for Visit SI Admission August 15, 2024 8:20:[address] [id number] Discharge August 26, 2024 4:15:00 PM [facility] DI SCHARGED TO HOME OR SELF CARE ENCOUNTER DIAGNOSES Notes information is not kelley ilable. Code System Diagnosis Onset Date Diagnosis information is not available. ABSTRACT DIAGNOSES Code System Diagnosis Updated By F31.9 ICD10 BIPOLAR DISORDER, UNSPECIFIE D [id number] on August 27, 2024 12:12:14 PM UT F31.9 ICD10 BIPOLAR DISORDER, UNSPECIFIE D [id number] on August 27, 2024 12:12:14 PM UT R45.851 ICD10 SUICIDAL IDEATIONS [id number] o n August 27, 2024 12:12:14 PM UT Z68.43 ICD10 BODY MASS INDEX [BMI] 50.0-5 9.9, ADULT [id number] on August 27, 2024 12:12:14 PM UT F41.9 ICD10 ANXIETY DISORDER, UNSPECIFIE D [id number] on August 27, 2024 12:12:14 PM UT I10 ICD10 ESSENTIAL (PRIMARY) HYPERTEN LYNN [id number] on August 27, 2024 12:12:14 PM UT Z88.8 ICD10 ALLERGY STATUS T O OTHER DRUGS, MEDICAMENTS AND BIOLOGICAL SUBSTANCES [id number] on August 27, 2024 12:12:14 PM UT Z81.8 ICD10 FAMILY HISTORY O F OTHER MENTAL AND BEHAVIORAL DISORDERS [id number] on August 27, 2024 12:12:14 PM UT Z81.1 ICD10 FAMILY HISTORY O F ALCOHOL ABUSE AND DEPENDENCE [id number] on August 27, 2024 12:12:14 PM UT G47.33 ICD10 OBSTRUCTIVE SLEE P APNEA (ADULT) (PEDIATRIC) [id number] on August 27, 2024 12:12:14 PM UT E66.01 ICD10 MORBID (SEVERE) OBESITY DUE TO EXCESS CALORIES [id number] on August 27, 2024 12:12:14 PM UT Z91.51 ICD10 PERSONAL HISTORY OF SUICIDAL BEHAVIOR [id number] on August 27, 2024 12:12:14 PM UT Z79.899 ICD10 OTHER MCC (CURRENT) DR ARITA THERAPY [id number] on August 27, 2024 12:12:14 PM UT E78.5 ICD10 HYPERLIPIDEMIA, UNSPECIFIED [id number] on August 27, 2024 12:12:14 PM [facility] CARE TEAM Care Wire Sawyer Role PADMINI LEON Referring PADMINI LEON Primary Attending HILLARY DIAZ Primary Care PADMINI LEON Admitting [facility]ST[facility] MCD[facility] DISCHARGE INSTRUCTION DISCHARGE INSTRUCTION Encounter [id number] Admit Date August 15, 2024 8:20:0 0 PM UTC Discharge Date August 26, 2024 4:15: 00 PM [facility] PATIENT EDUCATION SUMMARY Patient/Visit Information: Patient Name: SHARLENE DEAN Diag: Attending Caregiver: CAROLYN WASHINGTON MD Discharge Instruction Sheets Provided: * LUCY Stroke && BEFAST Education *[facility] Transition Record () () *[facility] Patient Portal *MAGDALENOBN Social Determinants of Health *LUCY Suicidal Feelings: How to Help Yourself (LPNT) () Smoking\Tobacco Cessation - [facility] () () *MAGDALENOBN Suicidal Feelings: How to Help Yourself (LPNT) () () Managing Anxiety, Adult Managing Bipolar Disorder Managing Depression, Adult Patient Instructions: Additional Notes for *[facility] Transition Record () () Patient is scheduled for out-patient services at [facility] on 09/02/24 at 11:00am [place] [address] P: [phone] Followup Appointments/Instructions: To schedule or confirm your next appointment, please contact: 09/02/24 at 11:00am with Karuna Walker, therapist: - [place] [phone] If you need assistance finding another health care provider, call the number on your health insurance card. HISTORY AND PHYSICAL NOTE DISCHARGE SUMMARY NOTE DISCHARGE SUMMARY NOTE Note Title Discharge Quick Note Date Of Service August 26, 2024 1:03: 07 PM [facility] Created By [id number] on August 26, 2024 1:03:07 PM [facility] Signed By [id number] on August 26, 2024 1:03:37 PM [facility] Discharge Planning & Exit Ca re: Patient is scheduled for out-patient services at [facility] on 09/02/24 at 11:00am [place] [address] P: [phone] Patient reports he drove himself to hospital and will provide his own transportation at time of discharge. Exit Care is complete at this time. Electronically signed by LUCY GARNER Outbound Supervisor on [id number] PROGRESS NOTE CARE TEAM CARE reimbursement manager Role on Team Status Start Date End Date Update d By JONAS SARMIENTO APRN Consulting normal August 15 8:38:13 PM UTC August 26, 2024 4:15:00 PM UTC [id number] on August 15, 2024 8:38:13 PM UTC CAROLYN CHAVEZ Referring normal August 15, 2024 8:23:42 PM UTC August 26, 2024 4:15:00 PM UTC [id number] on August 15, 2024 8:38:13 PM UTC CAROLYN CHAVEZ Attending normal August 15, 2024 8:23:42 PM UTC August 26, 2024 4:15:00 PM UTC [id number] on August 15, 2024 8:38:13 PM UTC CAROLYN CHAVEZ Admitting normal August 15, 2024 8:23:42 PM UTC August 26, 2024 4:15:00 PM UTC [id number] on August 15, 2024 8:38:13 PM UTC WALT Muñoz MD Referring normal August 15, 2024 7:35:31 PM UTC August 15, 2024 8:21:14 PM UTC [id number] on August 15, 2024 8:38:13 PM UTC WALT Muñoz MD Attending normal August 15, 2024 7:35:31 PM UTC August 15, 2024 8:21:14 PM UTC [id number] on August 15, 2024 8:38:13 PM UTC WALT Muñoz MD Admitting normal August 15, 2024 7:35:31 PM UTC August 15, 2024 8:21:14 PM UTC [id number] on August 15, 2024 8:38:13 PM UTC EMILY MURO APRN PCP normal August 15, 2024 6:18:24 PM UTC August 15, 2024 8:21:14 PM UTC [id number] on August 15, 2024 8:38:13 PM UTC
--- NOTE | 2024-10-18 17:11 | ED_ITS ---
Discharge Plan Disposition Patient Disposition: Home, Self-Care Prescriptions Prescriptions: New ondansetron 4 mg tablet,disintegrating 4 mg PO Q6H PRN (Reason: nausea and vomiting) Qty: 10 0RF No Action buspirone 15 mg tablet 10 mg PO TID clonidine HCl 0.1 mg tablet 0.1 mg PO BID furosemide 40 mg tablet 40 mg PO DAILY lurasidone 120 mg tablet 120 mg PO DAILY Rx Instructions: must administer with food (at least 350 calories) spironolactone 25 mg tablet 25 mg PO DAILY buspirone 10 mg tablet 10 mg PO TID propranolol 10 mg tablet 10 mg PO TID propranolol 20 mg tablet 10 mg PO TID divalproex 125 mg capsule, delayed rel sprinkle 500 mg PO TID Qty: 360 0RF simvastatin 20 mg tablet 20 mg PO HS Referrals Follow up/Referrals: Palak Martinez APRN [Primary Care Provider] - See instructions Activity Restrictions/Add. Instructions Additional Instructions/Restrictions: Call your family doctor to establish care for this visit to the emergency department and schedule follow-up within 48 hours to ensure improvement. If you have any worsening of your condition or any other concerning signs or symptoms, return to the emergency department or your primary care doctor for further evaluation. Zofran every 6 hours under the tongue as needed for nausea and vomiting to stimulate appetite and make sure that you are staying hydrated. Clinical Impressions Clinical Impression: Gastroenteritis Instructions Patient Instructions: DI for Acute Abdominal Pain Print Language Print Language: Occitan Discharge ED Provider: Francisco Traylor General Adult HPI General Chief complaint: Abdominal Pain Stated complaint: Stomach pain,V/D,pain right side Time Seen by Provider: 10/18/24 16:49 Mode of Arrival: Ambulatory Source of Information: Patient Description of Symptoms (Recalled from ER Triage Doc. by RN): Patient reports abdominal pain, vomiting and diarrhea since yesterday. History of Present Illness HPI narrative: Please note that above description of symptoms, in this electronic medical record under categorization of recalled from ER triage doctor by RN are reflective of an initial nursing assessment, however, is not reflective of my full history and physical exam that was personally taken and clarified. Consequentially, this preceding description of symptoms, which may include the patient's categorized chief complaint in the EMR, do not reflect my personal clinical impression, and the ultimate description of history of present illness and patient stated complaints should be deferred to this section of the note. Unless stated otherwise or congruent with this section of the note, additional signs, symptoms, or incongruence should be interpreted as inaccurate with my clinical impression. Related Data Home Medications ?Medication ?Instructions ?Recorded ?Confirmed simvastatin 20 mg tablet 20 mg PO HS 04/01/24 09/16/24 buspirone 10 mg tablet 10 mg PO TID 09/16/24 09/16/24 buspirone 15 mg tablet 10 mg PO TID Anxiety 09/16/24 clonidine HCl 0.1 mg tablet 0.1 mg PO BID 09/16/24 furosemide 40 mg tablet 40 mg PO DAILY 09/16/24 09/16/24 lurasidone 120 mg tablet 120 mg PO DAILY 09/16/24 09/16/24 propranolol 10 mg tablet 10 mg PO TID 09/16/24 09/16/24 propranolol 20 mg tablet 10 mg PO TID 09/16/24 09/16/24 spironolactone 25 mg tablet 25 mg PO DAILY 09/16/24 09/16/24 Previous Rx's ?Medication ?Instructions ?Recorded divalproex 125 mg capsule,delayed 500 mg (4 x 125 mg) PO TID 06/30/20 release sprinkle SEIZURES #360 caps ondansetron 4 mg disintegrating 4 mg PO Q6H PRN nausea and 10/18/24 tablet vomiting #10 tabs Allergies Allergy/AdvReac Type Severity Reaction Status Date / Time prochlorperazine (From Allergy Unknown Other Verified 09/16/24 10:09 COMPAZINE) [facility] Disclaimer: The information contained in this section may have been updated after the patient was seen, as this information can be updated by other users. Medical History (Updated 10/18/24 @ 20:12 by Francisco Traylor MD) Tremor Acute constipation Lumbar radiculopathy, acute Abnormal MRI, thoracic spine Myelopathy Episodic migraine BMI 50.0-59.9, adult Myelopathy Hypokalemia Acute viral syndrome Abdominal pain Headache Ribs, multiple fractures Gastroenteritis Viral gastroenteritis Cellulitis Obesity BMI greater than 40 Closed left ankle fracture Left ureteral calculus Transverse myelitis Bipolar 1 disorder Hyperlipidemia Arthritis Depression Acute adjustment disorder with anxiety Surgical History History of surgery on lower extremity History of ankle surgery Family History Other Cancer Diabetes Heart attack Hypertension Social History Smoking Status: Never smoker alcohol intake: former substance use type: denies use current occupational status: employed, unemployed and disabled Travel in the last 8 weeks?: None household members: family housing: house marital status: single 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 current occupational exposures/hazards: No caffeine: Yes Have you lived/traveled outside [place] in past 30 days?: No Contact w/someone who lives/traveled outside US past 30 days?: No Exposure to someone with infectious disease in past 14 days?: No Do you have a fever (greater than 100.4 F or 38 C)?: No Have you tested positive for COVID-19?: No Exposed to someone with COVID-19 in past 14 days?: No Do you have a sore throat?: No Do you have a cough?: No Do you have any weakness?: No Do you have any diarrhea?: No Are you experiencing any unusual bleeding?: No Do you have any muscle aches/pain?: No Do you have any abdominal pain?: No Are you experiencing loss of taste or smell?: No Other Medical History Have you received the Flu Vaccine for this season: No Have you received the Pneumonia Vaccine: No ROS Obtained: Yes All systems reviewed & no additional complaints except as documented Physical Exam General General appearance: alert and obese Head Head exam: atraumatic and normocephalic Eye Eye exam: Present normal appearance, PERRL and EOMI Neck Neck exam: Present normal inspection, full ROM and trachea midline Respiratory Respiratory exam: Present normal lung sounds bilaterally; Absent respiratory distress, wheezes, stridor, accessory muscle use or prolonged expiratory phase Cardiovascular Cardiovascular exam: Present regular rate, normal rhythm and other (Pulses equal symmetric in upper and lower extremities) Abdominal Exam Abdominal exam: Present soft, tenderness and Collado's sign; Absent distention, guarding, rebound, rigidity, tenderness at McBurney's Point or pulsatile mass Abdominal tenderness: Present RUQ, epigastrium and moderate Extremities Exam Extremities exam: Absent edema Neurological Exam Neurological exam: Present alert, oriented X3 and CN II-XII intact; Absent motor sensory deficit Skin Skin exam: Present warm and dry; Absent diaphoresis or erythema Medical Decision Making Medical Records Medical records reviewed: Yes I reviewed the patient's medical records. Screening: Per USPSTF and CDC recommendations, given the prevalence of disease in our region, it is our hospital?s policy to screen for HIV and viral Hepatitis for all patients aged 18 and over and those with ongoing risk factors. Talha Inquiry Pt receiving controlled substance: No Talha was queried for this patient: No Vital Signs: 10/18/24 16:55 10/18/24 19:42 Temperature 97.6 F Temperature Source Oral Pulse Rate 79 Pulse Rate [Radial] 85 Respiratory Rate 16 18 Blood Pressure 143/108 H Blood Pressure [Right Arm] 174/106 H Blood Pressure Mean [Right Arm] 128 Blood Pressure Source [Right Arm] Automatic Cuff Blood Pressure Position [Right Arm] Sitting 02 Sat by Pulse Oximetry 98 97 Oxygen Delivery Method Room Air Room Air Lab Data Lab Results 10/18/24 17:35: WBC 7.9, RBC 4.96, Hgb 15.2, Hct 43.7, MCV 88.1, MCH 30.6, MCHC 34.8, RDW 13.0, Plt Count 153, MPV 12.3 H, Neut % (Auto) 73.4, Lymph % (Auto) 10.6, [place] % (Auto) 12.4 H, Eos % (Auto) 2.9, Baso % (Auto) 0.4, Neut # (Auto) 5.8, Lymph # (Auto) 0.8, [place] # (Auto) 1.0, Eos # (Auto) 0.2, Baso # (Auto) 0.0, Sodium 137, Potassium 4.4, Chloride 114 H, Carbon Dioxide 19 L, Anion Gap 8.4, BUN 9, Creatinine 1.40 H, Estimated Creat Clear 61, Estimated GFR 54 L, Est GFR ( Amer) 65, Glucose 104 H, Hemoglobin A1c 5.6, Calcium 9.3, Total Bilirubin 1.2, AST 36, ALT 32, Alkaline Phosphatase 58, Troponin I < 0.01, Total Protein 6.3, Albumin 4.0, Globulin 2.3, Albumin/Globulin Ratio 1.7, Triglycerides 115, Cholesterol 126 L, LDL Cholesterol Direct 71.67 L, VLDL Cholesterol 23, HDL Cholesterol 40, Cholesterol/HDL Ratio 3.2, Lipase 77 10/18/24 18:48: PT 11.0, INR 0.98, APTT 26.6 10/18/24 19:38: Urine Color Yellow, Urine Appearance Clear, Urine pH 6.0, Ur Specific [place] 1.010, Urine Protein Negative, Urine Glucose (UA) Negative, Urine Ketones Negative, Urine Blood Negative, Urine Nitrate Negative, Urine Bilirubin Negative, Urine Urobilinogen 0.2, Ur Leukocyte Esterase Negative 10/18/24 17:35 10/18/24 17:35 Orders (Tests/Meds): ED MEDICATIONS Generic Name Dose Route Start Last Admin Trade Name Freq PRN Reason Stop Dose Admin Sodium Chloride 10 ml 10/18/24 19:11 10/18/24 19:11 Sodium Chloride 0.9% 10ml Syr (Rad Only) IV 11/17/24 19:10 10 ml NEEDED PRN Administration Maintain IV Site Discontinued Medications Generic Name Dose Route Start Last Admin Trade Name Freq PRN Reason Stop Dose Admin Sodium Chloride 1,000 mls @ 999 mls/hr 10/18/24 16:59 10/18/24 17:45 Sod Chlor 0.9% 1000ml Bag IV 10/18/24 17:59 999 mls/hr .Q1H1M ONE Administration Iopamidol 75 ml 10/18/24 19:11 10/18/24 19:11 Iopamidol-370 (76%);100ml Bottle IV 10/18/24 19:12 75 ml ONCE ONE Administration Ketorolac Tromethamine 15 mg 10/18/24 16:59 10/18/24 17:44 Ketorolac 30mg/Ml Vial IV 10/18/24 17:00 15 mg ONCE ONE Administration Morphine Sulfate 4 mg 10/18/24 18:51 10/18/24 18:54 Morphine 4mg/Ml Syringe IV 10/18/24 18:52 4 mg ONCE ONE Administration Ondansetron HCl 4 mg 10/18/24 16:59 10/18/24 17:44 Ondansetron 4mg/2ml Vial IV 10/18/24 17:00 4 mg ONCE ONE Administration ORDERS Category Date Time Status CT abdomen pelvis w con Stat Cat Scan 10/18/24 18:57 Completed POCUS Point of Care (ER Only) Stat Exams 10/18/24 17:00 Completed Complete Blood Count Auto Diff Stat Lab 10/18/24 17:35 Completed Comprehensive Metabolic Panel Stat Lab 10/18/24 17:35 Completed Hemoglobin A1C Stat Lab 10/18/24 17:35 Completed Lipase Stat Lab 10/18/24 17:35 Completed Lipid Panel Stat Lab 10/18/24 17:35 Completed PT INR [Prothrombin Time INR] Stat Lab 10/18/24 18:48 Completed PTT [Activated Partial Thrombo Time] Stat Lab 10/18/24 18:48 Completed Troponin I Q3H Lab 10/18/24 23:15 Ordered Troponin I Stat Lab 10/18/24 17:35 Completed Urinalysis and Microscopic Stat Lab 10/18/24 19:38 Results Medical Decision Narrative: 48-year-old male history of hypertension, hyperlipidemia, bipolar disorder, remote history of transverse myelitis presenting with vomiting, diarrhea, followed by abdominal pain. States that vomiting started last night, 10/17. Since that time, developed diarrhea and then abdominal pain. Abdominal pain is epigastric, does not radiate, no fevers or chills, but states that he has intermittently been breaking out in clammy sweats and has been vomiting. Vomit is nonbloody, nonbilious, no blood in his stool or mucus. Still able to tolerate p.o. intake, but states that his urine is concentrated. No hematuria or dysuria. Has not taken anything for the pain. Has no abdominal surgical history. History was obtained via conversation with patient. On arrival, patient hemodynamically stable, alert, oriented x4, appropriate, GCS 15, moving all extremities spontaneously, pupils equal and reactive to light. Full physical exam performed and significant for well-appearing male no acute distress. Abdomen is soft, nondistended, but mildly to moderately tender to deep palpation in the epigastrium and right upper quadrant. Given adiposity, difficult to discern whether Collado sign is positive or not, but appears to be positive. No lower abdominal tenderness. No signs of peritonitis or overlying skin changes. Differential includes ACS, MD, PUD, gastritis, enteritis, gastroenteritis, pancreatitis, SBO, colitis, diverticulitis, nephrolithiasis, UTI, cholecystitis, choledocholithiasis, appendicitis, less likely torsion, hepatitis, aortic pathology, mesenteric ischemia among others. Patient placed on continuous cardiac monitoring and continuous pulse ox with initial blood pressure 174/106, heart rate 85, saturation 98% on room air. Independent interpretation of EKG shows sinus rhythm 70 bpm with PA interval 165, QRS 85, QTc 375 with no acute ischemic changes. Leftward axis. Patient was given fluids, Zofran, Toradol for symptomatic management and correction of underlying abnormalities. Workup independently interpreted and significant for nonactionable CBC with normal white count, normal hemoglobin. Patient's chemistry with mild CHRISTINA creatinine 1.4 up from normal baseline. A1c 5.6, lipid panel come back low. Troponin negative, lipase negative. [id number] ultrasound was performed to look at the gallbladder. Right upper quadrant ultrasound consistent with cholelithiasis without secondary signs of cholecystitis. Negative Collado sign on deep palpation on reevaluation. Patient states that his pain is substantially improved, but still mild to moderate in his periumbilical region. Ultrasound-guided IV was placed in his right upper extremity for CT scan. On independent interpretation of imaging, patient has large, distended colon, but this was seen in previous CTs as well. See radiology read for full review of final results. On reevaluation, patient able tolerate p.o. intake still having crampy pain, but well-appearing overall. Given patient presentation, workup, history, this most likely represents gastroenteritis. Because patient at baseline without signs or symptoms of clinical decompensation, deemed appropriate for discharge. Results were relayed to patient who voiced understanding and were agreeable to outpatient management and follow up. I discussed my clinical impression with patient and answered all questions. At this time, the evidence for any other entities in the differential is insufficient to warrant any further testing or ED observation. This was explained as well. Advisory was given that persistent or worsening symptoms require further evaluation. I confirmed the understanding of this discussion. Telesales Representative disclaimer Much of this encounter note is an electronic director community health nursing spoken language to printed text. Electronic director community health nursing of the spoken language may permit errors. Although I have reviewed the note, some errors may still exist. Procedures Limited Ultrasound Indication:: Limited RUQ ultrasound Indication: Abdominal pain, vomiting Identified structures: -Gallbladder -Gallbladder wall -Common bile duct -Liver Findings: Sonographic Collado sign: Absent Gallstones: Present Sludge: Absent Pericholecystic fluid: Absent Maximal GB wall thickness (mm) (normal is </= 3mm): Normal Common bile duct width (mm) (normal is </= 6mm): Unable to visualize secondary to limited exam Gallbladder width (cm) (normal is < 4cm): Normal Gallbladder length (cm) (normal is < 10cm): Normal Impression: Cholelithiasis without secondary signs of cholecystitis. Images were saved to permanent archive The study was technically adequate CPT 44106-65 This study was performed by me, and I personally interpreted all images/videos. Based on my clinical judgement, these images were adequate and did not necessitate further imaging. Views:: Ultrasound-guided line placement Indication: - Difficult IV placement, numerous unsuccessful pokes Identified structures: - Right upper extremity veins Location/access site: - Right upper extremity median vein Vessel patency: - Patent Direct visualization? - Yes Impression: Successful placement of 20-gauge catheter in the right upper extremity median vein Images were not saved to permanent archive The study was technically adequate CPT Codes: Venipuncture: 60300-43 Age <3 yo: 71851-22 Age >3yo: 47875-96 Central line <5 yo: 58848-21 Central line >5 yo: 90600-46 This study was performed by me, and I personally interpreted all images/videos. Based on my clinical judgement, these images were adequate and did not necessitate further imaging Critical Care Critical Care Time Critical Care Time: No
[2024-10-18 17:44] LABS: Basophils % 0.4 % (0.1-2.0); Eosinophils # 0.2 Kmm3 (0.0-0.4); Eosinophils % 2.9 % (0.1-12.0); Hematocrit 43.7 % (42.0-52.0); Hemoglobin 15.2 g/dL (14.1-18.0); Immature Granulocytes # 0.02 10^3uL; Immature Granulocytes % 0.3 %; Lymphocytes # 0.8 K/mm3 (0.7-4.5); Lymphocytes % 10.6 % (10-50); Mean Corpuscular HGB Conc 34.8 g/dL (31.8-35.4); Mean Corpuscular Hemoglobin 30.6 pg (27.0-31.2); Mean Corpuscular Volume 88.1 fl (80-94); Mean Platelet Volume 12.3 fl (7.4-10.4); Monocytes % 12.4 % (1.7-9.3); Neutrophils # 5.8 K/mm3 (1.8-7.8); Neutrophils % 73.4 % (37.0-80.0); Nucleated Red Blood Cells # 0 10^3/uL; Nucleated Red Blood Cells % 0 %; Platelet Count 153 K/mm3 (142-424); Red Blood Count 4.96 M/mm3 (4.60-6.20); Red Cell Distribution Width-SD 42.2 fL; White Blood Count 7.9 K/mm3 (4.8-10.8)
[2024-10-18] MEDS: KETOROLAC 30MG/ML VIAL 15 MG IV (17:44)
[2024-10-18] MEDS: ONDANSETRON 4MG/2ML VIAL 4 MG IV (17:44)
[2024-10-18] MEDS: 0.9 % SODIUM CHLORIDE 1000ML 1,000 ML 999 ML IV (17:45)
--- NOTE | 2024-10-18 17:51 | ECG_ITS ---
APPROVED REPORT Exam: Resting ECG HR:70 bpm ECG Measurements Heart Rate 70 AXES IL 165 P 13 QRSd 85 QRS -8 QT 354 T 23 QTc 375 Conclusion Sinus rhythm Electronically signed by : SHERLYN HORN, 10/18/2024 21:35:34
[2024-10-18 17:55] LABS: Alanine Aminotransferase 32 U/L (12-78); Albumin/Globulin Ratio 1.7 (1.1-1.8); Alkaline Phosphatase 58 U/L (38-126); Anion Gap 8.4 mEq/L (5-15); Aspartate Amino Transferase 36 U/L (17-59); Bilirubin,Total 1.2 mg/dl (0.2-1.3); Blood Urea Nitrogen 9 mg/dl (9-20); Calcium 9.3 mg/dl (8.4-10.2); Carbon Dioxide 19 mmol/L (22.0-30.0); Chloride 114 mmol/L (98-107); Chol/HDL Ratio 3.2 (1-3.5); Cholesterol 126 mg/dl (140-200); Creatinine Clearance Estimated 61 mL/min (50-200); Estimated Glomerular Filt Rate 54 ml/min (>60); GFR (African American) 65 ML/MIN (>60); Globulin 2.3 g/dL (1.3-3.2); Glucose 104 mg/dl (74-100); HDL Cholesterol 40 mg/dl (40-60); Lipase 77 U/L (23-300); Potassium 4.4 mmoL/L (3.5-5.1); Sodium 137 mmol/L (136-145); Total Protein,Serum 6.3 g/dl (6.3-8.2); Triglycerides 115 mg/dl (30-150); VLDL Cholesterol 23 mg/dL (0-40)
[2024-10-18 18:06] LABS: Direct LDL Cholesterol 71.67 mg/dL (100-129)
[2024-10-18 18:10] LABS: Troponin I < 0.01 ng/ml (0.00-0.034)
[2024-10-18 18:11] LABS: Hemoglobin A1C 5.6 % (4.0-6.0)
[2024-10-18] MEDS: MORPHINE 4MG/ML SYRINGE 4 MG IV (18:54)
--- NOTE | 2024-10-18 18:57 | CT_ITS ---
PROCEDURE INFORMATION: Exam: CT Abdomen And Pelvis With Contrast Exam date and time: 10/18/2024 7:10 PM Age: 48 years old Clinical indication: Abdominal pain; Additional info: Periumbilical pain, vomiting TECHNIQUE: Imaging protocol: Computed tomography of the abdomen and pelvis with contrast. Radiation optimization: All CT scans at this facility use at least one of these dose optimization techniques: automated exposure control; mA and/or kV adjustment per patient size (includes targeted exams where dose is matched to clinical indication); or iterative reconstruction. Contrast material: ISOVUE; Contrast volume: 75 ml; Contrast route: IV; COMPARISON: CT ABDOMEN PELVIS W CON 04/01/2024 9:20 AM FINDINGS: Lungs: Bilateral dependent pulmonary atelectasis is demonstrated within the lungs. Liver: Liver appears heterogeneous with irregular border. Possible hepatic parenchymal disease. Gallbladder and biliary ducts: Cholelithiasis is demonstrated. The gallbladder appears otherwise unremarkable. No evidence for biliary dilatation. Pancreas: Unremarkable. Spleen: Unremarkable. No splenomegaly. Adrenal glands: Fat-density left adrenal incidental lesion, demonstrating features compatible with a benign myelolipoma. Left adrenal lesion measurement: 12 mm on axial image 35. The right adrenal gland appears unremarkable. Kidneys and ureters: Right renal incidental simple appearing cyst is demonstrated. Right renal cyst measurement: 17 mm upper pole right renal cyst on axial image 36. The visualized kidneys appear otherwise unremarkable. No visible renal calculi. No visualized renal hydronephrosis. Stomach and bowel: Prominent fluid identified within the bowel, colon and rectum, compatible with diarrheal state. Findings are compatible with infectious or inflammatory gastroenteritis. Diffuse colonic distension with air-fluid levels. Possible colonic ileus. No transition point or obstruction. Appendix: The visualized appendix appears unremarkable. Intraperitoneal space: No free air. No significant fluid collection. Vasculature: Minimal atherosclerotic arterial vascular wall calcifications are demonstrated. Lymph nodes: No enlarged lymph nodes. Urinary bladder: Unremarkable as visualized. Reproductive: Unremarkable as visualized. Bones/joints: Mild generalized bony degenerative changes. Bony structures appear otherwise unremarkable. Soft tissues: Fat containing periumbilical ventral wall hernia is demonstrated. Other findings: Limited study with motion artifact. IMPRESSION: 1. Findings compatible with diarrheal state, infectious or inflammatory gastroenteritis. See above details. Possible colonic ileus with colonic distension, air-fluid levels. 2. Nonspecific heterogeneous and irregular appearance of the liver. Recommend correlation with liver function tests. 3. Cholelithiasis. 4. Left benign adrenal myelolipoma. 5. Right renal cyst. COMMENTS: Consistent with the [employer]'s Incidental Findings Committee white paper (J Am Marie Radiol 2018): Any incidental renal lesion less than 1 cm or classified as too small to characterize, or any incidental cystic renal lesion characterized as simple-appearing, is likely benign. No follow-up imaging is recommended for these lesions per consensus recommendations based on imaging criteria.
--- NOTE | 2024-10-18 19:00 | PC.NURSE ---
Radiology notified that he has an usgiv placed to R by Dr Traylor.
--- NOTE | 2024-10-18 19:06 | PC.NURSE ---
pt to ct scan via stretcher.
[2024-10-18 19:08] LABS: Activated Partial Thrombo Time 26.6 seconds (22.8-30.6)
[2024-10-18 19:09] LABS: INR 0.98 (0.9-1.1)
[2024-10-18] MEDS: IOPAMIDOL-370 (76%);100ML BOTTLE 75 ML IV (19:11)
[2024-10-18] MEDS: SODIUM CHLORIDE 0.9% 10ML SYR (RAD ONLY) 10 ML IV (19:11)
[2024-10-18 19:42] VITALS: BP 143/108; PULSE 79; RESP 18; O2SAT 97
[2024-10-18 19:42] LABS: Microscopic, Urine URINE MICROSCOPIC (MICROSCOPIC)
[2024-10-18 19:46] LABS: Appearance,Urine CLEAR (Clear); Bilirubin,Urine Negative (Negative); Blood, Urine Negative (Negative); Color,Urine YELLOW (Yellow); Glucose,Urine (UA) Negative (Negative); Ketones,Urine Negative (Negative); Leukocyte Esterase,Urine Negative (Negative); Nitrate,Urine Negative (Negative); Protein,Urine Negative (Negative); Urobilinogen,Urine 0.2 EU/dl (0.2)
[2024-10-18 20:22] VITALS: BP 162/92; PULSE 83; RESP 18; TEMP 36.4; O2SAT 97
[2024-10-18 20:25] LABS: RBC,Urine Occasional #/hpf (0-3)
== END 2024-10-18 20:23 | disposition home or self-care (01) ==
PROVIDERS: Emergency Provider Emergency Medicine; PCP Nurse Practitioner
DX: R10.11 Right upper quadrant pain (principal); R10.13 Epigastric pain; K52.9 Noninfective gastroenteritis and colitis, unspecified; R11.2 Nausea with vomiting, unspecified; N28.9 Disorder of kidney and ureter, unspecified; E78.49 Other hyperlipidemia
CPT/HCPCS: 74177; 80053; 80061; 81001; 83036; 83690; 84484; 85025; 85610; 85730; 93005; 96361; 96374; 96375; 99285; J1885; J2270; J2405; J7030; Q9967

== ENCOUNTER 2024-10-19 16:49 | Inpatient (IN) | payer MEDICARE, MEDICAID, SELFPAY ==
[2024-10-19] VITALS (7 sets, daily range): BP systolic 137–180; BP diastolic 78–96; PULSE 56–85; RESP 16–19; TEMP 36.6–37.1; O2SAT 94–98; BMI 49.7; BMI 49.8
--- OUTSIDE RECORDS SUMMARY | 2024-10-19 17:02 | XMS_ITS | Continuity of Care Document ---
Author Organization [facility]. If a dditional information is needed, contact Health Information Management at [phone] Address [address] [place] [address] Phone Care Team Providers Care Mobile Mechanic Name Role Phone Unavailable Unavailable Unavailable Unavailable Unavailable Unavailable Unavailable Unavailable Unavailable Problems Bipolar disorder Onset:24-Jun-2023 Luis Enrique Miller MD Status:Acute History of surgery Onset:24-Jun-2023 Luis Enrique Miller MD Status:Acute Comments:Rods in both legs Hypertensive disorder Onset:24-Jun-2023 Luis Enrique Miller MD Status:Acute Numbness of lower limb Onset:24-Jun-2023 aKz FOUNTAIN Status:Acute Skin sensation disturbance Onset:24-Jun-2023 Kaz [...] ORAL Daily Start:24-Jun-2023 Comments:20 mg PO DAILY Cogentin;1 MG ORAL Daily Start:24-Jun-2023 Comments:1 mg PO DAILY Flexeril;10 MG ORAL Daily Start:24-Jun-2023 Comments:10 mg PO DAILY simvastatin 20 MG Oral Table t;20 MG ORAL Daily Start:24-Jun-2023 Comments:20 mg PO DAILY topiramate 50 mg tablet;50 M G ORAL Daily Start:24-Jun-2023 Comments:50 mg PO DAILY lurasidone 80 mg tablet;80 M G ORAL Daily Start:24-Jun-2023 Comments:80 mg PO DAILY divalproex sodium 125 MG Del ayed Release Oral Capsule [Depakote];125 MG ORAL Three Times a Day Start:24-Jun-2023 Comments:125 mg PO TID Wellbutrin XL;300 MG ORAL QA M Start:24-Jun-2023 Comments:300 mg PO QAM
--- NOTE | 2024-10-19 17:07 | ED_ITS ---
Discharge Plan Disposition Patient Disposition: Admitted Chief Complaint: Abdominal Pain Clinical Impressions Clinical Impression: Vomiting and diarrhea, Intractable abdominal pain Discharge ED Provider: Francisco Traylor General Adult HPI General Chief complaint: Abdominal Pain Stated complaint: abdominal pain,fever,melissa. Time Seen by Provider: 10/19/24 16:56 History of Present Illness HPI narrative: Please note that above description of symptoms, in this electronic medical record under categorization of recalled from ER triage doctor by RN are reflective of an initial nursing assessment, however, is not reflective of my full history and physical exam that was personally taken and clarified. Consequentially, this preceding description of symptoms, which may include the patient's categorized chief complaint in the EMR, do not reflect my personal clinical impression, and the ultimate description of history of present illness and patient stated complaints should be deferred to this section of the note. Unless stated otherwise or congruent with this section of the note, additional signs, symptoms, or incongruence should be interpreted as inaccurate with my clinical impression. Related Data Home Medications ?Medication ?Instructions ?Recorded ?Confirmed simvastatin 20 mg tablet 20 mg PO HS 04/01/24 09/16/24 buspirone 10 mg tablet 10 mg PO TID 09/16/24 09/16/24 buspirone 15 mg tablet 10 mg PO TID Anxiety 09/16/24 clonidine HCl 0.1 mg tablet 0.1 mg PO BID 09/16/24 furosemide 40 mg tablet 40 mg PO DAILY 09/16/24 09/16/24 lurasidone 120 mg tablet 120 mg PO DAILY 09/16/24 09/16/24 propranolol 10 mg tablet 10 mg PO TID 09/16/24 09/16/24 propranolol 20 mg tablet 10 mg PO TID 09/16/24 09/16/24 spironolactone 25 mg tablet 25 mg PO DAILY 09/16/24 09/16/24 Previous Rx's ?Medication ?Instructions ?Recorded divalproex 125 mg capsule,delayed 500 mg (4 x 125 mg) PO TID 06/30/20 release sprinkle SEIZURES #360 caps ondansetron 4 mg disintegrating 4 mg PO Q6H PRN nausea and 10/18/24 tablet vomiting #10 tabs Allergies Allergy/AdvReac Type Severity Reaction Status Date / Time prochlorperazine (From Allergy Unknown Other Verified 09/16/24 10:09 COMPAZINE) [facility] Disclaimer: The information contained in this section may have been updated after the patient was seen, as this information can be updated by other users. Medical History (Updated 10/19/24 @ 18:38 by Francisco Traylor MD) Tremor Acute constipation Lumbar radiculopathy, acute Abnormal MRI, thoracic spine Myelopathy Episodic migraine BMI 50.0-59.9, adult Myelopathy Hypokalemia Acute viral syndrome Abdominal pain Headache Ribs, multiple fractures Gastroenteritis Viral gastroenteritis Cellulitis Obesity BMI greater than 40 Closed left ankle fracture Left ureteral calculus Transverse myelitis Bipolar 1 disorder Hyperlipidemia Arthritis Depression Acute adjustment disorder with anxiety Surgical History History of surgery on lower extremity History of ankle surgery Family History Other Cancer Diabetes Heart attack Hypertension Social History Smoking Status: Never smoker alcohol intake: former substance use type: denies use current occupational status: employed, unemployed and disabled Travel in the last 8 weeks?: None household members: family housing: house marital status: single 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 current occupational exposures/hazards: No caffeine: Yes Have you lived/traveled outside [place] in past 30 days?: No Contact w/someone who lives/traveled outside [place] past 30 days?: No Exposure to someone with infectious disease in past 14 days?: No Do you have a fever (greater than 100.4 F or 38 C)?: Yes Have you tested positive for COVID-19?: No Exposed to someone with COVID-19 in past 14 days?: Yes Do you have a sore throat?: Yes Do you have a cough?: Yes Do you have any weakness?: Yes Do you have any diarrhea?: Yes Are you experiencing any unusual bleeding?: No Do you have any muscle aches/pain?: No Do you have any abdominal pain?: Yes Are you experiencing loss of taste or smell?: No Other Medical History Have you received the Flu Vaccine for this season: No Have you received the Pneumonia Vaccine: No ROS Obtained: Yes All systems reviewed & no additional complaints except as documented Physical Exam General General appearance: alert, in no apparent distress and obese Head Head exam: atraumatic and normocephalic Eye Eye exam: Present normal appearance, PERRL and EOMI Neck Neck exam: Present normal inspection, full ROM and trachea midline Respiratory Respiratory exam: Absent respiratory distress, wheezes, stridor, accessory muscle use or prolonged expiratory phase Cardiovascular Cardiovascular exam: Present other (Pulses equal symmetric in upper and lower extremities) Abdominal Exam Abdominal exam: Present soft and tenderness; Absent distention, guarding, rebound, rigidity or pulsatile mass Abdominal tenderness: Present diffuse and mild Extremities Exam Extremities exam: Absent edema Neurological Exam Neurological exam: Present alert, oriented X3 and CN II-XII intact; Absent motor sensory deficit Skin Skin exam: Present warm and dry; Absent diaphoresis or erythema Medical Decision Making Medical Records Medical records reviewed: Yes I reviewed the patient's medical records. Screening: Per USPSTF and CDC recommendations, given the prevalence of disease in our region, it is our hospital?s policy to screen for HIV and viral Hepatitis for all patients aged 18 and over and those with ongoing risk factors. Talha Inquiry Pt receiving controlled substance: No Talha was queried for this patient: No Vital Signs: 10/19/24 17:01 10/19/24 17:03 10/19/24 17:31 Temperature 97.8 F Temperature Source Oral Pulse Rate 65 56 L Pulse Rate [Left Radial] 70 Respiratory Rate 19 Blood Pressure 180/96 H 157/78 H Blood Pressure [Right Arm] 161/94 H Blood Pressure Mean [Right Arm] 116 02 Sat by Pulse Oximetry 97 97 95 Oxygen Delivery Method Room Air Room Air 10/19/24 18:02 Temperature Temperature Source Pulse Rate 57 L Pulse Rate [Left Radial] Respiratory Rate Blood Pressure 165/85 H Blood Pressure [Right Arm] Blood Pressure Mean [Right Arm] 02 Sat by Pulse Oximetry 94 L Oxygen Delivery Method Room Air Lab Data Lab Results 10/19/24 17:12: WBC 6.4, RBC 5.18, Hgb 15.6, Hct 45.3, MCV 87.5, MCH 30.1, MCHC 34.4, RDW 13.0, Plt Count 161, MPV 11.8 H, Neut % (Auto) 68.4, Lymph % (Auto) 14.6, [place] % (Auto) 9.6 H, Eos % (Auto) 6.6, Baso % (Auto) 0.3, Neut # (Auto) 4.3, Lymph # (Auto) 0.9, [place] # (Auto) 0.6, Eos # (Auto) 0.4, Baso # (Auto) 0.0, Sodium 139, Potassium 3.4 L D, Chloride 107, Carbon Dioxide 27, Anion Gap 8.4, B UN 8 L, Creatinine 1.50 H, Estimated Creat Clear 57, Estimated GFR 50 L, Est GFR ( Amer) 60, Glucose 118 H, Lactate 0.9, Calcium 8.8, Magnesium 1.6, Total Bilirubin 0.7, AST 31, ALT 34, Alkaline Phosphatase 84, Total Protein 6.4, Albumin 4.0, Globulin 2.4, Albumin/Globulin Ratio 1.7, Lipase 58 10/19/24 17:12 10/19/24 17:12 Orders (Tests/Meds): ED MEDICATIONS Generic Name Dose Route Start Last Admin Trade Name Freq PRN Reason Stop Dose Admin Lactated Ringer's 1,000 mls @ 999 mls/hr 10/19/24 18:11 10/19/24 18:15 Lactated Ringer's 1000 Ml Bag IV 10/19/24 19:11 999 mls/hr .[id number] ONE Administration Discontinued Medications Generic Name Dose Route Start Last Admin Trade Name Freq PRN Reason Stop Dose Admin Hydromorphone HCl 0.5 mg 10/19/24 17:07 10/19/24 17:17 Hydromorphone 2mg/Ml Syringe IV 10/19/24 17:08 0.5 mg ONCE ONE Administration Ondansetron HCl 4 mg 10/19/24 17:07 10/19/24 17:17 Ondansetron 4mg/2ml Vial IV 10/19/24 17:08 4 mg ONCE ONE Administration ORDERS Category Date Time Status Complete Blood Count Auto Diff Stat Lab 10/19/24 17:12 Completed Comprehensive Metabolic Panel Stat Lab 10/19/24 17:12 Completed Diarrhea 23 Panel, PCR Stat Lab 10/19/24 17:08 Ordered Lactic Acid Stat Lab 10/19/24 17:12 Completed Lipase Stat Lab 10/19/24 17:12 Completed Magnesium Stat Lab 10/19/24 17:12 Completed Medical Decision Narrative: 48-year-old male who yesterday for abdominal pain. He states he went home, unable to tolerate a p.o. intake, unable to keep anything down. Still vomiting nonbloody, nonbilious vomiting, still having diarrhea this nonbloody, non- mucousy. No fevers or chills. He is having diffuse abdominal pain, but is worse periumbilically. History was obtained via conversation with patient and chart review. On arrival, patient hemodynamically stable, alert, oriented x4, appropriate, GCS 15, moving all extremities spontaneously, pupils equal and reactive to light. Full physical exam performed and significant for obese male who is in no acute distress, but obviously uncomfortable. Abdomen is soft, nondistended, but diffusely tender, primarily in periumbilical and suprapubic areas. No overlying skin changes. No evidence of peritonitis. Differential includes PUD, gastritis, enteritis, gastroenteritis, pancreatitis, SBO, colitis, diverticulitis, nephrolithiasis, UTI, cholecystitis, choledocholithiasis, appendicitis, torsion, hepatitis, less likely aortic pathology, mesenteric ischemia among others. Patient placed on continuous cardiac monitoring and continuous pulse ox with initial blood pressure 180/96, heart rate 65, saturation 97% on room air. Patient was given Dilaudid, Zofran, fluids for symptomatic management and correction of underlying abnormalities. Workup independently interpreted and significant for nonactionable hematologic labs other than worsening CHRISTINA, patient was given fluids for this. CT scanning was considered, but patient had completely normal scan yesterday with the exception of dilated bowel, which she has had on previous CT scans in the past. On reevaluation, patient states he is not feeling perfectly well, but feels a lot better after the meds we gave him. I spoke to the hospitalist and consulted him formally. Patient to be admitted, states that patient is on GLP-1 agonist injection therapy. I went back and talk to patient on reevaluation he states that he is last received an injection last week. Has never had problems with gastroparesis or pain in the past, but does not think he has increased dose since previous. Unable to remember. Could be related. Patient was given Reglan for this. Because patient high risk for clinical decompensation, deemed appropriate for inpatient admission. Results were relayed to patient who voiced understanding and patient was agreeable to inpatient admission and management. Patient was admitted to the hospital for further definitive management. Social And Political Studies Professor disclaimer Much of this encounter note is an electronic precinct police sergeant spoken language to printed text. Electronic precinct police sergeant of the spoken language may permit errors. Although I have reviewed the note, some errors may still exist. Critical Care Critical Care Time Critical Care Time: No
[2024-10-19] MEDS: HYDROMORPHONE 2MG/ML SYRINGE 0.5 MG IV (17:17)
[2024-10-19] MEDS: ONDANSETRON 4MG/2ML VIAL 4 MG IV (17:17)
[2024-10-19 17:23] LABS: Basophils % 0.3 % (0.1-2.0); Eosinophils # 0.4 Kmm3 (0.0-0.4); Eosinophils % 6.6 % (0.1-12.0); Hematocrit 45.3 % (42.0-52.0); Hemoglobin 15.6 g/dL (14.1-18.0); Immature Granulocytes # 0.03 10^3uL; Immature Granulocytes % 0.5 %; Lymphocytes # 0.9 K/mm3 (0.7-4.5); Lymphocytes % 14.6 % (10-50); Mean Corpuscular HGB Conc 34.4 g/dL (31.8-35.4); Mean Corpuscular Hemoglobin 30.1 pg (27.0-31.2); Mean Corpuscular Volume 87.5 fl (80-94); Mean Platelet Volume 11.8 fl (7.4-10.4); Monocytes # 0.6 K/mm3 (0.1-1.0); Monocytes % 9.6 % (1.7-9.3); Neutrophils # 4.3 K/mm3 (1.8-7.8); Neutrophils % 68.4 % (37.0-80.0); Nucleated Red Blood Cells # 0 10^3/uL; Nucleated Red Blood Cells % 0 %; Platelet Count 161 K/mm3 (142-424); Red Blood Count 5.18 M/mm3 (4.60-6.20); Red Cell Distribution Width-SD 41.6 fL; White Blood Count 6.4 K/mm3 (4.8-10.8)
[2024-10-19 17:29] LABS: Chloride 107 mmol/L (98-107); Potassium 3.4 mmoL/L (3.5-5.1); Sodium 139 mmol/L (136-145)
[2024-10-19 17:31] LABS: Blood Urea Nitrogen 8 mg/dl (9-20); Creatinine Clearance Estimated 57 mL/min (50-200); Estimated Glomerular Filt Rate 50 ml/min (>60); GFR (African American) 60 ML/MIN (>60)
[2024-10-19 17:32] LABS: Alanine Aminotransferase 34 U/L (12-78); Albumin/Globulin Ratio 1.7 (1.1-1.8); Alkaline Phosphatase 84 U/L (38-126); Anion Gap 8.4 mEq/L (5-15); Aspartate Amino Transferase 31 U/L (17-59); Bilirubin,Total 0.7 mg/dl (0.2-1.3); Calcium 8.8 mg/dl (8.4-10.2); Carbon Dioxide 27 mmol/L (22.0-30.0); Globulin 2.4 g/dL (1.3-3.2); Glucose 118 mg/dl (74-100); Lipase 58 U/L (23-300); Magnesium 1.6 mg/dl (1.6-2.3); Total Protein,Serum 6.4 g/dl (6.3-8.2)
[2024-10-19 17:33] LABS: Lactic Acid 0.9 mmol/L (0.7-2.1)
[2024-10-19] MEDS: LACTATED RINGERS 1000ML 1,000 ML 999 ML IV ×2 (18:15→20:42)
--- NOTE | 2024-10-19 18:48 | PC.NURSE ---
per dry house tender, hospitalist wants manager night provider to see and assess pt prior to pt being accepted for admit.
[2024-10-19] MEDS: METOCLOPRAMIDE HCL 10MG/2ML VIAL 10 MG IVP (18:52)
--- NOTE | 2024-10-19 19:52 | P.HP_ITS ---
History of Present Illness *Admission Date: 10/19/24 *Reason for visit:: Intractable nausea/vomiting *History of present illness: Taurus Senior is a 48-year-old male with a medical history significant for anxiety/depression/mood disorder, seizure disorder who presents with 2 days onse t of nausea/vomiting/diarrhea. He states he has been having nonbilious emesis multiple times a day that is intractable even with antiemetics. He was evaluated in the ED yesterday and was discharged on Zofran without significant improvement in symptoms. Today he returns with similar symptoms, with a slightly worsening renal function. CT abdomen/pelvis reveals suspected gastroenteritis, but also possible colonic ileus. On my evaluation, patient had minimal bowel sounds. No tenderness. No leukocytosis. Case discussed with ED provider and she was made to admit patient for gastroenteritis, possible colonic ileus. [facility] Disclaimer: The information contained in this section may have been updated after the patient was seen, as this information can be updated by other users. Medical History (Updated 10/19/24 @ 18:38 by Francisco Traylor MD) Tremor Acute constipation Lumbar radiculopathy, acute Abnormal MRI, thoracic spine Myelopathy Episodic migraine BMI 50.0-59.9, adult Myelopathy Hypokalemia Acute viral syndrome Abdominal pain Headache Ribs, multiple fractures Gastroenteritis Viral gastroenteritis Cellulitis Obesity BMI greater than 40 Closed left ankle fracture Left ureteral calculus Transverse myelitis Bipolar 1 disorder Hyperlipidemia Arthritis Depression Acute adjustment disorder with anxiety Surgical History History of surgery on lower extremity History of ankle surgery Family History Other Cancer Diabetes Heart attack Hypertension Social History Smoking Status: Never smoker alcohol intake: former substance use type: denies use current occupational status: employed, unemployed and disabled Travel in the last 8 weeks?: None household members: family housing: house marital status: single 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 current occupational exposures/hazards: No caffeine: Yes Other Medical History Have you received the Flu Vaccine for this season: No Have you received the Pneumonia Vaccine: No Meds Home Medications and Allergies Home Medications ?Medication ?Instructions ?Recorded ?Confirmed ?Type divalproex 125 mg capsule,delayed 500 mg (4 x 125 mg) PO TID 06/30/20 09/16/24 Rx release sprinkle SEIZURES #360 caps simvastatin 20 mg tablet 20 mg PO HS 04/01/24 09/16/24 History buspirone 10 mg tablet 10 mg PO TID 09/16/24 09/16/24 History buspirone 15 mg tablet 10 mg PO TID Anxiety 09/16/24 History clonidine HCl 0.1 mg tablet 0.1 mg PO BID 09/16/24 History furosemide 40 mg tablet 40 mg PO DAILY 09/16/24 09/16/24 History lurasidone 120 mg tablet 120 mg PO DAILY 09/16/24 09/16/24 History propranolol 10 mg tablet 10 mg PO TID 09/16/24 09/16/24 History propranolol 20 mg tablet 10 mg PO TID 09/16/24 09/16/24 History spironolactone 25 mg tablet 25 mg PO DAILY 09/16/24 09/16/24 History ondansetron 4 mg disintegrating 4 mg PO Q6H PRN nausea and 10/18/24 Rx tablet vomiting #10 tabs New Prescriptions to Start Prescriptions: Allergies Allergy/AdvReac Type Severity Reaction Status Date / Time prochlorperazine (From Allergy Unknown Other Verified 09/16/24 10:09 COMPAZINE) Exam Data for Last 24 hours Vital signs and Labs for Last 24 Hours: Temp Pulse Resp BP Pulse Ox O2 Del Method 97.8 F 57 L 19 165/85 H 94 L Room Air 10/19/24 17:03 10/19/24 18:02 10/19/24 17:03 10/19/24 18:02 10/19/24 18:02 10/19/24 18:02 Laboratory Results - last 24 hr 10/19/24 17:12: WBC 6.4, RBC 5.18, Hgb 15.6, Hct 45.3, MCV 87.5, MCH 30.1, MCHC 34.4, RDW 13.0, Plt Count 161, MPV 11.8 H, Neut % (Auto) 68.4, Lymph % (Auto) 14.6, [place] % (Auto) 9.6 H, Eos % (Auto) 6.6, Baso % (Auto) 0.3, Neut # (Auto) 4.3, Lymph # (Auto) 0.9, [place] # (Auto) 0.6, Eos # (Auto) 0.4, Baso # (Auto) 0.0, Sodium 139, Potassium 3.4 L D, Chloride 107, Carbon Dioxide 27, Anion Gap 8.4, BUN 8 L, Creatinine 1.50 H, Estimated Creat Clear 57, Estimated GFR 50 L, Est GFR ( Amer) 60, Glucose 118 H, Lactate 0.9, Calcium 8.8, Magnesium 1.6, Total Bilirubin 0.7, AST 31, ALT 34, Alkaline Phosphatase 84, Total Protein 6.4, Albumin 4.0, Globulin 2.4, Albumin/Globulin Ratio 1.7, Lipase 58 I & O for Last 24 hours: Intake & Output 10/16/24 10/17/24 10/18/24 10/19/24 23:59 23:59 23:59 23:59 Weight 148.325 kg Constitutional Constitutional: no acute distress and obese *Routine HEENT Exam Head: Present normocephalic Eye: Present EOMI and PERRL ENT: Present mucous membranes moist *Routine Neck Exam Neck: Present supple; Absent lymphadenopathy *Routine Respiratory Exam Respiratory: Present CTA bilaterally *Routine Cardiovascular Exam Cardiovascular: Present RRR *Routine Abdominal Exam Abdominal: Present soft, normoactive bowel sounds and distended; Absent tenderness *Routine Rectal Exam Rectal:: deferred *Routine Genitalia Exam Genitalia:: deferred *Routine Extremities Exam Extremities: Absent cyanosis, clubbing or edema *Routine Skin Exam Skin: Present warm; Absent rash *Routine Neurological Exam Neurological: Present alert and oriented X3 Assessment and Plan *Assessment and plan (1) Vomiting and diarrhea: Status: Acute Category: Medical Code(s): R11.10 - Vomiting, unspecified; R19.7 - Diarrhea, unspecified Plan Taurus Senior is a 48-year-old male with a medical history significant for anxiety/depression/mood disorder, seizure disorder who presents with 2 days onset of nausea/vomiting/diarrhea. He states he has been having nonbilious emesis multiple times a day that is intractable even with antiemetics. He was evaluated in the ED yesterday and was discharged on Zofran without significant improvement in symptoms. Today he returns with similar symptoms, with a slightly worsening renal function. CT abdomen/pelvis reveals suspected gastroenteritis, but also possible colonic ileus. On my evaluation, patient had minimal bowel sounds. No tenderness. No leukocytosis. Case discussed with ED provider and she was made to admit patient for gastroenteritis, possible colonic ileus. #Intractable nausea/vomiting/diarrhea #Gastroenteritis #Possible colonic ileus ? Two-day onset of symptoms. Intractable even with antiemetics. ? CT abdomen suggestive of colonic ileus, though some of these dilated loops are chronic. ? No significant tenderness, no leukocytosis. Having bowel movements with diarrhea. ? Of note, patient does take step down without increase in dose recently. Has been taking it for 3 months. ? Supportive therapy for gastroenteritis, ileus. ? Follow-up diarrhea panel. ? IV LR at 100 mL/h. #Mood disorder #Seizure disorder - Resume valproic acid. Resume other home medications once reconciled. Full code DVT prophylaxis: Lovenox 40 mg twice daily
--- NOTE | 2024-10-19 20:38 | PC.NURSE ---
pt arrived to floor from ed via wheelchair at 2036.
[2024-10-19] MEDS: LACTATED RINGERS 1000ML 1,000 ML 100 ML IV (20:42)
[2024-10-19] MEDS: ENOXAPARIN 40MG/0.4ML SYRINGE 40 MG SUBCUT (20:42)
[2024-10-19] MEDS: DIVALPROEX SOD SPRINKLE 125MG CAPSULE 500 MG PO (20:42)
--- NOTE | 2024-10-19 21:53 | PC.NURSE ---
Liuaruna ARIASN was notified about the patient's scored criteria for a high suicide risk; diet order was also requested as well. Behavioral health consult ordered per protocol. One-on-one observation initiated this shift. Interventions applied accordingly in worklist.
[2024-10-20] MEDS: KETOROLAC 30MG/ML VIAL 30 MG IV ×3 (01:50→20:45)
[2024-10-20 03:51] VITALS: BP 148/83; PULSE 59; RESP 18; TEMP 37; O2SAT 96
[2024-10-20 04:00] VITALS: BMI 49.8
--- NOTE | 2024-10-20 04:25 | PC.NURSE ---
Mr Taurus Senior was newly admitted on behalf of the documented diagnosis intractable nausea and vomiting. Admission assessments were completed by the charge nurse (Na Grover RN) and Meenakshi See RN. The patient was observed to have eyes closed, respirations even and unlabored on room air, and no apparent distress throughout the majority of the night. Patient has not complained of further nausea/vomiting upon arrival to the floor, but did complain of abdominal discomfort once for this shift. Thus, Toradol was given for pain relief per AUG. Lovenox injection and Depakote sprinkle were both administered per AUG as well. Lactated Ringers continue to infuse at 100 mL/hr. Home medication reconciliation was performed via external medication history. Patient is alert and oriented x4. Reserved affect noted. During admission assessments, the patient expressed suicidal/self-harm criteria, scoring high risk (see prior note). One-on-one observation ongoing; patient has remained within arms reach of nursing staff at all times. Upon auscultation of his lungs, diminished air movement was heard with audible wheezing. Bowel sounds were more hypoactive in the left quadrants compared to the right quadrants. Patient reports having diarrhea as well; however, the patient has not had a bowel movement thus far this shift, so the diarrhea panel remains uncollected. Heart sounds are within normal findings. Patient tolerated consuming chocolate pudding and ice water very well for a bedtime snack. Seizure pads in place per documented seizure disorder. He ambulates independently (with required supervision) without any difficulties. At this time, the patient is resting in bed without any further complaints. No new needs at this time. Call light within reach.
[2024-10-20 08:00] VITALS: BP 146/86; PULSE 67; RESP 16; TEMP 36.6; O2SAT 97
[2024-10-20 08:05] LABS: Basophils % 0.5 % (0.1-2.0); Eosinophils # 0.3 Kmm3 (0.0-0.4); Eosinophils % 8.5 % (0.1-12.0); Hematocrit 37.9 % (42.0-52.0); Immature Granulocytes # 0.01 10^3uL; Immature Granulocytes % 0.3 %; Lymphocytes # 0.9 K/mm3 (0.7-4.5); Lymphocytes % 22.6 % (10-50); Mean Corpuscular HGB Conc 34.6 g/dL (31.8-35.4); Mean Corpuscular Hemoglobin 30.2 pg (27.0-31.2); Mean Corpuscular Volume 87.3 fl (80-94); Mean Platelet Volume 12.3 fl (7.4-10.4); Monocytes # 0.6 K/mm3 (0.1-1.0); Monocytes % 15.4 % (1.7-9.3); Neutrophils # 2.1 K/mm3 (1.8-7.8); Neutrophils % 52.7 % (37.0-80.0); Nucleated Red Blood Cells # 0 10^3/uL; Nucleated Red Blood Cells % 0 %; Platelet Count 120 K/mm3 (142-424); Red Blood Count 4.34 M/mm3 (4.60-6.20); Red Cell Distribution Width 12.9 % (11.5-17.5); Red Cell Distribution Width-SD 40.9 fL; White Blood Count 3.9 K/mm3 (4.8-10.8)
[2024-10-20 08:16] LABS: Chloride 109 mmol/L (98-107); Sodium 135 mmol/L (136-145)
[2024-10-20 08:19] LABS: Alanine Aminotransferase 25 U/L (12-78); Albumin/Globulin Ratio 1.4 (1.1-1.8); Alkaline Phosphatase 70 U/L (38-126); Aspartate Amino Transferase 23 U/L (17-59); Bilirubin,Total 0.5 mg/dl (0.2-1.3); Blood Urea Nitrogen 8 mg/dl (9-20); Carbon Dioxide 25 mmol/L (22.0-30.0); Creatinine Clearance Estimated 66 mL/min (50-200); Estimated Glomerular Filt Rate 58 ml/min (>60); GFR (African American) 71 ML/MIN (>60); Globulin 2.2 g/dL (1.3-3.2); Glucose 99 mg/dl (74-100); Total Protein,Serum 5.2 g/dl (6.3-8.2)
[2024-10-20 08:20] LABS: Magnesium 1.6 mg/dl (1.6-2.3)
[2024-10-20] MEDS: ENOXAPARIN 40MG/0.4ML SYRINGE 40 MG SUBCUT ×2 (09:09→20:48)
[2024-10-20] MEDS: DIVALPROEX SOD SPRINKLE 125MG CAPSULE 500 MG PO ×2 (09:10→12:30)
[2024-10-20] MEDS: LACTATED RINGERS 1000ML 1,000 ML 100 ML IV (09:10)
[2024-10-20] MEDS: POTASSIUM CHLORIDE 20MEQ TAB 40 MEQ PO ×3 (09:45→16:46)
[2024-10-20] MEDS: MAGNESIUM SULFATE IN WATER 2 GM/50 ML PIGGYBACK IV ×2 (09:45→11:08)
[2024-10-20] MEDS: ONDANSETRON 4MG/2ML VIAL 4 MG IV ×2 (09:50→21:05)
[2024-10-20] MEDS: PRAZOSIN 1MG CAP 1 MG PO (15:21)
[2024-10-20] MEDS: BUSPIRONE HCL 10 MG TABLET PO ×2 (15:22→20:49)
[2024-10-20] MEDS: PROPRANOLOL 20MG TAB 10 MG PO ×2 (15:22→20:48)
[2024-10-20 15:28] LABS: Adenovirus F 40/41, stool Not Detected (NotDetected); Astrovirus Not Detected (NotDetected); Campylobacter Not Detected (NotDetected); Clostridium Difficile A/B, PCR Not Detected (NotDetected); Cryptosporidium Not Detected (NotDetected); Cyclospora Cayetanesis Not Detected (NotDetected); Entamoeba histolytica Not Detected (NotDetected); Enteroaggregative E coli Not Detected (NotDetected); Enteropathogenic E coli Not Detected (NotDetected); Enterotoxigenic E coli Not Detected (NotDetected); Giardia lamblia Not Detected (NotDetected); Norovirus Not Detected (NotDetected); Plesimonas Shigalloides, PCR Not Detected (NotDetected); Rotavirus A Not Detected (NotDetected); Salmonella, PCR Not Detected (NotDetected); Sapovirus Not Detected (NotDetected); Shiga-like toxin E coli Not Detected (NotDetected); Shigella Enterovasive E coli Not Detected (NotDetected); Vibrio Cholerae Not Detected (NotDetected); Vibrio, PCR Not Detected (NotDetected); Yersinia Entercolitica, PCR Not Detected (NotDetected)
[2024-10-20 16:00] VITALS: BP 128/71; PULSE 63; RESP 16; TEMP 36.7; O2SAT 96
--- NOTE | 2024-10-20 17:22 | PC.NURSE ---
pt resting supine in bed. pt remains in 1:1 observation r/t SI. pt has denied having any SI this shift. home medications restarted and administered per aug. magnesium and potassium replaced per electrolyte replacement protocol. pt remains polite and respectful. shower taken this shift. pt remains in seizure precautions. no needs voiced at this time. call light within reach.
--- NOTE | 2024-10-20 18:16 | P.PN_ITS ---
Subjective *Date: 10/20/24 *Time: 18:16 Interval history: Patient continues to look depressed, lethargic. Endorsed SI last night to nurses. Denies at this morning. Had a bowel movement today. Advance diet to low-residue diet. Will have behavioral health see patient in the morning. Exam Data for Last 24 hours Vital signs and Labs for Last 24 Hours: Temp Pulse Resp BP Pulse Ox O2 Del Method 98.0 F 63 16 128/71 96 Room Air 10/20/24 16:00 10/20/24 16:00 10/20/24 16:00 10/20/24 16:00 10/20/24 16:00 10/20/24 17:00 Laboratory Results - last 24 hr 10/20/24 07:15: WBC 3.9 L D, RBC 4.34 L, Hgb 13.0 L D, Hct 37.9 L, MCV 87.3, MCH 30.2, MCHC 34.6, RDW 12.9, Plt Count 120 L D, MPV 12.3 H, Neut % (Auto) 52.7, Lymph % (Auto) 22.6, [place] % (Auto) 15.4 H, Eos % (Auto) 8.5, Baso % (Auto) 0.5, Neut # (Auto) 2.1, Lymph # (Auto) 0.9, [place] # (Auto) 0.6, Eos # (Auto) 0.3, Baso # (Auto) 0.0, Sodium 135 L, Potassium 3.0 L, Chloride 109 H, Carbon Dioxide 25, Anion Gap 4.0 L, BUN 8 L, Creatinine 1.30 H, Estimated Creat Clear 66, Estimated GFR 58 L, Est GFR ( Amer) 71, Glucose 99, Calcium 8.0 L, Magnesium 1.6, Total Bilirubin 0.5, AST 23 D, ALT 25 D, Alkaline Phosphatase 70, Total Protein 5.2 L, Albumin 3.0 L D, Globulin 2.2, Albumin/Globulin Ratio 1.4 10/20/24 14:54: Stl Aeromonas (PCR) Not detected, Stl C. cayetanensis PCR Not detected, Stool Rotavirus (PCR) Not detected, Stl Adenov F 40/41 PCR Not detected, Stool Astrovirus (PCR) Not detected, Stool Campylobacter PCR Not detected, Stl C.difficile Tox PCR Not detected, Stool Cryptosporidium PCR Not detected, Stl E.coli Shiga Tox PCR Not detected, Stool E coli O157 PCR Not detected, Stl Enterotoxigenic E PCR Not detected, Stool EPEC (PCR) Not detected, Stool EAEC (PCR) Not detected, Stl E. histolytica PCR Not detected, Stool Giardia Lamblia PCR Not detected, Stool Salmonella PCR Not detected, Stool Sapovirus (PCR) Not detected, Stl P. shigelloides PCR Not detected, Stl Shigella/EIEC PCR Not detected, St Y.enterocolitica PCR Not detected, Stool Vibrio (PCR) Not detected, Stl Vibrio cholerae PCR Not detected, Stl Norovirus GI/GII PCR Not detected I & O for Last 24 hours: Intake & Output 10/17/24 10/18/24 10/19/24 10/20/24 23:59 23:59 23:59 23:59 Intake Total 4042 / 4042 Output Total 0 / 0 200 / 200 Balance 0 / 2230 3842 / 3842 Weight 149.005 kg 149.005 kg Constitutional Constitutional: no acute distress and obese *Routine HEENT Exam Head: Present normocephalic Eye: Present EOMI and PERRL ENT: Present mucous membranes moist *Routine Neck Exam Neck: Present supple; Absent lymphadenopathy *Routine Respiratory Exam Respiratory: Present CTA bilaterally *Routine Cardiovascular Exam Cardiovascular: Present RRR *Routine Abdominal Exam Abdominal: Present soft and normoactive bowel sounds; Absent tenderness *Routine Extremities Exam Extremities: Absent cyanosis, clubbing or edema *Routine Skin Exam Skin: Present warm; Absent rash *Routine Neurological Exam Neurological: Present alert and oriented X3 Assessment and Plan *Assessment and plan (1) Vomiting and diarrhea: Status: Acute Category: Medical Code(s): R11.10 - Vomiting, unspecified; R19.7 - Diarrhea, unspecified Plan Taurus Senior is a 48-year-old male with a medical history significant for anxiety/depression/mood disorder, seizure disorder who presents with 2 days onset of nausea/vomiting/diarrhea. He states he has been having nonbilious emesis multiple times a day that is intractable even with antiemetics. He was evaluated in the ED yesterday and was discharged on Zofran without significant improvement in symptoms. Today he returns with similar symptoms, with a slightly worsening renal function. CT abdomen/pelvis reveals suspected gastroenteritis, but also possible colonic ileus. On my evaluation, patient had minimal bowel sounds. No tenderness. No leukocytosis. Case discussed with ED provider and she was made to admit patient for gastroenteritis, possible colonic ileus. #Intractable nausea/vomiting/diarrhea #Gastroenteritis # Suspected colonic ileus ? Two-day onset of symptoms. Intractable even with antiemetics. ? CT abdomen suggestive of colonic ileus, though some of these dilated loops are chronic. ? No significant tenderness, no leukocytosis. Having bowel movements with diarrhea. ? Of note, patient does take Zepbound (GLP-1 agonist) without increase in dose recently. Has been taking it for 3 months. Likely contributing. ? Supportive therapy for gastroenteritis, ileus. Diarrhea panel normal. ? Did have a bowel movement today, will advance diet to low residue diet. ?Continue IV LR at 100 mL/h. #Depression #History of suicidal ideation #Mood disorder #Seizure disorder ? Endorses history of depression, seems very lethargic and demotivated during hospitalization. Did not even want to be cleaned after bowel movement in the bed today. ? Recently admitted to [facility] inpatient [facility] in August 2024. Discharged with changes in psychotropic medications. ? Endorsed SI to the nurses last night. Denies that this morning, without plan. ? Behavioral health consulted, pending further recommendations. - Resume valproic acid, Wellbutrin, buspirone, clonidine, prazosin, propranolol. Full code DVT prophylaxis: Lovenox 40 mg twice daily
[2024-10-20 20:00] VITALS: PULSE 61; RESP 18; O2SAT 98
[2024-10-20] MEDS: DIVALPROEX 500MG (Delayed-Release) TABLET 500 MG PO (20:48)
[2024-10-20] MEDS: buPROPion HCl SR 150MG TAB 150 MG PO (20:48)
[2024-10-20] MEDS: cloNIDine 0.1MG TABLET 0.1 MG PO (20:48)
[2024-10-20] MEDS: PREGABALIN 50MG CAPSULE 150 MG PO (20:48)
[2024-10-20 23:53] VITALS: BP 118/74; PULSE 65; RESP 16; TEMP 36.8; O2SAT 97
[2024-10-21] MEDS: LACTATED RINGERS 1000ML 1,000 ML 100 ML IV (00:50)
--- NOTE | 2024-10-21 03:15 | PC.NURSE ---
Patient is alert and oriented x4. Reserved affect ongoing. He was observed to have eyes closed, respirations even and unlabored on room air, and no apparent distress throughout the majority of the night. He continues to have complaints of abdominal discomfort and nausea, with one witnessed regurgitation episode this shift. Toradol and Zofran were administered for these symptoms per MAR. Patient requested to take his oral medications with chocolate pudding. He tolerated the intake well, and it appeared to have aided in keeping his pills down. Sofi swapnil was also provided for upset stomach. Cold rag compress applied to forehead. Lactated Ringers continue to infuse at 100 mL/hr. He also continues to report having runny bowel movements. Bowels active in all quadrants. Lung sounds diminished, no audible wheezing was presented during this shift. Suicide assessment performed. One-on-one observation ongoing. Seizure pads remain in place. Patient continues to ambulate independently (with required supervision) without any difficulties. At this time, the patient is resting in bed without any further complaints. No acute changes noted thus far. Call light within reach.
[2024-10-21 03:47] VITALS: BMI 49.8
[2024-10-21 06:37] LABS: Basophils % 0.8 % (0.1-2.0); Eosinophils # 0.3 Kmm3 (0.0-0.4); Eosinophils % 8.7 % (0.1-12.0); Immature Granulocytes # 0.01 10^3uL; Immature Granulocytes % 0.3 %; Lymphocytes % 26.6 % (10-50); Mean Corpuscular HGB Conc 34.2 g/dL (31.8-35.4); Mean Corpuscular Volume 87.8 fl (80-94); Mean Platelet Volume 11.8 fl (7.4-10.4); Monocytes # 0.5 K/mm3 (0.1-1.0); Monocytes % 12.9 % (1.7-9.3); Neutrophils # 1.8 K/mm3 (1.8-7.8); Neutrophils % 50.7 % (37.0-80.0); Nucleated Red Blood Cells # 0 10^3/uL; Nucleated Red Blood Cells % 0 %; Platelet Count 128 K/mm3 (142-424); Red Blood Count 4.33 M/mm3 (4.60-6.20); Red Cell Distribution Width 12.9 % (11.5-17.5); Red Cell Distribution Width-SD 41.1 fL; White Blood Count 3.6 K/mm3 (4.8-10.8)
[2024-10-21 06:41] LABS: Alanine Aminotransferase 26 U/L (12-78); Albumin Level 3.1 g/dl (3.5-5.0); Albumin/Globulin Ratio 1.5 (1.1-1.8); Alkaline Phosphatase 66 U/L (38-126); Anion Gap 3.7 mEq/L (5-15); Aspartate Amino Transferase 25 U/L (17-59); Bilirubin,Total 0.6 mg/dl (0.2-1.3); Blood Urea Nitrogen 7 mg/dl (9-20); Calcium 8.1 mg/dl (8.4-10.2); Carbon Dioxide 25 mmol/L (22.0-30.0); Chloride 114 mmol/L (98-107); Creatinine Clearance Estimated 71 mL/min (50-200); Estimated Glomerular Filt Rate 64 ml/min (>60); GFR (African American) 78 ML/MIN (>60); Globulin 2.1 g/dL (1.3-3.2); Glucose 91 mg/dl (74-100); Magnesium 2.3 mg/dl (1.6-2.3); Potassium 3.7 mmoL/L (3.5-5.1); Sodium 139 mmol/L (136-145); Total Protein,Serum 5.2 g/dl (6.3-8.2)
[2024-10-21 08:00] VITALS: BP 128/81; PULSE 49; RESP 16; O2SAT 95
[2024-10-21] MEDS: cloNIDine 0.1MG TABLET 0.1 MG PO (09:02)
[2024-10-21] MEDS: PROPRANOLOL 20MG TAB 10 MG PO (09:02)
[2024-10-21] MEDS: BUSPIRONE HCL 10 MG TABLET PO (09:02)
[2024-10-21] MEDS: PRAZOSIN 1MG CAP 1 MG PO (09:02)
[2024-10-21] MEDS: buPROPion HCl SR 150MG TAB 150 MG PO (09:02)
[2024-10-21] MEDS: DIVALPROEX 500MG (Delayed-Release) TABLET 500 MG PO (09:03)
[2024-10-21] MEDS: PREGABALIN 50MG CAPSULE 150 MG PO (09:47)
[2024-10-21] MEDS: ENOXAPARIN 40MG/0.4ML SYRINGE 40 MG SUBCUT (09:47)
--- NOTE | 2024-10-21 10:06 | P.DS_ITS ---
General Admission date:: 10/20/24 HPI HPI HPI: Taurus Senior is a 48-year-old male with a medical history significant for anxiety/depression/mood disorder, seizure disorder who presents with 2 days onset of nausea/vomiting/diarrhea. He states he has been having nonbilious emesis multiple times a day that is intractable even with antiemetics. He was evaluated in the ED yesterday and was discharged on Zofran without significant improvement in symptoms. Today he returns with similar symptoms, with a slightly worsening renal function. CT abdomen/pelvis reveals suspected gastroenteritis, but also possible colonic ileus. On my evaluation, patient had minimal bowel sounds. No tenderness. No leukocytosis. Case discussed with ED provider and she was made to admit patient for gastroenteritis, possible colonic ileus. Hospital Course Hospital Course Hospital Course: Taurus Senior is a 48-year-old male with a medical history significant for anxiety/depression/mood disorder, seizure disorder who presents with 2 days onset of nausea/vomiting/diarrhea. He states he has been having nonbilious emesis multiple times a day that is intractable even with antiemetics. He was evaluated in the ED yesterday and was discharged on Zofran without significant improvement in symptoms. Today he returns with similar symptoms, with a slightly worsening renal function. CT abdomen/pelvis reveals suspected gastroenteritis, but also possible colonic ileus. On my evaluation, patient had minimal bowel sounds. No tenderness. No leukocytosis. Case discussed with ED provider and she was made to admit patient for gastroenteritis, possible colonic ileus. #Intractable nausea/vomiting/diarrhea #Gastroenteritis #Suspected colonic ileus ? Presented with Two-day onset of symptoms, intractable even with antiemetics. ? CT abdomen suggestive of colonic ileus, though some of these dilated loops are chronic. ? No significant tenderness, no leukocytosis. Having bowel movements with diarrhea. ? Of note, patient does take Zepbound (GLP-1 agonist) without increase in dose recently. Has been taking it for 3 months. Likely contributing. ? Clinically improved with supportive therapy, IV fluids. Patient is having bowel movements. No signs of infection. ? Recommended patient hold Zepbound until further evaluation by PCP. #Depression #History of suicidal ideation #Mood disorder #Seizure disorder ? Endorses history of depression, seems very lethargic and demotivated during h ospitalization. Improved over the hospital course. ? Recently admitted to [facility] psychiatry in August 2024. Discharged with changes in psychotropic medications. ? Behavioral health consulted after endorsing passive SI without plan, recommended continuing current medications and following up with established appointment with polly Owens on 10/29/2024. - Continue valproic acid, Wellbutrin, buspirone, clonidine, prazosin, propranolol. Exam Data for Last 24 hours Vital signs and Labs for Last 24 Hours: Temp Pulse Resp BP Pulse Ox O2 Del Method 98.2 F 65 16 118/74 97 Room Air 10/20/24 23:53 10/20/24 23:53 10/20/24 23:53 10/20/24 23:53 10/20/24 23:53 10/21/24 06:30 Laboratory Results - last 24 hr 10/20/24 14:54: Stl Aeromonas (PCR) Not detected, Stl C. cayetanensis PCR Not detected, Stool Rotavirus (PCR) Not detected, Stl Adenov F 40/41 PCR Not detected, Stool Astrovirus (PCR) Not detected, Stool Campylobacter PCR Not detected, Stl C.difficile Tox PCR Not detected, Stool Cryptosporidium PCR Not detected, Stl E.coli Shiga Tox PCR Not detected, Stool E coli O157 PCR Not detected, Stl Enterotoxigenic E PCR Not detected, Stool EPEC (PCR) Not detected, Stool EAEC (PCR) Not detected, Stl E. histolytica PCR Not detected, Stool Giardia Lamblia PCR Not detected, Stool Salmonella PCR Not detected, Stool Sapovirus (PCR) Not detected, Stl P. shigelloides PCR Not detected, Stl Shigella/EIEC PCR Not detected, St Y.enterocolitica PCR Not detected, Stool Vibrio (PCR) Not detected, Stl Vibrio cholerae PCR Not detected, Stl Norovirus GI/GII PCR Not detected 10/21/24 06:16: WBC 3.6 L, RBC 4.33 L, Hgb 13.0 L, Hct 38.0 L, MCV 87.8, MCH 30.0, MCHC 34.2, RDW 12.9, Plt Count 128 L, MPV 11.8 H, Neut % (Auto) 50.7, Lymph % (Auto) 26.6, [place] % (Auto) 12.9 H, Eos % (Auto) 8.7, Baso % (Auto) 0.8, Neut # (Auto) 1.8, Lymph # (Auto) 1.0, [place] # (Auto) 0.5, Eos # (Auto) 0.3, Baso # (Auto) 0.0, Sodium 139, Potassium 3.7 D, Chloride 114 H, Carbon Dioxide 25, Anion Gap 3.7 L, BUN 7 L, Creatinine 1.20, Estimated Creat Clear 71, Estimated GFR 64, Est GFR ( Amer) 78, Glucose 91, Calcium 8.1 L, Magnesium 2.3 D, Total Bilirubin 0.6, AST 25, ALT 26, Alkaline Phosphatase 66, Total Protein 5.2 L, Albumin 3.1 L, Globulin 2.1, Albumin/Globulin Ratio 1.5 I & O for Last 24 hours: Intake & Output 10/18/24 10/19/24 10/20/24 10/21/24 23:59 23:59 23:59 23:59 Intake Total 4042 / 4382 340 / 340 Output Total 0 / 0 200 / 200 0 / 0 Balance 0 0 3842 / 4182 340 / 340 Weight 149.005 kg 149.005 kg 149.232 kg Constitutional Constitutional: no acute distress and obese *Routine HEENT Exam Head: Present normocephalic Eye: Present EOMI and PERRL ENT: Present mucous membranes moist *Routine Neck Exam Neck: Present supple; Absent lymphadenopathy *Routine Respiratory Exam Respiratory: Present CTA bilaterally *Routine Cardiovascular Exam Cardiovascular: Present RRR *Routine Abdominal Exam Abdominal: Present soft and normoactive bowel sounds; Absent tenderness *Routine Extremities Exam Extremities: Absent cyanosis, clubbing or edema *Routine Skin Exam Skin: Present warm; Absent rash *Routine Neurological Exam Neurological: Present alert and oriented X3 Results Data Completed and Pending Labs on day of discharge: Labs from last 24 hours 10/21/24 10/20/24 06:16 14:54 WBC 3.6 L RBC 4.33 L Hgb 13.0 L Hct 38.0 L MCV 87.8 MCH 30.0 MCHC 34.2 RDW 12.9 Plt Count 128 L MPV 11.8 H Neut % (Auto) 50.7 Lymph % (Auto) 26.6 [place] % (Auto) 12.9 H Eos % (Auto) 8.7 Baso % (Auto) 0.8 Neut # (Auto) 1.8 Lymph # (Auto) 1.0 [place] # (Auto) 0.5 Eos # (Auto) 0.3 Baso # (Auto) 0.0 Sodium 139 Potassium 3.7 D Chloride 114 H Carbon Dioxide 25 Anion Gap 3.7 L BUN 7 L Creatinine 1.20 Estimated Creat Clear 71 Estimated GFR 64 Est GFR ( Amer) 78 Glucose 91 Calcium 8.1 L Magnesium 2.3 D Total Bilirubin 0.6 AST 25 ALT 26 Alkaline Phosphatase 66 Total Protein 5.2 L Albumin 3.1 L Globulin 2.1 Albumin/Globulin Ratio 1.5 Stl Aeromonas (PCR) Not detected Stl C. cayetanensis PCR Not detected Stool Rotavirus (PCR) Not detected Stl Adenov F 40/41 PCR Not detected Stool Astrovirus (PCR) Not detected Stool Campylobacter PCR Not detected Stl C.difficile Tox PCR Not detected Stool Cryptosporidium PCR Not detected Stl E.coli Shiga Tox PCR Not detected Stool E coli O157 PCR Not detected Stl Enterotoxigenic E PCR Not detected Stool EPEC (PCR) Not detected Stool EAEC (PCR) Not detected Stl E. histolytica PCR Not detected Stool Giardia Lamblia PCR Not detected Stool Salmonella PCR Not detected Stool Sapovirus (PCR) Not detected Stl P. shigelloides PCR Not detected Stl Shigella/EIEC PCR Not detected St Y.enterocolitica PCR Not detected Stool Vibrio (PCR) Not detected Stl Vibrio cholerae PCR Not detected Stl Norovirus GI/GII PCR Not detected DS: Diagnosis Discharge Diagnosis (1) Vomiting and diarrhea: Status: Acute Code(s): R11.10 - Vomiting, unspecified; R19.7 - Diarrhea, unspecified Meds Home Medications and Allergies Home Medications ?Medication ?Instructions ?Recorded ?Confirmed ?Type simvastatin 20 mg tablet 20 mg PO HS 04/01/24 10/20/24 History buspirone 10 mg tablet 10 mg PO TID 09/16/24 10/19/24 History clonidine HCl 0.1 mg tablet 0.1 mg PO BID 09/16/24 10/20/24 History lurasidone 120 mg tablet 120 mg PO DAILY 09/16/24 10/19/24 History propranolol 10 mg tablet 10 mg PO TID 09/16/24 10/19/24 History bupropion HCl 300 mg 24 hr tablet, 300 mg PO DAILY 10/19/24 10/19/24 History extended release prazosin 1 mg capsule 1 mg PO DAILY 10/19/24 10/19/24 History pregabalin 150 mg capsule 150 mg PO BID 10/19/24 10/19/24 History tirzepatide (weight loss) 2.5 2.5 mg SQ WEEKLY 10/19/24 10/20/24 History mg/0.5 mL subcutaneous pen injector (Zepbound) divalproex 500 mg tablet,delayed 500 mg PO TID 10/20/24 10/20/24 History release New Prescriptions to Start Prescriptions: Allergies Allergy/AdvReac Type Severity Reaction Status Date / Time prochlorperazine (From Allergy Unknown Other Verified 09/16/24 10:09 COMPAZINE) Discharge Plan Disposition Patient Disposition: Home, Self-Care Condition: Fair Discharge Order Discharge Orders: Discharge Order (Routine); Ordered 10/21/24 Ordered By: Herbie Alfredo Follow up Plan Follow up with: Palak Martinez APRN [Primary Care Provider] - 10/29/24 8:00 am Prescriptions/Medication Reconciliation: Continued clonidine HCl 0.1 mg tablet 0.1 mg PO BID lurasidone 120 mg tablet 120 mg PO DAILY Rx Instructions: must administer with food (at least 350 calories) buspirone 10 mg tablet 10 mg PO TID propranolol 10 mg tablet 10 mg PO TID simvastatin 20 mg tablet 20 mg PO HS prazosin 1 mg capsule 1 mg PO DAILY bupropion HCl 300 mg tablet extended release 24 hr 300 mg PO DAILY pregabalin 150 mg capsule 150 mg PO BID divalproex 500 mg tablet,delayed release (DR/EC) 500 mg PO TID Held Zepbound 2.5 mg/0.5 mL pen injector 2.5 mg SQ WEEKLY Hold Instructions: Resume on 11/04/24. This medication may be causing your GI distress. Please follow-up with your PCP for further discussion. Patient Comments: inject 2.5 mg under the skin every week for 4 weeks then 5mg once weekly Rx Instructions: Inject 2.5 mg under the skin every week for 4 weeks, then 5mg once weekly. Problem Reconciliation Problems Reviewed?: Yes Patient Discharge Instructions Patient Instructions: Nausea and Vomiting-Adult Print Language: Moroccan Providers Primary Care Provider: Palak Martinez Admit Provider: Herbie Alfredo Attending Provider: Herbie Alfredo
--- NOTE | 2024-10-21 12:56 | EXP.BH.CONS ---
History of Present Illness *Admission Date: 10/19/24 *Reason for visit:: Abdominal pain *History of present illness: Taurus Senior is a 48-year-old male with a medical history significant for anxiety/depression/mood disorder, seizure disorder who presents with 2 days onset of nausea/vomiting/diarrhea. Behavioral health consulted on this patient for a history of suicidal ideation with no attempts. patient has a history of bipolar disorder and is seen outpatient at [facility] in [place] for therapy and medication management. Patient has follow up appointments scheduled with both. Patient was admitted to [facility] in August for suicidal ideation with a plan and was panicked that he would try to complete the plan so he told his therapist who set up his admission for him. Patient has felt better since this admission and has not had any suicidal ideation since. Patient is still dealing with a lot of lingering depression however, from the event that led him to need inpatient psychiatric care. 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 He was admitted at this time. He has also had some health concerns lately and has been admitted to [facility] and at within the last little bit. Patient states that he feels better than when he was admitted in August and has not had suicidal or homicidal thoughts since then. MENTAL STATUS EXAM:? MOOD: Patient is calm, cooperative, and engaged in the session today. ANXIETY: There are no apparent signs of anxiety.? APPEARANCE: Patient is normal in appearance with age appropriate dress and grooming and appears to be stated age.? APPETITE:? No issues with appetite.? No significant weight loss or weight gain. ENERGY: Energy is normal.? CONCENTRATION: WNL? IRRITABILITY: denies ?? AFFECT:? Full-range.? THOUGHT CONTENT AND PROCESS:? Hallucinations and delusions are denied and behavior is generally appropriate. Associations are intact, thinking is basically logical and thought content is appropriate. There are no signs of cognitive difficulty, based on vocabulary and fund of knowledge.? SPEECH:? Speech is normal in rate, volume, and articulation and language skills are intact.??? PSYCHOMOTOR:? There is no apparent psychomotor retardation noted at this time. ORIENTATION:? Memory is intact for recent and remote events and the patient is oriented to time, place, and person.?? SUICIDAL IDEATIONS:? Patient convincingly denies suicidal and self-injurious ideas or intentions.?None since admission to [facility] in August. HOMICIDAL IDEATIONS: Homicidal or assaultive ideas or intentions are also denied.?? INSIGHT:? Insight appears to be intact.? JUDGMENT: Judgment is intact.? [facility] Disclaimer: The information contained in this section may have been updated after the patient was seen, as this information can be updated by other users. Medical History (Updated 10/20/24 @ 04:40 by Patricia Blair RN) Seizure disorder Tremor Acute constipation Lumbar radiculopathy, acute Abnormal MRI, thoracic spine Myelopathy Episodic migraine BMI 50.0-59.9, adult Myelopathy Hypokalemia Acute viral syndrome Abdominal pain Headache Ribs, multiple fractures Gastroenteritis Viral gastroenteritis Cellulitis Obesity BMI greater than 40 Closed left ankle fracture Left ureteral calculus Transverse myelitis Bipolar 1 disorder Hyperlipidemia Arthritis Depression Acute adjustment disorder with anxiety Surgical History History of surgery on lower extremity History of ankle surgery Family History Other Cancer Diabetes Heart attack Hypertension Social History (Updated 10/19/24 @ 21:30 by FREDIS Daly) Smoking Status: Never smoker alcohol intake: never substance use type: denies use current occupational status: employed, unemployed and disabled Travel in the last 8 weeks?: None household members: family housing: house marital status: single 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 current occupational exposures/hazards: No caffeine: Yes Have you lived/traveled outside US in past 30 days?: No Contact w/someone who lives/traveled outside US past 30 days?: No Exposure to someone with infectious disease in past 14 days?: No Do you have a fever (greater than 100.4 F or 38 C)?: Yes Have you tested positive for COVID-19?: No Exposed to someone with COVID-19 in past 14 days?: No Do you have a sore throat?: No Do you have a cough?: No Do you have any weakness?: No Are you experiencing any nausea/vomitting?: Yes Do you have any diarrhea?: Yes Are you experiencing any unusual bleeding?: No Do you have any muscle aches/pain?: No Do you have any abdominal pain?: Yes Are you experiencing loss of taste or smell?: No Meds Home Medications and Allergies Home Medications ?Medication ?Instructions ?Recorded ?Confirmed ?Type simvastatin 20 mg tablet 20 mg PO HS 04/01/24 10/20/24 History buspirone 10 mg tablet 10 mg PO TID 09/16/24 10/19/24 History clonidine HCl 0.1 mg tablet 0.1 mg PO BID 09/16/24 10/20/24 History lurasidone 120 mg tablet 120 mg PO DAILY 09/16/24 10/19/24 History propranolol 10 mg tablet 10 mg PO TID 09/16/24 10/19/24 History bupropion HCl 300 mg 24 hr tablet, 300 mg PO DAILY 10/19/24 10/19/24 History extended release prazosin 1 mg capsule 1 mg PO DAILY 10/19/24 10/19/24 History pregabalin 150 mg capsule 150 mg PO BID 10/19/24 10/19/24 History tirzepatide (weight loss) 2.5 2.5 mg SQ WEEKLY 10/19/24 10/20/24 History mg/0.5 mL subcutaneous pen injector (Zepbound) divalproex 500 mg tablet,delayed 500 mg PO TID 10/20/24 10/20/24 History release New Prescriptions to Start Prescriptions: Allergies Allergy/AdvReac Type Severity Reaction Status Date / Time prochlorperazine (From Allergy Unknown Other Verified 09/16/24 10:09 COMPAZINE) Assessment and Plan *Assessment and plan (1) Bipolar 1 disorder: Problem Comment: Active follow-up with Scott Owens [place], [place] Status: Chronic Category: Medical Code(s): F31.9 - Bipolar disorder, unspecified Plan: Follow up with his established providers at [facility] as scheduled Plan Follow up with his established providers at [facility] as scheduled
--- NOTE | 2024-10-22 11:12 | SW/DCPLANNER ---
Spoke with patient on the phone. Patient stated that he is doing pretty good. Patient stated that he is aware of his upcoming appointments. Patient stated that he was not prescribed any new medicine and to continue his medicine he was on and they held his zepbound till he sees his PCP. Patient stated that he has no concerns or questions at this time. Belén Shaffer
== END 2024-10-21 12:14 | disposition home or self-care (01) | DRG 389 ==
LOC: ER 17:01 → 2ND 18:38
PROVIDERS: Admitting Provider Student in an Organized Health Care Education/Training Program; Emergency Provider Emergency Medicine; PCP Nurse Practitioner; Visit Provider Student in an Organized Health Care Education/Training Program
DX: K56.7 Ileus, unspecified (principal); N17.9 Acute kidney failure, unspecified; Z68.42 Body mass index [BMI] 45.0-49.9, adult; R11.10 Vomiting, unspecified; G40.909 Epilepsy, unspecified, not intractable, without status epilepticus; E66.9 Obesity, unspecified; F31.9 Bipolar disorder, unspecified; R19.7 Diarrhea, unspecified; Z79.899 Other long term (current) drug therapy; Z88.8 Allergy status to other drugs, medicaments and biological substances; Z91.51 Personal history of suicidal behavior; Z80.9 Family history of malignant neoplasm, unspecified; Z83.3 Family history of diabetes mellitus; Z82.49 Family history of ischemic heart disease and other diseases of the circulatory system; Z79.85 Long-term (current) use of injectable non-insulin antidiabetic drugs
CPT/HCPCS: 36415; 80053; 83605; 83690; 83735; 85025; 87507; 99285; G0378; J1171; J1650; J1885; J2405; J2765; J3475; J7120

== ENCOUNTER 2025-02-13 15:56 | Emergency (ER) | payer MEDICARE, MEDICAID, SELFPAY ==
--- OUTSIDE RECORDS SUMMARY | 2025-01-17 13:49 | XMS_ITS | Encounter Summary ---
Author Organization [facility] Address [address] [place] [address] Care Team Providers Care Scaffold Erector Name Role Phone Palak Martinez APRN Primary Care Provider + [phone] Reason for Referral * Imaging (Routine) - Closed Specialty Diagnoses / Procedures Referred By Contac t Referred To Contact Radiology Diagnoses Demyelinating disease (CMS/HCC) Procedures MR Thoracic Spine wo IV Contrast Jacob Salmeron DO [address] [address] Phone: tel: fax: Referral ID Status Reason Start Date Expiration Date Visits Re quested Visits Authorized [id number] Closed 10/08/2024 04/09/2026 1 1 * Imaging (Routine) - Closed Specialty Diagnoses / Procedures Referred By Contac t Referred To Contact Radiology Diagnoses Demyelinating disease (CMS/HCC) Procedures MR Cervical Spine wo IV Contrast Jacob Salmeron DO [address] [address] Phone: tel: fax: Referral ID Status Reason Start Date Expiration Date Visits Re quested Visits Authorized [id number] Closed 10/08/2024 04/09/2026 1 1 * Imaging (Routine) - Closed Specialty Diagnoses / Procedures Referred By Contac t Referred To Contact Radiology Diagnoses Demyelinating disease (CMS/HCC) Procedures MR Head wo IV Contrast Jacob Salmeron DO [address] [address] Phone: tel: fax: Referral ID Status Reason Start Date Expiration Date Visits Re quested Visits Authorized [id number] Closed 10/08/2024 04/09/2026 1 1 Reason for Visit * Imaging (Routine) - Closed Specialty Diagnoses / Procedures Referred By Simon merritt Referred To Contact Radiology Diagnoses Demyelinating disease (CMS/HCC) Procedures MR Thoracic Spine wo IV Contrast Jacob Salmeron DO [address] [address] Phone: tel: fax: Referral ID Status Reason Start Date Expiration Date Visits Re quested Visits Authorized [id number] Closed 10/08/2024 04/09/2026 1 1 Encounter Details Date Type Department Care Team (Latest Contact Info) Description 01/17/2025 1:49 PM EDT - 01/17/2025 11:59 PM EDT Hospital Encounter [facility] [address] [place] [address] Demyelinating disease (CMS/HCC) Discharge Disposition: Home or Self Care Social History Tobacco Use Types Packs/Day Years Used Date Smoking Tobacco: Never Smokeless Tobacco: Never Alcohol Use Standard Drinks/Week Comments Never 0 (1 standard drink = 0.6 oz pur e alcohol) PHQ-2 Answer Date Recorded Patient Health Questionnaire-2 Score 2 10/08/2024 PHQ-9 Answer Date Recorded Patient Health Questionnaire-9 Score 9 10/08/2024 Sex and Gender Information Value Date Recorded Sex Assigned at Not on file Legal Sex Male 8:31 PM EDT Gender Identity Not on file Sexual Orientation Not on file documented as of this encounter Medications at Time of Discharge buPROPion XL (Wellbutrin XL) 150 MG 24 hr tablet 1 tablet. 11/26/2024 busPIRone (Buspar) 10 MG tablet 10/01/2024 cloNIDine (Catapres) 0.1 MG tablet 08/28/2024 divalproex (Depakote) [address] tablet 10/01/2024 furosemide (Lasix) 40 MG tablet Lurasidone HCl 120 MG tablet 10/01/2024 meloxicam (Mobic) 7.5 MG tablet Take one tab PO daily for 7 days then stop 7 tablet 05/07/2024 metroNIDAZOLE (Flagyl) 500 MG tablet prazosin (Minipress) 1 MG capsule 1 capsule. 11/26/2024 propranolol (Inderal) 10 MG tablet 10/01/2024 simvastatin (Zocor) 20 MG tablet Take 1 tablet (20 mg) by mouth 1 (one) time each day. spironolactone (Aldactone) 25 MG tablet tiZANidine (Zanaflex) 4 MG tablet Take 1 tablet (4 mg) by mouth every 6 hours as needed for muscle spasms. 30 tablet 2 07/26/2024 topiramate 50 MG tablet TAKE 1 TABLET (50 MG) BY ORAL ROUTE 2 TIMES PER DAY 01/07/2025 Zepbound 2.5 MG/0.5ML solution auto-injector inject 2.5 mg under the skin every week for 4 weeks then 5mg once weekly 12/09/2024 buPROPion XL (Wellbutrin XL) 300 MG 24 hr tablet Take 1 tablet(s) by mouth daily Lyrica 150 MG capsule Take 1 capsule by mouth 2 times a day. 60 capsule 5 10/08/2024 02/07/2025 documented as of this encounter Plan of Treatment Upcoming Encounters Date Type Department Care Team (Late st Contact Info) Description 03/06/2025 10:00 AM EDT Office Visit [facility] Inter[facility] Medicine [address] [place] [address] Zaki Walker MD [address] [place] [address] 08/12/2025 2:30 PM EST [facility] [address] [place] [address] [facility] [address] [place] [address] documented as of this encounter Procedures Procedure Name Priority Date/Time Associated Diagnosis Comments MR THORACIC SPINE WO IV CONTRAST Routine 01/17/2025 6:03 PM EDT Demyelinating disease (CMS/HCC) MR CERVICAL SPINE WO IV CONTRAST Routine 01/17/2025 6:03 PM EDT Demyelinating disease (CMS/HCC) MR HEAD WO IV CONTRAST Routine 01/17/2025 6:03 PM EDT Demyelinating disease (CMS/HCC) documented in this encounter Results * MR Thoracic Spine wo IV Contrast (01/17/2025 6:03 PM EDT) Anatomical Region Laterality Modality T-spine Magnetic Resonan ce Impressions 01/23/2025 10:12 AM EDT Cervical spine: 1. No definite areas of abnormal signal are identified within the cervical spinal cord. 2. Degenerative changes as described above, most severe at C6-7 with ligamentum flavum thickening and moderate disc bulge. Mild spinal canal stenosis appears slightly worsened from May 2024, this could be related to worsening degenerative process or perhaps related to patient positioning with increased extension on today's examination. Thoracic spine: 1. Area of T2 hyperintense signal within the thoracic spinal cord at about T9- T10 is unchanged from prior study. No new lesions are identified within the thoracic spinal cord. Previously described possible lesions at T8-9 are not identified on today's study. 2. Similar-appearing relative prominence of the dorsal CSF space at the level of T8, which could represent an arachnoid cyst or arachnoid synechia. 3. Degenerative changes of the thoracic spine with no significant central canal stenosis or cord compression. However, there is some conspicuous facet hypertrophic changes, at T4-T5, T9-T10 and T10-T11 associated with moderate left-sided foraminal narrowing. CRITICAL RESULT: No. COMMUNICATION: Per this written report. By electronically signing this report, I, the attending physician, attest that I have personally reviewed the images/data for the above examination(s) and agree with the final edited report. Drafted by Salas Leach MD on 01/22/2025 11:31 AM Final report signed by Khris Armenta MD on 01/23/2025 10:12 AM Narrative 01/23/2025 10:12 AM EDT CLINICAL INDICATION: Demyelinating disease TECHNIQUE: Multiplanar multiecho sequences were obtained through the cervical spine utilizing T1 and T2 weighting without the administration of intravenous contrast. 7 series were obtained including localizer series. Multiplanar multiecho sequences were obtained through the thoracic spine utilizing T1 and T2 weighting without the administration of intravenous contrast. 9 series were obtained including localizer series. COMPARISON: MRI of the cervical and thoracic spine from 05/15/2024 FINDINGS: Cervical Spine: Diagnostic Quality: Adequate. Alignment: The bony alignment is normal. Marrow: The marrow signal is normal. Vertebrae and Intervertebral Discs: Vertebral body heights are normal. Mild multilevel disc height loss and desiccation. Additional disc findings are further described below. Ligaments: The anterior and posterior longitudinal ligaments and interspinous ligaments are intact. Spinal Cord: The spinal cord is of normal caliber without abnormal intrinsic signal. Significant findings by level: C2-3: Normal. C3-4: Normal. C4-5: Small central disc bulge. No neural foramina or spinal canal narrowing. C5-6: Left central disc protrusion with associated uncovertebral spurring. Mild narrowing of the left neural foramina. No right neural foramina or spinal canal stenosis. C6-7: Ligamentum flavum thickening with moderate disc bulge and mild canal stenosis. Canal stenosis appears slightly worsened from May 2024, however this may be related to patient positioning and increased neck extension. Disc contacts the anterior cord causing a small area of contour abnormality. No significant neural foraminal narrowing. C7-T1: Normal. Prevertebral and Paraspinal Soft Tissues: There is no prevertebral or paraspinal soft tissue swelling or mass. Other Findings: None. Thoracic Spine: Diagnostic Quality: Adequate. Alignment: The bony alignment is normal. Marrow: T1/T2 hyperintense foci in the T7 and T10 vertebral bodies are unchanged from prior study and likely represent small hemangiomas. Otherwise normal marrow signal. Vertebrae and Intervertebral Discs: Vertebral body heights are normal. Mild multilevel disc height loss and desiccation, most severe at T8-9. Ligaments: The anterior and posterior longitudinal ligaments and interspinous ligaments are intact. Spinal Cord: The spinal cord is normal in caliber. Focal area of T2 hyperintense signal is again noted at the level of T9-10 in the central and posterior cord, unchanged in appearance from 05/15/2024 (series 9, image 37). Previously described areas of subtle hyperintense signal at the level of T8-9 are not visualized on today's study and may have been artifactual. No new lesions identified within the thoracic spinal cord. There is prominence of the dorsal CSF space at the level of T8 with apparent mass effect and anterior position of the cord and mild indentation upon the posterior cord. This appears unchanged from May 2024. Degenerative changes are present at the following levels: Left T4-5 facet arthropathy causes moderate narrowing of the left-sided neural foramina. Ligamentum flavum thickening and bilateral facet arthropathy is present at T9-10 and T10-11, worse on the left, associated with moderate left-sided foraminal narrowing Small central disc bulges are present at T11-12 and T12-L1. No significant central canal stenosis, and no definite foraminal narrowing at the reminder levels. Prevertebral and Paraspinal Soft Tissues: There is no prevertebral or paraspinal soft tissue swelling or mass. Other Findings: Right superior pole renal cyst. Procedure Note Khris Lew MD - 01/23/2025 CLINICAL INDICATION: Demyelinating disease TECHNIQUE: Multiplanar multiecho sequences were obtained through the cervical spineutilizing T1 and T2 weighting without the administration of intravenouscontrast. 7 series were obtained including localizer series. Multiplanar multiecho sequences were obtained through the thoracic spineutilizing T1 and T2 weighting without the administration of intravenouscontrast. 9 series were obtained including localizer series. COMPARISON: MRI of the cervical and thoracic spine from 05/15/2024 FINDINGS: Cervical Spine: Diagnostic Quality: Adequate. Alignment: The bony alignment is normal. Marrow: The marrow signal is normal. Vertebrae and Intervertebral Discs: Vertebral body heights are normal.Mild multilevel disc height loss and desiccation. Additional disc findingsare further described below. Ligaments: The anterior and posterior longitudinal ligaments andinterspinous ligaments are intact. Spinal Cord: The spinal cord is of normal caliber without abnormalintrinsic signal. Significant findings by level: C2-3: Normal. C3-4: Normal. C4-5: Small central disc bulge. No neural foramina or spinal canalnarrowing. C5-6: Left central disc protrusion with associated uncovertebral spurring.Mild narrowing of the left neural foramina. No right neural foramina orspinal canal stenosis. C6-7: Ligamentum flavum thickening with moderate disc bulge and mild canalstenosis. Canal stenosis appears slightly worsened from May 2024,however this may be related to patient positioning and increased neckextension. Disc contacts the anterior cord causing a small area of contourabnormality. No significant neural foraminal narrowing. C7-T1: Normal. Prevertebral and Paraspinal Soft Tissues: There is no prevertebral orparaspinal soft tissue swelling or mass. Other Findings: None. Thoracic Spine: Diagnostic Quality: Adequate. Alignment: The bony alignment is normal. Marrow: T1/T2 hyperintense foci in the T7 and T10 vertebral bodies areunchanged from prior study and likely represent small hemangiomas.Otherwise normal marrow signal. Vertebrae and Intervertebral Discs: Vertebral body heights are normal.Mild multilevel disc height loss and desiccation, most severe at T8-9. Ligaments: The anterior and posterior longitudinal ligaments andinterspinous ligaments are intact. Spinal Cord: The spinal cord is normal in caliber. Focal area of [id number] signal is again noted at the level of T9-10 in the centraland posterior cord, unchanged in appearance from 05/15/2024 (series 9,image 37). Previously described areas of subtle hyperintense signal at thelevel of T8-9 are not visualized on today's study and may have beenartifactual. No new lesions identified within the thoracic spinal cord. There is prominence of the dorsal CSF space at the level of T8 withapparent mass effect and anterior position of the cord and mildindentation upon the posterior cord. This appears unchanged from May2024. Degenerative changes are present at the following levels: Left T4-5 facet arthropathy causes moderate narrowing of the left-sidedneural foramina. Ligamentum flavum thickening and bilateral facet arthropathy is present atT9-10 and T10-11, worse on the left, associated with moderate left-sided foraminalnarrowing Small central disc bulges are present at T11-12 and T12-L1. No significant central canal stenosis, and no definite foraminal narrowingat the reminder levels. Prevertebral and Paraspinal Soft Tissues: There is no prevertebral orparaspinal soft tissue swelling or mass. Other Findings: Right superior pole renal cyst. IMPRESSION: Cervical spine: 1.No definite areas of abnormal signal are identified within the cervicalspinal cord. 2.Degenerative changes as described above, most severe at C6-7 withligamentum flavum thickening and moderate disc bulge. Mild spinal canalstenosis appears slightly worsened from May 2024, this could berelated to worsening degenerative process or perhaps related to patientpositioning with increased extension on today's examination. Thoracic spine: 1.Area of T2 hyperintense signal within the thoracic spinal cord at aboutT9-T10 is unchanged from prior study. No new lesions are identified withinthe thoracic spinal cord. Previously described possible lesions at T8-9are not identified on today's study. 2.Similar-appearing relative prominence of the dorsal CSF space at thelevel of T8, which could represent an arachnoid cyst or arachnoidsynechia. 3.Degenerative changes of the thoracic spine with no significant centralcanal stenosis or cord compression. However, there is some conspicuousfacet hypertrophic changes, at T4-T5, T9-T10 and T10-T11 associated withmoderate left-sided foraminal narrowing. CRITICAL RESULT: No. COMMUNICATION: Per this written report. By electronically signing this report, I, the attending physician, attestthat I have personally reviewed the images/data for the aboveexamination(s) and agree with the final edited report. Drafted by Salas Leach MD on 01/22/2025 11:31 AM Final report signed by Khris Armenta MD on 01/23/2025 10:12 AM us Jacob Salmeron DO IMG MRI PROCEDURES Final Re sult * MR Cervical Spine wo IV Contrast (01/17/2025 6:03 PM EDT) Anatomical Region Laterality Modality C-spine Magnetic Resonan ce Impressions 01/23/2025 10:12 AM EDT Cervical spine: 1. No definite areas of abnormal signal are identified within the cervical spinal cord. 2. Degenerative changes as described above, most severe at C6-7 with ligamentum flavum thickening and moderate disc bulge. Mild spinal canal stenosis appears slightly worsened from May 2024, this could be related to worsening degenerative process or perhaps related to patient positioning with increased extension on today's examination. Thoracic spine: 1. Area of T2 hyperintense signal within the thoracic spinal cord at about T9- T10 is unchanged from prior study. No new lesions are identified within the thoracic spinal cord. Previously described possible lesions at T8-9 are not identified on today's study. 2. Similar-appearing relative prominence of the dorsal CSF space at the level of T8, which could represent an arachnoid cyst or arachnoid synechia. 3. Degenerative changes of the thoracic spine with no significant central canal stenosis or cord compression. However, there is some conspicuous facet hypertrophic changes, at T4-T5, T9-T10 and T10-T11 associated with moderate left-sided foraminal narrowing. CRITICAL RESULT: No. COMMUNICATION: Per this written report. By electronically signing this report, I, the attending physician, attest that I have personally reviewed the images/data for the above examination(s) and agree with the final edited report. Drafted by Salas Leach MD on 01/22/2025 11:31 AM Final report signed by Khris Armenta MD on 01/23/2025 10:12 AM Narrative 01/23/2025 10:12 AM EDT CLINICAL INDICATION: Demyelinating disease TECHNIQUE: Multiplanar multiecho sequences were obtained through the cervical spine utilizing T1 and T2 weighting without the administration of intravenous contrast. 7 series were obtained including localizer series. Multiplanar multiecho sequences were obtained through the thoracic spine utilizing T1 and T2 weighting without the administration of intravenous contrast. 9 series were obtained including localizer series. COMPARISON: MRI of the cervical and thoracic spine from 05/15/2024 FINDINGS: Cervical Spine: Diagnostic Quality: Adequate. Alignment: The bony alignment is normal. Marrow: The marrow signal is normal. Vertebrae and Intervertebral Discs: Vertebral body heights are normal. Mild multilevel disc height loss and desiccation. Additional disc findings are further described below. Ligaments: The anterior and posterior longitudinal ligaments and interspinous ligaments are intact. Spinal Cord: The spinal cord is of normal caliber without abnormal intrinsic signal. Significant findings by level: C2-3: Normal. C3-4: Normal. C4-5: Small central disc bulge. No neural foramina or spinal canal narrowing. C5-6: Left central disc protrusion with associated uncovertebral spurring. Mild narrowing of the left neural foramina. No right neural foramina or spinal canal stenosis. C6-7: Ligamentum flavum thickening with moderate disc bulge and mild canal stenosis. Canal stenosis appears slightly worsened from May 2024, however this may be related to patient positioning and increased neck extension. Disc contacts the anterior cord causing a small area of contour abnormality. No significant neural foraminal narrowing. C7-T1: Normal. Prevertebral and Paraspinal Soft Tissues: There is no prevertebral or paraspinal soft tissue swelling or mass. Other Findings: None. Thoracic Spine: Diagnostic Quality: Adequate. Alignment: The bony alignment is normal. Marrow: T1/T2 hyperintense foci in the T7 and T10 vertebral bodies are unchanged from prior study and likely represent small hemangiomas. Otherwise normal marrow signal. Vertebrae and Intervertebral Discs: Vertebral body heights are normal. Mild multilevel disc height loss and desiccation, most severe at T8-9. Ligaments: The anterior and posterior longitudinal ligaments and interspinous ligaments are intact. Spinal Cord: The spinal cord is normal in caliber. Focal area of T2 hyperintense signal is again noted at the level of T9-10 in the central and posterior cord, unchanged in appearance from 05/15/2024 (series 9, image 37). Previously described areas of subtle hyperintense signal at the level of T8-9 are not visualized on today's study and may have been artifactual. No new lesions identified within the thoracic spinal cord. There is prominence of the dorsal CSF space at the level of T8 with apparent mass effect and anterior position of the cord and mild indentation upon the posterior cord. This appears unchanged from May 2024. Degenerative changes are present at the following levels: Left T4-5 facet arthropathy causes moderate narrowing of the left-sided neural foramina. Ligamentum flavum thickening and bilateral facet arthropathy is present at T9-10 and T10-11, worse on the left, associated with moderate left-sided foraminal narrowing Small central disc bulges are present at T11-12 and T12-L1. No significant central canal stenosis, and no definite foraminal narrowing at the reminder levels. Prevertebral and Paraspinal Soft Tissues: There is no prevertebral or paraspinal soft tissue swelling or mass. Other Findings: Right superior pole renal cyst. Procedure Note Khris Lew MD - 01/23/2025 CLINICAL INDICATION: Demyelinating disease TECHNIQUE: Multiplanar multiecho sequences were obtained through the cervical spineutilizing T1 and T2 weighting without the administration of intravenouscontrast. 7 series were obtained including localizer series. Multiplanar multiecho sequences were obtained through the thoracic spineutilizing T1 and T2 weighting without the administration of intravenouscontrast. 9 series were obtained including localizer series. COMPARISON: MRI of the cervical and thoracic spine from 05/15/2024 FINDINGS: Cervical Spine: Diagnostic Quality: Adequate. Alignment: The bony alignment is normal. Marrow: The marrow signal is normal. Vertebrae and Intervertebral Discs: Vertebral body heights are normal.Mild multilevel disc height loss and desiccation. Additional disc findingsare further described below. Ligaments: The anterior and posterior longitudinal ligaments andinterspinous ligaments are intact. Spinal Cord: The spinal cord is of normal caliber without abnormalintrinsic signal. Significant findings by level: C2-3: Normal. C3-4: Normal. C4-5: Small central disc bulge. No neural foramina or spinal canalnarrowing. C5-6: Left central disc protrusion with associated uncovertebral spurring.Mild narrowing of the left neural foramina. No right neural foramina orspinal canal stenosis. C6-7: Ligamentum flavum thickening with moderate disc bulge and mild canalstenosis. Canal stenosis appears slightly worsened from May 2024,however this may be related to patient positioning and increased neckextension. Disc contacts the anterior cord causing a small area of contourabnormality. No significant neural foraminal narrowing. C7-T1: Normal. Prevertebral and Paraspinal Soft Tissues: There is no prevertebral orparaspinal soft tissue swelling or mass. Other Findings: None. Thoracic Spine: Diagnostic Quality: Adequate. Alignment: The bony alignment is normal. Marrow: T1/T2 hyperintense foci in the T7 and T10 vertebral bodies areunchanged from prior study and likely represent small hemangiomas.Otherwise normal marrow signal. Vertebrae and Intervertebral Discs: Vertebral body heights are normal.Mild multilevel disc height loss and desiccation, most severe at T8-9. Ligaments: The anterior and posterior longitudinal ligaments andinterspinous ligaments are intact. Spinal Cord: The spinal cord is normal in caliber. Focal area of [id number] signal is again noted at the level of T9-10 in the centraland posterior cord, unchanged in appearance from 05/15/2024 (series 9,image 37). Previously described areas of subtle hyperintense signal at thelevel of T8-9 are not visualized on today's study and may have beenartifactual. No new lesions identified within the thoracic spinal cord. There is prominence of the dorsal CSF space at the level of T8 withapparent mass effect and anterior position of the cord and mildindentation upon the posterior cord. This appears unchanged from May2024. Degenerative changes are present at the following levels: Left T4-5 facet arthropathy causes moderate narrowing of the left-sidedneural foramina. Ligamentum flavum thickening and bilateral facet arthropathy is present atT9-10 and T10-11, worse on the left, associated with moderate left-sided foraminalnarrowing Small central disc bulges are present at T11-12 and T12-L1. No significant central canal stenosis, and no definite foraminal narrowingat the reminder levels. Prevertebral and Paraspinal Soft Tissues: There is no prevertebral orparaspinal soft tissue swelling or mass. Other Findings: Right superior pole renal cyst. IMPRESSION: Cervical spine: 1.No definite areas of abnormal signal are identified within the cervicalspinal cord. 2.Degenerative changes as described above, most severe at C6-7 withligamentum flavum thickening and moderate disc bulge. Mild spinal canalstenosis appears slightly worsened from May 2024, this could berelated to worsening degenerative process or perhaps related to patientpositioning with increased extension on today's examination. Thoracic spine: 1.Area of T2 hyperintense signal within the thoracic spinal cord at aboutT9-T10 is unchanged from prior study. No new lesions are identified withinthe thoracic spinal cord. Previously described possible lesions at T8-9are not identified on today's study. 2.Similar-appearing relative prominence of the dorsal CSF space at thelevel of T8, which could represent an arachnoid cyst or arachnoidsynechia. 3.Degenerative changes of the thoracic spine with no significant centralcanal stenosis or cord compression. However, there is some conspicuousfacet hypertrophic changes, at T4-T5, T9-T10 and T10-T11 associated withmoderate left-sided foraminal narrowing. CRITICAL RESULT: No. COMMUNICATION: Per this written report. By electronically signing this report, I, the attending physician, attestthat I have personally reviewed the images/data for the aboveexamination(s) and agree with the final edited report. Drafted by Salas Leach MD on 01/22/2025 11:31 AM Final report signed by Khris Armenta MD on 01/23/2025 10:12 AM us Jacob Salmeron DO IMG MRI PROCEDURES Final Re sult * MR Head wo IV Contrast (01/17/2025 6:03 PM EDT) Anatomical Region Laterality Modality Head Magnetic Resonan ce Impressions 01/23/2025 9:50 AM EDT 1. Tiny punctate foci of T2/FLAIR hyperintense signal are again noted in the white matter of bilateral frontal lobes, not significantly changed from 05/15/2024. 2. No new areas of abnormal signal are identified. CRITICAL RESULT: No. COMMUNICATION: Per this written report. By electronically signing this report, I, the attending physician, attest that I have personally reviewed the images/data for the above examination(s) and agree with the final edited report. Drafted by Salas Leach MD on 01/22/2025 11:11 AM Final report signed by Khris Armenta MD on 01/23/2025 9:50 AM Narrative 01/23/2025 9:50 AM EDT CLINICAL INDICATION: Demyelinating disease TECHNIQUE: Multiplanar multiecho sequences were performed through the brain utilizing T1 and T2 weighting, as well as either axial susceptibility weighted or gradient echo sequences, sagittal FLAIR images, and axial diffusion weighted images. Imaging was performed without contrast administration. COMPARISON: MRI head from 05/15/2024 FINDINGS: Diagnostic Quality: Adequate. The ventricles and sulci are normal in size. There are small scattered foci of T2/FLAIR hyperintense signal within the white matter of the bilateral frontal lobes (series 9, images 14 and 16. Series 5, images 11 and 29). These do not appear significantly changed from study performed in May 2024, accounting for differences in slice selection. Given the small size of these findings, additional punctate foci may be present but are not well visualized due to slice thickness. There is a focal ill-defined area of susceptibility artifact in the left postcentral sulcus / gyrus as seen on series 11 image 50, grossly unchanged from prior examination with questionable associated cortical area of volume loss, nonspecific but likely representing a remote hemorrhagic insult. No definite areas of restricted diffusion to suggest acute ischemic changes. Vascular Flow Voids: Normal. Paranasal Sinuses and Mastoid Air Cells: Mucosal thickening involving the left frontal sinus and minimally within the ethmoid air cells. Left maxillary sinus inflammatory changes versus mucous retention cyst. The remaining paranasal sinuses are clear. Trace left mastoid effusion. Orbits: No definite masses within the limitations of the study. Extracranial Findings: None. Craniocervical Junction and Skull Base: No tonsillar ectopia or mass is present. Procedure Note Khris Lew MD - 01/23/2025 CLINICAL INDICATION: Demyelinating disease TECHNIQUE: Multiplanar multiecho sequences were performed through the brain utilizingT1 and T2 weighting, as well as either axial susceptibility weighted orgradient echo sequences, sagittal FLAIR images, and axial diffusionweighted images. Imaging was performed without contrast administration. COMPARISON: MRI head from 05/15/2024 FINDINGS: Diagnostic Quality: Adequate. The ventricles and sulci are normal in size. There are small scattered foci of T2/FLAIR hyperintense signal within thewhite matter of the bilateral frontal lobes (series 9, images 14 and 16.Series 5, images 11 and 29). These do not appear significantly changedfrom study performed in May 2024, accounting for differences in sliceselection. Given the small size of these findings, additional punctatefoci may be present but are not well visualized due to slice thickness. There is a focal ill-defined area of susceptibility artifact in the leftpostcentral sulcus / gyrus as seen on series 11 image 50, grosslyunchanged from prior examination with questionable associated corticalarea of volume loss, nonspecific but likely representing a remotehemorrhagic insult. No definite areas of restricted diffusion to suggest acute ischemicchanges. Vascular Flow Voids: Normal. Paranasal Sinuses and Mastoid Air Cells: Mucosal thickening involving theleft frontal sinus and minimally within the ethmoid air cells. Leftmaxillary sinus inflammatory changes versus mucous retention cyst. Theremaining paranasal sinuses are clear. Trace left mastoid effusion. Orbits: No definite masses within the limitations of the study. Extracranial Findings: None. Craniocervical Junction and Skull Base: No tonsillar ectopia or mass ispresent. IMPRESSION: 1. Tiny punctate foci of T2/FLAIR hyperintense signal are again noted inthe white matter of bilateral frontal lobes, not significantly changedfrom 05/15/2024. 2. No new areas of abnormal signal are identified. CRITICAL RESULT: No. COMMUNICATION: Per this written report. By electronically signing this report, I, the attending physician, seventhat I have personally reviewed the images/data for the aboveexamination(s) and agree with the final edited report. 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
--- OUTSIDE RECORDS SUMMARY | 2025-02-07 16:30 | XMS_ITS | Encounter Summary ---
Author Organization [facility] Address [address] [place] [address] Care Team Providers Care Animal Nutrition Teacher Name Role Phone Palak Martinez MIL Primary Care Provider + [phone] Reason for Referral * Consultation (Routine) - Authorized Specialty Diagnoses / Procedures Referred By Simon merritt Referred To Contact Physical Therapy Diagnoses Multiple sclerosis (CMS/HCC) Spinal stenosis of thoracic region Jacob Salmeron DO [address] [address] Phone: tel: fax: Referral ID Status Reason Start Date Expiration Date Visits Requested Visits Authorized [id number] Authorized Consult and Treat 02/07/2025 08/09/2026 10 10 * Consultation (Routine) - Authorized Specialty Diagnoses / Procedures Referred By Simon merritt Referred To Contact Pain Medicine Diagnoses Multiple sclerosis (CMS/HCC) Spinal stenosis of thoracic region Jacob Salmeron DO [address] [address] Phone: tel: fax: [facility] Interventional Pain Medicine [address] [place] [address] Phone: tel: fax: Referral ID Status Reason Start Date Expiration Date Visits Requested Visits Authorized [id number] Authorized Specialty Services Required 02/07/2025 08/09/2026 1 1 Encounter Details Date Type Department Care Team (Latest Contact Info) Description 02/07/2025 4:30 PM EDT Office Visit [place] [facility] [address] [place] [address] Jacob Salmeron DO [address] [place] [address] Demyelinating disease (CMS/HCC) (Primary Dx); [...] and lower extremities there is no ataxia [id number] or qtfo-aw-yrob. I reviewed his MRI of the brain [...] Description 03/06/2025 10:00 AM EDT Office Visit [facility] Interventional Pain Medicine [address] [place] [address] Zaki Walker MD [address] [facility] [address] [place] [address] 08/12/2025 2:30 PM EST Office Visit [facility] [address], [address] [place] [address] Jacob Salmeron DO [address] [place] [address] Scheduled Referrals Name Type Priority Associated Diagnoses [...] CBC and differential (02/07/2025 2:17 PM EDT) [facility] WBC Count 8.67 3.70 - 10.30 10*3/uL LAB HEMATOLOGY METHOD 02/07/2025 3:38 PM EDT [facility] RBC Count 5.21 4.60 - 6.10 10*6/uL LAB HEMATOLOGY METHOD 02/07/2025 3:38 PM EDT [facility] HGB 15.8 13.7 - 17.5 g/dL LAB HEMATOLOGY METHOD 02/07/2025 3:38 PM EDT [facility] HCT 45.7 40.0 - 51.0 % LAB HEMATOLOGY METHOD 02/07/2025 3:38 PM EDT [facility] Platelet Count 274 155 - 369 10*3/uL LAB HEMATOLOGY METHOD 02/07/2025 3:38 PM EDT [facility] MCV 88 79 - 98 fL LAB HEMATOLOGY METHOD 02/07/2025 3:38 PM EDT [facility] MCH 30.3 26.0 - 32.0 pg LAB HEMATOLOGY METHOD 02/07/2025 3:38 PM EDT [facility] MCHC 34.6 30.7 - 35.5 g/dL LAB HEMATOLOGY METHOD 02/07/2025 3:38 PM EDT [facility] RDW 12.3 11.5 - 14.5 % LAB HEMATOLOGY METHOD 02/07/2025 3:38 PM EDT [facility] MPV 11.6 8.8 - 12.5 fL LAB HEMATOLOGY METHOD 02/07/2025 3:38 PM EDT [facility] nRBC 0.0 <=0.0 per 100 WBCs LAB HEMATOLOGY METHOD 02/07/2025 3:38 PM EDT [facility] Differential Type Automated LAB HEMATOLOGY METHOD 02/07/2025 3:38 PM EDT [facility] Neutrophils % 71 % LAB HEMATOLOGY METHOD 02/07/2025 3:38 PM EDT [facility] Lymphocytes % 15 % LAB HEMATOLOGY METHOD 02/07/2025 3:38 PM EDT [facility] Monocytes % 8 % LAB HEMATOLOGY METHOD 02/07/2025 3:38 PM EDT [facility] Eosinophils % 5 % LAB HEMATOLOGY METHOD 02/07/2025 3:38 PM EDT [facility] Basophils % 1 % LAB HEMATOLOGY METHOD 02/07/2025 3:38 PM EDT [facility] Immature Granulocytes % 0 % LAB HEMATOLOGY METHOD 02/07/2025 3:38 PM EDT [facility] Neutrophils Absolute 6.20(H) 1.60 - 6.10 10*3/uL LAB HEMATOLOGY METHOD 02/07/2025 3:38 PM EDT [facility] Lymphocytes Absolute 1.27 1.20 - 3.90 10*3/uL LAB HEMATOLOGY METHOD 02/07/2025 3:38 PM EDT [facility] Monocytes Absolute 0.70 0.30 - 0.90 10*3/uL LAB HEMATOLOGY METHOD 02/07/2025 3:38 PM EDT [facility] Eosinophils Absolute 0.44 0.00 - 0.50 10*3/uL LAB HEMATOLOGY METHOD 02/07/2025 3:38 PM EDT [facility] Basophils Absolute 0.04 0.00 - 0.10 10*3/uL LAB HEMATOLOGY METHOD 02/07/2025 3:38 PM EDT [facility] Immature Granulocytes Absolute 0.02 0.00 - 0.06 10*3/uL LAB HEMATOLOGY METHOD 02/07/2025 3:38 PM EDT [facility] Blood Venous blood specimen / Unknown Venipuncture / Unknown 02/07/2025 2:17 PM EDT 02/07/2025 2:17 PM EDT [facility] - 02/07/2025 3:38 PM EDT Therapeutic decision making should be based on absolute values, rather than percentages. Jacob Salmeron DO LAB BLOOD ORDERABLES Final Result [facility] [address] [place] [address] * (ABNORMAL) Comprehensive metabolic panel (02/07/2025 2:17 PM EDT) Glucose, Plasma 104(H) 74 - 99 mg/dL 02/07/2025 3:47 PM EDT [facility] BUN, Plasma 9 7 - 21 mg/dL 02/07/2025 3:47 PM EDT [facility] Creatinine, Plasma 1.24(H) 0.70 - 1.20 mg/dL 02/07/2025 3:47 PM EDT [facility] BUN/Creatinine Ratio 7 02/07/2025 3:47 PM EDT [facility] Sodium, Plasma 139 136 - 145 mmol/L 02/07/2025 3:47 PM EDT [facility] Potassium, Plasma 3.8 3.6 - 4.9 mmol/L 02/07/2025 3:47 PM EDT [facility] Chloride, Plasma 105 97 - 107 mmol/L 02/07/2025 3:47 PM EDT [facility] CO2, Plasma 22 22 - 29 mmol/L 02/07/2025 3:47 PM EDT [facility] Anion Gap 12 6 - 16 mmol/L 02/07/2025 3:47 PM EDT [facility] Total Calcium, Plasma 9.4 8.9 - 10.2 mg/dL 02/07/2025 3:47 PM EDT [facility] Total Protein 6.9 6.3 - 7.9 g/dL 02/07/2025 3:47 PM EDT [facility] Albumin, Plasma 4.0 3.5 - 5.2 g/dL 02/07/2025 3:47 PM EDT [facility] AST, Plasma 27 10 - 50 U/L 02/07/2025 3:47 PM EDT [facility] Comment:Hemolyzed, result ma y be falsely increased. ALT, Plasma 29 10 - 50 U/L 02/07/2025 3:47 PM EDT [facility] Alkaline Phosphatase, Plasma 99 40 - 115 U/L 02/07/2025 3:47 PM EDT [facility] Total Bilirubin, Plasma 0.5 0.2 - 1.1 mg/dL 02/07/2025 3:47 PM EDT [facility] eGFRcr 70.4 mL/min/1.7 3m*2 02/07/2025 3:47 PM EDT [facility] Comment:Reported eGFRcr in m L/min/1.73m2 is based the CKD-EPI 2020 equation that does not use a race coefficient. Blood Venous blood specimen / Unknown Venipuncture / Unknown 02/07/2025 2:17 PM EDT 02/07/2025 2:17 PM EDT Jacob Salmeron DO LAB BLOOD ORDERABLES Final Result [facility] [address] [place] [address] documented in this encounter Visit Diagnoses Diagnosis Demyelinating disease (CMS/HCC)- Primary Unspecified demyelinating disease of central nervous system Multiple sclerosis (CMS/HCC) Multiple sclerosis Spinal stenosis of thoracic region [...] documented as of this encounter Care Teams Animal Nutrition Teacher Relationship Specialty Start Date End Date Palak Martinez APRN [address] [place] [address] PCP - General 05/15/24 documented as of this encounter
[2025-02-13 16:07] VITALS: BP 178/116; PULSE 59; RESP 18; TEMP 36.6; O2SAT 100; BMI 44.9
--- OUTSIDE RECORDS SUMMARY | 2025-02-13 16:08 | XMS_ITS | Encounter Summary ---
Author Organization Healthcare Address [address] [place] [address] Care Team Providers Care Holistic Pulser Name Role Phone System, Provider Not In MD Primary Care Provider Unavailable Palak Martinez APRN Primary Care Provider + [phone] Encounter Details Date Type Department Care Team (Late st Contact Info) Description 12/20/2023 Orders Only External Location [address] [place] [id number] Provider, External Social History Tobacco Use Types Packs/Day Years Used Date Smoking Tobacco: Never Assessed Sex and Gender Information Value Date Recorded Sex Assigned at Not on file Legal Sex Male 8:31 PM EDT Gender Identity Not on file Sexual Orientation Not on file documented as of this encounter Plan of Treatment Upcoming Encounters Date Type Department Care Team (Late st Contact Info) Description 03/06/2025 10:00 AM EDT Office Visit [facility] Interventional Pain Medicine [address] [place] [address] Zaki Walker MD [address] [facility] [address] [place] [address] 08/12/2025 2:30 PM EST Office Visit [place] [facility] [address] [place] [address] Jacob Salmeron DO [address] [place] [address] documented as of this encounter Procedures Procedure Name Priority Date/Time Associated Diagnosis Comments MR OUTSIDE IMAGES 12/20/2023 3:55 PM EDT documented in this encounter Results * MR transfer of outside films (12/20/2023 3:55 PM EDT) Anatomical Region Laterality Modality Magnetic Resonan ce 12/20/2023 3:55 PM EDT us External Provider IMG MRI PROCEDURES Final Resul t documented in this encounter Visit Diagnoses Not on filedocumented in this encounter Care Teams Holistic Pulser Relationship Specialty Start Date End Date System, Provider Not In, [place] [address] PCP - General Family Medicine 05/23/23 05/14/24 Palak Martinez APRN [address] [place] [address] PCP - General 05/15/24 documented as of this encounter
--- OUTSIDE RECORDS SUMMARY | 2025-02-13 16:08 | XMS_ITS | Encounter Summary ---
Author Organization [facility] Address [address] [place] [address] Care Team Providers Care Collections Representative Name Role Phone System, Provider Not In MD Primary Care Provider Unavailable Palak Martinez APRN Primary Care Provider + [phone] Encounter Details Date Type Department Care Team (Late st Contact Info) Description 10/18/2023 Orders Only External Location [address] [place] [phone] Provider, External Social History Tobacco Use Types [...] Description 03/06/2025 10:00 AM EDT Office Visit [facility] Interventional Pain Medicine [address] [place] [address] Zaki Walker MD [address] [facility] [address] [place] [address] 08/12/2025 2:30 PM EST Office Visit [place] [facility] [address], [address] [place] [address] Jacob Salmeron DO [address] [place] [address] documented as of this encounter Procedures Procedure Name Priority Date/Time Associated Diagnosis Comments MR OUTSIDE IMAGES 10/18/2023 8:06 AM EDT documented in this encounter Results * MR transfer of outside films (10/18/2023 8:06 AM EDT) Anatomical Region Laterality Modality Magnetic Resonan ce 10/18/2023 8:06 AM EDT us External Provider IMG MRI PROCEDURES Final Resul t documented in this encounter Visit Diagnoses Not on filedocumented in this encounter Care Teams Collections Representative Relationship Specialty Start Date End Date System, Provider Not In, [place] [address] PCP - General Family Medicine 05/23/23 05/14/24 Palak Martinez APRN [address] [place] [address] PCP - General 05/15/24 documented as of this encounter
--- OUTSIDE RECORDS SUMMARY | 2025-02-13 16:08 | XMS_ITS | Encounter Summary ---
Author Organization [facility] Address [address] [place] [address] Care Team Providers Care Production Expediter Name Role Phone System, Provider Not In MD Primary Care Provider Unavailable Palak Martinez APRN Primary Care Provider + [phone] Reason for Referral * Consultation (Routine) - Closed Specialty Diagnoses / Procedures Referred By Contac t Referred To Contact Neurology Diagnoses Myelitis (CMS/HCC) Joi King MD [address] [facility] [address] [place] [address] Phone: tel: fax: Gerardo Bryant MD [address] [facility] [address] [place] [address] Phone: tel: fax: Referral ID Status Reason Start Date Expiration Date V isits Requested Visits Authorized [id number] Closed Specialty Services Required 01/09/2024 07/10/2025 1 1 Encounter Details Date Type Department Care Team (Late st Contact Info) Description 01/09/2024 Community [facility] [address] [place] [address] Joi King MD [address] [facility] [address] [place] [address] Myelitis (CMS/HCC) (Primary Dx) Social History Tobacco Use Types Packs/Day Years Used Date Smoking Tobacco: Never Smokeless Tobacco: Never Alcohol Use Standard Drinks/Week Comments Never 0 (1 standard drink = 0.6 oz pur e alcohol) Sex and Gender Information Value Date Recorded Sex Assigned at Not on file Legal Sex Male 8:31 PM EDT Gender Identity Not on file Sexual Orientation Not on file documented as of this encounter Plan of Treatment Upcoming Encounters Date Type Department Care Team (Late st Contact Info) Description 03/06/2025 10:00 AM EDT Office Visit [facility] Interventional Pain Medicine [address] [place] [address] Zaki Walker MD [address] [facility] [address] [place] [address] 08/12/2025 2:30 PM EST Office Visit [place] [facility] [address], [address] [place] [address] Jacob Salmeron DO [address] [place] [address] Scheduled Referrals Name Type Priority Associated Diagnoses Order Schedule Ambulatory referral to Neurology Outpatient Referral Routine Myelitis (CMS/HCC) Expected: 01/09/2024 (Approximate), Expires: 07/11/2025 documented as of this encounter Visit Diagnoses Diagnosis Myelitis (CMS/HCC)- Primary Unspecified cause of encephalitis, myelitis, and encephalomyelitis documented in this encounter Additional Health Concerns Assessment Noted Time A fall risk assessment has been complete d for the patient 01/03/2024 10:46 AM EDT A Body Mass Index follow-up plan has been documented for the patient 01/13/2024 7:34 PM EDT documented as of this encounter Care Teams Production Expediter Relationship Specialty Start Date End Date System, Provider Not In, [place] [address] PCP - General Family Medicine 05/23/23 05/14/24 Palak Martinez APRN [address] [place] [address] PCP - General 05/15/24 documented as of this encounter
--- OUTSIDE RECORDS SUMMARY | 2025-02-13 16:08 | XMS_ITS | Encounter Summary ---
Author Organization Healthcare Address [address] [place] [address] Care Team Providers Care Compatibility Test Engineer Name Role Phone System, Provider Not In MD Primary Care Provider Unavailable Palak Martinez APRN Primary Care Provider + [phone] Encounter Details Date Type Department Care Team (Late st Contact Info) Description 10/18/2023 Orders Only External Location [address] [place] [phone] Provider, External Social History Tobacco Use Types [...] Description 03/06/2025 10:00 AM EDT Office Visit [facility] Interventional Pain Medicine [address] [place] [address] Zaki Walker MD [address] [facility] [address] [place] [address] 08/12/2025 2:30 PM EST Office Visit [place] [facility] [address] [place] [address] Jacob Salmeron DO [address] [place] [address] documented as of this encounter [...] on filedocumented in this encounter Care Teams Compatibility Test Engineer Relationship Specialty Start Date End Date System, Provider Not In, [place] [address] PCP - General Family Medicine 05/23/23 05/14/24 Palak Martinez APRN [address] [place] [address] PCP - General 05/15/24 documented as of this encounter
--- OUTSIDE RECORDS SUMMARY | 2025-02-13 16:08 | XMS_ITS | Clinical Summary ---
Author Organization [facility] Address [address] [place] [address] Care Team Providers Care Marine Services Technician Name Role Phone Palak Martinez APRN Primary Care Provider + [phone] Allergies Active Allergy Reactions Criticality Noted Date Comments Prochlorperazine Other - please docum ent in the comment field Low 02/27/2017 hypotension Medications buPROPion XL (Wellbutrin XL) 300 MG 24 hr tablet Take 1 tablet(s) by mouth daily Active simvastatin (Zocor) 20 MG tablet Take 1 tablet (20 mg) by mouth 1 (one) time each day. Active meloxicam (Mobic) 7.5 MG tablet Take one tab PO daily for 7 days then stop 7 tablet 4 Active tiZANidine (Zanaflex) 4 MG tablet Take 1 tablet (4 mg) by mouth every 6 hours as needed for muscle spasms. 30 tablet 2 5 Active metroNIDAZOLE (Flagyl) 500 MG tablet Active propranolol (Inderal) 10 MG tablet 5 Active Lurasidone HCl 120 MG tablet 5 Active divalproex (Depakote) [address] tablet 5 Active busPIRone (Buspar) 10 MG tablet 5 Active spironolactone (Aldactone) 25 MG tablet Active furosemide (Lasix) 40 MG tablet Active cloNIDine (Catapres) 0.1 MG tablet 5 Active prazosin (Minipress) 1 MG capsule 1 capsule. 5 Active Zepbound 2.5 MG/0.5ML solution auto-injector inject 2.5 mg under the skin every week for 4 weeks then 5mg once weekly 5 Active topiramate 50 MG tablet TAKE 1 TABLET (50 MG) BY ORAL ROUTE 2 TIMES PER DAY 5 Active buPROPion XL (Wellbutrin XL) 150 MG 24 hr tablet 1 tablet. 5 Active pregabalin (Lyrica) 200 MG capsule Take 1 capsule by mouth 2 times a day. 60 capsule 5 5 Active Lyrica 150 MG capsule Take 1 capsule by mouth 2 times a day. 60 capsule 5 5 02/08/20 25 Discontinued Active Problems Problem Noted Date Diagnosed Date Multiple sclerosis 07/29/2024 Encounters Date Type Department Care Team Description 02/11/2025 Telephone [facility] Interventional Pain Medicine [address] [place] [phone] Zaki Walker MD HCN - Patient Message 02/07/2025 4:30 PM EDT Office Visit [facility] [address] [facility], [address] [place] [phone] Jacob Salmeron, Demyelinating disease (CMS/HCC) (Primary Dx); Multiple sclerosis (CMS/HCC); Spinal stenosis of thoracic region 02/07/2025 Travel 02/05/2025 Orders Only [facility] [address] [facility], [address] [place] [phone] Jacob Salmeron, Multiple sclerosis (CMS/HCC) (Primary Dx) 02/05/2025 Telephone [facility] [address] [place] [address] Ashley Moreno, arts and crafts teacher Rituxan Therapy 01/17/2025 1:49 PM EDT - 01/17/2025 11:59 PM EDT Hospital Encounter [facility] [address] [place] [address] Demyelinating disease (CMS/HCC) Discharge Disposition: Home or Self Care 01/17/2025 Travel 12/03/2024 Telephone [facility] [address] [facility], [address] [place] [phone] Hilario Galan MD from Last 3 Months Social History Tobacco Use Types Packs/Day Years Used Date Smoking Tobacco: Never Smokeless Tobacco: Never Tobacco Cessation:Counseling Given: Not Answered Alcohol Use Standard Drinks/Week Comments Never 0 [...] on file Sexual Orientation Not on file Last Filed Vital Signs Vital Sign Reading [...] Mass Index 47.7 02/07/2025 1:44 PM EDT Plan of Treatment Upcoming Encounters Date Type Department Care Team (Late st Contact Info) Description 03/06/2025 10:00 AM EDT Office Visit [facility] Interventional Pain Medicine [address] [facility] [place] [address] Zaki Walker MD [address] [facility] [address] [place] [address] 08/12/2025 2:30 PM EST Office Visit [facility] [address], [address] [place] [address] Jacob Salmeron DO [address] [place] [address] Health Maintenance Due Date Last Done Comments [facility]-Medicare Annual Wellness (AWV) 1973 [facility]-/Child/Adol SDOH Screenings 1973 [facility]- SDOH Screenings 12/11/1991 [facility]-Adult SDOH Screenings 12/11/1991 [facility]-DTaP,Tdap,and Td Vaccines (1 - Tdap) 1992 [facility]-Hepatitis B Vaccines (1 of 3 - 19+ 3-dose series) 1992 CT Colonography 2018 Colonoscopy 2018 FIT-DNA 2018 FIT 2018 FOBT 2018 Sigmoidoscopy 2018 [facility]-Colorectal Cancer Screening 2018 [facility]-Pneumococcal Vaccine: 50+ Years (1 of 1 - PCV) 12/11/2023 [facility]-Zoster Vaccines (1 of 2) 12/11/2023 [facility]-Influenza Vaccine (#1) 02/10/202504/03, 03/14/2023, 04/21/2022, Additional history exists [facility]-Depression Screening 10/08/2025 10/08/2024, 09/11 [id number] Vaccine Completed 04/09/2024, 09/10/2020, 08/13/2020 [facility]-HIV Screening Completed 07/26/2024 [facility]-Hepatitis C Screening Completed 07/26/2024 [facility]-Obesity Intervention Completed 025, 10/08/2024, 08/28/2024, Additional history exists HPV Vaccines Aged Out No longer eligi ble based on patient's age to complete this topic [facility]-HIB Vaccines Aged Out No longer e ligible based on patient's age to complete this topic [facility]-Hepatitis A Vaccines Aged Out No longer eligible based on patient's age to complete this topic [facility]-IPV Vaccines Aged Out No longer e ligible based on patient's age to complete this topic [facility]-Rotavirus Vaccines Aged Out No lo nger eligible based on patient's age to complete this topic Procedures Procedure Name Priority Date/Time Associated Diagnosis Comments COMPREHENSIVE METABOLIC PANEL, PLASMA Routine 02/07/2025 2:17 PM EDT Multiple sclerosis (CMS/HCC) CBC WITH AUTO DIFFERENTIAL Routine 02/07/2025 2:17 PM EDT Multiple sclerosis (CMS/HCC) MR THORACIC SPINE WO IV CONTRAST Routine 01/17/2025 6:03 PM EDT Demyelinating disease (CMS/HCC) MR CERVICAL SPINE WO IV CONTRAST Routine 01/17/2025 6:03 PM EDT Demyelinating disease (CMS/HCC) MR HEAD WO IV CONTRAST Routine 6:03 PM EDT Demyelinating disease (CMS/HCC) HEPATITIS C ANTIBODY W/REFLEX TO HCV QUANT PCR Routine 07/26/2024 2:32 PM EST Multiple sclerosis (CMS/HCC) HIV 1/2 ANTIBODY/ANTIGEN SCREEN WITH REFLEX TO HIV I/II DIFFERENTIATION Routine 07/26/2024 2:32 PM EST Multiple sclerosis (CMS/HCC) from Last 3 Months or Most Recently Relevant to Health Maintenance Results * (ABNORMAL) CBC and differential (02/07/2025 2:17 PM EDT) WBC Count 8.67 3.70 - 10.30 10*3/uL LAB HEMATOLOGY METHOD 02/07/2025 3:38 PM EDT [facility] RBC Count 5.21 4.60 - 6.10 10*6/uL LAB HEMATOLOGY METHOD 02/07/2025 3:38 PM EDT [facility] HGB 15.8 13.7 - 17.5 g/dL LAB HEMATOLOGY METHOD 02/07/2025 3:38 PM EDT [facility] HCT 45.7 40.0 - 51.0 % LAB HEMATOLOGY METHOD 02/07/2025 3:38 PM EDT [facility] Platelet Count 274 155 - 369 10*3/uL LAB HEMATOLOGY METHOD 02/07/2025 3:38 PM EDT [facility] MCV 88 79 - 98 fL LAB HEMATOLOGY METHOD 02/07/2025 3:38 PM EDT [facility] MCH 30.3 26.0 - 32.0 pg LAB HEMATOLOGY METHOD 02/07/2025 3:38 PM EDT [facility] MCHC 34.6 30.7 - 35.5 g/dL LAB HEMATOLOGY METHOD 02/07/2025 3:38 PM EDT [facility] RDW 12.3 11.5 - 14.5 % LAB HEMATOLOGY METHOD 02/07/2025 3:38 PM EDT [facility] MPV 11.6 8.8 - 12.5 fL LAB HEMATOLOGY METHOD 02/07/2025 3:38 PM EDT [facility] nRBC 0.0 <=0.0 per 100 WBCs LAB HEMATOLOGY METHOD 02/07/2025 3:38 PM EDT [facility] Differential Type Automated LAB HEMATOLOGY METHOD 02/07/2025 3:38 PM EDT [facility] Neutrophils % 71 % LAB HEMATOLOGY METHOD 02/07/2025 3:38 PM EDT [facility] Lymphocytes % 15 % LAB HEMATOLOGY METHOD 02/07/2025 3:38 PM EDT [facility] Monocytes % 8 % LAB HEMATOLOGY METHOD 02/07/2025 3:38 PM EDT [facility] Eosinophils % 5 % LAB HEMATOLOGY METHOD 02/07/2025 3:38 PM EDT [facility] Basophils % 1 % LAB HEMATOLOGY METHOD 02/07/2025 3:38 PM EDT [facility] Immature Granulocytes % 0 % LAB HEMATOLOGY METHOD 02/07/2025 3:38 PM EDT [facility] Neutrophils Absolute 6.20(H) 1.60 - 6.10 10*3/uL LAB HEMATOLOGY METHOD 02/07/2025 3:38 PM EDT [facility] Lymphocytes Absolute 1.27 1.20 - 3.90 10*3/uL LAB HEMATOLOGY METHOD 02/07/2025 3:38 PM EDT [facility] Monocytes Absolute 0.70 0.30 - 0.90 10*3/uL LAB HEMATOLOGY METHOD 02/07/2025 3:38 PM EDT [facility] Eosinophils Absolute 0.44 0.00 - 0.50 10*3/uL LAB HEMATOLOGY METHOD 02/07/2025 3:38 PM EDT [facility] Basophils Absolute 0.04 0.00 - 0.10 10*3/uL LAB HEMATOLOGY METHOD 02/07/2025 3:38 PM EDT [facility] Immature Granulocytes Absolute 0.02 0.00 - 0.06 10*3/uL LAB HEMATOLOGY METHOD 02/07/2025 3:38 PM EDT [facility] Blood Venous blood specimen / Unknown Venipuncture / Unknown 02/07/2025 2:17 PM EDT 02/07/2025 2:17 PM EDT Narrative [facility] - 02/07/2025 3:38 PM EDT Therapeutic decision making should be based on absolute values, rather than percentages. us Jacob Salmeron DO LAB BLOOD ORDERABLES Final Result [facility] [address] [place] [address] * (ABNORMAL) Comprehensive metabolic panel (02/07/2025 2:17 PM EDT) Glucose, Plasma 104(H) 74 - 99 mg/dL 02/07/2025 3:47 PM EDT [facility] BUN, Plasma 9 7 - 21 mg/dL 02/07/2025 3:47 PM EDT [facility] Creatinine, Plasma 1.24(H) 0.70 - 1.20 mg/dL 02/07/2025 3:47 PM EDT [facility] BUN/Creatinine Ratio 7 02/07/2025 3:47 PM EDT [facility] Sodium, Plasma 139 136 - 145 mmol/L 02/07/2025 3:47 PM EDT [facility] Potassium, Plasma 3.8 3.6 - 4.9 mmol/L 02/07/2025 3:47 PM EDT [facility] Chloride, Plasma 105 97 - 107 mmol/L 02/07/2025 3:47 PM EDT [facility] CO2, Plasma 22 22 - 29 mmol/L 02/07/2025 3:47 PM EDT [facility] Anion Gap 12 6 - 16 mmol/L 02/07/2025 3:47 PM EDT [facility] Total Calcium, Plasma 9.4 8.9 - 10.2 mg/dL 02/07/2025 3:47 PM EDT [facility] Total Protein 6.9 6.3 - 7.9 g/dL 02/07/2025 3:47 PM EDT [facility] Albumin, Plasma 4.0 3.5 - 5.2 g/dL 02/07/2025 3:47 PM EDT [facility] AST, Plasma 27 10 - 50 U/L 02/07/2025 3:47 PM EDT [facility] Comment:Hemolyzed, result ma y be falsely increased. ALT, Plasma 29 10 - 50 U/L 02/07/2025 3:47 PM EDT [facility] Alkaline Phosphatase, Plasma 99 40 - 115 U/L 02/07/2025 3:47 PM EDT [facility] Total Bilirubin, Plasma 0.5 0.2 - 1.1 mg/dL 02/07/2025 3:47 PM EDT [facility] eGFRcr 70.4 mL/min/1.7 3m*2 02/07/2025 3:47 PM EDT [facility] Comment:Reported eGFRcr in m L/min/1.73m2 is based the CKD-EPI 2020 equation that does not use a race coefficient. Blood Venous blood specimen / Unknown Venipuncture / Unknown 02/07/2025 2:17 PM EDT 02/07/2025 2:17 PM EDT Jacob Salmeron DO LAB BLOOD ORDERABLES Final Result [facility] [address] [place] [address] * MR Thoracic Spine wo IV Contrast [...] is normal in caliber. Focal area of [id number] signal is again noted at the level [...] is normal in caliber. Focal area of [id number] signal is again noted at the level [...] Khris Armenta MD on 01/23/2025 9:50 AM us Jacob Salmeron DO IMG MRI PROCEDURES Final Re sult * HIV 1 & 2 Antibody/Antigen Screen (07/26/2024 2:32 PM EST) HIV 1 & 2 Antibody/Antigen Screen Non Reactive Non Reactive 07/26/2024 5:01 PM EST [facility] Comment:Screening for HIV 1 & 2 antibodies, and P24 antigen is NONREACTIVE. No confirmatory testing is required. Blood Venous blood specimen / Unknown Venipuncture / Unknown 07/26/2024 2:32 PM EST 07/26/2024 2:33 PM EST Jacob Saez Mofibo DO LAB BLOOD ORDERABLES Final Result [facility] [address] [place] [address] * Hepatitis C antibody (07/26/2024 2:32 PM EST) Hepatitis C Antibody Negative Negative 07/26/2024 4:49 PM EST [facility] Blood Venous blood specimen / Unknown Venipuncture / Unknown 07/26/2024 2:32 PM EST 07/26/2024 2:33 PM EST Jacob Digg DO LAB BLOOD ORDERABLES Final Result Performing Organization Address City/[facility] Co de Phone Number [facility] [address] [place] [address] from Last 3 Months or Most Recently Relevant to Health Maintenance Insurance MEDICARE [place]ICAID-[place] Care Teams Marine Services Technician Relationship Specialty Start Date End Date Palak Martinez APRN [address] [place] [address] PCP - General 05/15/24
--- OUTSIDE RECORDS SUMMARY | 2025-02-13 16:08 | XMS_ITS | Encounter Summary ---
Author Organization [facility] Address [address] [place] [address] Care Team Providers Care Steel Box Toe Inserter Name Role Phone System, Provider Not In MD Primary Care Provider Unavailable Palak Martinez APRN Primary Care Provider + [phone] Reason for Referral * Consultation (Routine) - Closed Specialty Diagnoses / Procedures Referred By Contac t Referred To Contact Neurosurgery Diagnoses Abnormal magnetic resonance imaging of spine Disease of spinal cord (CMS/HCC) Lumbar radiculopathy Joi King MD [address] [facility] [address] [place] [address] Phone: tel: fax: Christian Duran MD [address] [facility] [address] [place] [address] Phone: tel: fax: Referral ID Status Reason Start Date Expiration Date V isits Requested Visits Authorized [id number] Closed Specialty Services Required 12/13/2023 06/13/2025 1 1 Encounter Details Date Type Department Care Team (Latest Contact Info) Description 12/13/2023 [facility] [address] [place] [address] Joi King MD [facility] [address] [place] [address] Abnormal magnetic resonance imaging of spine (Primary Dx); Disease of spinal cord (CMS/HCC); Lumbar radiculopathy Social History Tobacco Use Types Packs/Day Years [...] [facility] Inter[facility] Medicine [address] [facility] [place] [address] Zaki Walker MD [address] [facility] [address] [place] [address] 08/12/2025 2:30 PM EST Office Visit [place] [facility] [address] [place] [address] Jacob Salmeron, [address] [place] [address] Scheduled Referrals Name Type Priority Associated Diagnoses Orde r Schedule Ambulatory Referral to Neurosurgery Outpatient Referral Routine Abnormal magnetic resonance imaging of spine Disease of spinal cord (CMS/HCC) Lumbar radiculopathy Expected: 12/13/2023, Expires: 06/14/2025 documented as of this encounter Visit Diagnoses Diagnosis Abnormal magnetic resonance imaging of spine- Primary Disease of spinal cord (CMS/HCC) Unspecified disease of spinal cord Lumbar radiculopathy Thoracic or lumbosacral neuritis or radiculitis, unspecified documented in this encounter Care Teams Steel Box Toe Inserter Relationship Specialty Start Date End Date System, Provider Not In, [address] [place] [address] PCP - General Family Medicine 05/23/23 05/14/24 Palak Martinez APRN [address] [place] [address] PCP - General 05/15/24 documented as of this encounter
--- OUTSIDE RECORDS SUMMARY | 2025-02-13 16:08 | XMS_ITS | Encounter Summary ---
Author Organization [facility] Address [address] [place] [address] Care Team Providers Care Tattoo Designer Name Role Phone Palak Martinez APRN Primary Care Provider + [phone] Encounter Details Date Type Department Care Team (Late st Contact Info) Description 02/05/2025 Orders Only [place] [facility] [address] [place] [address] Jacob Salmeron, DO [address] [place] [address] Multiple sclerosis (CMS/HCC) (Primary Dx) Social History Tobacco Use [...] on file documented as of this encounter Miscellaneous Notes * Progress Notes - Jacquelin Reza, AlphonseD - 02/05/2025 10:29 AM EDT Infusion team requesting order for next dose of Rituxan due ~February 2025. Patient last seen by Dr. Salmeron on 10/08/24 and instructed to continue infusion therapy. Labs last drawn 10/08/24. ALC and LFTs unremarkable. Entering therapy plan and sending to for review and signature if appropriate. documented in this encounter Plan of Treatment Upcoming Encounters Date Type Department Care Team (Late st Contact Info) Description 03/06/2025 10:00 AM EDT Office Visit [facility] Interventional Pain Medicine [address] [facility] [place] [address] Zaki Walker MD [address] [facility] [address] [place] [address] 08/12/2025 2:30 PM EST Office Visit [place] [facility] [address] [place] [address] Jacob Salmeron DO [address] [place] [address] documented as of this encounter Visit Diagnoses Diagnosis Multiple sclerosis (CMS/HCC)- Primary Multiple sclerosis documented in this encounter Additional Health Concerns Assessment Noted Time PHQ-9 Depression Total Score: 9 10/09/19 1:50 PM EDT A fall risk assessment has been complete d for the patient 10/08/2024 1:50 PM EDT A Body Mass Index follow-up plan has been documented for the patient 10/08/2024 2:11 PM EDT documented as of this encounter Care Teams Tattoo Designer Relationship Specialty Start Date End Date Palak Martinez APRN [address] [place] [id number] PCP - General 05/15/24 documented as of this encounter
--- OUTSIDE RECORDS SUMMARY | 2025-02-13 16:08 | XMS_ITS | Encounter Summary ---
Author Organization [facility] Address [address] [place] [address] Care Team Providers Care Marble Setter Name Role Phone System, Provider Not In MD Primary Care Provider Unavailable Palak Martinez APRN Primary Care Provider + [phone] Encounter Details Date Type Department Care Team (Late st Contact Info) Description 12/07/2023 Orders Only External Location [address] [place] [phone] Provider, External Social History Tobacco Use Types [...] 03/06/2025 10:00 AM EDT Office Visit [facility] Interventional Pain Medicine [address] [place] [address] Zaki Walker MD [address] [facility] [address] [place] [phone] 08/12/2025 2:30 PM EST Office Visit [place] [facility] [address] [place] [address] Jacob Salmeron DO [address] [place] [address] documented as of this encounter Procedures Procedure Name Priority Date/Time Associated Diagnosis Comments MR OUTSIDE IMAGES 12/07/2023 1:18 PM EDT documented in this encounter Results * MR transfer of outside films (12/07/2023 1:18 PM EDT) Anatomical Region Laterality Modality Magnetic Resonan ce 12/07/2023 1:18 PM EDT us External Provider IMG MRI PROCEDURES Final Resul t documented in this encounter Visit Diagnoses Not on filedocumented in this encounter Care Teams Marble Setter Relationship Specialty Start Date End Date System, Provider Not In, [place] [address] PCP - General Family Medicine 05/23/23 05/14/24 Palak Martinez APRN [address] [place] [address] PCP - General 05/15/24 documented as of this encounter
--- OUTSIDE RECORDS SUMMARY | 2025-02-13 16:08 | XMS_ITS | Clinical Summary ---
Author Organization [facility] Address [address] [place] [address] Care Team Providers Care Strategic Planning Director Name Role Phone Fatimah Granger MIL Primary Care Provider [phone] Allergies Active Allergy Reactions Criticality Noted Date Comments Prochlorperazine Edisylate 7 Medications busPIRone (BUSPAR) 15 MG tablet Take 15 mg by mouth 3 (Three) Times a Day. Active CloNIDine (CATAPRES) 0.1 MG tablet Take 0.1 mg by mouth 2 (Two) Times a Day. Active traZODone (DESYREL) 100 MG tablet Take 100 mg by mouth Every Night. Active hydrOXYzine (VISTARIL) 25 MG capsule Take 25 mg by mouth 3 (Three) Times a Day As Needed for Itching. Active buPROPion SR (WELLBUTRIN SR) 100 MG 12 hr tablet Take 100 mg by mouth 2 (Two) Times a Day. Active lisinopril (PRINIVIL,ZESTRI L) 5 MG tablet Take 5 mg by mouth Daily. Active simvastatin (ZOCOR) 10 MG tablet Take 10 mg by mouth Every Night. Active meloxicam (MOBIC) 7.5 MG tablet 1 Oral Daily with food. 90 tablet 2 03/20/2017 Active Active Problems No known active problems Family History Medical History Relation Name Comments Stroke Mother Relation Name Status Comments Mother Social History Tobacco Use Types Packs/Day Years Used Date Smoking Tobacco: Never Smokeless Tobacco: Never Alcohol Use Standard Drinks/Week Comments No 0 (1 standard drink = 0.6 oz pur e alcohol) Abuse Screen Answer Date Recorded Unsafe at Home or Work/School Not on file Feels Threatened by Someone? Not on file 02/2023 Does Anyone Keep You from Co ntacting Others or Doint Things Outside the Home? Not on file 03/20/2023 Physical Sign of Abuse Present Not on file 1 Housing Stability Answer Date Recorded Current Living Arrangements Not on file 02/2023 Potentially Unsafe Housing Conditions Not on cheko e 03/20/2023 Family and Community Support Answer Benjie e Recorded Help with Day-to-Day Activities Not on file 03/20/2023 Lonely or Isolated Not on file 03/20/2023 Employment Answer Date Recorded Do you want help finding or keeping work or a raj b? Not on file 03/20/2023 Disabilities Answer Date Recorded Concentrating, Remembering, or Making Decisions Difficulty Not on file 03/20/2023 Doing Errands Independently Difficulty Not on fi le 03/20/2023 Education Answer Date Recorded Help with school or training? Not on file Preferred Language Not on file 03/20/2023 Sex and Gender Information Value Date Recorded Sex Assigned at Not on file Legal Sex Male 10:58 AM EDT Gender Identity Not on file Sexual Orientation Not on file Last Filed Vital Signs Vital Sign Reading Time Taken Comments Blood Pressure 156/89 03/13/2017 3:03 PM EDT Pulse 63 03/13/2017 3:03 PM EDT Temperature - - Respiratory Rate - - Oxygen Saturation - - Inhaled Oxygen Concentration - - Weight 155 kg (342 lb) 03/13/2017 3:03 PM EDT Height 172.7 cm (5' 8 ) 03/13/2017 3:03 PM EDT Body Mass Index 52 03/13/2017 3:03 PM EDT Plan of Treatment Health Maintenance Due Date Last Done Comments TDAP/TD VACCINES (1 - Tdap) 1992 ANNUAL PHYSICAL 02/27/2017 HEPATITIS C SCREENING 02/27/2017 COLOGUARD 2018 COLON CANCER SCREENING 5 YEAR SIGMOIDOSCOPY 2018 COLONOSCOPY 2018 [address] CANCER SCREENING 2018 CT COLONOGRAPHY 2018 FECAL OCCULT BLOOD TEST 2018 FIT Testing (1 year) 2018 Pneumococcal Vaccine 50+ (1 of 1 - PCV) 12/11/2023 ZOSTER VACCINE (1 of 2) 12/11/2023 COVID-19 Vaccine (1 - 2023- season) 2025 INFLUENZA VACCINE 03/12/2025 Insurance MEDICARE A & B MEDICAID [place] Care Teams Strategic Planning Director Relationship Specialty Start Date End Date Fatimah [place]anger APRN [address] [facility] [place] [address] PCP - General Family Medicine 02/27/17
--- OUTSIDE RECORDS SUMMARY | 2025-02-13 16:08 | XMS_ITS | Encounter Summary ---
Author Organization Healthcare Address [address] [place] [address] Care Team Providers Care Fashion Consultant Sales Name Role Phone System, Provider Not In MD Primary Care Provider Unavailable Palak Martinez APRN Primary Care Provider + [phone] Encounter Details Date Type Department Care Team (Late st Contact Info) Description 10/18/2023 Orders Only External Location [address] [place] [id number] Provider, External Social History Tobacco Use Types [...] Description 03/06/2025 10:00 AM EDT Office Visit [facility] Interventional Pain Medicine [address] [place] [address] Zaki Walker MD [address] [facility] [address] [place] [phone] 08/12/2025 2:30 PM EST Office Visit [place] [facility] [address] [place] [address] Jacob Salmeron DO [address] [place] [address] documented as of this encounter Procedures Procedure Name Priority Date/Time Associated Diagnosis Comments MR NEURO OUTSIDE IMAGES 10/18/2023 8:06 AM EDT documented in this encounter Results * MR NEURO OUTSIDE IMAGES (10/18/2023 8:06 AM EDT) Anatomical Region Laterality Modality Magnetic Resonan ce 10/18/2023 8:06 AM EDT us External Provider IMG MRI PROCEDURES Final Resul t documented in this encounter Visit Diagnoses Not on filedocumented in this encounter Care Teams Fashion Consultant Sales Relationship Specialty Start Date End Date System, Provider Not In, [place] [address] PCP - General Family Medicine 05/23/23 05/14/24 Palak Martinez APRN [address] [place] [address] PCP - General 05/15/24 documented as of this encounter
[2025-02-13 16:09] VITALS: BP 165/98; PULSE 64; RESP 18; TEMP 36.6; O2SAT 95
--- OUTSIDE RECORDS SUMMARY | 2025-02-13 16:09 | XMS_ITS | Encounter Summary ---
Author Organization [facility] Address [address] [facility] [place] [address] Care Team Providers Care Supervisor Spring Up Name Role Phone Palak Martinez MIL Primary Care Provider + [phone] Reason for Visit * Reason Onset Date Comments HCN - Patient Message 02/11/2025 Encounter Details Date Type Department Care Team (Late st Contact Info) Description 02/11/2025 Telephone [facility] Interventional Pain Medicine [address] [facility] [place] [address] Zaki Walker MD [address] [facility] [address] [place] [address] HCN - Patient Message Social History Tobacco Use Types Packs/Day Years [...] as of this encounter Miscellaneous Notes * Telephone Encounter - Angelita Mccall - 02/11/2025 2:10 PM EDT Reminder sent * Telephone Encounter - Gretchen Harley - 02/11/2025 10:43 AM EDT Clinical Concern/Question Reason for Call: Please send appt reminder 03/06/25 Best contact number: [phone] (mobile) Optimal time of day to reach caller: ANYTIME Additional comments/information from caller: None Note: Please do not reply to this message. Follow-up communication and further actions as a result of this message need to be communicated with the patient directly, if the patient is not active onMyChart. If the patient is active on MyChart, they will receive notification of the communication/outcome via [email or web address]. documented in this encounter Plan of Treatment Upcoming Encounters Date Type Department Care Team (Late st Contact Info) Description 03/06/2025 10:00 AM EDT Office Visit [facility] Interventional Pain Medicine [address] [facility] [place] [address] Zaki Walker MD [address] [facility] [address] [place] [address] 08/12/2025 2:30 PM EST Office Visit [place] [facility] [address] [place] [address] Jacob Salmeron DO [address] [place] [address] documented as of this encounter Visit Diagnoses Not on filedocumented in this encounter Additional Health Concerns Assessment Noted Time PHQ-9 Depression Total Score: 9 10/09/19 25 1:50 PM EDT A fall risk assessment has been complete d for the patient 02/07/2025 1:44 PM EDT A Body Mass Index follow-up plan has been documented for the patient 02/07/2025 2:04 PM EDT documented as of this encounter Care Teams Supervisor Spring Up Relationship Specialty Start Date End Date Palak Martinez APRN [address] [place] [address] PCP - General 05/15/24 documented as of this encounter
--- OUTSIDE RECORDS SUMMARY | 2025-02-13 16:09 | XMS_ITS | Clinical Summary ---
Author Organization [facility] Address [address] [place] [address] Care Team Providers Care Pin Ball Machine Mechanic Name Role Phone Palak Martinez [employer]INTED [employer]ER Primary Care Provider Allergies Active Allergy Reactions Criticality Noted Date Comments Prochlorperazine Other (See Comments) hypotension Medications benztropine (COGENTIN) 1 MG tablet Take 1 mg by mouth daily. Active buPROPion (WELLBUTRIN XL) 300 MG 24 hr tablet Take 300 mg by mouth daily. Active cyclobenzaprine (FLEXERIL) 10 MG tablet Take 10 mg by mouth 3 (three) times daily as needed for Muscle spasms. Active divalproex (DEPAKOTE) 125 MG EC tablet Take 125 mg by mouth 3 (three) times daily. Active lurasidone (LATUDA) 80 MG Take 80 mg by mouth daily. Active propranolol (INDERAL) 20 MG tablet Take 20 mg by mouth daily. Active simvastatin (ZOCOR) 20 MG tablet Take 20 mg by mouth nightly. Active topiramate (TOPAMAX) 50 MG tablet Take 50 mg by mouth daily. Active cyanocobalamin 1000 MCG tablet Take one tablet by mouth daily. 90 tablet 1 06/29/2023 Active Active Problems Problem Noted Date Diagnosed Date Paresthesia of bilateral legs 06/24/2023 Social History Tobacco Use Types Packs/Day Years Used Date Smoking Tobacco: Never Smokeless Tobacco: Never Tobacco Cessation:Counseling Given: No Alcohol Use Standard Drinks/Week Comments Not Currently 0 (1 standard drink = 0.6 oz pur e alcohol) Sex and Gender Information Value Date Recorded Sex Assigned at Not on file Legal Sex Male 9:59 PM EST Gender Identity Not on file Sexual Orientation Not on file Last Filed Vital Signs Vital Sign Reading Time Taken Comments Blood Pressure 159/94 06/29/2023 11:00 AM EST Pulse 78 06/29/2023 11:00 AM EST Temperature 36.6 C (97.8 F) 06/29/2023 11:00 AM EST Respiratory Rate 16 06/29/2023 11:00 AM EST Oxygen Saturation 94% 06/29/2023 11:00 AM EST Inhaled Oxygen Concentration - - Weight 148.8 kg (328 lb) 06/24/2023 5:56 PM EST Height 172.7 cm (5' 8 ) 06/24/2023 5:56 PM EST Body Mass Index 49.87 06/24/2023 5:56 PM EST Plan of Treatment Health Maintenance Due Date Last Done Comments CT Colonography 1973 Colonoscopy 1973 Colorectal Cancer Screening 1973 FIT-DNA 1973 FIT 1973 FOBT 1973 Sigmoidoscopy 1973 Hepatitis B (HepB) Vaccine (1 of 3 - 19+ 3-dose series) 1992 Tdap/Td Vaccine >11 yo (1 - Tdap) 1992 Pneumococcal Vaccines >50 yo (1 of 1 - PCV) 12/11/2023 Shingles (Shingrix) (1 of 2) 12/11/2023 Annual SDOH Screening 06/12/2024 Influenza Vaccine (#1) 2025 3, 04/21/2022, 06/25/2021, Additional history exists Haemophilus Influenzae Type B (Hib) Vaccine Aged Out No longer eligible based on patient's age to complete this topic Hepatitis A (HepA) Vaccine Aged Out N o longer eligible based on patient's age to complete this topic Meningococcal ACWY Aged Out No longer eligible based on patient's age to complete this topic Polio (IPV) Aged Out No longer eligi ble based on patient's age to complete this topic Rotavirus (RV) Vaccine Aged Out No lo nger eligible based on patient's age to complete this topic Insurance MEDIC[place] Member Subscriber Plan / Payer (Ef fective for All Dates) Name:KAYLA SENIOR Relation to Subscriber:Self Name:Taurus Senior Payer ID:[id number] Group ID:Not on file Type:Medicaid Address: [address] [place] [id number] Advance Directives * Full Code (Latest Code Status on File) Date Activated Date Inactivated Comments 06/24/2023 6:30 PM 06/29/2023 8:20 PM Care Teams Pin Ball Machine Mechanic Relationship Specialty Start Date End Date Palak Martinez APRN [address] [place] [address] PCP - General Nurse Practitioner 07/03/23
--- OUTSIDE RECORDS SUMMARY | 2025-02-13 16:09 | XMS_ITS | Encounter Summary ---
Author Organization [facility] Address [address] [place] [address] Care Team Providers Care Landmen Name Role Phone Palak Martinez APRN Primary Care Provider + [phone] Encounter Details Date Type Department Care Team (Latest Contact Info) Description 02/07/2025 Travel Social History Tobacco Use Types Packs/Day Years [...] Description 03/06/2025 10:00 AM EDT Office Visit [facility] Interventional Pain Medicine [address] [place] [address] Zaki Walker MD [address] [facility] [address] [place] [address] 08/12/2025 2:30 PM EST Office Visit [place] [facility] [address] [place] [address] Jacob Salmeron DO [address] [place] [address] documented as of this encounter Visit Diagnoses [...] documented as of this encounter Care Teams Landmen Relationship Specialty Start Date End Date Palak Martinez APRN [address] [place] [address] PCP - General 05/15/24 documented as of this encounter
--- OUTSIDE RECORDS SUMMARY | 2025-02-13 16:09 | XMS_ITS | Encounter Summary ---
Author Organization [facility] Address [address] [place] [address] Care Team Providers Care In Classroom Tutor Name Role Phone Palak Martinez APRN Primary Care Provider + [phone] Encounter Details Date Type Department Care Team (Latest Contact Info) Description 01/17/2025 Travel Social History Tobacco Use Types Packs/Day [...] Description 03/06/2025 10:00 AM EDT Office Visit [facility] Interventional Pain Medicine [address] [facility] [place] [address] Zaki Walker MD [address] [facility] [address] [place] [address] 08/12/2025 2:30 PM EST Office Visit [facility] [address] [place] [address] Jacob Salmeron DO [address] [place] [address] documented as of this encounter Visit Diagnoses [...] documented as of this encounter Care Teams In Classroom Tutor Relationship Specialty Start Date End Date Palak Martinez APRN [address] [place] [address] PCP - General 05/15/24 documented as of this encounter
--- OUTSIDE RECORDS SUMMARY | 2025-02-13 16:09 | XMS_ITS | Encounter Summary ---
Author Organization [facility] Address [address] [place] [address] Care Team Providers Care Media Liaison Officer Name Role Phone Palak Martinez APRN Primary Care Provider + [phone] Reason for Visit * Reason Onset Date Comments Rituxan Therapy 02/05/2025 Encounter Details Date Type Department Care Team (Late st Contact Info) Description 02/05/2025 Telephone [facility] [address] [place] [address] Ashley Moreno, [facility] Rituxan Therapy Social History Tobacco Use Types Packs/Day Years [...] encounter Miscellaneous Notes * Telephone Encounter - Paula Hebert, PharmD - 02/07/2025 1:12 PM EDT Medicare B/Advantage Plan Authorization Information Specialty Medication: Rituxan Diagnosis Code: G35 J-code/CPT code/S code: J9312 Covered by Medicare B: Yes Does the diagnosis, dose, and frequency match an FDA approved dosing schedule? Yes, list prescribeddose/frequency: 1g IV q6mos Site of Care: [facility] Does patient have an Advantage Plan? No. Will review in 12 months. * Telephone Encounter - Jacquelin Reza PharmD - 02/05/2025 10:36 AM EDT Infusion team requesting order for [...] Description 03/06/2025 10:00 AM EDT Office Visit [facility] Interventional Pain Medicine [address] [facility] [place] [address] Zaki Walker MD [address] [facility] [address] [place] [address] 08/12/2025 2:30 PM EST Office Visit [place] [facility] [address] [place] [address] Jacob Salmeron DO [address] [place] [address] documented as of this encounter [...] documented as of this encounter Care Teams Media Liaison Officer Relationship Specialty Start Date End Date Palak Martinez APRN [address] [place] [address] PCP - General 05/15/24 documented as of this encounter
--- NOTE | 2025-02-13 16:11 | XR_ITS ---
FINAL REPORT CLINICAL HISTORY: short of breath FINDINGS: A portable view of the chest was obtained. Cardiac and mediastinal silhouettes are within normal limits. There are low lung volumes. The lungs are otherwise clear. There is no pleural effusion or pneumothorax. IMPRESSION: No acute process on this portable exam. Reviewed, Interpreted and Dictated by Vicki Aldana MD Transcribed by Camila Koroma Authenticated and [facility]
--- NOTE | 2025-02-13 16:17 | ED_ITS ---
Discharge Plan Disposition Patient Disposition: Home, Self-Care Prescriptions Prescriptions: No Action clonidine HCl 0.1 mg tablet 0.1 mg PO BID lurasidone 120 mg tablet 120 mg PO DAILY Rx Instructions: must administer with food (at least 350 calories) buspirone 10 mg tablet 10 mg PO TID propranolol 10 mg tablet 10 mg PO TID simvastatin 20 mg tablet 20 mg PO HS prazosin 1 mg capsule 1 mg PO DAILY bupropion HCl 300 mg tablet extended release 24 hr 300 mg PO DAILY pregabalin 150 mg capsule 150 mg PO BID Zepbound 2.5 mg/0.5 mL pen injector 2.5 mg SQ WEEKLY Patient Comments: inject 2.5 mg under the skin every week for 4 weeks then 5mg once weekly Rx Instructions: Inject 2.5 mg under the skin every week for 4 weeks, then 5mg once weekly. divalproex 500 mg tablet,delayed release (DR/EC) 500 mg PO TID Referrals Follow up/Referrals: Rhys Cruz II, MD [Staff Physician, Gastroenterology] - See instructions Palak Martinez APRN [Primary Care Provider, Medical] - See instructions Activity Restrictions/Add. Instructions Additional Instructions/Restrictions: At this time it was felt you are safe to be discharged home. If new or worsening symptoms please do not hesitate to return the emergency department. I do not know what is causing your abdominal pain but essentially all emergencies have been ruled out at this time. Please call and schedule appointment with Dr. Cruz as soon as you are able. It was found that you have a small spot on your left adrenal gland which is likely benign just follow-up with your family doctor soon as you are able. Clinical Impressions Clinical Impression: Abdominal pain, Cholelithiasis, Adrenal abnormality Print Language Print Language: Mohawk Discharge ED Provider: Vito Clifton General Adult HPI <Clary Laguerre (ED), ACCOUNTING MACHINE OPERATOR - Last Filed: 02/13/25 19:02> General Chief complaint: Upper Respiratory Infection Stated complaint: BROWN,V/D,stomach pain,body aches Time Seen by Provider: 02/13/25 15:59 Mode of Arrival: Ambulatory Source of Information: Patient Description of Symptoms (Recalled from ER Triage Doc. by RN): patient presents to the ED for N/V/D since last night and full body aches. History of Present Illness HPI narrative: 49-year-old male presents to the ED today for complaints of nausea, vomiting, body aches and chills. He does have a cough but no sputum. He said last night his symptoms started and he started today with chest pain and shortness of breath. Patient does admit to abdominal pain in his lower abdomen. This does happen with his nausea. He does have elevated blood pressure today. Related Data Home Medications ?Medication ?Instructions ?Recorded ?Confirmed simvastatin 20 mg tablet 20 mg PO HS 04/01/24 5 buspirone 10 mg tablet 10 mg PO TID 09/16/24 clonidine HCl 0.1 mg tablet 0.1 mg PO BID 09/16/2405/06 lurasidone 120 mg tablet 120 mg PO DAILY 09/16/2404/05 propranolol 10 mg tablet 10 mg PO TID 09/16/24 bupropion HCl 300 mg 24 hr tablet, 300 mg PO DAILY 04/0510/19/24 extended release prazosin 1 mg capsule 1 mg PO DAILY 10/19/2410/19 pregabalin 150 mg capsule 150 mg PO BID 10/19/2410/19 tirzepatide (weight loss) 2.5 2.5 mg SQ WEEKLY 5 10/20/24 mg/0.5 mL subcutaneous pen injector (Zepbound) Held on 10/21/24. Instructions: Resume on 11/04/24. This medication may be causing your GI distress. Please follow-up with your PCP for further discussion. divalproex 500 mg tablet,delayed 500 mg PO TID 5 10/20/24 release Allergies Allergy/AdvReac Type Severity Reaction Status Date / Time prochlorperazine (From Allergy Unknown Other Verified 09/16/24 10:09 COMPAZINE) [facility] <Clary Laguerre (ED), ACCOUNTING MACHINE OPERATOR - Last Filed: 02/13/25 19:02> [facility] Disclaimer: The information contained in this section may have been updated after the patient was seen, as this information can be updated by other users. Medical History (Updated 02/13/25 @ 20:47 by Vito Clifton MD) Intractable abdominal pain Vomiting and diarrhea Gastroenteritis Back pain Seizure disorder Tremor Acute constipation Lumbar radiculopathy, acute Abnormal MRI, thoracic spine Myelopathy Episodic migraine BMI 50.0-59.9, adult Myelopathy Hypokalemia Acute viral syndrome Abdominal pain Headache Ribs, multiple fractures Gastroenteritis Viral gastroenteritis Cellulitis Obesity BMI greater than 40 Closed left ankle fracture Left ureteral calculus Transverse myelitis Bipolar 1 disorder Hyperlipidemia Arthritis Depression Acute adjustment disorder with anxiety Surgical History History of surgery on lower extremity History of ankle surgery Family History Other Cancer Diabetes Heart attack Hypertension Social History (Updated 10/19/24 @ 21:30 by Winsome See, RN) Smoking Status: Never smoker alcohol intake: never substance use type: denies use current occupational status: employed, unemployed and disabled Travel in the last 8 weeks?: None household members: family housing: house marital status: single 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 current occupational exposures/hazards: No caffeine: Yes Have you lived/traveled outside US in past 30 days?: No Contact w/someone who lives/traveled outside US past 30 days?: No Exposure to someone with infectious disease in past 14 days?: No Do you have a fever (greater than 100.4 F or 38 C)?: No Have you tested positive for COVID-19?: No Exposed to someone with COVID-19 in past 14 days?: No Do you have a sore throat?: No Do you have a cough?: No Do you have any weakness?: No Do you have any diarrhea?: Yes Are you experiencing any unusual bleeding?: No Do you have any muscle aches/pain?: No Do you have any abdominal pain?: No Are you experiencing loss of taste or smell?: No Other Medical History Have you received the Flu Vaccine for this season: No Have you received the Pneumonia Vaccine: No <Clary Laguerre (ED), ACCOUNTING MACHINE OPERATOR - Last Filed: 02/13/25 19:02> ROS Obtained: Yes Systems reviewed as appropriate & no additional complaints except as documented Constitutional Constitutional: Reports as per HPI Physical Exam <Clary Laguerre (ED), ACCOUNTING MACHINE OPERATOR - Last Filed: 02/13/25 19:02> General General appearance: alert Head Head exam: normocephalic Eye Eye exam: Present PERRL and EOMI ENT ENT exam: Present normal oropharynx and mucous membranes moist Neck Neck exam: Present full ROM and trachea midline Respiratory Respiratory exam: Present normal lung sounds bilaterally Cardiovascular Cardiovascular exam: Present regular rate, normal rhythm, normal heart sounds, +S1 and +S2 Abdominal Exam Abdominal exam: Present soft and normal bowel sounds Extremities Exam Extremities exam: Present normal inspection, full ROM and normal capillary refill Back Exam Back exam: Present normal inspection Neurological Exam Neurological exam: Present alert, oriented X3 and normal gait Skin Skin exam: Present warm, dry and intact Medical Decision Making <Clary Laguerre (ED), ACCOUNTING MACHINE OPERATOR - Last Filed: 02/13/25 19:02> Medical Records Screening: Per USPSTF and CDC recommendations, given the prevalence of disease in our region, it is our hospital?s policy to screen for HIV and viral Hepatitis for all patients aged 18 and over and those with ongoing risk factors. Talha Inquiry Pt receiving controlled substance: No Talha was queried for this patient: No Vital Signs: 02/13/25 16:07 02/13/25 16:09 02/13/25 18:29 Temperature 97.8 F 97.8 F Temperature Source Oral Oral Pulse Rate 64 Pulse Rate [Right Radial] 59 L Respiratory Rate 18 18 Blood Pressure 165/98 H Blood Pressure [Left Arm] 178/116 H Blood Pressure Mean [Left Arm] 136 Blood Pressure Source Blood Pressure Source [Left Arm] Automatic Cuff Blood Pressure Position Blood Pressure Position [Left Arm] Sitting 02 Sat by Pulse Oximetry 100 95 98 Oxygen Delivery Method Room Air Room Air Room Air 02/13/25 19:00 Temperature 98.4 F Temperature Source Oral Pulse Rate 81 Pulse Rate [Right Radial] Respiratory Rate 16 Blood Pressure 163/108 H Blood Pressure [Left Arm] Blood Pressure Mean [Left Arm] Blood Pressure Source Automatic Cuff Blood Pressure Source [Left Arm] Blood Pressure Position Sitting Blood Pressure Position [Left Arm] 02 Sat by Pulse Oximetry 96 Oxygen Delivery Method Room Air Lab Data Lab Results 02/13/25 16:11: SARS-CoV-2 (PCR) Not detected, Influenza A Untype (PCR) Not detected, Influenza Type B (PCR) Not detected 02/13/25 16:40: WBC 6.3, RBC 4.99, Hgb 14.9, Hct 43.2, MCV 86.6, MCH 29.9, MCHC 34.5, RDW 12.2, Plt Count 195, MPV 11.6 H, Neut % (Auto) 66.8, Lymph % (Auto) 17.1, Long % (Auto) 8.7, Eos % (Auto) 6.6, Baso % (Auto) 0.5, Neut # (Auto) 4.2, Lymph # (Auto) 1.1, Long # (Auto) 0.6, Eos # (Auto) 0.4, Baso # (Auto) 0.0, D- Dimer 0.36, Sodium 139, Potassium 3.5, Chloride 105, Carbon Dioxide 29, Anion Gap 8.5, BUN 8 L, Creatinine 1.20, Estimated Creat Clear 75, Estimated GFR 64, Est GFR ( Amer) 77, Glucose 96, Calcium 9.1, Magnesium 1.6, Total Bilirubin 0.7, AST 28, ALT 30, Alkaline Phosphatase 100, Troponin I < 0.01, Total Protein 6.4, Albumin 3.8, Globulin 2.6, Albumin/Globulin Ratio 1.5, Lipase 84 02/13/25 17:15: Urine Color Yellow, Urine Appearance Clear, Urine pH 6.0, Ur Specific [place] 1.025, Urine Protein Negative, Urine Glucose (UA) Negative, Urine Ketones Negative, Urine Blood Negative, Urine Nitrate Negative, Urine Bilirubin 1+ A, Urine Urobilinogen 0.2, Ur Leukocyte Esterase Negative, Urine RBC None, Urine WBC Occasional, Ur Squamous Epith Cells Occasional, Urine Bacteria Trace 02/13/25 19:13: Troponin I < 0.01 02/13/25 16:40 02/13/25 16:40 Orders (Tests/Meds): ED MEDICATIONS Generic Name Dose Route Start Last Admin Trade Name Freq PRN Reason Stop Dose Admin Sodium Chloride 10 ml 02/13/25 17:24 02/13/25 17:25 Sodium Chloride 0.9% 10ml Syr (Rad Only) IV 03/15/25 17:23 10 ml NEEDED PRN Administration Maintain IV Site Discontinued Medications Generic Name Dose Route Start Last Admin Trade Name Freq PRN Reason Stop Dose Admin Acetaminophen 1,000 mg 02/13/25 16:10 02/13/25 16:37 Acetaminophen 1,000mg/100ml Vial IV 02/13/25 16:11 1,000 mg ONCE ONE Administration Belladonna Alkaloids 60 ml 02/13/25 19:24 02/13/25 19:40 Belladonna Alkaloids 60 Ml Ml PO 02/13/25 19:25 60 ml ONCE ONE Administration Dexamethasone Sodium Phosphate 8 mg 02/13/25 16:14 02/13/25 16:37 Dexamethasone 4mg/Ml 1ml Vial IV 02/13/25 16:15 8 mg ONCE ONE Administration Dicyclomine HCl 10 mg 02/13/25 19:24 02/13/25 19:40 Dicyclomine 10mg Capsule PO 02/13/25 19:25 10 mg ONCE ONE Administration Iopamidol 75 ml 02/13/25 17:24 02/13/25 17:25 Iopamidol-370 (76%);100ml Bottle IV 02/13/25 17:25 75 ml ONCE ONE Administration Ketorolac Tromethamine 30 mg 02/13/25 16:10 02/13/25 16:37 Ketorolac 30mg/Ml Vial IV 02/13/25 16:11 30 mg ONCE ONE Administration Morphine Sulfate 4 mg 02/13/25 18:58 02/13/25 19:01 Morphine 4mg/Ml Syringe IV 02/13/25 18:59 4 mg ONCE ONE Administration Ondansetron HCl 4 mg 02/13/25 17:21 02/13/25 17:34 Ondansetron 4mg/2ml Vial IV 02/13/25 17:22 4 mg ONCE ONE Administration Oxycodone HCl 5 mg 02/13/25 20:10 02/13/25 20:19 Oxycodone 5mg Immediate Release Tablet PO 02/13/25 20:11 5 mg ONCE ONE Administration ORDERS Category Date Time Status CT abdomen pelvis w con Stat Cat Scan 02/13/25 16:22 Completed Chest XR -- portable [XR chest portable] Stat Exams 02/13/25 16:11 Taken CBC [Complete Blood Count Auto Diff] Stat Lab 02/13/25 16:40 Completed Comprehensive Metabolic Panel Stat Lab 02/13/25 16:40 Completed D-Dimer Stat Lab 02/13/25 16:40 Completed Lipase Stat Lab 02/13/25 16:40 Completed Magnesium Stat Lab 02/13/25 16:40 Completed Rapid PCR Covid and Flu A/B Stat Lab 02/13/25 16:11 Completed Trop I [Troponin I] Stat Lab 02/13/25 16:40 Completed Troponin I Q3H Lab 02/13/25 19:13 Completed Troponin I Q3H Lab 02/13/25 22:15 Ordered Urinalysis and Microscopic Stat Lab 02/13/25 17:15 Completed Medical Decision Narrative: patient is a 49-year-old male presenting to the emergency department for evaluation of bodyaches, chills, nausea and vomiting. Patient is hemodynamically stable and nontoxic-appearing upon arrival, afebrile. Differential diagnosis includes viral illness, COVID, flu, among others. Workup will be conducted with hematologic labs, specific imaging. Initial inventions include crystalloid bolus, analgesics. Initial workup reviewed by nm hematologic labs are remarkable for normal white count, other labs nonactionable. CT scan showed cholelithiasis but patient's pain in his abdomen is lower abdomen he is not tender in his right upper quad. So he can follow-up outpatient with surgeon for cholelithiasis. He also has other findings such as an acute kidney cyst and a nonobstructing kidney stone . Please see radiology report for formal read. Patient complaining of abdominal pain so we did give him morphine 4 mg IV at this time. <Vito Clifton MD - Last Filed: 02/13/25 21:00> Vital Signs: 02/13/25 16:07 02/13/25 16:09 02/13/25 18:29 Temperature 97.8 F 97.8 F Temperature Source Oral Oral Pulse Rate 64 Pulse Rate [Right Radial] 59 L Respiratory Rate 18 18 Blood Pressure 165/98 H Blood Pressure [Left Arm] 178/116 H Blood Pressure Mean [Left Arm] 136 Blood Pressure Source Blood Pressure Source [Left Arm] Automatic Cuff Blood Pressure Position Blood Pressure Position [Left Arm] Sitting 02 Sat by Pulse Oximetry 100 95 98 Oxygen Delivery Method Room Air Room Air Room Air 02/13/25 19:00 Temperature 98.4 F Temperature Source Oral Pulse Rate 81 Pulse Rate [Right Radial] Respiratory Rate 16 Blood Pressure 163/108 H Blood Pressure [Left Arm] Blood Pressure Mean [Left Arm] Blood Pressure Source Automatic Cuff Blood Pressure Source [Left Arm] Blood Pressure Position Sitting Blood Pressure Position [Left Arm] 02 Sat by Pulse Oximetry 96 Oxygen Delivery Method Room Air Lab Data Lab Results 02/13/25 16:11: SARS-CoV-2 (PCR) Not detected, Influenza A Untype (PCR) Not detected, Influenza Type B (PCR) Not detected 02/13/25 16:40: WBC 6.3, RBC 4.99, Hgb 14.9, Hct 43.2, MCV 86.6, MCH 29.9, MCHC 34.5, RDW 12.2, Plt Count 195, MPV 11.6 H, Neut % (Auto) 66.8, Lymph % (Auto) 17.1, Long % (Auto) 8.7, Eos % (Auto) 6.6, Baso % (Auto) 0.5, Neut # (Auto) 4.2, Lymph # (Auto) 1.1, Long # (Auto) 0.6, Eos # (Auto) 0.4, Baso # (Auto) 0.0, D- Dimer 0.36, Sodium 139, Potassium 3.5, Chloride 105, Carbon Dioxide 29, Anion Gap 8.5, BUN 8 L, Creatinine 1.20, Estimated Creat Clear 75, Estimated GFR 64, Est GFR ( Amer) 77, Glucose 96, Calcium 9.1, Magnesium 1.6, Total Bilirubin 0.7, AST 28, ALT 30, Alkaline Phosphatase 100, Troponin I < 0.01, Total Protein 6.4, Albumin 3.8, Globulin 2.6, Albumin/Globulin Ratio 1.5, Lipase 84 02/13/25 17:15: Urine Color Yellow, Urine Appearance Clear, Urine pH 6.0, Ur Specific [place] 1.025, Urine Protein Negative, Urine Glucose (UA) Negative, Urine Ketones Negative, Urine Blood Negative, Urine Nitrate Negative, Urine Bilirubin 1+ A, Urine Urobilinogen 0.2, Ur Leukocyte Esterase Negative, Urine RBC None, Urine WBC Occasional, Ur Squamous Epith Cells Occasional, Urine Bacteria Trace 02/13/25 19:13: Troponin I < 0.01 Orders (Tests/Meds): ED MEDICATIONS Generic Name Dose Route Start Last Admin Trade Name Freq PRN Reason Stop Dose Admin Sodium Chloride 10 ml 02/13/25 17:24 02/13/25 17:25 Sodium Chloride 0.9% 10ml Syr (Rad Only) IV 03/15/25 17:23 10 ml NEEDED PRN Administration Maintain IV Site Discontinued Medications Generic Name Dose Route Start Last Admin Trade Name Freq PRN Reason Stop Dose Admin Acetaminophen 1,000 mg 02/13/25 16:10 02/13/25 16:37 Acetaminophen 1,000mg/100ml Vial IV 02/13/25 16:11 1,000 mg ONCE ONE Administration Belladonna Alkaloids 60 ml 02/13/25 19:24 02/13/25 19:40 Belladonna Alkaloids 60 Ml Ml PO 02/13/25 19:25 60 ml ONCE ONE Administration Dexamethasone Sodium Phosphate 8 mg 02/13/25 16:14 02/13/25 16:37 Dexamethasone 4mg/Ml 1ml Vial IV 02/13/25 16:15 8 mg ONCE ONE Administration Dicyclomine HCl 10 mg 02/13/25 19:24 02/13/25 19:40 Dicyclomine 10mg Capsule PO 02/13/25 19:25 10 mg ONCE ONE Administration Iopamidol 75 ml 02/13/25 17:24 02/13/25 17:25 Iopamidol-370 (76%);100ml Bottle IV 02/13/25 17:25 75 ml ONCE ONE Administration Ketorolac Tromethamine 30 mg 02/13/25 16:10 02/13/25 16:37 Ketorolac 30mg/Ml Vial IV 02/13/25 16:11 30 mg ONCE ONE Administration Morphine Sulfate 4 mg 02/13/25 18:58 02/13/25 19:01 Morphine 4mg/Ml Syringe IV 02/13/25 18:59 4 mg ONCE ONE Administration Ondansetron HCl 4 mg 02/13/25 17:21 02/13/25 17:34 Ondansetron 4mg/2ml Vial IV 02/13/25 17:22 4 mg ONCE ONE Administration Oxycodone HCl 5 mg 02/13/25 20:10 02/13/25 20:19 Oxycodone 5mg Immediate Release Tablet PO 02/13/25 20:11 5 mg ONCE ONE Administration ORDERS Category Date Time Status CT abdomen pelvis w con Stat Cat Scan 02/13/25 16:22 Completed Chest XR -- portable [XR chest portable] Stat Exams 02/13/25 16:11 Taken CBC [Complete Blood Count Auto Diff] Stat Lab 02/13/25 16:40 Completed Comprehensive Metabolic Panel Stat Lab 02/13/25 16:40 Completed D-Dimer Stat Lab 02/13/25 16:40 Completed Lipase Stat Lab 02/13/25 16:40 Completed Magnesium Stat Lab 02/13/25 16:40 Completed Rapid PCR Covid and Flu A/B Stat Lab 02/13/25 16:11 Completed Trop I [Troponin I] Stat Lab 02/13/25 16:40 Completed Troponin I Q3H Lab 02/13/25 19:13 Completed Troponin I Q3H Lab 02/13/25 22:15 Ordered Urinalysis and Microscopic Stat Lab 02/13/25 17:15 Completed ECG Data Tracing #1: Independently interpreted by me rate is 57, rhythm is regular, axis is normal, no ST elevation in anatomical contiguous leads, QTc 420 Medical Decision Narrative: patient is a 49-year-old male presenting to the emergency department for evaluation of bodyaches, chills, nausea and vomiting. Patient is hemodynamically stable and nontoxic-appearing upon arrival, afebrile. Differential diagnosis includes viral illness, COVID, flu, among others. Workup will be conducted with hematologic labs, specific imaging. Initial inventions include crystalloid bolus, analgesics. Initial workup reviewed by me hematologic labs are remarkable for normal white count, other labs nonactionable. CT scan showed cholelithiasis but patient's pain in his abdomen is lower abdomen he is not tender in his right upper quad. So he can follow-up outpatient with surgeon for cholelithiasis. He also has other findings such as an acute kidney cyst and a nonobstructing kidney stone . Please see radiology report for formal read. Patient complaining of abdominal pain so we did give him morphine 4 mg IV at this time. Vito Clifton: Upon assumption of care patient is hemodynamically stable. I personally evaluated the patient he is not tender in his right upper quadrant. Has has tenderness in his right lower quadrant. Workup reviewed by me, hematologic labs are nonactionable no significant leukocytosis no transfusable anemia D-dimer excludes pulmonary embolism low risk aortic dissection no CHRISTINA or critical electrolyte abnormality initial troponin undetectably low. Serial troponins are flat. Lipase normal. Urinalysis interpreted by me and not consistent with infection. I reevaluated the patient he has persistent pain, GI cocktail, Bentyl, oxycodone will be administered. Formal CT read cholelithiasis without evidence of cholecystitis mild fatty liver, there is an adrenal hypoattenuation on the left, simple cyst of the right kidney 2 mm nonobstructing left kidney calcification which should not be causing his pain given that it is in the kidney, no evidence of appendicitis. Upon repeat evaluation patient does have some discomfort in his right lower quadrant but is not peritonitic on exam no tachycardia is resting comfortable in bed. No scrotal pain or inguinal tenderness. I do not know the exact cause of his abdominal pain but do not think that there is any emergent causes and he does not have generalized pain or proportion of exam which would make me concern for ischemic colitis. Patient underwent p.o. trial with successful. Given this patient is appropriate for outpatient management at this time will be referred to Dr. Cruz for his abdominal pain. Critical Care <Clary Laguerre (ED), ACCOUNTING MACHINE OPERATOR - Last Filed: 02/13/25 19:02> Critical Care Time Critical Care Time: No
[2025-02-13 16:18] LABS: Coronavirus 19, PCR Not Detected (NotDetected); Influenza A, PCR Not Detected (NotDetected); Influenza B, PCR Not Detected (NotDetected)
--- NOTE | 2025-02-13 16:22 | CT_ITS ---
PROCEDURE INFORMATION: Exam: CT Abdomen And Pelvis With Contrast Exam date and time: 02/13/2025 5:27 PM Age: 49 years old Clinical indication: Nausea and vomiting; Additional info: N/v TECHNIQUE: Imaging protocol: Computed tomography of the abdomen and pelvis with contrast. Radiation optimization: All CT scans at this facility use at least one of these dose optimization techniques: automated exposure control; mA and/or kV adjustment per patient size (includes targeted exams where dose is matched to clinical indication); or iterative reconstruction. Contrast material: ISOVUE; Contrast volume: 75 ml; Contrast route: IV; COMPARISON: CT ABDOMEN PELVIS W CON 10/18/2024 7:10 PM FINDINGS: Lungs: Calcified left lung base granuloma. Liver: Mild fatty liver. Gallbladder and biliary ducts: Cholelithiasis. Pancreas: Normal. No ductal dilation. Spleen: Normal. No splenomegaly. Adrenal glands: 11 mm fat attenuation left adrenal gland nodule. Right adrenal unremarkable. Kidneys and ureters: 1.5 cm simple appearing right kidney cyst. 2 mm nonobstructing left kidney calcification. Stomach and bowel: Unremarkable. No obstruction. No mucosal thickening. Appendix: No evidence of appendicitis. Intraperitoneal space: Unremarkable. No free air. No significant fluid collection. Vasculature: Atherosclerosis. Lymph nodes: Unremarkable. No enlarged lymph nodes. Urinary bladder: Unremarkable as visualized. Reproductive: Prostate calcifications. Bones/joints: Spondylosis of the spine. Soft tissues: Small fat containing umbilical hernia. Mild dependent subcutaneous edema. IMPRESSION: 1. Mild fatty liver. 2. Cholelithiasis. 3. 11 mm fat attenuation left adrenal nodule; adenoma versus myelolipoma. 4. 1.5 cm simple appearing right kidney cyst. 5. 2 mm nonobstructing left kidney calcification. 6. Additional chronic/nonemergent findings as detailed above. COMMENTS: Consistent with the [employer]'s Incidental Findings Committee white paper (J Am Marie Radiol 2018): Any incidental renal lesion less than 1 cm or classified as too small to characterize, or any incidental cystic renal lesion characterized as simple-appearing, is likely benign. No follow-up imaging is recommended for these lesions per consensus recommendations based on imaging criteria.
[2025-02-13] MEDS: KETOROLAC 30MG/ML VIAL 30 MG IV (16:37)
[2025-02-13] MEDS: DEXAMETHASONE 4MG/ML 1ML VIAL 8 MG IV (16:37)
[2025-02-13] MEDS: ACETAMINOPHEN 1,000MG/100ML VIAL 1000 MG IV (16:37)
[2025-02-13 16:51] LABS: Hematocrit 43.2 % (42.0-52.0); Hemoglobin 14.9 g/dL (14.1-18.0); Immature Granulocytes % 0.3 %; Mean Corpuscular HGB Conc 34.5 g/dL (31.8-35.4); Mean Corpuscular Hemoglobin 29.9 pg (27.0-31.2); Mean Corpuscular Volume 86.6 fl (80-94); Nucleated Red Blood Cells % 0 %; Platelet Count 195 K/mm3 (142-424); Red Blood Count 4.99 M/mm3 (4.60-6.20); Red Cell Distribution Width-SD 38.4 fL; White Blood Count 6.3 K/mm3 (4.8-10.8)
[2025-02-13 17:05] LABS: Alanine Aminotransferase 30 U/L (12-78); Albumin Level 3.8 g/dl (3.5-5.0); Albumin/Globulin Ratio 1.5 (1.1-1.8); Alkaline Phosphatase 100 U/L (38-126); Anion Gap 8.5 mEq/L (5-15); Aspartate Amino Transferase 28 U/L (17-59); Bilirubin,Total 0.7 mg/dl (0.2-1.3); Blood Urea Nitrogen 8 mg/dl (9-20); Calcium 9.1 mg/dl (8.4-10.2); Carbon Dioxide 29 mmol/L (22.0-30.0); Chloride 105 mmol/L (98-107); Creatinine Clearance Estimated 75 mL/min (50-200); Creatinine,Serum 1.20 mg/dl (0.66-1.25); Estimated Glomerular Filt Rate 64 ml/min (>60); GFR (African American) 77 ML/MIN (>60); Globulin 2.6 g/dL (1.3-3.2); Glucose 96 mg/dl (74-100); Lipase 84 U/L (23-300); Magnesium 1.6 mg/dl (1.6-2.3); Potassium 3.5 mmoL/L (3.5-5.1); Sodium 139 mmol/L (136-145); Total Protein,Serum 6.4 g/dl (6.3-8.2)
[2025-02-13 17:09] LABS: D-Dimer 0.36 ug/mL (0.0-0.5)
[2025-02-13 17:19] LABS: Troponin I < 0.01 ng/ml (0.00-0.034)
[2025-02-13] MEDS: IOPAMIDOL-370 (76%);100ML BOTTLE 75 ML IV (17:25)
[2025-02-13] MEDS: SODIUM CHLORIDE 0.9% 10ML SYR (RAD ONLY) 10 ML IV (17:25)
[2025-02-13 17:32] LABS: Microscopic, Urine URINE MICROSCOPIC (MICROSCOPIC)
[2025-02-13 17:34] LABS: Color,Urine YELLOW (Yellow); Glucose,Urine (UA) Negative (Negative); Ketones,Urine Negative (Negative); Leukocyte Esterase,Urine Negative (Negative); PH,Urine 6.0 (5.0-8.5); Protein,Urine Negative (Negative); Specific Gravity, Urine 1.025 (1.005-1.030); Urobilinogen,Urine 0.2 EU/dl (0.2)
[2025-02-13] MEDS: ONDANSETRON 4MG/2ML VIAL 4 MG IV (17:34)
[2025-02-13 17:47] LABS: Bilirubin,Urine 1+ (Negative)
[2025-02-13 18:29] VITALS: O2SAT 98
[2025-02-13 18:37] LABS: Bacteria,Urine Trace /lpf; Squamous Epithelial Cell,Urine Occasional #/hpf (0-5); WBC,Urine Occasional #/hpf (0-3)
[2025-02-13 19:00] VITALS: BP 163/108; PULSE 81; RESP 16; TEMP 36.9; O2SAT 96
[2025-02-13] MEDS: MORPHINE 4MG/ML SYRINGE 4 MG IV (19:01)
[2025-02-13] MEDS: BELLADONNA ALKALOIDS 60 ML ML PO (19:40)
[2025-02-13] MEDS: OXYCODONE 5MG IMMEDIATE RELEASE TABLET 5 MG PO (20:19)
[2025-02-13 20:30] LABS: Troponin I < 0.01 ng/ml (0.00-0.034)
--- NOTE | 2025-02-13 20:55 | PC.NURSE ---
Upon making rounds, I entered patient room to address any patient needs. Patient is currently resting with eyes closed, respirations even and unlabored, VSS. Patient does arouse to voice and I asked if patient had any current needs. He states that he stomach still hurts. MD informed. Patient provided extra blanket per request. No family at bedside at this time.
[2025-02-13 21:05] VITALS: BP 136/71; PULSE 74; RESP 14; TEMP 36.9; O2SAT 97
== END 2025-02-13 21:09 | disposition home or self-care (01) ==
PROVIDERS: Nurse Practitioner; Emergency Provider Emergency Medicine; PCP Nurse Practitioner
DX: R10.9 Unspecified abdominal pain (principal); K80.20 Calculus of gallbladder without cholecystitis without obstruction; E27.9 Disorder of adrenal gland, unspecified
CPT/HCPCS: 71045; 74177; 80053; 81001; 83690; 83735; 84484; 85025; 85378; 87636; 93005; 96374; 96375; 99284; 99285; J0131; J1100; J1885; J2270; J2405; Q9967

== ENCOUNTER 2025-04-01 08:38 | Outpatient (CLI) | payer MEDICARE, MEDICAID, SELFPAY ==
--- OUTSIDE RECORDS SUMMARY | 2025-02-07 16:30 | XMS_ITS | Encounter Summary ---
Author Organization [facility] Address [address] [place] [address] Care Team Providers Care Appraiser Art Name Role Phone Palak Martinez MIL Primary Care Provider + [phone] Reason for Referral * Consultation (Routine) - Authorized Specialty Diagnoses / Procedures Referred By Simon t Referred To Contact Physical Therapy Diagnoses Multiple sclerosis Spinal stenosis of thoracic region Jacob Salmeron DO [address] [address] Phone: tel: fax: Referral ID Status Reason Start Date Expiration Date Visits Requested Visits Authorized [id number] Authorized Consult and Treat 02/07/2025 08/09/2026 10 10 * Consultation (Routine) - Authorized Specialty Diagnoses / Procedures Referred By Contdaniel t Referred To Contact Pain Medicine Diagnoses Multiple sclerosis Spinal stenosis of thoracic region Jacob Salmeron DO [address] [address] Phone: tel: fax: [facility] [address] [place] [address] Phone: tel: fax: Referral ID Status Reason Start Date Expiration Date Visits Requested Visits Authorized [id number] Authorized Specialty Services Required 02/07/2025 08/09/2026 1 1 Encounter Details Date Type Department Care Team (Latest Contact Info) Description 02/07/2025 4:30 PM EDT Office Visit [place] [facility] [address] [place] [address] Jacob Salmeron DO [address] [place] [address] Demyelinating disease (CMS/HCC) (Primary Dx); Multiple sclerosis (CMS/HCC); Spinal stenosis of thoracic region Social History Tobacco Use Types Packs/Day Years [...] on file documented as of this encounter Last Filed Vital Signs Vital Sign Reading Time Taken Comments Blood Pressure 132/94 02/07/2025 1:44 PM EDT Pulse 87 02/07/2025 1:44 PM EDT Temperature - - Respiratory Rate - - Oxygen Saturation 96% 02/07/2025 1:44 PM EDT Inhaled Oxygen Concentration - - Weight 142 kg (313 lb 11.4 oz) 02/07/2025 1:44 P M EDT Height 172.7 cm (5' 8 ) 02/07/2025 1:44 PM EDT Body Mass Index 47.7 02/07/2025 1:44 PM EDT documented in this encounter Miscellaneous Notes * Progress Notes - Jacob Salmeron DO - 02/07/2025 4:30 PM EDT This is a very pleasant 49-year-old gentleman who had 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 I started him on rituximab. He reports no new neurologic issues since I saw him last. He is tolerating the medication with no major issues no opportunistic infections. On examination today he is alert and oriented x3. His speech is fluent there is no dysarthria and no aphasia. Cranial nerves 2-12 were intact there is no MIRNA in no APD he has 5/5 strength in bilateral upper and lower extremities there is no ataxia [id number] or [id number]. I reviewed his MRI of the brain and spinal cord. In regards to demyelinating disease this is stable. The MRI of the brain shows a couple small subcortical white matter lesions these are not classic pattern for multiple sclerosis he does have some central atrophy of the brain I do not see any lesions in the cervical cord he has a stable lesion in the thoracic cord as well as multilevel degenerative disc disease. There were no new lesions no active lesions. In summary this is a very pleasant 49-year-old gentleman with transverse myelitis and bands in the spinal fluid I think this is most likely multiple sclerosis. He has done well on rituximab we will continue rituximab. I am going to check routine blood work today. For his multilevel degenerative disc disease I am going to refer him to physical therapy. I am alsogoing to refer him to pain management. He will follow-up with me in 6 months or sooner if there is any problems in the interim. I spent 30 minutes in patient care. documented in this encounter Plan of Treatment Upcoming Encounters Date Type Department Care Team (Late st Contact Info) Description 08/12/2025 2:30 PM EST Office Visit [place] [facility] [address] [place] [address] Jacob Salmeron DO [address] [place] [address] Scheduled Referrals Name Type Priority Associated Diagnoses Order Schedule Ambulatory referral to Pain Medicine Outpatient Referral Routine Multiple sclerosis (CMS/HCC) Spinal stenosis of thoracic region 1 Occurrences starting 02/07/2025 until 08/11/2026 Ambulatory referral to Physical Therapy Outpatient Referral Routine Multiple sclerosis (CMS/HCC) Spinal stenosis of thoracic region 1 Occurrences starting 02/07/2025 until 08/11/2026 documented as of this encounter Results * (ABNORMAL) CBC and differential (02/07/2025 2:17 PM EDT) WBC Count 8.67 3.70 - 10.30 10*3/uL LAB HEMATOLOGY METHOD 02/07/2025 3:38 PM EDT [facility] RBC Count 5.21 4.60 - 6.10 10*6/uL LAB HEMATOLOGY METHOD 02/07/2025 3:38 PM EDT [facility] HGB 15.8 13.7 - 17.5 g/dL LAB HEMATOLOGY METHOD 02/07/2025 3:38 PM EDT [facility] HCT 45.7 40.0 - 51.0 % LAB HEMATOLOGY METHOD 02/07/2025 3:38 PM EDT [facility] Platelet Count 274 155 - 369 10*3/uL LAB HEMATOLOGY METHOD 02/07/2025 3:38 PM EDT [facility] MCV 88 79 - 98 fL LAB HEMATOLOGY METHOD 02/07/2025 3:38 PM EDT [facility] MCH 30.3 26.0 - 32.0 pg LAB HEMATOLOGY METHOD 02/07/2025 3:38 PM EDT [facility] MCHC 34.6 30.7 - 35.5 g/dL LAB HEMATOLOGY METHOD 02/07/2025 3:38 PM EDT [facility] RDW 12.3 11.5 - 14.5 % LAB HEMATOLOGY METHOD 02/07/2025 3:38 PM EDT [facility] MPV 11.6 8.8 - 12.5 fL LAB HEMATOLOGY METHOD 02/07/2025 3:38 PM EDT [facility] nRBC 0.0 <=0.0 per 100 WBCs LAB HEMATOLOGY METHOD 02/07/2025 3:38 PM EDT [facility] Differential Type Automated LAB HEMATOLOGY METHOD 02/07/2025 3:38 PM EDT [facility] Neutrophils % 71 % LAB HEMATOLOGY METHOD 02/07/2025 3:38 PM EDT [facility] Lymphocytes % 15 % LAB HEMATOLOGY METHOD 02/07/2025 3:38 PM EDT [facility] Monocytes % 8 % LAB HEMATOLOGY METHOD 02/07/2025 3:38 PM EDT [facility] Eosinophils % 5 % LAB HEMATOLOGY METHOD 02/07/2025 3:38 PM EDT [facility] Basophils % 1 % LAB HEMATOLOGY METHOD 02/07/2025 3:38 PM EDT [facility] Immature Granulocytes % 0 % LAB HEMATOLOGY METHOD 02/07/2025 3:38 PM EDT [facility] Neutrophils Absolute 6.20(H) 1.60 - 6.10 10*3/uL LAB HEMATOLOGY METHOD 02/07/2025 3:38 PM EDT [facility] Lymphocytes Absolute 1.27 1.20 - 3.90 10*3/uL LAB HEMATOLOGY METHOD 02/07/2025 3:38 PM EDT [facility] Monocytes Absolute 0.70 0.30 - 0.90 10*3/uL LAB HEMATOLOGY METHOD 02/07/2025 3:38 PM EDT [facility] Eosinophils Absolute 0.44 0.00 - 0.50 10*3/uL LAB HEMATOLOGY METHOD 02/07/2025 3:38 PM EDT [facility] Basophils Absolute 0.04 0.00 - 0.10 10*3/uL LAB HEMATOLOGY METHOD 02/07/2025 3:38 PM EDT [facility] Immature Granulocytes Absolute 0.02 0.00 - 0.06 10*3/uL LAB HEMATOLOGY METHOD 02/07/2025 3:38 PM EDT [facility] Blood Venous blood specimen / Unknown Venipuncture / Unknown 02/07/2025 2:17 PM EDT 02/07/2025 2:17 PM EDT Narrative [facility] - 02/07/2025 3:38 PM EDT Therapeutic decision making should be based on absolute values, rather than percentages. us Jacob Salmeron DO LAB BLOOD ORDERABLES Final Result [facility] [address] [place] [address] * (ABNORMAL) Comprehensive metabolic panel (02/07/2025 2:17 PM EDT) Glucose, Plasma 104(H) 74 - 99 mg/dL 02/07/2025 3:47 PM EDT [facility] BUN, Plasma 9 7 - 21 mg/dL 02/07/2025 3:47 PM EDT [facility] Creatinine, Plasma 1.24(H) 0.70 - 1.20 mg/dL 02/07/2025 3:47 PM EDT [facility] BUN/Creatinine Ratio 7 02/07/2025 3:47 PM EDT [facility] Sodium, Plasma 139 136 - 145 mmol/L 02/07/2025 3:47 PM EDT [facility] Potassium, Plasma 3.8 3.6 - 4.9 mmol/L 02/07/2025 3:47 PM EDT [facility] Chloride, Plasma 105 97 - 107 mmol/L 02/07/2025 3:47 PM EDT [facility] CO2, Plasma 22 22 - 29 mmol/L 02/07/2025 3:47 PM EDT [facility] Anion Gap 12 6 - 16 mmol/L 02/07/2025 3:47 PM EDT [facility] Total Calcium, Plasma 9.4 8.9 - 10.2 mg/dL 02/07/2025 3:47 PM EDT [facility] Total Protein 6.9 6.3 - 7.9 g/dL 02/07/2025 3:47 PM EDT [facility] Albumin, Plasma 4.0 3.5 - 5.2 g/dL 02/07/2025 3:47 PM EDT [facility] AST, Plasma 27 10 - 50 U/L 02/07/2025 3:47 PM EDT [facility] Comment:Hemolyzed, result ma y be falsely increased. ALT, Plasma 29 10 - 50 U/L 02/07/2025 3:47 PM EDT [facility] Alkaline Phosphatase, Plasma 99 40 - 115 U/L 02/07/2025 3:47 PM EDT [facility] Total Bilirubin, Plasma 0.5 0.2 - 1.1 mg/dL 02/07/2025 3:47 PM EDT [facility] eGFRcr 70.4 mL/min/1.7 3m*2 02/07/2025 3:47 PM EDT [facility] Comment:Reported eGFRcr in m L/min/1.73m2 is based the CKD-EPI 2020 equation that does not use a race coefficient. Blood Venous blood specimen / Unknown Venipuncture / Unknown 02/07/2025 2:17 PM EDT 02/07/2025 2:17 PM EDT us Jacob Salmeron DO LAB BLOOD ORDERABLES Final Result [facility] [address] [place] [address] documented in this encounter Visit Diagnoses Diagnosis Demyelinating disease (CMS/HCC)- Primary Unspecified demyelinating disease of central nervous system Multiple sclerosis Spinal stenosis of thoracic region documented in this encounter Additional Health Concerns Assessment Noted Time PHQ-9 Depression Total Score: 9 10/09/19 25 1:50 PM EDT A fall risk assessment has been complete d for the patient 02/07/2025 1:44 PM EDT A Body Mass Index follow-up plan has been documented for the patient 02/07/2025 2:04 PM EDT documented as of this encounter Care Teams Appraiser Art Relationship Specialty Start Date End Date Palak Martinez APRN [address] [place] [address] PCP - General 05/15/24 documented as of this encounter
[2025-04-01] VITALS (9 sets, daily range): BP systolic 118–156; BP diastolic 76–87; PULSE 50–67; RESP 18–20; TEMP 36.4; O2SAT 97–98
--- OUTSIDE RECORDS SUMMARY | 2025-04-01 08:42 | XMS_ITS | Encounter Summary ---
Author Organization Healthcare Address [address] [place] [address] Care Team Providers Care Qualitative Field Coordinator Name Role Phone Palak Martinez MIL Primary Care Provider + [phone] Encounter Details Date Type Department Care Team (Late st Contact Info) Description 03/20/2025 Telephone [place] [facility] [address] [place] [address] Jacob Salmeron, DO [address] [place] [address] Social History Tobacco Use Types Packs/Day Years [...] encounter Miscellaneous Notes * Telephone Encounter - Bryanna An - 03/20/2025 10:36 AM EDT Patient Phone Message Reason for Call: Patient calling to follow up on infusions and getting them ordered at [facility] please advise Best contact number and optimal time of day to reach caller: [phone] Note: Please do not reply to this message. Follow-up communication and further actions as a result of this message need to be communicated with the patient directly, if the patient is not active onMyChart. If the patient is active on MyChart, they will receive notification of the communication/outcome via MyChart. documented in this encounter Plan of Treatment Upcoming Encounters Date Type Department Care Team (Late st Contact Info) Description 08/12/2025 2:30 PM EST Office Visit [place] [facility] [address] [place] [address] Jacob Salmeron, DO [address] [place] [address] documented as of this encounter [...] documented as of this encounter Care Teams Qualitative Field Coordinator Relationship Specialty Start Date End Date Palak Martinez APRN [address] [place] [address] PCP - General 05/15/24 documented as of this encounter
--- OUTSIDE RECORDS SUMMARY | 2025-04-01 08:42 | XMS_ITS | Clinical Summary ---
Author Organization [facility] Address [address] [place] [address] Care Team Providers Care Commercial Photographer Name Role Phone Fatimah Granger MIL Primary Care Provider +[phone] Allergies Active Allergy Reactions Criticality Noted Date [...] 12/11/2023 ZOSTER VACCINE (1 of 2) 12/11/2023 INFLUENZA VACCINE 01/10/2025 Insurance MEDICARE A & B MEDICAID [place] Care Teams Commercial Photographer Relationship Specialty Start Date End Date Fatimah Granger APRN [address] [place] [address] PCP - General Family Medicine 02/27/17
--- OUTSIDE RECORDS SUMMARY | 2025-04-01 08:42 | XMS_ITS | Encounter Summary ---
Author Organization Healthcare Address [address] [place] [address] Care Team Providers Care Neck Skewer Name Role Phone System, Provider Not In MD Primary Care Provider Unavailable Palak Martinez APRN Primary Care Provider + [phone] Encounter Details Date Type Department Care Team (Late st Contact Info) Description 12/20/2023 Orders Only External Location [address] [place] [address] Provider, External Social History Tobacco Use Types [...] Visit [place] [facility] [address] [place] [address] Jacob Salmeron, DO [address] [place] [address] documented as of this encounter Procedures Procedure [...] on filedocumented in this encounter Care Teams Neck Skewer Relationship Specialty Start Date End Date System, Provider Not In, [place] [address] PCP - General Family Medicine 05/23/23 05/14/24 Palak Martinez APRN [address] [place] [address] PCP - General 05/15/24 documented as of this encounter
--- OUTSIDE RECORDS SUMMARY | 2025-04-01 08:43 | XMS_ITS | Encounter Summary ---
Author Organization Healthcare Address [address] [place] [address] Care Team Providers Care Finishing Frame Runner Name Role Phone Palak Martinez APRN Primary Care Provider + [phone] Encounter Details Date Type Department Care Team [...] Visit [place] [facility] [address] [place] [address] Jacob Salmeron, DO [address] [place] [address] documented as of this encounter [...] documented as of this encounter Care Teams Finishing Frame Runner Relationship Specialty Start Date End Date Palak Martinez APRN [address] [place] [address] PCP - General 05/15/24 documented as of this encounter
--- OUTSIDE RECORDS SUMMARY | 2025-04-01 08:43 | XMS_ITS | Encounter Summary ---
Author Organization Healthcare Address [address] [place] [address] Care Team Providers Care Metal Buffer Name Role Phone System, Provider Not In MD Primary Care Provider Unavailable Palak Martinez APRN Primary Care Provider + [phone] Encounter Details Date Type Department Care Team (Late st Contact Info) Description 10/18/2023 Orders Only External Location [address] [place] [address] Provider, External Social History Tobacco Use Types [...] Visit [place] [facility] [address] [place] [address] Jacob Salmeron, DO [address] [place] [address] documented as of this encounter Procedures Procedure [...] on filedocumented in this encounter Care Teams Metal Buffer Relationship Specialty Start Date End Date System, Provider Not In, [place] [address] PCP - General Family Medicine 05/23/23 05/14/24 Palak Martinez APRN [address] [place] [address] PCP - General 05/15/24 documented as of this encounter
--- OUTSIDE RECORDS SUMMARY | 2025-04-01 08:43 | XMS_ITS | Encounter Summary ---
Author Organization [facility] Address [address] [facility] [place] [address] Care Team Providers Care Scoring Machine Operator Name Role Phone Palak Martinez MIL Primary Care Provider + [phone] Reason for Visit * Reason Onset Date Comments HCN - Patient Message 02/11/2025 Encounter Details Date Type Department Care Team (Late st Contact Info) Description 02/11/[address] [facility] Interventional Pain Medicine [address] [address] Zaki Walker MD [address] [facility] [address] [place] [address] HCN - Patient Message Social [...] send appt reminder 03/06/25 Best contact number: [phone] (mobile) Optimal time of day to reach [...] Description 08/12/2025 2:30 PM EST Office Visit [place] [facility] [address] [place] [address] Jacob Salmeron, DO [address] [place] [address] documented as of this encounter [...] documented as of this encounter Care Teams Scoring Machine Operator Relationship Specialty Start Date End Date Palak Martinez APRN [address] [place] [address] PCP - General 05/15/24 documented as of this encounter
--- OUTSIDE RECORDS SUMMARY | 2025-04-01 08:43 | XMS_ITS | Clinical Summary ---
Author Organization [facility] Address [address] [place] [address] Care Team Providers Care Dry Curer Name Role Phone Palak Martinez APRN Primary Care Provider + [phone] Allergies Active Allergy Reactions Criticality Noted Date [...] 7 days then stop 7 tablet 05/07/2024 Active tiZANidine (Zanaflex) 4 MG tablet Take 1 tablet (4 mg) by mouth every 6 hours as needed for muscle spasms. 30 tablet 2 07/26/2024 Active metroNIDAZOLE (Flagyl) 500 MG tablet Active propranolol (Inderal) 10 MG tablet 10/01/2024 Active Lurasidone HCl 120 MG tablet 10/01/2024 Activ e divalproex (Depakote) [address] tablet 10/01/2024 Active busPIRone (Buspar) 10 MG tablet 10/01/2024 Active spironolactone (Aldactone) 25 MG tablet Active furosemide (Lasix) 40 MG tablet Active cloNIDine (Catapres) 0.1 MG tablet 08/28/2024 Active prazosin (Minipress) 1 MG capsule 1 capsule. 11/26/2024 Active Zepbound 2.5 MG/0.5ML solution auto-injector inject 2.5 mg under the skin every week for 4 weeks then 5mg once weekly 12/09/2024 Active topiramate 50 MG tablet TAKE 1 TABLET (50 MG) BY ORAL ROUTE 2 TIMES PER DAY 01/07/2025 Active buPROPion XL (Wellbutrin XL) 150 MG 24 hr tablet 1 tablet. 11/26/2024 Active pregabalin (Lyrica) 200 MG capsule Take 1 capsule by mouth 2 times a day. 60 capsule 5 02/07/2025 Active Active Problems Problem Noted Date Diagnosed Date Multiple sclerosis 07/29/2024 Encounters Date Type Department Care Team Description 03/20/2025 Telephone [facility] [address], [address] [place] [address] Jacob Salmeron DO 02/11/2025 Telephone [facility] Interventional Pain Medicine [address] [place] [phone] Zaki Walker MD HCN - Patient Message 02/07/2025 4:30 PM EDT Office Visit [facility] [address], [address] [place] [address] Jacob Salmeron DO Demyelinating disease (CMS/HCC) (Primary Dx); Multiple sclerosis (CMS/HCC); Spinal stenosis of thoracic region 02/07/2025 Travel 02/05/2025 Orders Only [facility] [address] [place] [address] Jacob Salmeron DO Multiple sclerosis (CMS/HCC) (Primary Dx) 02/05/2025 Telephone [facility] [address] [place] [phone] Ashley Moreno, [facility] Therapy 01/17/2025 1:49 PM EDT - 01/17/2025 11:59 PM EDT Hospital Encounter [facility] [address] [place] [address] Demyelinating disease (CMS/HCC) Discharge Disposition: Home or Self Care 01/17/2025 Travel from Last 3 Months Social History Tobacco [...] Visit [place] [facility] [address] [place] [address] Jacob Salmeron, DO [address] [place] [address] Health Maintenance Due Date Last Done Comments [facility]-Medicare Annual Wellness (AWV) 1975 [facility]-/Child/Adol SDOH Screenings [...] history exists [facility]-Depression Screening 10/08/2025 10/08/2024, 09/11 [id number] Vaccine Completed 04/09/2024, 09/10/2020, 08/13/2020 [facility]-HIV Screening [...] LAB HEMATOLOGY METHOD 02/07/2025 3:38 PM EDT [facility] RBC Count 5.21 4.60 - 6.10 10*6/uL LAB HEMATOLOGY METHOD 02/07/2025 3:38 PM EDT [facility] HGB 15.8 13.7 - 17.5 g/dL LAB HEMATOLOGY METHOD 02/07/2025 3:38 PM EDT [facility] HCT 45.7 40.0 - 51.0 % LAB HEMATOLOGY METHOD 02/07/2025 3:38 PM EDT [facility] Platelet Count 274 155 - 369 10*3/uL LAB HEMATOLOGY METHOD 02/07/2025 3:38 PM EDT [facility] MCV 88 79 - 98 fL LAB HEMATOLOGY METHOD 02/07/2025 3:38 PM EDT [facility] MCH 30.3 26.0 - 32.0 pg LAB HEMATOLOGY METHOD 02/07/2025 3:38 PM EDT [facility] MCHC 34.6 30.7 - 35.5 g/dL LAB HEMATOLOGY METHOD 02/07/2025 3:38 PM EDT [facility] RDW 12.3 11.5 - 14.5 % LAB HEMATOLOGY METHOD 02/07/2025 3:38 PM EDT [facility] MPV 11.6 8.8 - 12.5 fL LAB HEMATOLOGY METHOD 02/07/2025 3:38 PM EDT [facility] nRBC 0.0 <=0.0 per 100 WBCs LAB HEMATOLOGY METHOD 02/07/2025 3:38 PM EDT [facility] Differential Type Automated LAB HEMATOLOGY METHOD 02/07/2025 3:38 PM EDT [facility] Neutrophils % 71 % LAB HEMATOLOGY METHOD 02/07/2025 3:38 PM EDT [facility] Lymphocytes % 15 % LAB HEMATOLOGY METHOD 02/07/2025 3:38 PM EDT [facility] Monocytes % 8 % LAB HEMATOLOGY METHOD 02/07/2025 3:38 PM EDT [facility] Eosinophils % 5 % LAB HEMATOLOGY METHOD 02/07/2025 3:38 PM EDT [facility] Basophils % 1 % LAB HEMATOLOGY METHOD 02/07/2025 3:38 PM EDT [facility] Immature Granulocytes % 0 % LAB HEMATOLOGY METHOD 02/07/2025 3:38 PM EDT [facility] Neutrophils Absolute 6.20(H) 1.60 - 6.10 10*3/uL LAB HEMATOLOGY METHOD 02/07/2025 3:38 PM EDT [facility] Lymphocytes Absolute 1.27 1.20 - 3.90 10*3/uL LAB HEMATOLOGY METHOD 02/07/2025 3:38 PM EDT [facility] Monocytes Absolute 0.70 0.30 - 0.90 10*3/uL LAB HEMATOLOGY METHOD 02/07/2025 3:38 PM EDT [facility] Eosinophils Absolute 0.44 0.00 - 0.50 10*3/uL LAB HEMATOLOGY METHOD 02/07/2025 3:38 PM EDT [facility] Basophils Absolute 0.04 0.00 - 0.10 10*3/uL LAB HEMATOLOGY METHOD 02/07/2025 3:38 PM EDT [facility] Immature Granulocytes Absolute 0.02 0.00 - 0.06 10*3/uL LAB HEMATOLOGY METHOD 02/07/2025 3:38 PM EDT [facility] Blood Venous blood specimen / Unknown Venipuncture / Unknown 02/07/2025 2:17 PM EDT 02/07/2025 2:17 PM EDT Narrative [facility] - 02/07/2025 3:38 PM EDT Therapeutic decision making should be based on absolute values, rather than percentages. us Jacob Se Morrisonsurjit LAB BLOOD ORDERABLES Final Result [facility] [address] [place] [address] * (ABNORMAL) Comprehensive metabolic panel (02/07/2025 2:17 PM EDT) Glucose, Plasma 104(H) 74 - 99 mg/dL 02/07/2025 3:47 PM EDT [facility] BUN, Plasma 9 7 - 21 mg/dL 02/07/2025 3:47 PM EDT [facility] Creatinine, Plasma 1.24(H) 0.70 - 1.20 mg/dL 02/07/2025 3:47 PM EDT [facility] BUN/Creatinine Ratio 7 02/07/2025 3:47 PM EDT [facility] Sodium, Plasma 139 136 - 145 mmol/L 02/07/2025 3:47 PM EDT [facility] Potassium, Plasma 3.8 3.6 - 4.9 mmol/L 02/07/2025 3:47 PM EDT [facility] Chloride, Plasma 105 97 - 107 mmol/L 02/07/2025 3:47 PM EDT [facility] CO2, Plasma 22 22 - 29 mmol/L 02/07/2025 3:47 PM EDT [facility] Anion Gap 12 6 - 16 mmol/L 02/07/2025 3:47 PM EDT [facility] Total Calcium, Plasma 9.4 8.9 - 10.2 mg/dL 02/07/2025 3:47 PM EDT [facility] Total Protein 6.9 6.3 - 7.9 g/dL 02/07/2025 3:47 PM EDT [facility] Albumin, Plasma 4.0 3.5 - 5.2 g/dL 02/07/2025 3:47 PM EDT [facility] AST, Plasma 27 10 - 50 U/L 02/07/2025 3:47 PM EDT [facility] Comment:Hemolyzed, result ma y be falsely increased. ALT, Plasma 29 10 - 50 U/L 02/07/2025 3:47 PM EDT [facility] Alkaline Phosphatase, Plasma 99 40 - 115 U/L 02/07/2025 3:47 PM EDT [facility] Total Bilirubin, Plasma 0.5 0.2 - 1.1 mg/dL 02/07/2025 3:47 PM EDT [facility] eGFRcr 70.4 mL/min/1.7 3m*2 02/07/2025 3:47 PM EDT [facility] Comment:Reported eGFRcr in m L/min/1.73m2 is based the CKD-EPI 2020 equation that does not use a race coefficient. Blood Venous blood specimen / Unknown Venipuncture / Unknown 02/07/2025 2:17 PM EDT 02/07/2025 2:17 PM EDT us Jacob Salmeron DO LAB BLOOD ORDERABLES Final Result [facility] [address] [place] [address] * MR Thoracic Spine wo IV Contrast [...] is normal in caliber. Focal area of [id number] signal is again noted at the level [...] is normal in caliber. Focal area of [id number] signal is again noted at the level [...] MD on 01/23/2025 10:12 AM us Jacob Salmeorn DO IMG MRI PROCEDURES Final Re sult [...] Reactive Non Reactive 07/26/2024 5:01 PM EST [facility] Comment:Screening for HIV 1 & 2 antibodies, and P24 antigen is NONREACTIVE. No confirmatory testing is required. Blood Venous blood specimen / Unknown Venipuncture / Unknown 07/26/2024 2:32 PM EST 07/26/2024 2:33 PM EST Jacob Salmeron DO LAB BLOOD ORDERABLES Final Result [facility] [address] [place] [address] * Hepatitis C antibody (07/26/2024 2:32 PM EST) Hepatitis C Antibody Negative Negative 07/26/2024 4:49 PM EST [facility] Blood Venous blood specimen / Unknown Venipuncture / Unknown 07/26/2024 2:32 PM EST 07/26/2024 2:33 PM EST us Jacob Salmeron DO LAB BLOOD ORDERABLES Final Result [facility] [address] [place] [address] from Last 3 Months or Most Recently Relevant to Health Maintenance Insurance MEDICARE MEDICAID-[place] MEDICARE Care Teams Dry Curer Relationship Specialty Start Date End Date Palak Martinez APRN [address] [place] [place] [address] PCP - General 05/15/24
--- OUTSIDE RECORDS SUMMARY | 2025-04-01 08:43 | XMS_ITS | Encounter Summary ---
Author Organization [facility] Address [address] [place] [address] Care Team Providers Care Shackler Name Role Phone System, Provider Not In MD Primary Care Provider Unavailable Palak Martinez APRN Primary Care Provider + [phone] Reason for Referral * Consultation (Routine) - Closed Specialty Diagnoses / Procedures Referred By Contac t Referred To Contact Neurology Diagnoses Myelitis (CMS/HCC) Joi King MD [address] [facility] [address] [place] [address] Phone: tel: fax: Gerardo Bryant MD [address] [facility] [address] [place] [address] Phone: tel: fax: Referral ID Status Reason Start Date Expiration Date V isits Requested Visits Authorized [id number] Closed Specialty Services Required 01/09/2024 07/10/2025 1 1 Encounter Details Date Type Department Care Team (Late st Contact Info) Description 01/09/2024 Community [facility] [address] [place] [address] Joi King MD [address] [facility] [address] [place] [address] Myelitis (CMS/HCC) (Primary Dx) Social [...] Visit [place] [facility] [address], [address] [place] [address] Jacob Salmeron, DO [address] [place] [address] Scheduled Referrals Name Type Priority [...] documented as of this encounter Care Teams Shackler Relationship Specialty Start Date End Date System, Provider Not In, [place] [address] PCP - General Family Medicine 05/23/23 05/14/24 Palak Martinez APRN [address] [place] [address] PCP - General 05/15/24 documented as of this encounter
--- OUTSIDE RECORDS SUMMARY | 2025-04-01 08:43 | XMS_ITS | Encounter Summary ---
Author Organization Healthcare Address [address] [place] [address] Care Team Providers Care Garnett Feeder Name Role Phone System, Provider Not In MD Primary Care Provider Unavailable Palak Martinez APRN Primary Care Provider + [phone] Encounter Details Date Type Department Care Team (Late st Contact Info) Description 10/18/2023 Orders Only External Location [address] [place] [address] Provider, External Social History Tobacco Use Types [...] Visit [place] [facility] [address], [address] [place] [address] Jacob Salmeron, DO [address] [place] [address] documented as of this encounter Procedures Procedure [...] on filedocumented in this encounter Care Teams Garnett Feeder Relationship Specialty Start Date End Date System, Provider Not In, [place] [address] PCP - General Family Medicine 05/23/23 05/14/24 Palak Martinez APRN [address] [place] [address] PCP - General 05/15/24 documented as of this encounter
--- OUTSIDE RECORDS SUMMARY | 2025-04-01 08:43 | XMS_ITS | Encounter Summary ---
Author Organization Healthcare Address [address] [place] [address] Care Team Providers Care Rn Acls Name Role Phone System, Provider Not In MD Primary Care Provider Unavailable Palak Martinez APRN Primary Care Provider + [phone] Encounter Details Date Type Department Care Team (Late st Contact Info) Description 10/18/2023 Orders Only External Location [address] [place] [address] Provider, External Social History Tobacco Use Types [...] Visit [place] [facility] [address] [place] [address] Jacob Salmeron, DO [address] [place] [address] documented as of this encounter Procedures Procedure [...] on filedocumented in this encounter Care Teams Rn Acls Relationship Specialty Start Date End Date System, Provider Not In, [place] [address] PCP - General Family Medicine 05/23/23 05/14/24 Palak Martinez APRN [address] [place] [address] PCP - General 05/15/24 documented as of this encounter
--- OUTSIDE RECORDS SUMMARY | 2025-04-01 08:43 | XMS_ITS | Encounter Summary ---
Author Organization [facility] Address [address] [place] [address] Care Team Providers Care Detailer Furniture Name Role Phone Palak Martinez APRN Primary Care Provider + [phone] Encounter Details Date Type Department Care Team (Late st Contact Info) Description 02/05/2025 Orders Only [place] [facility] [address], [address] [place] [address] Jacob Salmeron, DO [address] [place] [address] Multiple sclerosis (CMS/HCC) (Primary Dx) [...] Visit [place] [facility] [address], [address] [place] [address] Jacob Salmeron, DO [address] [place] [address] documented as of this encounter Visit Diagnoses Diagnosis Multiple sclerosis- Primary documented in this encounter Additional Health Concerns Assessment Noted Time PHQ-9 Depression Total Score: 9 10/09/19 25 1:50 PM EDT A fall risk assessment has been complete d for the patient 10/08/2024 1:50 PM EDT A Body Mass Index follow-up plan has been documented for the patient 10/08/2024 2:11 PM EDT documented as of this encounter Care Teams Detailer Furniture Relationship Specialty Start Date End Date Palak Martinez APRN [address] [place] [id number] PCP - General 05/15/24 documented as of this encounter
--- OUTSIDE RECORDS SUMMARY | 2025-04-01 08:43 | XMS_ITS | Encounter Summary ---
Author Organization [facility] Address [address] [place] [address] Care Team Providers Care Denture Laboratory Technician Name Role Phone System, Provider Not In MD Primary Care Provider Unavailable Palak Martinez APRN Primary Care Provider + [phone] Reason for Referral * Consultation (Routine) - Closed Specialty Diagnoses / Procedures Referred By Contac t Referred To Contact Neurosurgery Diagnoses Abnormal magnetic resonance imaging of spine Disease of spinal cord (CMS/HCC) Lumbar radiculopathy Joi King MD [address] [facility] [address] [place] [address] Phone: tel: fax: Christian Duran MD [address] [facility] [address] [place] [address] Phone: tel: fax: Referral ID Status Reason Start Date Expiration Date V isits Requested Visits Authorized [id number] Closed Specialty Services Required 12/13/2023 06/13/2025 1 1 Encounter Details Date Type Department Care Team (Latest Contact Info) Description 12/13/2023 Community [facility] [place] [facility] [address] [place] [address] Joi King MD [place] [facility] [address] [place] [address] Abnormal magnetic resonance imaging of [...] Visit [place] [facility] [address] [place] [address] Jacob Salmeron, DO [address] [place] [address] Scheduled Referrals Name Type Priority [...] unspecified documented in this encounter Care Teams Denture Laboratory Technician Relationship Specialty Start Date End Date System, Provider Not In, [place] [address] PCP - General Family Medicine 05/23/23 05/14/24 Palak Martinez APRN [address] [place] [address] PCP - General 05/15/24 documented as of this encounter
--- OUTSIDE RECORDS SUMMARY | 2025-04-01 08:43 | XMS_ITS | Encounter Summary ---
Author Organization Healthcare Address [address] [place] [address] Care Team Providers Care Geodesist Name Role Phone System, Provider Not In MD Primary Care Provider Unavailable Palak Martinez APRN Primary Care Provider + [phone] Encounter Details Date Type Department Care Team (Late st Contact Info) Description 12/07/2023 Orders Only External Location [address] [place] [address] Provider, External Social History Tobacco Use Types [...] Visit [place] [facility] [address], [address] [place] [address] Jacob Salmeron, DO [address] [place] [address] documented as of this encounter Procedures Procedure [...] on filedocumented in this encounter Care Teams Geodesist Relationship Specialty Start Date End Date System, Provider Not In, [place] [address] PCP - General Family Medicine 05/23/23 05/14/24 Palak Martinez APRN [address] [place] [address] PCP - General 05/15/24 documented as of this encounter
--- OUTSIDE RECORDS SUMMARY | 2025-04-01 08:43 | XMS_ITS | Encounter Summary ---
Author Organization [facility] Address [address] [place] [address] Care Team Providers Care Aed Trainer Name Role Phone Palak Martinez APRN Primary Care Provider + [phone] Reason for Visit * Reason Onset Date Comments Rituxan Therapy 02/05/2025 Encounter Details Date Type Department Care Team (Late st Contact Info) Description 02/05/2025 Telephone [facility] [address] [place] [address] Ashley Moreno, [place] [facility] Social History Tobacco Use Types [...] Visit [place] [facility] [address] [place] [address] Jacob Salmeron, DO [address] [place] [address] documented as of this encounter [...] documented as of this encounter Care Teams Aed Trainer Relationship Specialty Start Date End Date Palak Martinez APRN [address] [place] [address] PCP - General 05/15/24 documented as of this encounter
--- OUTSIDE RECORDS SUMMARY | 2025-04-01 08:43 | XMS_ITS | Clinical Summary ---
Author Organization [facility] Address [address] [place] [address] Care Team Providers Care Refractory Grinder Operator Name Role Phone Palak Martinez ENROBING MACHINE CORDER Primary Care Provider Allergies Active Allergy Reactions [...] 2025 3, 04/21/2022, 06/25/2021, Additional history exists RSV 50+ and (1 - 1-dose 75+ series) 2048 Haemophilus Influenzae Type B (Hib) Vaccine Aged [...] to complete this topic Insurance MEDICARE [place]ICAID [place] Member Subscriber Plan / Payer (Ef fective for All Dates) Name:KAYLA SENIOR Relation to Subscriber:Self Name:Taurus Senior Payer ID:[id number] Group ID:Not on file Type:Medicaid Address: [place] [address] Advance Directives * Full Code (Latest Code Status on File) Date Activated Date Inactivated Comments 06/24/2023 6:30 PM 06/29/2023 8:20 PM Care Teams Refractory Grinder Operator Relationship Specialty Start Date End Date Palak Martinez APRN [address] [place] [address] PCP - General Nurse Practitioner 07/03/23
[2025-04-01] MEDS: METHYLPREDNISOLONE SOD SUCC 125MG VIAL 125 MG IV (08:57)
[2025-04-01] MEDS: ACETAMINOPHEN 325MG TAB 650 MG PO (08:57)
[2025-04-01] MEDS: SODIUM CHLORIDE 0.9% 10ML FLUSH SYRINGE 10 ML IV (08:58)
[2025-04-01] MEDS: RITUXIMAB IV (09:24)
[2025-04-01] MEDS: SODIUM CHLORIDE 0.9% IV (09:24)
== END 2025-04-01 23:59 | disposition home or self-care (01) ==
LOC: INF 08:40
PROVIDERS: PCP Nurse Practitioner; Visit Provider Psychiatry & Neurology Neurology
DX: G35.D Multiple sclerosis, unspecified (principal)
CPT/HCPCS: 96413; 96415; J2919; J7040; J9312

== ENCOUNTER 2025-04-20 11:20 | Emergency (ER) | payer MEDICARE, MEDICAID, SELFPAY ==
--- OUTSIDE RECORDS SUMMARY | 2025-02-26 07:08 | XMS_ITS | Continuity of Care Document ---
Author Organization [facility] [employer] Phone Care Team Providers Care Senior Cyber Security Analyst Name Role Phone ZELDA TRAVIS Primary Attending SAADIA ROSEN Unavailable [phone] ZELDA TRAVIS Admitting ZELDA TRAVIS Unavailable HILLARY DIAZ Primary Care ALLERGIES AND ADVERSE REACTIONS ALLERGIES AND ADVERSE REACTIONS Code System Allergy Substance Adverse Reaction Date Reaction (Severity) Comment Status Reported By Updated By [id number] RXNorm COMPAZINE Adverse reaction to substance lowers blood pressure active [id number] on February 16, 2025 2:50:15 AM UTC ASSESSMENTS Anxiety ; Bipolar disorder ; Major depressive disorder ; Suicidal thoughts ; Hyperlipidemia ; Hypertensive disorder ; Migraine ; Morbid obesity ; Obstructive sleep apnea of adult ; FAMILY HISTORY RELATION: Father Status: LIVING SNOMED-CT Diagnosis Age At Onset [id number] Depressive disorder RELATION: Mother Status: Cause of : Unknown Age at : Unknown SNOMED-CT Diagnosis Age At Onset [id number] Falls [id number] Hiatal hernia [id number] Hypertensive disorder PROBLEMS PATIENT PROBLEMS Code Description/Comments Category Status Upda maria a By [id number] Anxiety active [id number] on Feb 2:38:06 AM UTC [id number] Bipolar disorder active [id number] on February 16, 2025 2:38:17 AM UTC [id number] Major depressive disorder active [id number] on February 16, 2025 2:38:24 AM UTC 4782723 Suicidal thoughts active [id number] on February 16, 2025 2:39:22 AM [place] 78389679 Hyperlipidemia active ynl5261 on February 16, 2025 2:39:53 AM UTC 79419801 Hypertensive disorder active lue 3862 on February 16, 2025 2:39:59 AM UTC 12973181 Migraine active [id number] on Feb 2:40:17 AM UTC [id number] Morbid obesity active [id number] on February 16, 2025 2:40:29 AM UTC [id number] Obstructive sleep apnea of adult active [id number] on February 16, 2025 2:40:53 AM UTC RESULTS Patient: JERMAINE Saez Date of : 1975 LABORATORY RESULTS ORDER 100: ACETAMINOPHEN TYL ENOL (LOINC: 3298-7) ORDER DATE: February 15, 2025 11:34:00 PM UTC Specimen Source: Serum Specimen Type: Serum specime n PERFORMING LAB: [address] [id number] Result Comment: Final Result Date: February 15, 2025 11:52:00 PM UTC (TECH: MCE) LOINC TEST FLAG RESULT REFERENCE RANGE UPDA MARIA A BY 3298-7 Acetaminophen [Mass/volume] in Serum or Plasma N <10 ug/mL 10 ug/mL - 30 ug/mL February 15, 2025 11:52:00 PM UTC (TECH: MCE) ORDER 200: CBC AUTO W DIFF ( LOINC: 16000-1) ORDER DATE: February 15, 2025 11:34:00 PM UTC Specimen Source: Whole Blood Specimen Type: Whole blood s ample PERFORMING LAB: [address] [id number] Result Comment: Final Result Date: February 15, 2025 11:41:00 PM UTC (TECH: MCE) LOINC TEST FLAG RESULT REFERENCE RANGE UPDA MARIA A BY 6690-2 Leukocytes [#/volume] in Blood by Automated count N 8.4 10^3/uL 4.5 10^3/uL - 11.5 10^3/uL February 15, 2025 11:41:00 PM UTC (TECH: MCE) 789-8 Erythrocytes [#/volume] in Blood by Automated count N 4.99 10^6/uL 4.25 10^6/uL - 5.57 10^6/uL February 15, 2025 11:41:00 PM UTC (TECH: MCE) 718-7 Hemoglobin [Mass/volume] in Blood N 15.2 g/dL 13.5 g/dL - 17.2 g/dL February 15, 2025 11:41:00 PM UTC (TECH: Quantcast) 90759-7 Hematocrit [Volume Fraction] of Blood N 43.3 % 42.0 % - 52.0 % February 15, 2025 11:41:00 PM UTC (TECH: MCE) 787-2 Erythrocyte mean corpuscular volume [Entitic volume] by Automated count N 86.8 fl 80 fl - 95 fl February 15, 2025 11:41:00 PM UTC (TECH: Quantcast) 23874-9 Erythrocyte mean corpuscular hemoglobin [Entitic mass] in Blood from [place]etus by Automated count N 30.5 pg 27.0 pg - 34.0 pg February 15, 2025 11:41:00 PM UTC (TECH: Quantcast) 43654-6 Erythrocyte mean corpuscular hemoglobin concentration [Mass/volume] in Blood from Fetus by Automated count N 35.1 g/dL 32.0 g/dL - 36.0 g/dL February 15, 2025 11:41:00 PM UTC (TECH: Quantcast) 88195-7 Platelets [#/volume] in Blood N 189 10^3/uL 150 10^3/uL - 450 10^3/uL February 15, 2025 11:41:00 PM UTC (TECH: Quantcast) 56258-3 Erythrocyte distribution width [Ratio] N 12.4 % 12.3 % - 15.1 % February 15, 2025 11:41:00 PM UTC (TECH: Quantcast) 26035-0 Platelet mean volume [Entitic volume] in Blood by Automated count H 11.8 fl 7.4 fl - 10.4 fl February 15, 2025 11:41:00 PM UTC (TECH: MCE) 59188-9 Granulocytes/100 leukocytes in Blood by Automated count N 71.3 % 40 % - 75 % February 15, 2025 11:41:00 PM UTC (TECH: MCE) 736-9 Lymphocytes/100 leukocytes in Blood by Automated count N 16.2 % 15 % - 57 % February 15, 2025 11:41:00 PM UTC (TECH: MCE) 5905-5 Monocytes/100 leukocytes in Blood by Automated count N 9.9 % 4.0 % - 12.0 % February 15, 2025 11:41:00 PM UTC (TECH: MCE) 713-8 Eosinophils/100 leukocytes in Blood by Automated count N 2.0 % 0.0 % - 4.0 % February 15, 2025 11:41:00 PM UTC (TECH: MCE) 706-2 Basophils/100 leukocytes in Blood by Automated count N 0.2 % 0.0 % - 1.0 % February 15, 2025 11:41:00 PM UTC (TECH: MCE) 44586-2 Immature granulocytes [#/volume] in Blood N 0.4 % 0.0 % - 0.8 % February 15, 2025 11:41:00 PM UTC (TECH: MCE) 09231-4 Granulocytes [#/volume] in Blood by Automated count N 5.99 10^3/uL February 15, 2025 11:41:00 PM UTC (TECH: MCE) 731-0 Lymphocytes [#/volume] in Blood by Automated count N 1.36 10^3/uL February 15, 2025 11:41:00 PM UTC (TECH: MCE) 742-7 Monocytes [#/volume] in Blood by Automated count N 0.83 10^3/uL February 15, 2025 11:41:00 PM UTC (TECH: MCE) 711-2 Eosinophils [#/volume] in Blood by Automated count N 0.17 10^3/uL February 15, 2025 11:41:00 PM UTC (TECH: MCE) 704-7 Basophils [#/volume] in Blood by Automated count N 0.02 10^3/uL February 15, 2025 11:41:00 PM UTC (TECH: MCE) 18306-9 Immature granulocytes [#/volume] in Blood N 0.03 10^3/uL February 15, 2025 11:41:00 PM UTC (TECH: MCE) 74600-3 Manual differential performed [Presence] in Blood N NO February 15, 2025 11:41:00 PM UTC (TECH: MCE) ORDER 300: COMP METABOLIC PA JAXON (LOINC: 08515-7) ORDER DATE: February 15, 2025 11:34:00 PM UTC Specimen Source: Serum Specimen Type: Serum specime n PERFORMING LAB: [address] [place] [id number] Result Comment: Final Result Date: February 15, 2025 11:52:00 PM UTC (TECH: Quantcast) LOINC TEST FLAG RESULT REFERENCE RANGE UPDA MARIA A BY 2951-2 Sodium [Moles/volume ] in Serum or Plasma N 142 mmol/L 136 mmol/L - 145 mmol/L February 15, 2025 11:52:00 PM UTC (TECH: Quantcast) 2823-3 Potassium [Moles/volume] in Serum or Plasma L 3.3 mmol/L 3.5 mmol/L - 5.1 mmol/L February 15, 2025 11:52:00 PM UTC (TECH: Quantcast) 2075-0 Chloride [Moles/volume] in Serum or Plasma N 105 mmol/L 98 mmol/L - 107 mmol/L February 15, 2025 11:52:00 PM UTC (TECH: Quantcast) 2027-9 Carbon dioxide, tota l [Moles/volume] in Serum or Plasma N 27 mmol/L 21 mmol/L - 32 mmol/L February 15, 2025 11:52:00 PM UTC (TECH: Quantcast) 34346-5 Anion gap 3 in Serum or Plasma N 10.0 February 15, 2025 11:52:00 PM UTC (TECH: Quantcast) 2345-7 Glucose [Mass/volume ] in Serum or Plasma H 120 mg/dL 70 mg/dL - 110 mg/dL February 15, 2025 11:52:00 PM UTC (TECH: Quantcast) 3094-0 Urea nitrogen [Mass/volume] in Serum or Plasma N 17 mg/dL 7 mg/dL - 18 mg/dL February 15, 2025 11:52:00 PM UTC (TECH: Quantcast) 2160-0 Creatinine [Mass/volume] in Serum or Plasma N 1.3 mg/dL 0.8 mg/dL - 1.3 mg/dL February 15, 2025 11:52:00 PM UTC (TECH: Quantcast) 3097-3 Urea nitrogen/Creatinine [Mass Ratio] in Serum or Plasma N 13.1 9 - February 15, 2025 11:52:00 PM UTC (TECH: Quantcast) 85458-5 Glomerular filtratio n rate/1.73 sq M.predicted by Creatinine-based formula (MDRD) N 67 mL/min >60 February 15, 2025 11:52:00 PM UTC (MD.Voice: Quantcast) 10241-9 Osmolality of Serum or Plasma by calculated by sum of electrolytes N 298 mosm/kg 275 mosm/kg - 301 mosm/kg February 15, 2025 11:52:00 PM UTC (MD.Voice: Quantcast) 2885-2 Protein [Mass/volume ] in Serum or Plasma N 6.6 g/dL 6.4 g/dL - 8.2 g/dL February 15, 2025 11:52:00 PM UTC (Ancestry) 1751-7 Albumin [Mass/volume ] in Serum or Plasma L 3.3 g/dL 3.4 g/dL - 5.0 g/dL February 15, 2025 11:52:00 PM UTC (Ancestry) 67427-2 Calcium [Mass/volume ] in Serum or Plasma N 8.8 mg/dL 8.5 mg/dL - 10.1 mg/dL February 15, 2025 11:52:00 PM UTC (Ancestry) 34745-2 Calcium [Mass/volume ] corrected for total protein in Serum or Plasma N 9.4 mg/dL 8.5 mg/dL - 10.1 mg/dL February 15, 2025 11:52:00 PM UTC (Ancestry) 1975-2 Bilirubin.total [Mass/volume] in Serum or Plasma N 0.4 mg/dL 0.4 mg/dL - 1.5 mg/dL February 15, 2025 11:52:00 PM UTC (MD.Voice: Quantcast) 1920-8 Aspartate aminotransferase [Enzymatic activity/volume] in Serum or Plasma N 22 U/L 15 U/L - 37 U/L February 15, 2025 11:52:00 PM UT (MD.Voice: Quantcast) 1742-6 Alanine aminotransferase [Enzymatic activity/volume] in Serum or Plasma N 27 U/L 12 U/L - 78 U/L February 15, 2025 11:52:00 PM UT (MD.Voice: Quantcast) 6768-6 Alkaline phosphatase [Enzymatic activity/volume] in Serum or Plasma N 107 U/L 50 U/L - 170 U/L February 15, 2025 11:52:00 PM UTC (TECH: Quantcast) ORDER 400: ALCOHOL ETHANOL Q UANT (LOINC: 5645-7) ORDER DATE: February 15, 2025 11:34:00 PM UTC Specimen Source: Serum Specimen Type: Serum specime n PERFORMING LAB: [address] [id number] Result Comment: Final Result Date: February 15, 2025 11:52:00 PM UTC (TECH: MCE) LOINC TEST FLAG RESULT REFERENCE RANGE UPDA MARIA A BY 5645-7 Ethanol [Mass/volume] in Urine N <3 mg/dL 0 mg/dL - 10 mg/dL February 15, 2025 11:52:00 PM UTC (TECH: MCE) ORDER 500: URINE DRUG SCREEN - EXL MAX (LOINC: 17201-1) ORDER DATE: February 15, 2025 11:34:00 PM UTC Specimen Source: URINE Specimen Type: Urine specime n PERFORMING LAB: [address] [id number] Result Comment: Final Result Date: February 16, 2025 12:28:00 AM UTC (TECH: MCE) LOINC TEST FLAG RESULT [place] [address]-8 Amphetamine+Methamph et amine [Presence] in Urine N NEGATIVE NEGATIVE February 16, 2025 12:28:00 AM UTC (TECH: MCE) 3377-9 Barbiturates [Presence] in Urine N NEGATIVE NEGATIVE February 16, 2025 12:28:00 AM UTC (TECH: MCE) 49466-1 Benzodiazepine metabolites [Presence] in Urine by Screen method N NEGATIVE NEGATIVE February 16, 2025 12:28:00 AM UTC (TECH: MCE) 3414-0 Buprenorphine [Presence] in Urine N NEGATIVE NEGATIVE February 16, 2025 12:28:00 AM UTC (TECH: MCE) 3397-7 Cocaine [Presence] i n Urine N NEGATIVE NEGATIVE February 16, 2025 12:28:00 AM UTC (TECH: MCE) 25855-2 Methadone [Presence] in Specimen N NEGATIVE NEGATIVE February 16, 2025 12:28:00 AM UTC (TECH: MCE) 12132-9 Opiates [Mass/volume ] in Specimen N NEGATIVE NEGATIVE February 16, 2025 12:28:00 AM UTC (TECH: MCE) 35790-7 oxyCODONE [Presence] in Specimen N NEGATIVE NEGATIVE February 16, 2025 12:28:00 AM UTC (TECH: MCE) 3427-2 Cannabinoids [Presence] in Urine N NEGATIVE NEGATIVE February 16, 2025 12:28:00 AM UTC (TECH: MCE) 46809-3 Phencyclidine [Presence] in Specimen N NEGATIVE NEGATIVE February 16, 2025 12:28:00 AM UTC (TECH: MCE) 36109-4 Fentanyl [Presence] in Urine N NEGATIVE NEGATIVE February 16, 2025 12:28:00 AM UTC (TECH: MCE) 22063-5 Tricyclic antidepressants [Presence] in Specimen N NEGATIVE NEGATIVE February 16, 2025 12:28:00 AM UTC (TECH: MCE) 09740-4 Internal control result N PASS PASS February 16, 2025 12:28:00 AM UTC (TECH: MCE) ORDER 600: UA AND MICRO/CULT IF INDICATED (LOINC: 13498-0) ORDER DATE: February 15, 2025 11:34:00 PM UTC Specimen Source: URINE Specimen Type: Urine specime n PERFORMING LAB: [address] [id number] Result Comment: Final Result Date: February 16, 2025 12:27:00 AM UTC (TECH: MCE) LOINC TEST FLAG RESULT REFERENCE RANGE UPDA MARIA A BY 5778-6 Color of Urine N YELLOW YELLOW Septe 2024 12:27:00 AM UTC (TECH: MCE) 5767-9 Appearance of Urine N CLEAR CLEAR February 16, 2025 12:27:00 AM UTC (TECH: MCE) 5792-7 Glucose [Mass/volume] in Urine by Test strip N NORM NORMAL February 16, 2025 12:27:00 AM UTC (TECH: MCE) 94726-2 Bilirubin.total [Mass/volume] in Urine by Automated test strip N NEGATIVE NEGATIVE February 16, 2025 12:27:00 AM UTC (TECH: MCE) 5797-6 Ketones [Mass/volume] in Urine by Test strip N NEGATIVE NEGATIVE February 16, 2025 12:27:00 AM UTC (TECH: MCE) 2965-2 Specific gravity of Urine N 1.025 1.005 - 1.035 February 16, 2025 12:27:00 AM UTC (TECH: MCE) 74171-6 Erythrocytes [#/volume] in Urine by Automated test strip N NEGATIVE NEGATIVE February 16, 2025 12:27:00 AM UTC (TECH: MCE) 35454-8 pH of Urine by Automated test strip N 5.00 5.0 - 7.5 February 16, 2025 12:27:00 AM UTC (TECH: MCE) 04913-5 Protein [Presence] in Urine by Test strip N 30 (1+) mg/dL NEGATIVE February 16, 2025 12:27:00 AM UTC (TECH: MCE) 84918-6 Urobilinogen [Mass/volume] in Urine by Automated test strip N 1 mg/dL NORMAL February 16, 2025 12:27:00 AM UTC (TECH: MCE) 95404-1 Nitrate [Presence] in Urine N NEGATIVE NEGATIVE February 16, 2025 12:27:00 AM UTC (TECH: MCE) 13014-1 Leukocytes [#/volume] in Urine by Test strip N NEGATIVE NEGATIVE February 16, 2025 12:27:00 AM UTC (TECH: MCE) 97900-8 Other elements in Urine sediment N NOT REQUIRED February 16, 2025 12:27:00 AM UTC (TECH: MCE) 45474-9 Microscopic observation [Identifier] in Urine sediment by Light microscopy N YES February 16, 2025 12:27:00 AM UTC (TECH: MCE) 27198-3 Erythrocytes [#/area] in Urine sediment by Microscopy high power field N NONE SEEN 0-3 February 16, 2025 12:27:00 AM UTC (TECH: MCE) 5821-4 Leukocytes [#/area] in Urine sediment by Microscopy high power field N 0-3 NONE SEEN February 16, 2025 12:27:00 AM UTC (TECH: MCE) 78899-3 Epithelial cells.squamous [#/area] in Urine sediment by Microscopy high power field N 0-3 NONE SEEN February 16, 2025 12:27:00 AM UTC (TECH: MCE) 5769-5 Bacteria [#/area] in Urine sediment by Microscopy high power field N TRACE NONE SEEN February 16, 2025 12:27:00 AM UTC (TECH: MCE) ORDER 1900: LIPID PANEL (GEORGE NC: 88590-5) ORDER DATE: February 16, 2025 2:46:00 AM UTC Specimen Source: Serum/Plasm a Specimen Type: Acellular blo od (serum or plasma) specimen PERFORMING LAB: [address] [id number] Result Comment: Final Result Date: February 16, 2025 10:43:00 AM UTC (TECH: [employer]ic[employer]) LOINC TEST FLAG RESULT REFERENCE RANGE UPDA MARIA A BY 2571-8 Triglyceride [Mass/volume] in Serum or Plasma N 127 mg/dL 20 mg/dL - 200 mg/dL February 16, 2025 10:43:00 AM UTC (TECH: MicroEvalM) 3 Cholesterol [Mass/volume] in Serum or Plasma N 137 mg/dL 0 mg/dL - 200 mg/dL February 16, 2025 10:43:00 AM UTC (TECH: [employer]) 9 Cholesterol in HDL [Mass/volume] in Serum or Plasma L 39 mg/dL 60 mg/dL February 16, 2025 10:43:00 AM UTC (TECH: [employer]) 29724-9 Cholesterol in LDL [Mass/volume] in Serum or Plasma by calculation L 73 mg/dL 100 mg/dL February 16, 2025 10:43:00 AM UTC (TECH: [employer]) 2095-01 Cholesterol in HDL/Cholesterol.tot al [Mass Ratio] in Serum or Plasma N 4 - 5 February 16, 2025 10:43:00 AM UTC (TECH: [employer]ic[employer]) ORDER 2000: THYROID STIMULAT ING HORMONE (LOINC: 3016-3) ORDER DATE: February 16, 2025 2:46:00 AM UTC Specimen Source: Serum/Plasm a Specimen Type: Acellular blo od (serum or plasma) specimen PERFORMING LAB: [address] [id number] Result Comment: Final Result Date: February 16, 2025 10:43:00 AM UT (TECH: [employer]) LOINC TEST FLAG RESULT REFERENCE RANGE UPDA MARIA A BY 3016-3 Thyrotropin [Units/volume] in Serum or Plasma N 1.73 mIU/mL 0.34 mIU/mL - 4.80 mIU/mL February 16, 2025 10:43:00 AM UT (TECH: [employer]ic[employer]) ORDER 2100: RPR QUAL W REFLE X (LOINC: 13187-2) ORDER DATE: February 16, 2025 2:46:00 AM UTC Specimen Source: Serum Specimen Type: Serum specime n PERFORMING LAB: [address] [id number] Result Comment: February 18, 2025 10:09:00 AM UTC Performed at: [facility] Result Comment: February 18, 2025 10:09:00 AM UTC [address], [place] [id number] Result Comment: February 18, 2025 10:09:00 AM UTC Spray Cementer: Kashmir Hadley PhD, Phone: [phone] Result Comment: February 18, 2025 10:09:00 AM UTC Final Result Date: February 16, 2025 10:14:00 AM UTC (TECH: LAB) LOINC TEST FLAG RESULT [place] [address]-8 Reagin Ab [Presence] in Serum by RPR N Non Reactive Non Reactive February 16 10:14:00 AM UTC (TECH: LAB) ORDER 2200: BILIRUBIN DIRECT (LOINC: 1967-12) ORDER DATE: February 16, 2025 2:46:00 AM UTC Specimen Source: Serum/Plasm a Specimen Type: Acellular blo od (serum or plasma) specimen PERFORMING LAB: [address] [id number] Result Comment: Final Result Date: February 16, 2025 10:43:00 AM UTC (TECH: KSM) LOINC TEST FLAG RESULT REFERENCE RANGE UPDA MARIA A BY 1967-12 Bilirubin.direc t [Mass/volume] in Serum or Plasma N 0.1 mg/dL 0.0 mg/dL - 0.3 mg/dL February 16, 2025 10:43:00 AM UTC (TECH: KSM) ORDER 2300: T4 TOTAL (LOINC: 3026-2) ORDER DATE: February 16, 2025 2:46:00 AM UTC Specimen Source: Serum/Plasm a Specimen Type: Acellular blo od (serum or plasma) specimen PERFORMING LAB: [address] [id number] Result Comment: Final Result Date: February 16, 2025 10:43:00 AM UTC (TECH: KSM) LOINC TEST FLAG RESULT REFERENCE RANGE UPDA MARIA A BY 3026-2 Thyroxine (T4) [Mass/volume] in Serum or Plasma N 6.2 ug/dL 4.5 ug/dL - 12.1 ug/dL February 16, 2025 10:43:00 AM UTC (TECH: KSM) ORDER 2400: GLUCOSE (LOINC: 2345-7) ORDER DATE: February 16, 2025 2:46:00 AM UTC Specimen Source: Serum/Plasm a Specimen Type: Acellular blo od (serum or plasma) specimen PERFORMING LAB: [address] [id number] Result Comment: Final Result Date: February 16, 2025 10:44:00 AM UTC (TECH: KSM) LOINC TEST FLAG RESULT REFERENCE RANGE UPDA MARIA A BY 2345-7 Glucose [Mass/volume] in Serum or Plasma H 141 mg/dL 70 mg/dL - 110 mg/dL February 16, 2025 10:44:00 AM UTC (TECH: KSM) ORDER 2500: HEMOGLOBIN A1C ( LOINC: 4548-4) ORDER DATE: February 16, 2025 2:46:00 AM UTC Specimen Source: Whole Blood Specimen Type: Whole blood s ample PERFORMING LAB: [address] [id number] Result Comment: Final Result Date: February 16, 2025 10:30:00 AM UTC (TECH: KSM) LOINC TEST FLAG RESULT REFERENCE RANGE UPDA MARIA A BY 4548-4 Hemoglobin A1c/Hemoglobin.tot al in Blood N 5.8 % 4.5 % - 6.2 % February 16 10:30:00 AM UTC (TECH: KSM) 52032-3 Glucose mean value [Mass/volume] in Blood Estimated from glycated hemoglobin N 120 mg/dl 82 mg/dl - 131 mg/dl February 16, 2025 10:30:00 AM UTC (TECH: KSM) ORDER 2800: VALPROIC ACID DE PAKOTE (LOINC: 4086-5) ORDER DATE: February 16, 2025 5:31:00 PM UTC Specimen Source: Serum/Plasm a Specimen Type: Acellular blo od (serum or plasma) specimen PERFORMING LAB: [address] [id number] Result Comment: Final Result Date: February 16, 2025 5:56:00 PM UTC (TECH: KSM) LOINC TEST FLAG RESULT REFERENCE RANGE UPDA MARIA A BY 4086-5 Valproate [Mass/volume] in Serum or Plasma L 2 mg/L 50 mg/L - 100 mg/L February 16, 2025 5:56:00 PM UTC (TECH: KSM) ORDER 2900: BASIC METABOLIC PANEL (LOINC: 73906-5) ORDER DATE: February 18, 2025 3:05:00 PM UT Specimen Source: Serum/Plasm a Specimen Type: Acellular blo od (serum or plasma) specimen PERFORMING LAB: [address] [id number] Result Comment: Final Result Date: February 19, 2025 10:38:00 AM UT (TECH: LT) LOINC TEST FLAG RESULT REFERENCE RANGE UPDA MARIA A BY 2951-2 Sodium [Moles/volume ] in Serum or Plasma N 143 mmol/L 136 mmol/L - 145 mmol/L February 19, 2025 10:38:00 AM UT (TECH: LT) 2823-3 Potassium [Moles/volume] in Serum or Plasma N 4.0 mmol/L 3.5 mmol/L - 5.1 mmol/L February 19, 2025 10:38:00 AM [facility] (TECH: LT) 5-0 Chloride [Moles/volume] in Serum or Plasma H 108 mmol/L 98 mmol/L - 107 mmol/L February 19, 2025 10:38:00 AM UT (TECH: LT) 2027-9 Carbon dioxide, tota l [Moles/volume] in Serum or Plasma N 27 mmol/L 21 mmol/L - 32 mmol/L February 19, 2025 10:38:00 AM UT (TECH: LT) 76537-5 Anion gap 3 in Serum or Plasma N 8.0 February 19 10:38:00 AM [facility] (TECH: LT) 2345-7 Glucose [Mass/volume ] in Serum or Plasma H 124 mg/dL 70 mg/dL - 110 mg/dL February 19, 2025 10:38:00 AM UT (TECH: LT) 3094-0 Urea nitrogen [Mass/volume] in Serum or Plasma N 16 mg/dL 7 mg/dL - 18 mg/dL February 19, 2025 10:38:00 AM UT (TECH: LT) 2160-0 Creatinine [Mass/volume] in Serum or Plasma N 1.1 mg/dL 0.8 mg/dL - 1.3 mg/dL February 19, 2025 10:38:00 AM UT (TECH: LT) 3097-3 Urea nitrogen/Creatinine [Mass Ratio] in Serum or Plasma N 14.5 9 - February 19 10:38:00 AM UT (TECH: LT) 24842-7 Glomerular filtratio n rate/1.73 sq M.predicted by Creatinine-based formula (MDRD) N 81 mL/min >60 February 19 10:38:00 AM [facility] (TECH: LT) 88864-4 Osmolality of Serum or Plasma by calculated by sum of electrolytes N 300 mosm/kg 275 mosm/kg - 301 mosm/kg February 19, 2025 10:38:00 AM [facility] (TECH: LT) 06983-5 Calcium [Mass/volume ] in Serum or Plasma L 8.0 mg/dL 8.5 mg/dL - 10.1 mg/dL February 19, 2025 10:38:00 AM [facility] (TECH: LT) LABORATORY NARRATIVE RESULTS Information is not available RADIOLOGY RESULTS Information is not available PATHOLOGY NARRATIVE RESULTS Information is not available MICROBIOLOGY RESULTS No Micro Labs/Results Exist for Patient BLOOD ADMIN RESULTS Information is not available TREATMENT PLAN DISCHARGE MEDICATIONS Status RXNORM Medication Dose Route Frequency Dates Comments U pdated By Continued 684313 simvastatin (ZOCOR) 20 MG ORAL AT BEDTIME Prescribed : February 24, 2025 1:59:03 PM UT HLD [id number] on February 24, 2025 1:59:03 PM UT Continued [id number] docusate sodium (COLACE) 100 MG ORAL TWICE A DAY Prescribed : February 24, 2025 1:59:03 PM UT hold for loose stools [id number] on February 24, 2025 1:59:03 PM UT Continued [id number] Wellbutrin XL Tablet Extended Release 24 Hour 300 MG 300 MG ORAL ONCE DAILY Prescribed : February 24, 2025 1:59:03 PM UT [id number] on February 24, 2025 1:59:03 PM UT Continued 817221 propranolol (INDERAL) 10 MG ORAL THREE TIMES A DAY Prescribed : February 24, 2025 1:59:03 PM UT [id number] on February 24, 2025 1:59:03 PM UT Continued 137171 SEROquel Oral Tablet 100 MG 100 MG ORAL AT BEDTIME Prescribed : February 24, 2025 1:59:03 PM UT [id number] on February 24, 2025 1:59:03 PM UT PATIENT OPEN ORDERS Code System Descriptio n Frequency Occurrenc es Priority Category Start Date Ordering Physician Updated By Patient open order informati on is not available. SCHEDULED PROCEDURES Code System Description Status Scheduled Date Upd ated By Patient scheduled procedure information is not available. MEDICATIONS HOME MEDICATIONS Status RXNORM [facility] Medication Dose Route Frequency Dates Comments Reported By Updated By Active 771431 52502 56678 1 busPIRone HCl Tablet 10 MG 10.0 MG ORAL TID [facility]: [id number] [facility] Active 171339 63624 08979 1 cloNIDine (CATAPRES) 0.1 MG ORAL BID Last Dose: for nightmare s and BP [id number] [facility] 11:38:51 PM [facility] Active 8383952 29586 44132 3 Depakote Tablet Delayed Release 500 MG 500.0 MG ORAL BID Last Dose: [id number] [facility] 11:38:51 PM [facility] Active 5299138 64885 70106 1 docusate sodium (COLACE) 100.0 MG ORAL BID Last Dose: hold for loose stools [id number] [facility] 11:38:51 PM [facility] Active 7329460 13650 37133 0 Latuda Tablet 120 MG 120.0 MG ORAL DAILY Last Dose: take with breakfast [id number] [facility] 11:38:51 PM UT Active FreeT extMe d propranolol (INDERAL) 10.0 MG ORAL TID Last Dose: hold if BP is less than 90/60 or ND less than 60/mt [id number] [facility] 11:38:51 PM [facility] Active 655623 95635 13831 1 simvastatin (ZOCOR) 20.0 MG ORAL BEDTIME Last Dose: HLD [id number] [facility]52 PM [facility] Active [id number] 1 spironolacto ne(ALDACTONE ) 25.0 MG ORAL DAILY Last Dose: FOR BLE EDEMA, HTN [id number] on [facility] 11:38:52 PM [facility] Active 882032 [id number] 42315 0 Wellbutrin XL Tablet Extended Release 24 Hour 300 MG 300.0 MG ORAL DAILY Last Dose: [id number] on 2024 11:38:52 PM [place] DISCHARGE MEDICATIONS Status RXNORM [facility] Medication Dose Route Frequency Dates Dis pense Data Comments Physician Updated By Continu ed [id number] 431 simvastatin (ZOCOR) 20.0 MG ORAL AT BEDTIME Prescr ibed: 2024 1:59:0 3 PM UT HLD CAROLYN CHAVE[facility] [id number] [facility] 1:[facility]03 PM UT Continu ed [id number] 7012 916 docusate sodium (COLACE) 100.0 MG ORAL TWICE A DAY Prescr ibed: 2024 1:59:0 3 PM UT hold for loose stools [facility]AVE[facility] [id number] [facility] 1:59:03 PM UT Continu ed [id number] 0668 9090 030 Wellbutrin XL Tablet Extended Release 24 Hour 300 MG 300.0 MG ORAL ONCE DAILY Prescr ibed: 2024 1:59:0 3 PM UTC CAROLYN CHAVEZ [id number] on 2024 1:59:03 PM UT Continu ed [id number] 5855 4655 061 propranolol (INDERAL) 10.0 MG ORAL THREE TIMES A DAY Prescr ibed: 2024 1:59:0 3 PM UTC CAROLYN WASHINGTON MD Jr [id number] [facility] 1:59:03 PM UT Continu ed [id number] 5385 0027 110 SEROquel Oral Tablet 100 MG 100.0 MG ORAL AT BEDTIME Prescr ibed: 2024 1:59:0 3 PM UTC CAROLYN WASHINGTON MD Jr [id number] [facility] 1:59:03 PM UT INPATIENT MEDICATIONS Status RXNORM [facility] Medication Dose Route Frequency Rat e Quantity Dates Indication Dispense Data Comments Physician Updated By [facility] 0012 1176 130 MAG-AL PLUS 200-200-20 MG/5 ML LIQD 30.0 ML ORAL EVERY TWO HOURS NEEDED Start: 2024 2:41:0 0 AM UTC End: 2024 1:59:0 3 PM UTC THADDEUS Monzon MD [id number] [facility] 4:25:00 AM UTC Discont inued 699325 9770 9069 020 loperamide (IMODIUM) 2 MG CAPS 4.0 MG ORAL NEEDED Start: 2024 2:41:0 0 AM UTC End: 2024 3:01:1 9 PM UTC THADDEUS Monzon MD [id number] on [facility] 2024 3:01:00 PM UTC Discont inued [id number] 4457 9069 020 loperamide (IMODIUM) 2 MG CAPS 2.0 MG ORAL NEEDED Start: 2024 2:41:0 0 AM UTC End: 2024 1:59:0 3 PM UTC THADDEUS Monzon MD [id number] on [facility] 2024 4:25:00 AM UTC Discont inued 318232 2594 7062 211 SENNOSIDES- DOCUSATE SODIUM 8.6-50 MG TABS 1.0 TAB ORAL TWICE A DAY NEEDED Start: 2024 2:41:0 0 AM UTC End: 2024 1:59:0 3 PM UTC THADDEUS Monzon MD [id number] on [facility] 2024 4:25:00 AM UTC Discont inued 915981 7063 7036 911 dicyclomine (BENTYL) 10 MG CAPS 10.0 MG ORAL EVERY EIGHT HOURS NEEDED Start: 2024 2:41:0 0 AM UTC End: 2024 3:01:1 9 PM UTC THADDEUS Monzon MD [id number] on [facility] 2024 3:01:00 PM UTC Discont inued 457579 4902 7055 811 cyclobenzap rine (FLEXERIL) 10 MG TABS 10.0 MG ORAL EVERY EIGHT HOURS NEEDED Start: 2024 2:41:0 0 AM UTC End: 2024 3:01:1 9 PM UTC THADDEUS Monzon MD [id number] [facility] 3:01:00 PM UTC Discont inued 121316 5098 4032 055 OLANZapine (ZYPREXA ZYDIS) 5 MG TBDP 5.0 MG ORAL EVERY SIX HOURS NEEDED Start: 2024 2:41:0 0 AM UTC End: 2024 1:59:0 3 PM UTC THADDEUS Monzon MD [id number] [facility] 4:25:00 AM UTC Discont inued [id number] 1963 7044 311 traZODone (DESYREL) 50 MG TABS 50.0 MG ORAL AT BEDTIME NEEDED Start: 2024 2:41:0 0 AM UTC End: 2024 2:53:2 5 AM UTC THADDEUS Monzon MD [id number] [facility] 2:53:00 AM UTC Discont inued 8068 2204 202 CERTAVITE/A NTIOXIDANTS TABS 1.0 TAB ORAL ONCE DAILY Start: 2024 1:00:0 0 PM UTC End: 2024 1:59:0 3 PM UTC THADDEUS Monzon MD [id number] [facility] 4:25:00 AM UTC Discont inued 463679 9021 0762 730 ibuprofen (MOTRIN) 600 MG TABS 600.0 MG ORAL EVERY SIX HOURS NEEDED Start: 2024 2:41:0 0 AM UTC End: 2024 1:59:0 3 PM UTC THADDEUS Monzon MD [id number] [facility] 4:25:00 AM UTC Discont inued 500955 6238 7000 211 buPROPion XL (WELLBUTRIN XL) 150 MG TB24 300.0 MG ORAL ONCE DAILY Start: 2024 5:28:0 0 PM UTC End: 2024 1:59:0 3 PM UTC THADDEUS Monzon MD [id number] on 2024 4:25:00 AM UTC Discont inued 178692 6699 5093 588 QUEtiapine (SEROQUEL) 200 MG TABS 100.0 MG ORAL AT BEDTIME Start: 2024 1:00:0 0 AM UTC End: 2024 1:59:0 3 PM UTC THADDEUS Monzon MD [id number] [facility] 4:25:00 AM UTC Discont inued 445994 5378 4655 061 propranolol (INDERAL) 10 MG TABS 10.0 MG ORAL THREE TIMES A DAY Start: 2024 7:00:0 0 PM UTC End: 2024 6:25:0 0 PM UTC THADDEUS Monzon MD [id number] [facility] 4:25:00 AM UTC Discont inued 441580 9493 4051 211 simvastatin (ZOCOR) 20 MG TABS 20.0 MG ORAL AT BEDTIME Start: 2024 1:00:0 0 AM UTC End: 2024 6:25:0 0 PM UTC THADDEUS Monzon MD [id number] on 2024 4:25:00 AM UTC Discont inued 1333059 2517 7012 911 docusate sodium (COLACE) 100 MG CAPS 100.0 MG ORAL TWICE A DAY Start: 2024 5:32:0 0 PM UTC End: 2024 6:25:0 0 PM UTC THADDEUS Monzon MD [id number] on [facility] 2024 4:25:00 AM UTC Discont inued 427864 3483 7011 311 cloNIDine (CATAPRES) 0.1 MG TABS 0.1 MG ORAL EVERY FOUR HOURS NEEDED Start: 2024 5:32:0 0 PM UTC End: 2024 1:59:0 3 PM UTC THADDEUS Monzon MD [id number] [facility] 4:25:00 AM UTC Discont inued 2859580 2648 5531 911 KLOR-CON M20 20 MEQ TBCR 40.0 MEQ ORAL NOW Start: 2024 4:35:0 0 PM UTC End: 2024 4:49:2 6 PM UTC JONAS TORSTEN JAEGER [id number] [facility] 4:49:00 PM UTC Discont inued [id number] 5434 5531 911 KLOR-CON M20 20 MEQ TBCR 20.0 MEQ ORAL ONE TIME ONLY Start: 2024 4:50:0 0 PM UTC End: 2024 4:50:0 0 PM UTC THADDEUS Monzon MD INTERFAC ED on 2024 4:48:00 PM UTC Discont inued 748827 0462 7065 311 potassium chloride ER 10 MEQ CPCR 20.0 MEQ ORAL TWICE A DAY Start: 2024 3:05:0 0 PM UTC End: 2024 4:25:1 7 AM UTC CAROLYN WASHINGTON MD [id number] on 2024 4:25:00 AM UTC SOCIAL HISTORY SOCIAL HISTORY - Smoking Status SNOMED-CT Social History Element Description Effective Dates Offered Cessation Comment Updated By [id number] Current Tobacco smoking status Never Smoked [id number] on February 15, 2025 11:40:59 PM UTC SOCIAL HISTORY - Gender Sex: Male SOCIAL HISTORY - Status : status i nformation is not available Intention in Next Year: intention information is not available SOCIAL HISTORY - Assessments Code System Description Status Date Value of Assessment Updated By Comment Assessment Information is no t available SOCIAL HISTORY - [place] Affiliation [place] information is not av ailable SOCIAL HISTORY - Legal Sex Legal Sex information is not available SOCIAL HISTORY - Sexual Behavior Sexual Orientation Gender Identity SNOMED-CT Description SNO MED -CT Description Activity Level No of Partners Partner Type UpdatedBy Information is not available SOCIAL HISTORY - Occupation Occupation information is no t available VITAL SIGNS PATIENT VITAL SIGNS This section displays the mo st recent value for each vital sign as of February 26, 2025 12:08:45 PM UTC Loinc Code Vital Sign Activity Date Result Updated By 8302-2 Body height February 16 2:14:05 AM UTC 172.72 cm (68.0 in) [id number] on February 16, 2025 2:14:05 AM UTC 34558-3 Body mass index (BMI ) [Ratio] February 16, 2025 2:14:05 AM UTC 47.667 kg/m2 3140-1 Body Surface Area Derived From Formula February 16, 2025 2:14:05 AM UTC 2.4741 m2 8310-5 Body temperature February 24 11:00:00 AM UTC 97.5 [degF] 57527-5 Body weight Measured February 2:14:05 AM UTC 142.2 kg (313.0 lb) [id number] on February 16, 2025 2:14:05 AM UTC 8462-4 Diastolic blood pressure February 24, 2025 11:00:00 AM UTC 79.0 mm[Hg] 8867-4 Heart rate February 24 11:00:00 AM UTC 68 /min 78276-9 Oxygen saturation in Arterial blood by Pulse oximetry February 24, 2025 11:00:00 AM UTC 97.0 % 9279-1 Respiratory rate February 24 11:00:00 AM UTC 17 /min 8480-6 Systolic blood pressure February 24, 2025 11:00:00 AM UTC 145.0 mm[Hg] PEDIATRIC GROWTH CHART - VITAL SIGNS This section displays Head C ircumference Percentile, Weight for Length Percentile and BMI Percentile Loinc Code Pediatric Measure Age (Months) Result Updat ed By No Pediatric Growth Chart Pe rcentile Information Available. GOALS PATIENT GOALS Goal Assigned Date Updated By SHARLENE DAEN WILL REM AIN FREE FROM SELF HARM DURING THE CARE PERIOD February 15, 2025 [id number] on February 16, 2025 2:48:06 AM UT SHARLENE DEAN REMAINS FREE FROM COMPLICATIONS FOR BEHAVIORAL HEALTH ADMIT February 15, [id number] on February 16, 2025 2:48:06 AM UT HEALTH CONCERNS Problems Concern Status Health Concern problem infor mation not available. Smoking Status Status Years Used Consumed packs p er day Health Concern smoking histo ry information not available. Family History Concern Status Health Concern family histor y information not available. ENCOUNTERS ENCOUNTER INFORMATION Reason for Visit SI Admission February 16, 2025 1:04:[address] [address] Discharge February 24, 2025 6:25:00 PM UT C DISCHARGED TO HOME OR SELF CARE ENCOUNTER DIAGNOSES Notes information is not amber ilable. Code System Diagnosis Onset Date Diagnosis information is not available. ABSTRACT DIAGNOSES Code System Diagnosis Updated By Abatement Date F31.9 ICD10 BIPOLAR DISORDER, UNSPECIFIE D [id number] on February 26, 2025 12:08:21 PM UT F31.9 ICD10 BIPOLAR DISORDER, UNSPECIFIE D [id number] on February 26, 2025 12:08:21 PM UT R45.851 ICD10 SUICIDAL IDEATIONS [id number] o n February 26, 2025 12:08:21 PM UT Z68.42 ICD10 BODY MASS INDEX [BMI] 45.0-49.9, ADULT [id number] on February 26, 2025 12:08:21 PM UT I10 ICD10 ESSENTIAL (PRIMA RY) HYPERTENSION [id number] on February 26, 2025 12:08:21 PM UT E78.5 ICD10 HYPERLIPIDEMIA, UNSPECIFIED [id number] on February 26, 2025 12:08:21 PM UT Z81.1 ICD10 FAMILY HISTORY O F ALCOHOL ABUSE AND DEPENDENCE [id number] on February 26, 2025 12:08:21 PM UT Z81.8 ICD10 FAMILY HISTORY O F OTHER MENTAL AND BEHAVIORAL DISORDERS [id number] on February 26, 2025 12:08:21 PM UT Z79.899 ICD10 OTHER RESIDENTIAL (CURRENT) DRUG THERAPY [id number] on February 26, 2025 12:08:21 PM UT G47.33 ICD10 OBSTRUCTIVE SLEE P APNEA (ADULT) (PEDIATRIC) [id number] on February 26, 2025 12:08:21 PM UTC F41.9 ICD10 ANXIETY DISORDER, UNSPECIFIE D [id number] on February 26, 2025 12:08:21 PM UT E66.01 ICD10 MORBID (SEVERE) OBESITY DUE TO EXCESS CALORIES [id number] on February 26, 2025 12:08:21 PM UTC Z91.51 ICD10 PERSONAL HISTORY OF SUICIDAL BEHAVIOR [id number] on February 26, 2025 12:08:21 PM UT E87.6 ICD10 HYPOKALEMIA [id number] on Feb 12:08:21 PM UTC CARE TEAM Care Senior Cyber Security Analyst Role ZELDA TRAVIS Primary Attending SAADIA ROSEN Consulting ZELDA TRAVIS Admitting ZELDA TRAVIS Referring [facility] DISCHARGE INSTRUCTION DISCHARGE INSTRUCTION Encounter [id number] Admit Date February 16, 2025 1: 04:00 AM [facility] Discharge Date February 24, 2025 6 :25:00 PM [facility] PATIENT EDUCATION SUMMARY Patient/Visit Information: Patient Name: SHARLENE DEAN Diag: Attending Caregiver: THADDEUS Monzon MD Discharge Instruction Sheets Provided: *[facility] () () * [facility] Stroke && BEFAST Education What are the Warning Signs of Suicide? *[facility] Patient [facility] *[facility] Social Determinants of Health *[facility] Suicidal Feelings: How to Help Yourself (LPNT) () () *[facility] Suicidal Feelings: How to Help Yourself (LPNT) () Managing Anxiety, Adult Managing Bipolar Disorder Managing Depression, Adult Smoking\Tobacco Cessation - [facility] () () Patient Instructions: Additional Notes for *[facility] () () Patient is scheduled for follow up with Karuna at [facility] on 02/28/25 at 1:00PM [place] [address] P: [phone] Followup Appointments/Instructions: To schedule or confirm your next appointment, please contact: 02/28/25 at 1:00PM- Therapy: - [place] [address] If you need assistance finding another health care provider, call the number on your health insurance card. CONSULTATION NOTE PROGRESS NOTE CARE TEAM CARE claims consultant Role on Team Location Telecom Status Start Date End Benjie e Updated By SILAS ZEE Consulting normal February 16, 2025 2:46:35 AM [facility] February 24, 2025 6:25:00 PM [facility] [id number] on February 16, 2025 2:46:35 AM [facility] THADDEUS Monzno MD PHY Referring normal February 16, 2025 1:05:04 AM [facility] February 24, 2025 6:25:00 PM [facility] [id number] on February 16, 2025 2:46:35 AM [facility] THADDEUS CHAVEZ Attending normal February 16, 2025 1:05:04 AM UTC February 24, 2025 6:25:00 PM UTC [id number] on February 16, 2025 2:46:35 AM UTC THADDEUS Monzon MD, PHY Admitting normal February 16, 2025 1:05:04 AM UTC February 24, 2025 6:25:00 PM UTC [id number] on February 16, 2025 2:46:35 AM UTC PANCHO STALLWORTH MD, MD Referring normal February 15, 2025 11:38:33 PM UTC February 16, 2025 1:04:54 AM UTC [id number] on February 16, 2025 2:46:35 AM UTC PANCHO STALLWORTH MD, MD Attending normal February 15, 2025 11:38:33 PM UTC February 16, 2025 1:04:54 AM UTC [id number] on February 16, 2025 2:46:35 AM UTC PANCHO STALLWORTH MD, MD Admitting normal February 15, 2025 11:38:33 PM UTC February 16, 2025 1:04:54 AM UTC [id number] on February 16, 2025 2:46:35 AM UTC EMILY MURO APRN [facility] normal February 15, 2025 11:20:46 PM UTC February 16, 2025 1:04:54 AM UTC [id number] on February 16, 2025 2:46:35 AM UTC
[2025-04-20 11:40] VITALS: BP 148/94; PULSE 112; RESP 20; TEMP 36.7; O2SAT 96; BMI 47.2
[2025-04-20 11:43] VITALS: BP 140/88; PULSE 100; RESP 18; TEMP 37.1; O2SAT 98
[2025-04-20 11:51] LABS: Coronavirus 19, PCR Not Detected (NotDetected); Influenza A, PCR Not Detected (NotDetected); Influenza B, PCR Not Detected (NotDetected)
--- OUTSIDE RECORDS SUMMARY | 2025-04-20 11:56 | XMS_ITS | Encounter Summary ---
Author Organization Healthcare Address [address] [place] [address] Care Team Providers Care Subway Train Operator Name Role Phone System, Provider Not In MD Primary Care Provider Unavailable Palak Martinez APRN Primary Care Provider + [phone] Encounter Details Date Type Department Care Team (Late st Contact Info) Description 12/07/2023 Orders Only External Location [address] [place] [address] Provider, External Social History Tobacco Use Types [...] Visit [place] [facility] [address] [place] [address] Jacob Salmeron, DO [address] [place] [address] documented as of this encounter Procedures Procedure [...] on filedocumented in this encounter Care Teams Subway Train Operator Relationship Specialty Start Date End Date System, Provider Not In, [place] [address] PCP - General Family Medicine 05/23/23 05/14/24 Palak Martinez APRN [address] [place] [address] PCP - General 05/15/24 documented as of this encounter
--- OUTSIDE RECORDS SUMMARY | 2025-04-20 11:56 | XMS_ITS | Encounter Summary ---
Author Organization [facility] Address [address] [place] [address] Care Team Providers Care Internal Carver Name Role Phone System, Provider Not In MD Primary Care Provider Unavailable Palak Martinez APRN Primary Care Provider + [phone] Reason for Referral * Consultation (Routine) - Closed Specialty Diagnoses / Procedures Referred By Contac t Referred To Contact Neurosurgery Diagnoses Abnormal magnetic resonance imaging of spine Disease of spinal cord (CMS/HCC) Lumbar radiculopathy Joi King MD [address] [facility] [address] [place] [address] Phone: tel: fax: Christian Duran MD [address] [facility] [address] [place] [address] Phone: tel: fax: Referral ID Status Reason Start Date Expiration Date V isits Requested Visits Authorized [id number] Closed Specialty Services Required 12/13/2023 06/13/2025 1 1 Encounter Details Date Type Department Care Team (Latest Contact Info) Description 12/13/2023 Community [facility] [address] [place] [address] Joi King MD [facility] [address] [place] [address] Abnormal magnetic resonance imaging of [...] Visit [place] [facility] [address] [place] [address] Jacob Salmeron, DO [address] [place] [address] Scheduled Referrals Name Type Priority [...] unspecified documented in this encounter Care Teams Internal Carver Relationship Specialty Start Date End Date System, Provider Not In, [place] [address] PCP - General Family Medicine 05/23/23 05/14/24 Palak Martinez APRN [address] [place] [address] PCP - General 05/15/24 documented as of this encounter
--- OUTSIDE RECORDS SUMMARY | 2025-04-20 11:56 | XMS_ITS | Encounter Summary ---
Author Organization Healthcare Address [address] [place] [address] Care Team Providers Care Project Manager Finance Name Role Phone System, Provider Not In MD Primary Care Provider Unavailable Palak Martinez APRN Primary Care Provider + [phone] Encounter Details Date Type Department Care Team (Late st Contact Info) Description 10/18/2023 Orders Only External Location [address] [place] [address] Provider, External Social History Tobacco Use Types [...] Visit [place] [facility] [address] [place] [address] Jacob Salmeron, DO [address] [place] [address] documented as of this encounter Procedures Procedure [...] on filedocumented in this encounter Care Teams Project Manager Finance Relationship Specialty Start Date End Date System, Provider Not In, [place] [address] PCP - General Family Medicine 05/23/23 05/14/24 Palak Martinez APRN [address] [place] [address] PCP - General 05/15/24 documented as of this encounter
--- OUTSIDE RECORDS SUMMARY | 2025-04-20 11:56 | XMS_ITS | Clinical Summary ---
Author Organization [facility] Address [address] [place] [address] Care Team Providers Care Advertising Dispatch Clerk Name Role Phone Palak Martinez STRAIGHTEDGE MAN Primary Care Provider Allergies Active Allergy Reactions [...] ID:[id number] Group ID:Not on file Type:Medicaid Address: [place] [address] Advance Directives * Full Code (Latest Code Status on File) Date Activated Date Inactivated Comments 06/24/2023 6:30 PM 06/29/2023 8:20 PM Care Teams Advertising Dispatch Clerk Relationship Specialty Start Date End Date Palak Martinez APRN [address] [place] [address] PCP - General Nurse Practitioner 07/03/23
--- OUTSIDE RECORDS SUMMARY | 2025-04-20 11:56 | XMS_ITS | Encounter Summary ---
Author Organization [facility] Address [address] [place] [address] Care Team Providers Care Technical Sales Consultant Name Role Phone Palak Martinez MIL Primary Care Provider + [phone] Encounter Details Date Type Department Care Team (Late st Contact Info) Description 03/20/2025 Telephone [place] [facility] [address], [address] [place] [address] Jacob Salmeron, DO [address] [place] [address] Social History Tobacco Use Types [...] on infusions and getting them ordered at [facility] please advise Best contact number and optimal time of day to reach caller: [phone] Note: Please do not reply to this [...] Visit [place] [facility] [address] [place] [address] Jacob Salmeron, DO [address] [place] [address] documented as of this encounter [...] documented as of this encounter Care Teams Technical Sales Consultant Relationship Specialty Start Date End Date Palak Martinez APRN [address] [place] [address] PCP - General 05/15/24 documented as of this encounter
--- OUTSIDE RECORDS SUMMARY | 2025-04-20 11:56 | XMS_ITS | Clinical Summary ---
Author Organization [facility] Address [address] [place] [address] Care Team Providers Care Correspondence Specialist Name Role Phone Palak Martinez APRN Primary Care Provider + [phone] Allergies Active Allergy Reactions Criticality Noted Date [...] Type Department Care Team Description 03/20/2025 Telephone [facility] [address], [address] [place] [address] Jacob Salmeron DO 02/11/2025 Telephone [facility] Interventional Pain Medicine [address] [place] [address] Zaki Walker MD HCN - Patient Message 02/07/2025 4:30 PM EDT Office Visit [facility] [address] [place] [address] Jacob Salmeron DO Demyelinating disease (CMS/HCC) (Primary Dx); Multiple sclerosis (CMS/HCC); Spinal stenosis of thoracic region 02/07/2025 Travel 02/05/2025 Orders Only [facility] [address] [place] [address] Jacob Salmeron DO Multiple sclerosis (CMS/HCC) (Primary Dx) 02/05/2025 Telephone [facility] [address] [place] [address] Ashley Moreno, [facility]ux[facility] Therapy from Last 3 Months Social History Tobacco [...] Visit [place] [facility] [address] [place] [address] Jacob Salmeron, DO [address] [place] [address] Health Maintenance Due Date Last [...] 12/11/2023 [facility]-Zoster Vaccines (1 of 2) 12/11/2023 [id number] Vaccine ( season) 2025 04/09/2024, 09/10/2020, 08/13/2020 [facility]-Influenza Vaccine (#1) 02/10/202504/03, 03/14/2023, 04/21/2022, Additional history exists [facility]-Depression Screening 10/08/2025 10/08/2024, 09/11 [facility]-HIV Screening Completed 07/26/2024 [facility]-Hepatitis C Screening [...] 02/07/2025 2:17 PM EDT Multiple sclerosis (CMS/HCC) HEPATITIS C ANTIBODY W/REFLEX TO HCV [...] LAB HEMATOLOGY METHOD 02/07/2025 3:38 PM EDT [facility] RBC Count 5.21 4.60 - 6.10 10*6/uL LAB HEMATOLOGY METHOD 02/07/2025 3:38 PM EDT [facility] HGB 15.8 13.7 - 17.5 g/dL LAB HEMATOLOGY METHOD 02/07/2025 3:38 PM EDT [facility] HCT 45.7 40.0 - 51.0 % LAB HEMATOLOGY METHOD 02/07/2025 3:38 PM EDT [facility] Platelet Count 274 155 - 369 10*3/uL LAB HEMATOLOGY METHOD 02/07/2025 3:38 PM EDT [facility] MCV 88 79 - 98 fL LAB HEMATOLOGY METHOD 02/07/2025 3:38 PM EDT [facility] MCH 30.3 26.0 - 32.0 pg LAB HEMATOLOGY METHOD 02/07/2025 3:38 PM EDT [facility] MCHC 34.6 30.7 - 35.5 g/dL LAB HEMATOLOGY METHOD 02/07/2025 3:38 PM EDT [facility] RDW 12.3 11.5 - 14.5 % LAB HEMATOLOGY METHOD 02/07/2025 3:38 PM EDT [facility] MPV 11.6 8.8 - 12.5 fL LAB HEMATOLOGY METHOD 02/07/2025 3:38 PM EDT [facility] nRBC 0.0 <=0.0 per 100 WBCs LAB HEMATOLOGY METHOD 02/07/2025 3:38 PM EDT [facility] Differential Type Automated LAB HEMATOLOGY METHOD 02/07/2025 3:38 PM EDT [facility] Neutrophils % 71 % LAB HEMATOLOGY METHOD 02/07/2025 3:38 PM EDT [facility] Lymphocytes % 15 % LAB HEMATOLOGY METHOD 02/07/2025 3:38 PM EDT [facility] Monocytes % 8 % LAB HEMATOLOGY METHOD 02/07/2025 3:38 PM EDT [facility] Eosinophils % 5 % LAB HEMATOLOGY METHOD 02/07/2025 3:38 PM EDT [facility] Basophils % 1 % LAB HEMATOLOGY METHOD 02/07/2025 3:38 PM EDT [facility] Immature Granulocytes % 0 % LAB HEMATOLOGY METHOD 02/07/2025 3:38 PM EDT [facility] Neutrophils Absolute 6.20(H) 1.60 - 6.10 10*3/uL LAB HEMATOLOGY METHOD 02/07/2025 3:38 PM EDT [facility] Lymphocytes Absolute 1.27 1.20 - 3.90 10*3/uL LAB HEMATOLOGY METHOD 02/07/2025 3:38 PM EDT [facility] Monocytes Absolute 0.70 0.30 - 0.90 10*3/uL LAB HEMATOLOGY METHOD 02/07/2025 3:38 PM EDT [facility] Eosinophils Absolute 0.44 0.00 - 0.50 10*3/uL LAB HEMATOLOGY METHOD 02/07/2025 3:38 PM EDT [facility] Basophils Absolute 0.04 0.00 - 0.10 10*3/uL LAB HEMATOLOGY METHOD 02/07/2025 3:38 PM EDT [facility] Immature Granulocytes Absolute 0.02 0.00 - 0.06 10*3/uL LAB HEMATOLOGY METHOD 02/07/2025 3:38 PM EDT [facility] Blood Venous blood specimen / Unknown Venipuncture / Unknown 02/07/2025 2:17 PM EDT 02/07/2025 2:17 PM EDT Narrative [facility] - 02/07/2025 3:38 PM EDT Therapeutic decision making should be based on absolute values, rather than percentages. us Jacob Salmeron DO LAB BLOOD ORDERABLES Final Result [facility] [address] [place] [address] * (ABNORMAL) Comprehensive metabolic panel (02/07/2025 2:17 PM EDT) Glucose, Plasma 104(H) 74 - 99 mg/dL 02/07/2025 3:47 PM EDT [facility] BUN, Plasma 9 7 - 21 mg/dL 02/07/2025 3:47 PM EDT [facility] Creatinine, Plasma 1.24(H) 0.70 - 1.20 mg/dL 02/07/2025 3:47 PM EDT [facility] BUN/Creatinine Ratio 7 02/07/2025 3:47 PM EDT [facility] Sodium, Plasma 139 136 - 145 mmol/L 02/07/2025 3:47 PM EDT [facility] Potassium, Plasma 3.8 3.6 - 4.9 mmol/L 02/07/2025 3:47 PM EDT [facility] Chloride, Plasma 105 97 - 107 mmol/L 02/07/2025 3:47 PM EDT [facility] CO2, Plasma 22 22 - 29 mmol/L 02/07/2025 3:47 PM EDT [facility] Anion Gap 12 6 - 16 mmol/L 02/07/2025 3:47 PM EDT [facility] Total Calcium, Plasma 9.4 8.9 - 10.2 mg/dL 02/07/2025 3:47 PM EDT [facility] Total Protein 6.9 6.3 - 7.9 g/dL 02/07/2025 3:47 PM EDT [facility] Albumin, Plasma 4.0 3.5 - 5.2 g/dL 02/07/2025 3:47 PM EDT [facility] AST, Plasma 27 10 - 50 U/L 02/07/2025 3:47 PM EDT [facility] Comment:Hemolyzed, result ma y be falsely increased. ALT, Plasma 29 10 - 50 U/L 02/07/2025 3:47 PM EDT [facility] Alkaline Phosphatase, Plasma 99 40 - 115 U/L 02/07/2025 3:47 PM EDT [facility] Total Bilirubin, Plasma 0.5 0.2 - 1.1 mg/dL 02/07/2025 3:47 PM EDT [facility] eGFRcr 70.4 mL/min/1.7 3m*2 02/07/2025 3:47 PM EDT [facility] Comment:Reported eGFRcr in m L/min/1.73m2 is based the CKD-EPI 2020 equation that does not use a race coefficient. Blood Venous blood specimen / Unknown Venipuncture / Unknown 02/07/2025 2:17 PM EDT 02/07/2025 2:17 PM EDT us Jacob Lovelogicakley DO LAB BLOOD ORDERABLES Final Result Performing Organization Address City/[facility]/ZIP Co de Phone Number [facility] [address] [place] [address] * HIV 1 & 2 Antibody/Antigen Screen (07/26/2024 2:32 PM EST) HIV 1 & 2 Antibody/Antigen Screen Non Reactive Non Reactive 07/26/2024 5:01 PM EST [facility] Comment:Screening for HIV 1 & 2 antibodies, and P24 antigen is NONREACTIVE. No confirmatory testing is required. Blood Venous blood specimen / Unknown Venipuncture / Unknown 07/26/2024 2:32 PM EST 07/26/2024 2:33 PM EST us [employer] DO LAB BLOOD ORDERABLES Final Result Performing Organization Address City/[facility]/ZIP Co de Phone Number [facility] [address] [place] [address] * Hepatitis C antibody (07/26/2024 2:32 PM EST) Pathologist [facility] Hepatitis C Antibody Negative Negative 07/26/2024 4:49 PM EST [facility] Blood Venous blood specimen / Unknown Venipuncture / Unknown 07/26/2024 2:32 PM EST 07/26/2024 2:33 PM EST [employer] DO LAB BLOOD ORDERABLES Final Result [facility] [address] [place] [address] from Last 3 Months or Most Recently Relevant to Health Maintenance Insurance MEDICARE MEDICAID-[place] [employer] MEDICARE Care Teams Correspondence Specialist Relationship Specialty Start Date End Date Palak Martinez APRN [address] [place] [address] PCP - General 05/15/24
--- OUTSIDE RECORDS SUMMARY | 2025-04-20 11:56 | XMS_ITS | Encounter Summary ---
Author Organization [facility] Address [address] [facility] [place] [address] Care Team Providers Care Synthetic Staple Extruder Name Role Phone Palak Martinez MIL Primary Care Provider + [phone] Reason for Visit * Reason Onset Date Comments HCN - Patient Message 02/11/2025 Encounter Details Date Type Department Care Team (Late st Contact Info) Description 02/11/2025 Telephone [facility] Interventional Pain Medicine [address] [facility] [place] [address] Zaki Walker MD [address] [facility] [address] [address] [place] [address] HCN - Patient Message Social [...] send appt reminder 03/06/25 Best contact number: [phone] (mobile) Optimal time of day to reach [...] Description 08/12/2025 2:30 PM EST [facility] [address] [place] [address] Jacob Salmeron, DO [address] [place] [address] documented as of this encounter [...] documented as of this encounter Care Teams Synthetic Staple Extruder Relationship Specialty Start Date End Date Palak Martinez APRN [address] [place] [address] PCP - General 05/15/24 documented as of this encounter
--- OUTSIDE RECORDS SUMMARY | 2025-04-20 11:56 | XMS_ITS | Encounter Summary ---
Author Organization [facility] Address [address] [place] [address] Care Team Providers Care Roller Coaster Engineer Name Role Phone System, Provider Not In MD Primary Care Provider Unavailable Palak Martinez APRN Primary Care Provider + [phone] Encounter Details Date Type Department Care Team (Late st Contact Info) Description 10/18/2023 Orders Only External Location [address] [place] [address] Provider, External Social History Tobacco Use Types [...] Visit [place] [facility] [address] [place] [address] Jacob Salmeron, DO [address] [place] [address] documented as of this encounter Procedures Procedure [...] on filedocumented in this encounter Care Teams Roller Coaster Engineer Relationship Specialty Start Date End Date System, Provider Not In, [place] [address] PCP - General Family Medicine 05/23/23 05/14/24 Palak Martinez APRN [address] [place] [address] PCP - General 05/15/24 documented as of this encounter
--- OUTSIDE RECORDS SUMMARY | 2025-04-20 11:56 | XMS_ITS | Data Portability ---
Author Organization [facility] Address [address] [place] [address] Assessment No assessment recorded. Plan of Treatment Reminders Order Date Submit Date Provider Last Modified By Organization Details Last Modified Time Details Appointments FOLLOW UP 15 2025 10:30A M Kunal Martinez APRN Not available Not available Not available Lab vitamin D, 25-hydrox y, total, serum 2024 025 [facility], [address] [place] [address], [address], 01/04/2025 08:11:53 cobalamin and folate panel, serum 2024 025 [facility], [address] [place] [address], [address], 01/04/2025 08:11:52 CMP, serum or plasma 2024 025 [facility] [address] [place] [address], [address], 01/04/2025 08:11:52 CBC w/ auto diff 2024 025 [facility], [address] [place] [address], [address], 01/04/2025 08:11:51 TSH + free T4, serum 2024 025 [facility], [address] [place] [address], [address], 01/04/2025 08:11:50 Referral nephrolog ist referral 2024 pola Irwin MD, [address] [place] [place], [address], 04/15/2025 09:28:08 Procedures None recorded. Surgeries None recorded. Imaging None recorded. Medication Orders clonidine HCl 0.1 mg tablet 2024 [facility], [facility] [place], [address], 04/08/2025 17:11:03 propranol ol 10 mg tablet 2024 [facility], [facility] [place], [address], 04/08/2025 17:11:04 simvastat in 20 mg tablet 2024 [facility], [facility] [place], [address], 01/06/2025 09:31:58 Zepbound 2.5 mg/0.5 mL subcutane ous pen injector 2024 [facility], [facility] [place], [address], 01/03/2025 14:04:40 dicyclomi ne 10 mg capsule 2024 [facility], [address] [place], [address], 09/26/2024 09:24:04 ondansetr on 4 mg disintegr ating tablet 2024 [facility], [address] [place], [address], 04/08/2025 17:58:14 Patient TargetsNo targets recorded. Patient InstructionsNo instructions recorded. Reason for Referral Cylinder Dyer Referral for Se rum creatinine above reference range Referring Physician: Palak Martinez, Family Medicine, Encounter Date: 04/08/2025 Results Created Date Observation Date Name Description Value Unit Range Abnormal Flag Note LastModifiedBy Organization Detail LastModifiedTime 01/04/2001/04/2025 TSH+F REE T4 TSH 1.290 uIU/m L 0.450- 4.500 normal Not Available [facility] ([facility]) [address] [place], [address], 01/04/2025 08:11:50 01/04/2001/04/2025 TSH+F REE T4 T4,free(dire ct) 1.13 NG/dL 0.82-1 .77 normal Not Available [facility] ([facility]) [address] [place], [address], 01/04/2025 08:11:50 01/04/2001/04/2025 CBC WITH DIFFE RENTI AL/PL ATELE T WBC 6.8 x10e3 /uL 3.4-10 .8 normal Not Available [facility] ([facility]) [address] [place], [address], 01/04/2025 08:11:51 01/04/2001/04/2025 CBC WITH DIFFE RENTI AL/PL ATELE T RBC 5.27 x10e6 /uL 4.14-5 .80 normal Not Available [facility] ([facility]) [address] [place], [address], 01/04/2025 08:11:51 01/04/2001/04/2025 CBC WITH DIFFE RENTI AL/PL ATELE T hemoglobin 15.9 g/dL 13.0-1 7.7 normal Not Available [facility] ([facility]) [address] [place], [address], 01/04/2025 08:11:51 01/04/2001/04/2025 CBC WITH DIFFE RENTI AL/PL ATELE T hematocrit 49.3 % 37.5-5 1.0 normal Not Available [facility] ([facility]) [address] [place], [address], 01/04/2025 08:11:51 01/04/2001/04/2025 CBC WITH DIFFE RENTI AL/PL ATELE T MCV 94 fL 79-97 normal Not Available [facility] ([facility]) [address] [place], [address], 01/04/2025 08:11:51 01/04/2001/04/2025 CBC WITH DIFFE RENTI AL/PL ATELE T MCH 30.2 pg 26.6-3 3.0 normal Not Available [facility] ([facility]) [address] [place], [address], 01/04/2025 08:11:51 01/04/2001/04/2025 CBC WITH DIFFE RENTI AL/PL ATELE T MCHC 32.3 g/dL 31.5-3 5.7 normal Not Available [facility] ([facility]) [address] [place], [address], 01/04/2025 08:11:51 01/04/2001/04/2025 CBC WITH DIFFE RENTI AL/PL ATELE T RDW 12.5 % 11.6-1 5.4 Not Available [facility] ([facility]) [address] [place], [address], 01/04/2025 08:11:51 01/04/2001/04/2025 CBC WITH DIFFE RENTI AL/PL ATELE T platelets 190 x10e3 /uL 150-45 0 normal Not Available [facility] ([facility]) [address] [place], [address], 01/04/2025 08:11:51 01/04/2001/0401/04/2025 CBC WITH DIFFE RENTI AL/PL ATELE T neutrophils 65 % not estab. normal Not Available [facility] ([facility]) [address] [place], [address], 01/04/2025 08:11:51 01/04/20 25 01/04/2025 CBC WITH DIFFE RENTI AL/PL ATELE T lymphs 17 % not estab. normal Not Available [facility] ([facility]) [address] [facility], [place], [address], 01/04/2025 08:11:51 01/04/2001/04/2025 CBC WITH DIFFE RENTI AL/PL ATELE T monocytes 10 % not estab. normal Not Available [facility] ([facility]) [address] [facility], [place], [address], 01/04/2025 08:11:51 01/04/2001/04/2025 CBC WITH DIFFE RENTI AL/PL ATELE T eos 7 % not estab. normal Not Available [facility] ([facility]) [address] [place], [address], 01/04/2025 08:11:51 01/04/2001/04/2025 CBC WITH DIFFE RENTI AL/PL ATELE T basos 1 % not estab. normal Not Available [facility] ([facility]) [address] [facility], [place], [address], 01/04/2025 08:11:51 01/04/2001/04/2025 CBC WITH DIFFE RENTI AL/PL ATELE T immature cells SUPERVISOR CLAIMS Not Available [facility] ([facility]) [address] [place], [address], 01/04/2025 08:11:51 01/04/20 25 01/04/2025 CBC WITH DIFFE RENTI AL/PL ATELE T neutrophils (absolute) 4.5 x10e3 /uL 1.4-7. 0 normal Not Available [facility] ([facility]) [address] [facility], [place], [address], 01/04/2025 08:11:51 01/04/2001/04/2025 CBC WITH DIFFE RENTI AL/PL ATELE T lymphs (absolute) 1.1 x10e3 /uL 0.7-3. 1 normal Not Available [facility] ([facility]) [address] [facility], [place], [address], 01/04/2025 08:11:51 01/04/2001/04/2025 CBC WITH DIFFE RENTI AL/PL ATELE T monocytes(ab solute) 0.7 x10e3 /uL 0.1-0. 9 normal Not Available [facility] ([facility]) [address] [facility], [place], [address], 01/04/2025 08:11:51 01/04/2001/04/2025 CBC WITH DIFFE RENTI AL/PL ATELE T eos (absolute) 0.4 x10e3 /uL 0.0-0. 4 normal Not Available [facility] ([facility]) [address] [facility], [place], [address], 01/04/2025 08:11:51 01/04/2001/04/2025 CBC WITH DIFFE RENTI AL/PL ATELE T baso (absolute) 0.0 x10e3 /uL 0.0-0. 2 normal Not Available [facility] ([facility]) [address] [facility], [place], [address], 01/04/2025 08:11:51 01/04/2001/04/2025 CBC WITH DIFFE RENTI AL/PL ATELE T immature granulocytes 0 % not estab. Not Available [facility] ([facility]) [address] [facility], [place], [address], 01/04/2025 08:11:51 01/04/2001/04/2025 CBC WITH DIFFE RENTI AL/PL ATELE T immature grans (abs) 0.0 x10e3 /uL 0.0-0. 1 Not Available [facility] ([facility]) [address] [facility], [place], [address], 01/04/2025 08:11:51 01/04/20 25 01/04/2025 CBC WITH DIFFE RENTI AL/PL ATELE T NRBC SUPERVISOR CLAIMS Not Available [facility] ([facility]) [address] [facility], [place], [address], 01/04/2025 08:11:51 01/04/2001/04/2025 CBC WITH DIFFE RENTI AL/PL ATELE T hematology comments: SUPERVISOR CLAIMS Not Available [facility] ([facility]) [address] [facility], [place], [address], 01/04/2025 08:11:51 01/04/2001/04/2025 COMP. METAB OLIC PANEL (14) glucose 100 mg/dL 70-99 above high normal Not Available [facility] ([facility]) [address] [place], [address], 01/04/2025 08:11:51 01/04/2001/04/2025 COMP. METAB OLIC PANEL (14) BUN 8 mg/dL 6-24 normal Not Available [facility] ([facility]) [address] [place], [address], 01/04/2025 08:11:51 01/04/2001/04/2025 COMP. METAB OLIC PANEL (14) creatinine 1.44 mg/dL 0.76-1 .27 above high normal Not Available [facility] ([facility]) [address] [place], [address], 01/04/2025 08:11:51 01/04/20 25 01/04/2025 COMP. METAB OLIC PANEL (14) eGFR 59 mL/mi n/1.7 3 >59 below low normal Not Available [facility] ([facility]) [address] [facility] [place], [address], 01/04/2025 08:11:51 01/04/20 25 01/04/2025 COMP. METAB OLIC PANEL (14) BUN/creatini ne ratio 6 9-20 below low normal Not Available [facility] ([facility]) [address] [facility] [place], [address], 01/04/2025 08:11:51 01/04/20 25 01/04/2025 COMP. METAB OLIC PANEL (14) sodium 140 mmol/ L 134-14 4 normal Not Available [facility] ([facility]) [address] [facility] [place], [address], 01/04/2025 08:11:51 01/04/20 25 01/04/2025 COMP. METAB OLIC PANEL (14) potassium 3.7 mmol/ L 3.5-5. 2 normal Not Available [facility] ([facility]) [address] [facility] [place], [address], 01/04/2025 08:11:51 01/04/20 25 01/04/2025 COMP. METAB OLIC PANEL (14) chloride 106 mmol/ L 96-106 normal Not Available [facility] ([facility]) [address] [facility] [place], [address], 01/04/2025 08:11:51 01/04/20 25 01/04/2025 COMP. METAB OLIC PANEL (14) carbon dioxide, total 19 mmol/ L 20-29 below low normal Not Available [facility] ([facility]) [address] [facility] [place], [address], 01/04/2025 08:11:51 01/04/20 25 01/04/2025 COMP. METAB OLIC PANEL (14) calcium 8.9 mg/dL 8.7-10 .2 normal Not Available [facility] ([facility]) [address] [facility], [place], [address], 01/04/2025 08:11:51 01/04/20 25 01/04/2025 COMP. METAB OLIC PANEL (14) protein, total 6.2 g/dL 6.0-8. 5 normal Not Available [facility] ([facility]) [address] [place], [address], 01/04/2025 08:11:51 01/04/20 25 01/04/2025 COMP. METAB OLIC PANEL (14) albumin 4.2 g/dL 3.8-4. 9 normal Not Available [facility] ([facility]) [address] [facility] [place], [address], 01/04/2025 08:11:51 01/04/20 25 01/04/2025 COMP. METAB OLIC PANEL (14) globulin, total 2.0 g/dL 1.5-4. 5 Not Available [facility] ([facility]) [address] [facility] [place], [address], 01/04/2025 08:11:51 01/04/2001/04/2025 COMP. METAB OLIC PANEL (14) bilirubin, total 0.5 mg/dL 0.0-1. 2 normal Not Available [facility] ([facility]) [address] [facility] [place], [address], 01/04/2025 08:11:51 01/04/20 25 01/04/2025 COMP. METAB OLIC PANEL (14) alkaline phosphatase 114 IU/L 44-121 normal Not Available [facility] ([facility]) [address] [facility] [place], [address], 01/04/2025 08:11:51 01/04/20 25 01/04/2025 COMP. METAB OLIC PANEL (14) AST (SGOT) 23 IU/L 0-40 normal Not Available [facility] ([facility]) [address] [facility] [place], [address], 01/04/2025 08:11:51 01/04/2001/04/2025 COMP. METAB OLIC PANEL (14) ALT (SGPT) 30 IU/L 0-44 normal Not Available [facility] ([facility]) [address] [facility], [place], [address], 01/04/2025 08:11:51 01/04/2001/04/2025 VITAM IN B12 AND FOLAT E vitamin B12 338 pg/mL 232-12 45 normal Not Available [facility] ([facility]) [address] [facility], [place], [address], 01/04/2025 08:11:52 01/04/2001/04/2025 VITAM IN B12 AND FOLAT E folate (folic acid), serum 4.5 NG/mL >3.0 normal A serum folat e laron ntrat ion of less than 3.1 ng/mL is consi dered to repre sent clini janiya defic iency . Not Available [facility] ([facility]) [address] [facility], [place], [address], 01/04/2025 08:11:52 01/04/2001/04/2025 VITAM IN D, 25-HY DROXY vitamin D, 25-hydroxy 19.7 NG/mL 30.0-1 00.0 below low normal Vitam in D defic iency has been defin ed by the Insti tute of Medic ine and an Endoc rine Socie ty pract ice guide line as a level of serum 25-OH vitam in D less than 20 ng/mL (1,2) . The Endoc rine Socie ty went on to furth er defin e vitam in D insuf ficie ncy as a level betwe en 21 and 29 ng/mL (2). 1. IOM (Inst itute of Medic ine). 2010. Dieta ry refer ence intak es for calci um and D. Aracelis hedrick [place]: [facility] . 2. Holic k [place], Joseph eddy [place], [place] off-F errar i BROWN, et al. Evalu ation , treat ment, and preve ntion of vitam in D defic iency : an Endoc rine Socie ty clini janiya pract ice guide line. JCEM. 2010; 96(7) :1911 -30. Not Available [facility] ([facility]) [address], [place], [address], 01/04/2025 08:11:52 08/20/19 25 08/19/2024 XR, chest , 2 view No observ ation record ed. [email or web address] [facility] (Radiology) [address] , [place], [address], 08/19/2024 17:24:10 08/22/19 25 08/19/2024 exerc ise stres s echoc ardio gram No observ ation record ed. [address] (Radiology) [address] , [place], [address], 08/22/2024 10:42:48 08/22/19 25 08/21/2024 CT, angio gram, chest , w/o contr ast No observ ation record ed. [address] (Radiology) [address] , [place], [address], 08/22/2024 10:43:18 10/19/19 25 10/18/2024 CT, abdom en, w/wo contr ast No observ ation record ed. [address], [place], [address], 10/23/2024 09:34:03 10/19/19 25 10/18/2024 elect crystal odonnell am, routsean ne ECG, 12 leads min; inter preta tion and repor t (PROC ) No observ ation record ed. [address], [place], [address], 10/23/2024 09:33:45 02/14/20 25 02/13/2025 CT, angio gram, chest + abdom en, w/wo contr ast No observ ation record ed. [address], [place], [address], 02/18/2025 08:53:12 02/21/20 25 02/13/2025 XR, chest No observ ation record ed. [address], [place], [address], 03/04/2025 17:18:34 03/02/20 25 02/13/2025 elect crystal rizogr am No observ ation record ed. [address], [place], [address], 03/04/2025 17:18:45 Result Notes None recorded. Problems Name Problem SNOMED Code Status Onset Date Resolution Date Notes Provider Name and Address Organization Details Recorded Time Obstruct marek sleep apnea syndrome 83064680 Completed 201612/28/2020 Problem Code: 327.23; Problem Code Type: ICD-9; Not Available [facility] 21:00:56 Benign essentia l hyperten stephane 5080472 Completed 201612/28/2020 Problem Code: 401.1; Problem Code Type: ICD-9; Not Available [facility] 21:01:01 Acute bronchit is 70293278 Completed 201608/26/2016 Problem Code: J20.8; Problem Code Type: ICD-10; Not Available [facility] 2 21:00:46 Cough 77198357 Completed 201607/11/2016 Problem Code: R05; Problem Code Type: ICD-10; Not Available [facility] 2 21:00:48 Acute pharyngi tis 824906057 Completed 201609/20/2016 Problem Code: J02.8; Problem Code Type: ICD-10; Not Available [facility] 2 21:00:46 Influenz a 0835821 Completed 201608/05/2016 Problem Code: J10.1; Problem Code Type: ICD-10; BARTOLOME ferraro, [employer] 2 11:32:43 Influenz a with non-resp iratory manifest ation 81298106 Completed 201608/05/2016 Problem Code: 487.8; Problem Code Type: ICD-9; Not Available [facility] 2 21:00:55 Acute pharyngi tis 298341254 Completed 201609/23/2016 Problem Code: J02.8; Problem Code Type: ICD-10; Not Available [facility] 2 21:00:46 Influenz a 3668607 Completed 201609/23/2016 Problem Code: J10.1; Problem Code Type: ICD-10; BARTOLOME ferraro [employer] 2 11:32:43 Influenz a with respirat ory manifest ation other than pneumoni a Completed 201609/23/2016 Problem Code: 487.1; Problem Code Type: ICD-9; Not Available [facility] 2 21:00:55 Acute bronchit is 98807363 Completed 201612/26/2016 Problem Code: J20.8; Problem Code Type: ICD-10; Not Available [facility] 2 21:00:46 Mixed hyperlip idemia 922092876 Completed 201612/28/2020 Problem Code: 272.2; Problem Code Type: ICD-9; Not Available [facility] 2 21:00:53 Benign essentia l hyperten stephane 0662492 Completed 201612/28/2020 Problem Code: 401.1; Problem Code Type: ICD-9; Not Available [facility] 2 21:00:54 Obstruct marek sleep apnea syndrome 37155091 Completed 201612/28/2020 Problem Code: 327.23; Problem Code Type: ICD-9; Not Available [facility] 2 21:00:56 Cough 62137286 Completed 201611/10/2016 Problem Code: R05; Problem Code Type: ICD-10; Not Available [facility] 2 21:00:56 Hyperten sive disorder 16803580 Active 2016 Problem Code: I10; Problem Code Type: ICD-10; Not Available [facility] 03:26:24 Infectio n of skin and/or subcutan eous tissue 04926173 Completed 201602/04/2017 Problem Code: L08.89; Problem Code Type: ICD-10; Not Available [facility] 2 21:00:47 Cough 26088515 Completed 201612/20/2016 Problem Code: R05; Problem Code Type: ICD-10; Not Available [facility] 21:00:48 Atopic neuroder matitis 190229664 Completed 201608/01/2019 Problem Code: L20.81; Problem Code Type: ICD-10; Not Available [facility] 21:00:52 Benign essentia l hyperten stephane 6782223 Completed 201612/28/2020 Problem Code: 401.1; Problem Code Type: ICD-9; Not Available [facility] 21:00:54 Localize d infectio n of skin AND/OR subcutan eous tissue 726272735 Completed 201602/04/2017 Problem Code: 686.9; Problem Code Type: ICD-9; Not Available [facility] 21:00:57 Atopic dermatit is 49052967 Completed 201612/28/2020 Problem Code: 691.8; Problem Code Type: ICD-9; Not Available [facility] 2 21:00:57 Atopic neuroder matitis 168908243 Completed 201608/01/2019 Problem Code: L20.81; Problem Code Type: ICD-10; Not Available [facility] 21:00:46 Atopic dermatit is 91571238 Completed 201612/28/2020 Problem Code: 691.8; Problem Code Type: ICD-9; Not Available [facility] 2 21:00:57 Extrinsi c asthma with asthma attack Completed 201612/28/2020 Problem Code: 493.02; Problem Code Type: ICD-9; Not Available [facility] 2 21:00:59 Mild major depressi on, single episode 35807825 Active 2016 Problem Code: F32.0; Problem Code Type: ICD-10; Not Available [facility] 3 03:26:24 Mixed hyperlip idemia 302956310 Active 2016 Problem Code: E78.2; Problem Code Type: ICD-10; Not Available [facility] 3 03:26:24 Depressi ve disorder 11135211 Completed 201612/28/2020 Problem Code: 311; Problem Code Type: ICD-9; Harman ferraro, [employer] 5 10:47:22 Benign essentia l hyperten stephane 7857959 Completed 201612/28/2020 Problem Code: 401.1; Problem Code Type: ICD-9; Not Available [facility] 2 21:00:55 Dysthymi a 56765980 Active 2016 Problem Code: R53.81; Problem Code Type: ICD-10; Not Available [facility] 3 03:26:24 Malaise and fatigue 630086574 Active 2016 Problem Code: 780.79; Problem Code Type: ICD-9; Not Available [facility] 3 03:26:24 Influenz a 7190135 Completed 201708/17/2017 Problem Code: J10.1; Problem Code Type: ICD-10; BARTOLOME ferraro, [employer] 2 11:32:43 Influenz a with non-resp iratory manifest ation 93934072 Completed 201708/17/2017 Problem Code: 487.8; Problem Code Type: ICD-9; Not Available [facility] 2 21:00:55 Neoplasm of uncertai n behavior of skin 21831866 Completed 201701/09/2018 Problem Code: D48.5; Problem Code Type: ICD-10; Not Available [facility] 2 21:00:44 Congenit al anomaly of skin 204027183 Completed 201712/28/2020 Problem Code: 757.39; Problem Code Type: ICD-9; Not Available [facility] 2 21:01:02 Congenit al anomaly of skin 511453049 Completed 201712/28/2020 Problem Code: 757.39; Problem Code Type: ICD-9; Not Available [facility] 2 21:01:00 Atopic neuroder matitis 788676588 Completed 201708/01/2019 Problem Code: L20.81; Problem Code Type: ICD-10; Not Available [facility] 2 21:00:47 Cough 07730300 Completed 201703/09/2018 Problem Code: R05; Problem Code Type: ICD-10; Not Available [facility] 2 21:00:48 Allergic rhinitis caused by pollen 25952498 Completed 201704/24/2018 Problem Code: J30.1; Problem Code Type: ICD-10; Not Available [facility] 2 21:00:51 Atopic dermatit is 83604315 Completed 201712/28/2020 Problem Code: 691.8; Problem Code Type: ICD-9; Not Available [facility] 2 21:00:59 Generali zed anxiety disorder 39522912 Active 2017 Problem Code: F41.1; Problem Code Type: ICD-10; Not Available [facility] 3 03:26:24 Acute bronchit is 65703685 Completed 201808/19/2018 Problem Code: J20.9; Problem Code Type: ICD-10; Not Available [facility] 2 21:00:46 Cough 76398972 Completed 201807/04/2018 Problem Code: R05; Problem Code Type: ICD-10; Not Available [facility] 2 21:00:48 Pain of joint of ankle 565765803 Completed 201804/21/2022 BARTOLOME ferraro [employer] 2 11:32:42 Tension- type headache 474660983 Active 2018 Problem Code: G44.209; Problem Code Type: ICD-10; Not Available [facility] 3 03:26:24 Cellulit is of perineum 66206617 Completed 201804/21/2022 Problem Code: L03.315; Problem Code Type: ICD-10; BARTOLOME ferraro, [employer] 2 11:32:43 Influenz a vaccine needed 50067743630 06 Completed 201804/21/2022 Problem Code: Z23; Problem Code Type: ICD-10; BARTOLOME ferraro, [employer] 2 11:32:42 Pain in limb 94007718 Completed 201804/21/2022 BARTOLOMEASHLEY VARGAS [employer] 2 11:32:43 Sinus bradycar melissa 09175455 Completed 201804/21/2022 BARTOLOMEASHLEY VARGAS [email or web address], [employer] 2 11:32:43 Nausea 463843838 Completed 201804/21/2022 Problem Code: R11.0; Problem Code Type: ICD-10; BARTOLOME ferraro, [employer] 2 11:32:43 Body mass index 40+ - severely obese 704399226 Completed 201809/24/2020 Not Available [facility] 2 21:00:52 Muscle pain 27864150 Completed 201909/24/2020 Problem Code: M79.10; Problem Code Type: ICD-10; Not Available [facility] 2 21:00:47 Influenz a 2846310 Completed 201904/21/2022 Problem Code: J11.1; Problem Code Type: ICD-10; BARTOLOME ferraro, [employer] 2 11:32:43 Otalgia of left ear Completed 201904/21/2022 BARTOLOME ferraro, [employer] 2 11:32:42 Otogenic otalgia 35656073 Completed 201904/21/2022 BARTOLOME ferraro, [employer] 2 11:32:43 Tremor 32737795 Completed 201904/21/2022 Problem Code: R25.1; Problem Code Type: ICD-10; BARTOLOME ferraro, [employer] 2 11:32:42 Open fracture of lower leg 554671597 Completed 202004/21/2022 BARTOLOME ferraro, [employer] 2 11:32:43 Body mass index 40+ - severely obese 389560411 Active 2020 Not Available [facility] 3 03:26:24 Eruption 690586482 Completed 202004/21/2022 Problem Code: R21; Problem Code Type: ICD-10; BARTOLOME ferraro, [employer] 2 11:32:43 Chronic fatigue syndrome 01083734 Completed 202004/21/2022 Problem Code: R53.82; Problem Code Type: ICD-10; BARTOLOME ferraro, [employer] 2 11:32:43 Generali zed abdomina l pain 626029288 Completed 202004/21/2022 Problem Code: R10.84; Problem Code Type: ICD-10; BARTOLOME ferraro, [employer] 2 11:32:42 Body mass index 40+ - severely obese 374227245 Completed 202109/06/2021 Not Available [facility] 21:00:51 Influenz a vaccine needed [id number] 06 Completed 202109/06/2021 Problem Code: Z23; Problem Code Type: ICD-10; BARTOLOME ferraro, [employer] 2 11:32:42 Acute sinusiti s 82213064 Completed 202104/21/2022 Problem Code: J01.90; Problem Code Type: ICD-10; BARTOLOME HARTMANFRANCY ferraro, [employer] 2 11:32:42 Myositis 76399261 Completed 202104/21/2022 Problem Code: M60.9; Problem Code Type: ICD-10; BARTOLOMEASHLEY ferraro, [employer] 2 11:32:43 Migraine with aura 1163963 Active 2021 Problem Code: G43.109; Problem Code Type: ICD-10; Not Available [facility] 3 03:26:24 Tinea cruris 403593601 Completed 202104/21/2022 Problem Code: B35.6; Problem Code Type: ICD-10; BARTOLOME ferraro, [employer] 2 11:32:43 Nausea and vomiting 26495796 Completed 202104/21/2022 Problem Code: R11; Problem Code Type: ICD-10; BARTOLOME HARTMANFRANCY ferraro, [employer] 2 11:32:42 Diarrhea 73733660 Completed 202104/21/2022 Problem Code: R19.7; Problem Code Type: ICD-10; BARTOLOMEASHLEY ferraro, [employer] 2 11:32:43 Neck pain 51242810 Active [address], [address] , [employer] 3 09:05:13 COVID-19 746962347 Active [address], [address] , [employer] 4 09:12:39 [facility] hyperten stephane 06171174 Active 2023 Harman ferraro, [employer] 4 08:22:06 Depressi ve disorder 05326005 Active 2024 Problem Code: 311; Problem Code Type: ICD-9; Harman ferraro, [employer] 5 10:47:22 Hyperlip idemia 35736217 Active 2024 Harman ferraro, [employer] 5 15:20:06 Fatigue 24391078 Active 2024 Harman ferraro, [employer] 5 15:20:06 Hypergly cemia 84030267 Active 2024 Harman Burnette [email or web address], [employer] 5 15:20:06 Nocturia 057197185 Active 2024 Harman Burnette [email or web address] 5 15:21:30 Problem Notes None recorded. Medical Equipment None Reported. Allergies Allergen ID Allergen Name Allergen Category Reaction Reaction Severity Criticality Documentation Date Start Date Code Code System Note Provider Name and Address Organization Details Recorded Time 49869 Compazine medicatio n Not available Not available Not available 02/15/2022 42834 6 RxNorm Not Available [facility] 2 22:56:19 33315 lisinopri l medicatio n Not available Not available Not available 02/15/2022 30919 RxNorm Not Available [facility] 2 22:56:19 Medications Name Sig Start Date Stop Date Status Note LastModified by Organization Details LastModified Time cyclobenz aprine 10 mg tablet Take 1 tablet every 8 hours by oral route as needed. 08/30 completed Not Available Not Available Not Available amoxicill in 500 mg capsule 07/22 completed Not Available Not Available Not Available furosemid e 40 mg tablet Take by oral route. 04/08 completed HAS NOT GOTTEN SINCE AUGUST PER PHARMACY Not Available Not Available Not Available promethaz ine-DM 6.25 mg-15 mg/5 mL oral syrup Take 1 teaspoon ful by mouth every 6 hours as needed. 10/02 completed Not Available Not Available Not Available clonidine HCl 0.1 mg tablet Take 1 tablet twice a day by oral route for 90 days. 2024 active Not Available Not Available Not Avai lable loperamid e 2 mg capsule take 2 capsules (4 mg) by oral route after 1st loose stool, followed by 1 capsule after each subseque nt loose stool not to exceed 16 mg/day 04/21 completed Not Available Not Available Not Available triamcino lone acetonide 0.5 % topical cream apply a thin layer to the affected area(s) by topical route 2 times per day 04/21 completed Not Available Not Available Not Available cetirizin e 10 mg tablet Take 1 tablet(s ) by mouth daily 04/24 completed Not Available Not Available Not Available pravastat in 40 mg tablet Take 1 tablet(s ) by mouth at bedtime 01/10 completed Not Available Not Available Not Available tizanidin e 4 mg tablet 1 po bid 08/30 completed Not Available Not Available Not Available sumatript an 100 mg tablet TAKE 1 TABLET BY MOUTH FOR MIGRAINE , MAY REPEAT IN 2 HOURS IF NEEDED. 08/30 completed Not Available Not Available Not Available hydrocodo ne 5 mg-acetam inophen 325 mg tablet take 1 tablet by oral route TID PRN pain x3 days 09/06 completed Not Available Not Available Not Available Keflex 500 mg capsule take 2 capsules (1,000 mg) by oral route every 12 hours 04/11 completed Not Available Not Available Not Available prednison e 20 mg tablet TAKE 1 TABLET (20 MG) BY ORAL ROUTE 3 TIMES PER DAY X 3 DAYS 04/21 completed Not Available Not Available Not Available prednison e 5 mg tablet 7pills po today and decrease by one q day 11/10 completed Not Available Not Available Not Available Zithromax 250 mg tablet Take 2 tablet(s ) by mouth on day 1 then 1 tablet every day for the next 4 days. 07/22 completed Not Available Not Available Not Available topiramat e 25 mg tablet take 1 tablet (25 mg) by oral route once daily at bedtime x7 days then 50mg BID 11/02 completed Not Available Not Available Not Available metronida zole 500 mg tablet 08/30 completed Not Available Not Available Not Available acetamino phen 300 mg-codein e 30 mg tablet Take 1 tablet every 6 hours by oral route as needed for 10 days. 06/01 completed Not Available Not Available Not Available dextromet horphan-g uaifenesi n 10 mg-100 mg/5 mL oral syrup Take 1 teaspoon by mouth q4h prn for cough 12/26 completed Not Available Not Available Not Available divalproe x 500 mg tablet,de layed release Take 1 tablet twice a day by oral route. active psych Not Available Not Available No t Available ciproflox acin 500 mg tablet 04/08 completed Not Available Not Available Not Available Tamiflu 75 mg capsule Take 1 capsule( s) by mouth bid for 5 days 09/07 completed Not Available Not Available Not Available quetiapin e 100 mg tablet Take 1 tablet every day by oral route at bedtime for 30 days. active Not Available Not Available No t Available triamcino lone acetonide 0.1 % topical cream Apply thin film to affected area tid 06/23 completed Not Available Not Available Not Available spironola ctone 25 mg tablet Take 1 tablet every day by oral route for 30 days. active Not Available Not Available No t Available lithium carbonate ER 450 mg tablet,ex tended release 1 po daily 01/24 completed Not Available Not Available Not Available meloxicam 7.5 mg tablet 1 po daily 08/30 completed Not Available Not Available Not Available propranol ol 10 mg tablet Take 1 tablet 3 times a day by oral route for 90 days. 2024 active Not Available Not Available Not Avai lable propranol ol 40 mg tablet 1 tablet po q day 04/21 completed Not Available Not Available Not Available amoxicill in 875 mg tablet Take 1 tablet(s ) by mouth q12h for 10 days 07/30 completed Not Available Not Available Not Available trazodone 100 mg tablet 1 po at bedtime 04/13 completed Not Available Not Available Not Available amlodipin e 10 mg tablet Take 1 tablet(s ) by mouth daily 12/06 completed Not Available Not Available Not Available doxycycli ne monohydra te 100 mg capsule take 1 capsule (100 mg) by oral route 2 times per day 04/21 completed Not Available Not Available Not Available simvastat in 20 mg tablet Take 1 tablet(s ) by mouth at bedtime 2024 active Not Available Not Available Not Avai lable buspirone 10 mg tablet Take 1 tablet 3 times a day by oral route for 30 days. active psych Not Available Not Available No t Available lisinopri l 10 mg tablet Take 1 tablet(s ) by mouth daily 12/06 completed Not Available Not Available Not Available divalproe x ER 500 mg tablet,ex tended release 24 hr 1 tab po bid 12/28 completed Not Available Not Available Not Available benztropi ne 1 mg tablet Take 1 tablet every day by oral route for 30 days. 08/30 completed Not Available Not Available Not Available diclofena c sodium 75 mg tablet,de layed release Take 1 tablet(s ) by mouth bid 01/07 completed Not Available Not Available Not Available ergocalci ferol (vitamin D2) 1,250 mcg (50,000 unit) capsule Take 1 capsule every week by oral route for 90 days. 04/08 completed Not Available Not Available Not Available methylpre dnisolone 4 mg tablets in a dose pack 02/18 completed Not Available Not Available Not Available Naprosyn 500 mg tablet Take 1 tablet(s ) by mouth bid 02/08 completed Not Available Not Available Not Available propranol ol 20 mg tablet Take 1 tablet every day by oral route for 30 days. 04/08 completed Not Available Not Available Not Available ketoconaz ole 2 % topical cream apply to the affected area(s) by topical route once daily for 2 weeks 06/01 completed Not Available Not Available Not Available ondansetr on 4 mg disintegr ating tablet DISSOLVE ONE TABLET ON top of THE TONGUE, THEN swallow EVERY 4-6 hours NEEDED FOR NAUSEA AND VOMITING 04/08 completed Not Available Not Available Not Available clotrimaz ole 1 % topical cream apply to testicle s tid 12/06 completed Not Available Not Available Not Available divalproe x 125 mg capsule,d elayed release sprinkle 08/30 completed Not Available Not Available Not Available dicyclomi ne 10 mg capsule TAKE ONE CAPSULE BY MOUTH THREE TIMES DAILY as directed , FOR abdomina l pain 09/26 completed Not Available Not Available Not Available Ventolin HFA 90 mcg/actua tion aerosol inhaler 1-2 puffs every 4-6 hours as needed for cough or wheeze 01/24 completed Not Available Not Available Not Available buspirone 15 mg tablet Take 1 tab po tid 08/30 completed Not Available Not Available Not Available hydroxyzi ne pamoate 25 mg capsule Take 1 capsule( s) by mouth qid 08/24 completed Not Available Not Available Not Available Lexapro 20 mg tablet Take 1 tablet(s ) by mouth daily 08/12 completed Not Available Not Available Not Available bupropion HCl XL 300 mg 24 hr tablet, extended release Take 1 tablet(s ) by mouth daily 08/30 completed Not Available Not Available Not Available topiramat e 50 mg tablet TAKE 1 TABLET (50 MG) BY ORAL ROUTE 2 TIMES PER DAY 2024 active Not Available Not Available Not Avai lable pregabali n 75 mg capsule 08/30 completed Not Available Not Available Not Available Latuda 40 mg tablet Take 1 tablet(s ) by mouth daily. 12/28 completed Not Available Not Available Not Available lurasidon e 80 mg tablet Take 1 tablet every day by oral route for 30 days. 08/30 completed Not Available Not Available Not Available lurasidon e 120 mg tablet Take 1 tablet every day by oral route in the evening for 30 days. active psych Not Available Not Available No t Available Paxlovid 300 mg (150 mg x 2)-100 mg tablets in a dose pack Take 1 dose pk by oral route. 02/184 completed Not Available Not Available Not Available Lagevrio 200 mg capsule (EUA) TAKE FOUR CAPSULES BY MOUTH EVERY TWELVE HOURS FOR 5 DAYS 08/30 completed Not Available Not Available Not Available Zepbound 2.5 mg/0.5 mL subcutane ous pen injector inject 2.5 mg under the skin every week for 4 weeks active Not Available Not Available No t Available Vitals Date Recorded Body height Body mass index (BMI) Body weight Body temperature Heart rate Oxygen saturation Oxygen saturation in Arterial blood by Pulse oximetry Systolic And Diastolic Systolic And Diastolic Provider Name and Address Organization Details Last Updated DateTime 5 172.72 cm 51.2 kg/m2 905813. 63 g 98 [degF] 86 /min 95 % 95 % 145/76 mm[Hg] 124/80 mm[Hg] BLANQUITA ARRIOLA [employer] 5 16:57:14 Date Recorded Body height Body mass index (BMI) Body weight Heart rate Oxygen saturation Oxygen saturation in Arterial blood by Pulse oximetry Systolic And Diastolic Provider Name and Address Organization Details Last Updated DateTime 5 172.72 cm 49.3 kg/m2 558131. 93 g 66 /min 97 % 97 % 128/88 mm[Hg] [employer] 5 08:36:05 Date Recorded Body height Body mass index (BMI) Body weight Heart rate Oxygen saturation Oxygen saturation in Arterial blood by Pulse oximetry Systolic And Diastolic Provider Name and Address Organization Details Last Updated DateTime 5 172.72 cm 50.2 kg/m2 106699. 48 g 55 /min 96 % 96 % 131/84 mm[Hg] [employer] 5 08:12:34 Date Recorded Body height Body mass index (BMI) Body weight Heart rate Oxygen saturation Oxygen saturation in Arterial blood by Pulse oximetry Systolic And Diastolic Provider Name and Address Organization Details Last Updated DateTime 5 172.72 cm 48 kg/m2 660397. 7 g 63 /min 97 % 97 % 132/84 mm[Hg] [employer] 5 13:45:35 Date Recorded Body height Body mass index (BMI) Body weight Heart rate Oxygen saturation Oxygen saturation in Arterial blood by Pulse oximetry Systolic And Diastolic Provider Name and Address Organization Details Last Updated DateTime 5 172.72 cm 46.9 kg/m2 690452. 85 g 86 /min 96 % 96 % 134/83 mm[Hg] Harman Bautistally [employer] 5 16:44:41 Social History Question Answer Notes LastModified by Organizat ion Details LastModified Time Tobacco Smoking Status Never Smoker BARTOLOME VARGAS jasmine [employer] 04/21/2022 11:33:48 Do You Have An Advance Directive? No [email or web address] Information n ot available 04/21/2022 Is Your Home Air Conditioned? Yes Information not available 11/15/2022 Are You Blind Or Do You Have Difficulty Seeing? No Information n ot available 04/21/2022 What Is Your Level Of Caffeine Consumption? None Information not available 11/15/2022 Are You A Caregiver? No [email or web address] Information not available 11/08/2023 In The 14 Days Before Symptom Onset, Have You Had Close Contact With A Laboratory-confirm ed COVID-19 While That Case Was Ill? No Information n ot available 11/15/2022 In The 14 Days Before Symptom Onset, Have You Had Close Contact With A Person Who Is Under Investigation For COVID-19 While That Person Was Ill? No Information not available 11/15/2022 Have You Been To An Area Known To Be High Risk For COVID-19? No Information not available 11/15/2022 Are You Deaf Or Do You Have Serious Difficulty Hearing? No Information not available 04/21/2022 Have There Been Any Changes To Your Family Or Social Situation? No Information no t available 11/15/2022 Are There Any Guns Present In Your Home? No [email or web address] Information not available 11/08/2023 Do You Have A Medical Power Of Hospice Fellow? No [email or web address] Information not available 04/21/2022 What Was The Date Of Your Most Recent Tobacco Screening? 04/08/2025 Information not available 04/08/2025 Do You Have Any Pets? No [email or web address] Information not available 11/08/2023 What Is Your Relationship Status? Single Information not available 11/15/2022 Do You Use Your Seat Belt Or Car Seat Routinely? Yes Information not available 11/15/2022 Do You Have Smoke And Carbon Monoxide Detectors In Your Home? Yes Information not available 11/15/2022 Are You Passively Exposed To Smoke? No [email or web address] Information no t available 11/08/2023 Are There Any Smokers In Your House? No [email or web address] Information not available 11/08/2023 Do You Use Sunscreen Routinely? No [email or web address] Information not available 11/08/2023 Have You Recently Traveled Abroad? No Information not available 11/15/2022 Do You Have Difficulty Walking Or Climbing Stairs? No [email or web address] Information not available 04/21/2022 Are You Currently In School? No [email or web address] Information not available 04/21/2022 Sex: Unknown Functional Status Question Answer Note LastModified by Organizat ion Details LastModified Time Do you use any illicit or recreational drugs? No Information not available 11/15/2022 Do you or have you ever used any other forms of tobacco or nicotine? No [email or web address] Information not available 11/08/2023 What is your level of alcohol consumption? None Information not available 11/15/2022 Are you currently employed? No [email or web address] Information not available 04/21/2022 Do you have transportation difficulties? No Information not available 04/21/2022 Are you able to walk independently without assistance or assistive devices? YESWOREST [email or web address] Information not available 04/21/2022 Do you have difficulty doing errands alone? No [email or web address] Information not available 04/21/2022 Are you able to care for yourself independently? Yes Information not available 04/21/2022 Do you have difficulty dressing, bathing, grooming, or toileting? No [email or web address] Information not available 04/21/2022 Mental Status Question Answer Note LastModified by Organization D etails LastModified Time Do you have difficulty concentrating, remembering or making decisions? No [email or web address] Information no t available 04/21/2022 Family History Relationship Description Onset Age of this Age Resolved Age Notes LastModified by Organization Details LastModified Time Unspecified Relation Family history of malignant neoplasm [email or web address] Not available 2022 14:58:09 Unspecified Relation Family history of Depression [email or web address] Not available 07/19 14:58:13 Unspecified Relation Family history of Hypertension [email or web address] Not available 12/2022 14:58:18 Medical History Condition Response Hospitalizations N Emergency room visit since last appointm ent. N Immunizations Vaccine Type Date Status Note Provider Nam e and Address Organization Details Recorded Time Influenza, split virus, quadrivalent, PF 3 completed Palak Martinez APRN [address] [place], [address], [employer] 03/14/2023 15:21:02 COVID-19, mRNA, LNP-S, PF, 100 mcg/0.5mL dose or 50 mcg/0.25mL dose 1 completed ARINA ferraro, [employer] 06/01/2023 08:58:18 COVID-19, mRNA, LNP-S, PF, 100 mcg/0.5mL dose or 50 mcg/0.25mL dose 1 completed ARINA ferraro, [employer] 06/01/2023 08:58:18 Influenza, split virus, quadrivalent, PF 2 completed Not Available [facility] 11/08/2022 03:26:24 Influenza, MDCK, quadrivalent, preservative 9 completed Not Available [facility] 11/08/2022 03:26:24 Influenza, split virus, trivalent, PF 7 completed Not Available [facility] 11/08/2022 03:26:24 Influenza, split virus, trivalent, PF 4 completed Roxi Stokes, ELIDA [address] [place], [address], [employer] 04/03/2024 13:15:26 COVID-19, mRNA, LNP-S, PF, dionte-sucrose, 30 mcg/0.3 mL 4 completed Harman ferraro, [place] [employer] 05/10/2024 16:31:16 Influenza, split virus, trivalent, PF 8 completed Not Available [facility] 11/08/2022 03:26:24 Influenza, split virus, quadrivalent, PF 8 completed Not Available [facility] 11/08/2022 03:26:24 Influenza, split virus, trivalent, preservative 0 completed Not Available [facility] 11/08/2022 03:26:24 Influenza, split virus, quadrivalent, PF 2 completed Palak Martinez APRN [address] [place] [address], [address], [facility] [employer] 04/21/2022 12:43:28 Influenza, split virus, trivalent, PF 5 completed Harman ferraro, [facility] 04/08/2025 17:22:47 Past Encounters Encounter ID Performer Location Encounter Start Date Encounter Closed Date Diagnosis/Indication Diagnosis SNOMED-CT Code Diagnosis ICD10 Code Diagnosis IMO Codes Diagnosis Note [id number] Palak Martinez [place] [id number] 04/21/2022 11:06:06 04/21/2022 12:00:13 Hyperlipidemia 62625413 E78.5 Essential hypertension 86203530 I10 Bipolar disorder 4345541 4 F31.32 Mixed hyperlipidemia 267 457379 E78.2 Tension-type headache 39 3122495 G44.209 Administra tion of influenza vaccine 19557173 Z23 Body mass index 40+ - severely obese 683390191 Z68.42 [id number] Palak Martinez [place] [id number] 07/22/2022 10:46:15 07/22/2022 11:12:10 Mixed hyperlipidemia 592196598 E78.2 Tension-type headache 39 7755187 G44.209 Body mass index 40+ - severely obese 872145735 Z68.42 [id number] [place] [address] 11/15/2022 11:15:27 11/15/2022 12:36:15 Dysuria 05164948 R30.0 Fatigue 15758835 R53.83 Chronic ki dney disease 820914180 N18.9 Deficiency of vitamin D3 725525325 E55.9 Vitamin D deficiency 347 80997 E55.9 Pain in pelvis 54922899 R10.2 [id number] Palak Martinez [place] [address] 01/26/2023 10:23:46 01/26/2023 11:07:23 Tension-type headache 111104940 G44.209 Mixed hyperlipidemia 267 121675 E78.2 Body mass index 40+ - severely obese 764788041 Z68.42 [id number] [place] [address] 03/14/2023 13:16:13 03/14/2023 13:36:01 Administration of influenza vaccine 43606988 Z23 [id number] [place] [address] 06/01/2023 08:34:37 06/01/2023 09:14:08 Neck pain 67469571 M54.2 [id number] [place] [address] 06/23/2023 07:42:48 06/23/2023 08:54:34 Paresthesia of lower extremity 465260949 R20.2 Body mass index 40+ - severely obese 253631247 Z68.42 Hypertensive disorder 38 117439 I10 [id number] [place] [address] 07/17/2023 16:06:56 07/17/2023 17:45:59 Neuropathy 184986605 G62.9 Body mass index 40+ - severely obese 378465773 Z68.42 [id number] Palak Martinez [place] [address] 08/18/2023 09:22:39 08/18/2023 09:54:29 Body mass index 40+ - severely obese 418770349 Z68.42 Fatigue 57911960 R53.83 Vitamin D deficiency 347 17128 E55.9 Vitamin B deficiency 479 37564 E53.9 Hyperlipidemia 79020342 E78.5 Migraine 59073861 G43.90 [id number] STEF RIVERA, [place] [address] 11/08/2023 08:39:04 11/08/2023 09:33:31 Viral screening 759494759 Z11.59 COVID-19 131140875 U07.1 [id number] Palak Martinez [place] [address] 02/19/2024 08:29:06 02/19/2024 09:47:24 Fatigue 49760780 R53.83 Mixed hyperlipidemia 267 293072 E78.2 Body mass index 40+ - severely obese 135427223 Z68.42 Morbid obesity 639476089 E66.01 [id number] Palak Martinez [place] [address] 03/04/2024 08:11:25 03/04/2024 08:51:01 Essential hypertension 33975400 I10 [id number] Roxi Stokes, EL[place] [address] 04/03/2024 10:10:55 04/03/2024 10:44:09 Administration of influenza vaccine 60953264 Z23 [id number] [place] [address] 04/08/2024 15:21:40 04/08/2024 16:37:39 Viral gastroenteritis 881014582 A08.4 Body mass index 40+ - severely obese 501468166 Z68.42 [id number] [place] [address] 04/09/2024 11:08:39 04/09/2024 11:23:58 Administration of SARS-CoV-2 mRNA vaccine 1683790800 Z23 [id number] Palak Martinez [place] [address] 0 08/30/2024 10:09:15 08/30/2024 11:44:19 Depressive disorder 82634586 F32.A Obstructiv e sleep apnea syndrome 37795595 G47.33 Obesity 191563265 E66.9 Body mass index 40+ - severely obese 032499052 Z68.42 [id number] [place] [address] 09/18/2024 16:40:33 09/18/2024 17:09:58 Abdominal pain 01736276 R10.9 STOP ZEPBOUND! Hold further zepbound until discussed with PCP. He was given a f/up ppt for next week. Eat BRAT diet, hydrate, handwashin g. Alarm GI sx were explained to him and he is to report to ER if he develops any of those. Nausea and vomiting 1691999 R11.2 [id number] [place] [address] 09/26/2024 08:20:06 09/26/2024 08:51:42 Medication side effects present 639918268 T50.905A Body mass index 40+ - severely obese 143387646 Z68.42 [id number] Palak Martinez [place] [address] 0 10/29/2024 07:47:24 10/29/2024 08:38:08 Viral gastritis 307832532 K29.70 40384314 Morbid obesity 911516952 E66.01 58760 Body mass index 40+ - severely obese 815429442 Z68.43 8767577 [id number] Palak Martinez [place] [address] 01/03/2025 13:28:45 01/03/2025 14:51:29 Fatigue 60009369 R53.83 6873640 Vitamin D deficiency 347 58902 E55.9 29793 Cobalamin deficiency 190 334224 E53.8 63124 Mixed hyperlipidemia 267 981554 E78.2 Obstructiv e sleep apnea syndrome 84259846 G47.33 Body mass index 40+ - severely obese 495156246 Z68.42 193577 [id number] Palak Martinez [place] [address] 04/08/2025 16:03:38 04/08/2025 17:14:41 Requires influenza virus vaccination 938243660 Z23 1446215 Generalize d anxiety disorder 13241336 F41.1 785127 Serum crea tinine above reference range 233036132 R79.89 120737 Body mass index 40+ - severely obese 790270616 Z68.42 [id number] Health Concerns Section Related Observation LastModified by Organization Detai ls LastModified Time None Recorded Concern Status LastModified by Organization Details LastModified Time None Recorded Advance Directives Directive N: Payers Insurance Date Sequence Insurance Name Policy Number Policy Galicia Covered Member ID Galicia Member ID Guarantor Name 04/09/2025 2 MEDICAID-[facility] CHOICES - FFS/TRADITIO NAL G[place]ito Senior [id number] Taurus Senior 04/09/2025 2 [place]ICARE[place] Didier Senior [id number] Taurus Saez Nadeen 04/08/2025 MED[place] A[place] 1DayLater [facility] Didier Senior [id number] Taurus Saez [place] 04/09/2025 1 [employer] (MEDICARE REPLACEMENT/ ADVANTAGE - PPO) Didier Senior [id number] Taurus Senior Notes Date Note Type Note Provider Name and Address Organization Details Recorded Time 09/18/2024 text/html Abdominal PainRe ported by PatientAbdominal PainFor quality, patient reportscramping. For associated symptoms, patient reportsheartburn,nause a,vomiting,diarrhea, anddecreased appetitebut reportsno fever,no chills,no blood in the urine,no shortness of breath,no jaundice, andno dysuria. For location, patient reportsgeneralized. For severity, patient reportsmoderate. For duration, patient reportsintermittent. For onset/timing, patient reportsacute,started: (3 days ago), andgradual. For previous tests, treatment and/or diagnostic procedures, patient reportsnone.ROS as noted in the HPI Segundo started Zepbond 2.5 mg weekly 2 weeks ago for QUAN. He took second dose on Monday and he reports generalized abdominal cramping, nausea, dry heaving, belching, and diarrhea. He is tolerating oral fluids and passing gas. Has hyperactive BS. Nicole Cornejo, WARDROBE ASSISTANT [address] [place], [address], [employer] 09/18/2024 17:19:18 09/26/2024 text/html pt here today to f/u on his ad symptoms. pt was seen on 09/18 with abd cramping, N/D and a sour stomach . he thought he had a virus. pt was seen by another provider here and was told that it was the zepbound and to stop taking it until he sees his pcp. pt states that he stopped taking it and his symptoms got better. does admit although eating less most of the time that he probably still over eats and doesnt eat healthy. assessment WNL. pt states that he would like to keep taking the zepbound (pt has lost 20 lbs in a month) but doesnt want the abd symptoms. we will retry the zepbound every other week for a few weeks and see if pt has symptoms and then advance to weekly as tolerated. pt to do a diet of heart healthy, low carb meals, increase water intake and dont over eat. pt voiced understanding. Palak Martinez, WARDROBE ASSISTANT [address] [facility], [place], [address], [employer] 09/26/2024 09:14:04 10/29/2024 text/html pt here today for an ER f/u. pt states that he went to ER on 10/18 with N/V and abd pain. states that he got some meds and was sent home. states that he wasnt feeling any better and then went back on 10/19 and was admitted over night. states that md told him that they werent sure that it was the zepbound or a GI bug. according to d/c note they advised pt to hold zepbound until seeing pcp. pt states that he does feel better. pt states that the N/V/D has stopped. he did have a large BM yesterday. pt admits that he was probably over eating still while taking the zepbound. on exam, pt has hypo active BS in all 4 quads. pt states that he would like to start the zepbound again but would like to only do it q 2 weeks to start. im not sure if that would be effective but pt can do that until his next appt and then we can see how he is doing on the injection. Palak Martinez APRN [address] [place], [address], [employer], [employer] 10/29/2024 09:01:37 01/03/2025 text/html pt here today for medication refills. pt states hes doing well on current medication regime and has no new complaints today. pt is still taking the zepbound q 2 weeks and has had no GI issues. pt has lost 15 lbs since last visit. Palak Martinez APRN [address] [facility], [place], [address], [employer] 01/03/2025 14:12:20 04/08/2025 text/html pt here today to talk about his bp. pt is very confusing with his story. states that his psych doc told him in the hospital that he needed his bp med. then i look through his chart and seen he went to ER again for nausea. but they ordered cardiac related testing (requested note). this was in feb. then pt went on to say that his psych has been prescribing clonidine and propranolol for years, for anxiety, but will no longer prescribed because it is a bp med and pcp needs to prescribe. and that the last time he seen psych his bp was high. bp WNL today. and is typically WNL. pt denies cp, soa, dizziness, blurred vision, headache today. harman called pharmacy [facility] to verify meds due to pt did not know dose etc. i will refill meds today. when looking over testing from ER i asked pt if docs went over ct scan. he stated that yeah it was normal . i told pt the results and asked if he was still seeing neph. pt looked confused. i have asked pt several times if he was still seeing neph because we arent getting the notes. through looking back in pt chart he hasnt see neph since 2022, and was supposed to f/u with them in 2 months. labs in december creat was elevated and pt was told to make sure he is keeping appt with neph and he didnt say he wasnt going. i am going to refer back to neph due to elevated creat and recent ct scan results. pt voiced understanding. Palak Martinez APRN [address] [facility], [place], [address], [facility] [employer] 04/08/2025 17:53:43
--- OUTSIDE RECORDS SUMMARY | 2025-04-20 11:56 | XMS_ITS | Clinical Summary ---
Author Organization [facility] Address [address] [place] [address] Care Team Providers Care Dumb Waiter Operator Name Role Phone Fatimah Granger MIL Primary Care Provider [phone] Allergies Active Allergy Reactions Criticality Noted Date [...] A & B MEDICAID [place] Care Teams Dumb Waiter Operator Relationship Specialty Start Date End Date Fatimah Granger APRN [address] [place] [address] PCP - General Family Medicine 02/27/17
--- OUTSIDE RECORDS SUMMARY | 2025-04-20 11:56 | XMS_ITS | Encounter Summary ---
Author Organization [facility] Address [address] [place] [address] Care Team Providers Care Battery Engineer Name Role Phone System, Provider Not In MD Primary Care Provider Unavailable Palak Martinez APRN Primary Care Provider + [phone] Reason for Referral * Consultation (Routine) - Closed Specialty Diagnoses / Procedures Referred By Contac t Referred To Contact Neurology Diagnoses Myelitis (CMS/HCC) Joi King MD [address] [facility] [address] [place] [address] Phone: tel: fax: Gerardo Bryant MD [address] [facility] [address] [place] [address] Phone: tel: fax: Referral ID Status Reason Start Date Expiration Date V isits Requested Visits Authorized [id number] Closed Specialty Services Required 01/09/2024 07/10/2025 1 1 Encounter Details Date Type Department Care Team (Late st Contact Info) Description 01/09/2024 Community [facility] [address] [place] [address] Joi King MD [address] [facility] [address] [place] [address] Myelitis (CMS/HCC) (Primary Dx) Social [...] Visit [place] [facility] [address] [place] [address] Jacob Salmeron, DO [address] [place] [address] Scheduled Referrals Name Type Priority [...] documented as of this encounter Care Teams Battery Engineer Relationship Specialty Start Date End Date System, Provider Not In, [place] [address] PCP - General Family Medicine 05/23/23 05/14/24 Palak Martinez APRN [address] [place] [address] PCP - General 05/15/24 documented as of this encounter
--- OUTSIDE RECORDS SUMMARY | 2025-04-20 11:56 | XMS_ITS | Encounter Summary ---
Author Organization Healthcare Address [address] [place] [address] Care Team Providers Care Floor Layer Apprentice Name Role Phone System, Provider Not In MD Primary Care Provider Unavailable Palak Martinez APRN Primary Care Provider + [phone] Encounter Details Date Type Department Care Team (Late st Contact Info) Description 12/20/2023 Orders Only External Location [address] [place] [address] Provider, External Social History Tobacco Use Types [...] Visit [place] [facility] [address] [place] [address] Jacob Salmeron, DO [address] [place] [address] documented as of this encounter Procedures Procedure [...] on filedocumented in this encounter Care Teams Floor Layer Apprentice Relationship Specialty Start Date End Date System, Provider Not In, [place] [address] PCP - General Family Medicine 05/23/23 05/14/24 Palak Martinez APRN [address] [place] [address] PCP - General 05/15/24 documented as of this encounter
--- OUTSIDE RECORDS SUMMARY | 2025-04-20 11:56 | XMS_ITS | Continuity of Care Document ---
Author Organization [place] [facility] [place] Verified Person [facility] Address [address] [place] [address] Assessment No assessment recorded. Plan of Treatment Reminders Order Date Submit Date Provider Last Modified By Organization Details Last Modified Time Details Appointments FOLLOW UP 15 2025 10:30A M M. MIL Martinez Not available Not available Not available Lab None recorded. Referral nephrolog ist referral 2024 pola Irwin MD, [address] [place] [address] , [place], [address], 04/15/2025 09:28:08 Procedures None recorded. Surgeries None recorded. Imaging None recorded. Medication Orders clonidine HCl 0.1 mg tablet 2024 [facility], [address] [place], [address], 04/08/2025 17:11:03 propranol ol 10 mg tablet 2024 [facility], [address] [place], [address], 04/08/2025 17:11:04 Patient TargetsNo targets recorded. Patient InstructionsNo instructions recorded. Reason for Referral Tree Planter Referral for Se rum creatinine above reference range Referring Physician: Palak Martinez, Family Medicine, Encounter Date: 04/08/2025 Problems Name Problem SNOMED Code Status Onset Date Resolution Date Notes Provider Name and Address Organization Details Recorded Time Obstruct marek sleep apnea syndrome 26602949 Completed 201612/28/2020 Problem Code: 327.23; Problem Code Type: ICD-9; Not Available [facility] 2 21:00:56 Benign essentia l hyperten stephane 3048207 Completed 201612/28/2020 Problem Code: 401.1; Problem Code Type: ICD-9; Not Available [facility] 2 21:01:01 Acute bronchit is 97745502 Completed 201608/26/2016 Problem Code: J20.8; Problem Code Type: ICD-10; Not Available [facility] 2 21:00:46 Cough 16266024 Completed 201607/11/2016 Problem Code: R05; Problem Code Type: ICD-10; Not Available [facility] 2 21:00:48 Acute pharyngi tis 755660672 Completed 201609/20/2016 Problem Code: J02.8; Problem Code Type: ICD-10; Not Available [facility] 2 21:00:46 Influenz a 9010933 Completed 201608/05/2016 Problem Code: J10.1; Problem Code Type: ICD-10; BARTOLOME ferraro [employer] 2 11:32:43 Influenz a with non-resp iratory manifest ation 54564958 Completed 201608/05/2016 Problem Code: 487.8; Problem Code Type: ICD-9; Not Available [facility] 2 21:00:55 Acute pharyngi tis 471505638 Completed 201609/23/2016 Problem Code: J02.8; Problem Code Type: ICD-10; Not Available [facility] 2 21:00:46 Influenz a 3075885 Completed 201609/23/2016 Problem Code: J10.1; Problem Code Type: ICD-10; BARTOLOME ferraro [employer] 2 11:32:43 Influenz a with respirat ory manifest ation other than pneumoni a Completed 201609/23/2016 Problem Code: 487.1; Problem Code Type: ICD-9; Not Available [facility] 21:00:55 Acute bronchit is 79011302 Completed 201612/26/2016 Problem Code: J20.8; Problem Code Type: ICD-10; Not Available [facility] 21:00:46 Mixed hyperlip idemia 627201650 Completed 201612/28/2020 Problem Code: 272.2; Problem Code Type: ICD-9; Not Available [facility] 21:00:53 Benign essentia l hyperten stephane 1518983 Completed 201612/28/2020 Problem Code: 401.1; Problem Code Type: ICD-9; Not Available [facility] 21:00:54 Obstruct marek sleep apnea syndrome 53710785 Completed 201612/28/2020 Problem Code: 327.23; Problem Code Type: ICD-9; Not Available [facility] 21:00:56 Cough 98089444 Completed 201611/10/2016 Problem Code: R05; Problem Code Type: ICD-10; Not Available [facility] 21:00:56 Hyperten sive disorder 11309365 Active 2016 Problem Code: I10; Problem Code Type: ICD-10; Not Available [facility] 03:26:24 Infectio n of skin and/or subcutan eous tissue 33972320 Completed 201602/04/2017 Problem Code: L08.89; Problem Code Type: ICD-10; Not Available [facility] 21:00:47 Cough 95861135 Completed 201612/20/2016 Problem Code: R05; Problem Code Type: ICD-10; Not Available [facility] 21:00:48 Atopic neuroder matitis 931472573 Completed 201608/01/2019 Problem Code: L20.81; Problem Code Type: ICD-10; Not Available [facility] 2 21:00:52 Benign essentia l hyperten stephane 9564636 Completed 201612/28/2020 Problem Code: 401.1; Problem Code Type: ICD-9; Not Available [facility] 21:00:54 Localize d infectio n of skin AND/OR subcutan eous tissue 199997922 Completed 201602/04/2017 Problem Code: 686.9; Problem Code Type: ICD-9; Not Available [facility] 2 21:00:57 Atopic dermatit is 36530964 Completed 201612/28/2020 Problem Code: 691.8; Problem Code Type: ICD-9; Not Available [facility] 21:00:57 Atopic neuroder matitis 173794384 Completed 201608/01/2019 Problem Code: L20.81; Problem Code Type: ICD-10; Not Available [facility] 21:00:46 Atopic dermatit is 03578833 Completed 201612/28/2020 Problem Code: 691.8; Problem Code Type: ICD-9; Not Available [facility] 21:00:57 Extrinsi c asthma with asthma attack Completed 201612/28/2020 Problem Code: 493.02; Problem Code Type: ICD-9; Not Available [facility] 2 21:00:59 Mild major depressi on, single episode 44558392 Active 2016 Problem Code: F32.0; Problem Code Type: ICD-10; Not Available [facility] 3 03:26:24 Mixed hyperlip idemia 827154263 Active 2016 Problem Code: E78.2; Problem Code Type: ICD-10; Not Available [facility] 3 03:26:24 Depressi ve disorder 55265230 Completed 201612/28/2020 Problem Code: 311; Problem Code Type: ICD-9; Harman ferraro [facility] [employer] 5 10:47:22 Benign essentia l hyperten stephane 2609317 Completed 201612/28/2020 Problem Code: 401.1; Problem Code Type: ICD-9; Not Available [facility] 2 21:00:55 Dysthymi a 28594211 Active 2016 Problem Code: R53.81; Problem Code Type: ICD-10; Not Available [facility] 3 03:26:24 Malaise and fatigue 421495208 Active 2016 Problem Code: 780.79; Problem Code Type: ICD-9; Not Available [facility] 3 03:26:24 Influenz a 2693368 Completed 201708/17/2017 Problem Code: J10.1; Problem Code Type: ICD-10; BARTOLOME ferraro, [place] [employer] [facility]. 2 11:32:43 Influenz a with non-resp iratory manifest ation 13661169 Completed 201708/17/2017 Problem Code: 487.8; Problem Code Type: ICD-9; Not Available [facility] 2 21:00:55 Neoplasm of uncertai n behavior of skin 27588534 Completed 201701/09/2018 Problem Code: D48.5; Problem Code Type: ICD-10; Not Available [facility] 2 21:00:44 Congenit al anomaly of skin 691287752 Completed 201712/28/2020 Problem Code: 757.39; Problem Code Type: ICD-9; Not Available [facility] 2 21:01:02 Congenit al anomaly of skin 260609062 Completed 201712/28/2020 Problem Code: 757.39; Problem Code Type: ICD-9; Not Available [facility] 2 21:01:00 Atopic neuroder matitis 928668176 Completed 201708/01/2019 Problem Code: L20.81; Problem Code Type: ICD-10; Not Available [facility] 2 21:00:47 Cough 38683219 Completed 201703/09/2018 Problem Code: R05; Problem Code Type: ICD-10; Not Available [facility] 2 21:00:48 Allergic rhinitis caused by pollen 01366348 Completed 201704/24/2018 Problem Code: J30.1; Problem Code Type: ICD-10; Not Available [facility] 2 21:00:51 Atopic dermatit is 05732928 Completed 201712/28/2020 Problem Code: 691.8; Problem Code Type: ICD-9; Not Available [facility] 2 21:00:59 Generali zed anxiety disorder 18880535 Active 2017 Problem Code: F41.1; Problem Code Type: ICD-10; Not Available [facility] 3 03:26:24 Acute bronchit is 19305951 Completed 201808/19/2018 Problem Code: J20.9; Problem Code Type: ICD-10; Not Available [facility] 2 21:00:46 Cough 05343778 Completed 201807/04/2018 Problem Code: R05; Problem Code Type: ICD-10; Not Available [facility] 2 21:00:48 Pain of joint of ankle 569978830 Completed 201804/21/2022 BARTOLOMEASHLEY VARGAS [employer] 2 11:32:42 Tension- type headache 550493067 Active 2018 Problem Code: G44.209; Problem Code Type: ICD-10; Not Available [facility] 3 03:26:24 Cellulit is of perineum 42827796 Completed 201804/21/2022 Problem Code: L03.315; Problem Code Type: ICD-10; BARTOLOME ferraro, [employer] 2 11:32:43 Influenz a vaccine needed 38128205993 06 Completed 201804/21/2022 Problem Code: Z23; Problem Code Type: ICD-10; BARTOLOME ferraro [employer] 2 11:32:42 Pain in limb 99266020 Completed 201804/21/2022 BARTOLOME ferraro [employer] 2 11:32:43 Sinus bradycar melissa 41823812 Completed 201804/21/2022 BARTOLOME ferraro, [employer] 2 11:32:43 Nausea 002985156 Completed 201804/21/2022 Problem Code: R11.0; Problem Code Type: ICD-10; BARTOLOME ferraro, [employer] 2 11:32:43 Body mass index 40+ - severely obese 627024554 Completed 201809/24/2020 Not Available [facility] 21:00:52 Muscle pain 62607638 Completed 201909/24/2020 Problem Code: M79.10; Problem Code Type: ICD-10; Not Available [facility] 21:00:47 Influenz a 0147943 Completed 201904/21/2022 Problem Code: J11.1; Problem Code Type: ICD-10; BARTOLOME ferraro, [employer] 2 11:32:43 Otalgia of left ear Completed 201904/21/2022 BARTOLOME VARGAS null, [employer] 2 11:32:42 Otogenic otalgia 38650588 Completed 201904/21/2022 BARTOLOME ferraro, [employer] 2 11:32:43 Tremor 78799068 Completed 201904/21/2022 Problem Code: R25.1; Problem Code Type: ICD-10; BARTOLOME ferraro, [employer] 2 11:32:42 Open fracture of lower leg 230567921 Completed 202004/21/2022 BARTOLOME VARGAS null, [employer] 2 11:32:43 Body mass index 40+ - severely obese 815911438 Active 2020 Not Available [facility] 03:26:24 Eruption 031195688 Completed 202004/21/2022 Problem Code: R21; Problem Code Type: ICD-10; BARTOLOME VARGAS [employer]. 11:32:43 Chronic fatigue syndrome 84961373 Completed 202004/21/2022 Problem Code: R53.82; Problem Code Type: ICD-10; BARTOLOME ferraro, [employer]. 11:32:43 Generali zed abdomina l pain 146740658 Completed 202004/21/2022 Problem Code: R10.84; Problem Code Type: ICD-10; BARTOLOME VARGAS [employer]. 11:32:42 Body mass index 40+ - severely obese 225853413 Completed 202109/06/2021 Not Available [facility] 21:00:51 Influenz a vaccine needed 04088359667 06 Completed 202109/06/2021 Problem Code: Z23; Problem Code Type: ICD-10; BARTOLOME VARGAS [employer]. 11:32:42 Acute sinusiti s 61702127 Completed 202104/21/2022 Problem Code: J01.90; Problem Code Type: ICD-10; BARTOLOME VARGAS [employer]. 11:32:42 Myositis 09766651 Completed 202104/21/2022 Problem Code: M60.9; Problem Code Type: ICD-10; BARTOLOME VARGAS [employer]. 11:32:43 Migraine with aura 3207254 Active 2021 Problem Code: G43.109; Problem Code Type: ICD-10; Not Available [facility] 03:26:24 Tinea cruris 683572954 Completed 202104/21/2022 Problem Code: B35.6; Problem Code Type: ICD-10; BARTOLOME VARGAS [employer] 11:32:43 Nausea and vomiting 77601722 Completed 202104/21/2022 Problem Code: R11; Problem Code Type: ICD-10; BARTOLOME ferraro, [employer] 2 11:32:42 Diarrhea 43912116 Completed 202104/21/2022 Problem Code: R19.7; Problem Code Type: ICD-10; BARTOLOME ferraro, [employer] 2 11:32:43 Neck pain 17611378 Active [address], [address] , [employer] 3 09:05:13 COVID-19 143240340 Active [address], [address] , [employer] 4 09:12:39 Essentia l hyperten stephane 61031778 Active 2023 Harman Burnette null, [employer] 4 08:22:06 Depressi ve disorder 79666515 Active 2024 Problem Code: 311; Problem Code Type: ICD-9; Harman Burnette null, [employer] 5 10:47:22 Hyperlip idemia 10068821 Active 2024 Harman Bautistally null, [employer] 5 15:20:06 Fatigue 16386558 Active 2024 Harman [place] null, [employer] 5 15:20:06 Hypergly cemia 01905802 Active 2024 Harman Bautistally null, [employer] 5 15:20:06 Nocturia 297299353 Active 2024 Harman Bautistally null, [employer] 5 15:21:30 Problem Notes None recorded. Medical Equipment None Reported. Allergies Allergen ID Allergen Name Allergen Category Reaction Reaction Severity Criticality Documentation Date Start Date Code Code System Note Provider Name and Address Organization Details Recorded Time 26877 Compazine medicatio n Not available Not available Not available 02/15/2022 33452 6 RxNorm Not Available [facility] 22:56:19 53460 lisinopri l medicatio n Not available Not available Not available 02/15/2022 76365 RxNorm Not Available [facility] 2 22:56:19 Medications Name Sig Start Date [...] release 24 hr 1 tab po bid 11/15/ 2018 07/19 /2021 completed Not Available Not Available Not Available [...] Take 1 dose pk by oral route. 02/18 completed Not Available Not Available Not [...] Updated DateTime 5 172.72 cm 46.9 kg/m2 848157. 85 g 86 /min 96 % 96 % 134/83 mm[Hg] Harman Burnette [employer] 16:44:41 Social History Question Answer Notes LastModified by Organizat ion Details LastModified Time Tobacco Smoking Status Never Smoker BARTOLOME ferraro [employer] 04/21/2022 11:33:48 Do You Have An Advance Directive? No [email or web address] Information n ot available 04/21/2022 Is Your Home Air Conditioned? Yes Information not available 11/15/2022 Are You Blind Or Do You Have Difficulty Seeing? No [email or web address] Information n ot available 04/21/2022 What Is Your Level Of Caffeine Consumption? None Information not available 11/15/2022 Are You A Caregiver? No Information not available 11/08/2023 In The 14 [...] Do You Have Serious Difficulty Hearing? No [email or web address] Information not available 04/21/2022 Have There Been Any Changes To Your Family Or Social Situation? No Information no t available 11/15/2022 Are There Any Guns Present In Your Home? No [email or web address] Information not available 11/08/2023 Do You Have A Medical Power Of Physician Interventional Cardiologist? No [email or web address] Information not available 04/21/2022 What Was The Date Of Your Most Recent Tobacco Screening? 04/08/2025 Information not available 04/08/2025 Do You Have Any Pets? No [email or web address] Information not available 11/08/2023 What Is Your Relationship Status? Single Information not available 11/15/2022 Do You Use Your Seat Belt Or Car Seat Routinely? Yes Information not available 11/15/2022 Do You Have Smoke And Carbon Monoxide Detectors In Your Home? Yes Information not available 11/15/2022 Are You Passively Exposed To Smoke? No [email or web address] Information no t available 11/08/2023 Are There Any Smokers In Your House? No [email or web address] Information not available 11/08/2023 Do You Use Sunscreen Routinely? No [email or web address] Information not available 11/08/2023 Have You Recently Traveled Abroad? No Information not available 11/15/2022 Do You Have Difficulty Walking Or Climbing Stairs? No Information not available 04/21/2022 Are You Currently In School? No [email or web address] Information not available 04/21/2022 Sex: Unknown Functional Status Question Answer Note LastModified by Organizat ion Details LastModified Time Do you use any illicit or recreational drugs? No Information not available 11/15/2022 Do you or have you ever used any other forms of tobacco or nicotine? No [email or web address] Information not available 11/08/2023 What is your level of alcohol consumption? None Information not available 11/15/2022 Are you currently employed? No [email or web address] Information not available 04/21/2022 Do you have transportation difficulties? No [email or web address] Information not available 04/21/2022 Are you able to walk independently without assistance or assistive devices? YESWOREST [email or web address] Information not available 04/21/2022 Do you have difficulty doing errands alone? No [email or web address] Information not available 04/21/2022 Are you able to care for yourself independently? Yes [email or web address] Information not available 04/21/2022 Do you have difficulty dressing, bathing, grooming, or toileting? No [email or web address] Information not available 04/21/2022 Mental Status Question Answer Note LastModified by Organization D etails LastModified Time Do you have difficulty concentrating, remembering or making decisions? No [email or web address] Information no t available 04/21/2022 Family History [...] split virus, quadrivalent, PF 3 completed Palak Martinez, [employer] SUR[employer]YOR [address] [place], [address], [employer] 03/14/2023 15:21:02 COVID-19, mRNA, LNP-S, PF, 100 mcg/0.5mL dose or 50 mcg/0.25mL dose 1 completed ARINA ferraro, [employer] 06/01/2023 08:58:18 COVID-19, mRNA, LNP-S, PF, 100 mcg/0.5mL dose or 50 mcg/0.25mL dose 1 completed ARINA ferraro, [employer] 06/01/2023 08:58:18 Influenza, split virus, quadrivalent, PF 2 completed Not Available [facility] 11/08/2022 03:26:24 Influenza, MDCK, quadrivalent, preservative 9 completed Not Available [employer] 11/08/2022 03:26:24 Influenza, split virus, trivalent, PF 7 completed Not Available [facility] 11/08/2022 03:26:24 Influenza, split virus, trivalent, PF 4 completed Roxi Stokes, ELIDA [address] [place], [address], [employer] 04/03/2024 13:15:26 COVID-19, mRNA, LNP-S, PF, dionte-sucrose, 30 mcg/0.3 mL 4 completed Harman ferraro, [employer] 05/10/2024 16:31:16 Influenza, split virus, trivalent, PF 8 completed Not Available [employer] 11/08/2022 03:26:24 Influenza, split virus, quadrivalent, PF 8 completed Not Available [facility] 11/08/2022 03:26:24 Influenza, split virus, trivalent, preservative 0 completed Not Available [employer] 11/08/2022 03:26:24 Influenza, split virus, quadrivalent, PF 2 completed Palak MIL Martinez [address] [place], [address], [facility] [employer] 04/21/2022 12:43:28 Influenza, split virus, trivalent, PF 5 completed Harman ferraro, [facility] [employer] 04/08/2025 17:22:47 Past Encounters Encounter ID Performer Location Encounter Start Date Encounter Closed Date Diagnosis/Indication Diagnosis SNOMED-CT Code Diagnosis ICD10 Code Diagnosis IMO Codes Diagnosis Note [id number] Palak MIL Martinez [address] [address] 04/08/2025 16:03:38 04/08/2025 17:14:41 Requires influenza virus vaccination 859624656 Z23 7710880 Generalize d anxiety disorder 03801051 F41.1 686957 Serum crea tinine above reference range 672866309 R79.89 291613 Body mass index 40+ - severely obese 177665774 Z68.42 785364 Health Concerns Section Related Observation LastModified by Organization Detai ls LastModified Time None Recorded Concern Status LastModified by Organization Details LastModified Time None Recorded Payers Encounter Date Sequence Insurance Name Policy Number Policy Galicia Covered Member ID Galicia Member ID Guarantor Name 04/08/2025 2 [place] [employer] - FFS/TRADITI ONAL [place] Senior [id number] [place] Senior 04/08/2025 2 [place] Senior [id number] [employer] Senior Notes Date Note Type Note Provider Name and Address Organization Details Recorded Time 04/08/2025 text/html pt here today to talk [...] ct scan results. pt voiced understanding. Palak Martinez, MIL [address] [facility], [place], [address], [place] [facility] [employer] 04/08/2025 17:53:43
--- OUTSIDE RECORDS SUMMARY | 2025-04-20 11:56 | XMS_ITS | Encounter Summary ---
Author Organization Healthcare Address [address] [facility] [facility] [place] [address] Care Team Providers Care Sas Clinical Programmer Name Role Phone System, Provider Not In MD Primary Care Provider Unavailable Palak Martinez APRN Primary Care Provider + [phone] Encounter Details Date Type Department Care Team (Late st Contact Info) Description 10/18/2023 Orders Only External Location [address] [place] [address] Provider, External Social History Tobacco Use Types [...] Visit [place] [facility] [address] [place] [address] Jacob Salmeron, DO [address] [place] [address] documented as of this encounter Procedures Procedure [...] on filedocumented in this encounter Care Teams Sas Clinical Programmer Relationship Specialty Start Date End Date System, Provider Not In, [place] [address] PCP - General Family Medicine 05/23/23 05/14/24 Palak Martinez APRN [address] [place] [address] PCP - General 05/15/24 documented as of this encounter
[2025-04-20 12:01] VITALS: BP 118/67; PULSE 89; O2SAT 95
[2025-04-20 12:17] LABS: Hematocrit 42.9 % (42.0-52.0); Hemoglobin 15.0 g/dL (14.1-18.0); Immature Granulocytes % 0.2 %; Mean Corpuscular HGB Conc 35.0 g/dL (31.8-35.4); Mean Corpuscular Hemoglobin 30.4 pg (27.0-31.2); Mean Corpuscular Volume 87.0 fl (80-94); Nucleated Red Blood Cells % 0 %; Platelet Count 166 K/mm3 (142-424); Red Blood Count 4.93 M/mm3 (4.60-6.20); Red Cell Distribution Width-SD 41.1 fL; White Blood Count 5.7 K/mm3 (4.8-10.8)
[2025-04-20 12:21] LABS: Microscopic, Urine URINE MICROSCOPIC (MICROSCOPIC)
--- NOTE | 2025-04-20 12:22 | XR_ITS ---
PROCEDURE INFORMATION: Exam: XR Chest Exam date and time: 04/20/2025 12:51 PM Age: 49 years old Clinical indication: Cough TECHNIQUE: Imaging protocol: Radiologic exam of the chest. Views: 2 views. COMPARISON: CR XR CHEST PORTABLE 02/13/2025 5:19 PM FINDINGS: Lungs: Lung volumes are within normal limits. No focal airspace consolidation or other acute appearing abnormality. No CHF. Pleural spaces: No pleural effusion or pneumothorax. Heart/Mediastinum: The heart size is normal. The mediastinal contours are smooth. Bones/joints: Mild degenerative changes are present within the cervical and thoracic spine. IMPRESSION: No acute findings within the chest.
[2025-04-20 12:23] LABS: Albumin Level 4.7 g/dl (3.5-5.0); Chloride 108 mmol/L (98-107)
[2025-04-20 12:24] LABS: Potassium 4.1 mmoL/L (3.5-5.1); Sodium 138 mmol/L (136-145)
[2025-04-20 12:26] LABS: Blood Urea Nitrogen 8 mg/dl (9-20); Creatinine Clearance Estimated 77 mL/min (50-200); Creatinine,Serum 1.10 mg/dl (0.66-1.25); Estimated Glomerular Filt Rate 71 ml/min (>60); GFR (African American) 85 ML/MIN (>60)
[2025-04-20 12:27] LABS: Alanine Aminotransferase 31 U/L (12-78); Albumin/Globulin Ratio 2.4 (1.1-1.8); Alkaline Phosphatase 76 U/L (38-126); Anion Gap 10.1 mEq/L (5-15); Aspartate Amino Transferase 38 U/L (17-59); Bilirubin,Total 1.3 mg/dl (0.2-1.3); Calcium 8.6 mg/dl (8.4-10.2); Carbon Dioxide 24 mmol/L (22.0-30.0); Globulin 2.0 g/dL (1.3-3.2); Glucose 106 mg/dl (74-100); Total Protein,Serum 6.7 g/dl (6.3-8.2)
[2025-04-20 12:28] LABS: Color,Urine YELLOW (Yellow); Glucose,Urine (UA) Negative (Negative); Ketones,Urine TRACE (Negative); Leukocyte Esterase,Urine Negative (Negative); PH,Urine 6.5 (5.0-8.5); Protein,Urine 1+ (Negative); Specific Gravity, Urine 1.020 (1.005-1.030); Urobilinogen,Urine 1.0 EU/dl (0.2)
[2025-04-20 12:29] LABS: Bilirubin,Urine 1+ (Negative)
[2025-04-20 12:44] VITALS: BP 130/86; PULSE 92; O2SAT 95
[2025-04-20 12:53] LABS: RBC,Urine Occasional #/hpf (0-3); Squamous Epithelial Cell,Urine Occasional #/hpf (0-5); WBC,Urine Occasional #/hpf (0-3)
[2025-04-20 12:55] LABS: Lipase 63 U/L (23-300)
--- NOTE | 2025-04-20 12:57 | HMH.EDGENADL ---
Discharge Plan Disposition Patient Disposition: Home, Self-Care Condition: Good Prescriptions Prescriptions: New ondansetron 4 mg tablet,disintegrating 4 mg PO Q8H PRN (Reason: nausea and vomiting) 3 Days Qty: 9 0RF No Action clonidine HCl 0.1 mg tablet 0.1 mg PO BID lurasidone 120 mg tablet 120 mg PO DAILY Rx Instructions: must administer with food (at least 350 calories) buspirone 10 mg tablet 10 mg PO TID propranolol 10 mg tablet 10 mg PO TID simvastatin 20 mg tablet 20 mg PO HS prazosin 1 mg capsule 1 mg PO DAILY bupropion HCl 300 mg tablet extended release 24 hr 300 mg PO DAILY pregabalin 150 mg capsule 150 mg PO BID Zepbound 2.5 mg/0.5 mL pen injector 2.5 mg SQ WEEKLY Patient Comments: inject 2.5 mg under the skin every week for 4 weeks then 5mg once weekly Rx Instructions: Inject 2.5 mg under the skin every week for 4 weeks, then 5mg once weekly. divalproex 500 mg tablet,delayed release (DR/EC) 500 mg PO TID Referrals Follow up/Referrals: Palak Martinez APRN [Primary Care Provider, Medical] - See instructions Activity Restrictions/Add. Instructions Additional Instructions/Restrictions: You were seen for likely viral illness. Follow up with your PCP this week. Return to the ER if you have any worsening of symptoms. Clinical Impressions Clinical Impression: Viral illness Instructions Patient Instructions: DI for Viral Syndrome Print Language Print Language: Latvian Discharge ED Provider: Leigh Acevedo General Adult HPI <АЛЕКСАНДР Jesus - Last Filed: 04/20/25 15:02> General Chief complaint: Nausea/Vomiting/Diarrhea Stated complaint: headache, vomiting, diarrhea, stomach ache Time Seen by Provider: 04/20/25 12:17 Mode of Arrival: Ambulatory Source of Information: Patient Description of Symptoms (Recalled from ER Triage Doc. by RN): Pt presents with c/o N/V/D, sneezing and coughing for the last few days. Pt last vomitted this morning. History of Present Illness HPI narrative: Patient presents complaining of cough, congestion, nausea vomiting diarrhea. He reports that his symptoms started on Monday. He denies any sick contacts. Denies any blood in his stool. He reports some generalized abdominal cramping. MD complaint: N/V/D, URI symptoms Onset (ago): day(s) Location: head and abdomen Severity: moderate Consistency: constant Relieving factors: none Exacerbating factors: none Associated symptoms: negative fever/chills Related Data Home Medications ?Medication ?Instructions ?Recorded ?Confirmed simvastatin 20 mg tablet 20 mg PO HS 04/01/24 04/01/25 buspirone 10 mg tablet 10 mg PO TID 09/16/24 04/01/25 clonidine HCl 0.1 mg tablet 0.1 mg PO BID 09/16/24 04/01/25 lurasidone 120 mg tablet 120 mg PO DAILY 09/16/24 04/01/25 propranolol 10 mg tablet 10 mg PO TID 09/16/24 04/01/25 bupropion HCl 300 mg 24 hr tablet, 300 mg PO DAILY 10/19/24 04/01/25 extended release prazosin 1 mg capsule 1 mg PO DAILY 10/19/24 04/01/25 pregabalin 150 mg capsule 150 mg PO BID 10/19/24 04/01/25 tirzepatide (weight loss) 2.5 2.5 mg SQ WEEKLY 10/19/24 04/01/25 mg/0.5 mL subcutaneous pen injector (Zepbound) Held on 10/21/24. Instructions: Resume on 11/04/24. This medication may be causing your GI distress. Please follow-up with your PCP for further discussion. divalproex 500 mg tablet,delayed 500 mg PO TID 10/20/24 04/01/25 release Previous Rx's ?Medication ?Instructions ?Recorded ondansetron 4 mg disintegrating 4 mg PO Q8H PRN nausea and 04/20/25 tablet vomiting 3 days #9 tabs Allergies Allergy/AdvReac Type Severity Reaction Status Date / Time prochlorperazine (From Allergy Unknown Other Verified 04/01/25 09:45 COMPAZINE) [facility] <АЛЕКСАНДР Jesus - Last Filed: 04/20/25 15:02> [facility] Disclaimer: The information contained in this section may have been updated after the patient was seen, as this information can be updated by other users. Medical History (Updated 04/20/25 @ 14:05 by АЛЕКСАНДР Jesus) Intractable abdominal pain Vomiting and diarrhea Gastroenteritis Back pain Seizure disorder Tremor Acute constipation Lumbar radiculopathy, acute Abnormal MRI, thoracic spine Myelopathy Episodic migraine BMI 50.0-59.9, adult Myelopathy Hypokalemia Acute viral syndrome Abdominal pain Headache Ribs, multiple fractures Gastroenteritis Viral gastroenteritis Cellulitis Obesity BMI greater than 40 Closed left ankle fracture Left ureteral calculus Transverse myelitis Bipolar 1 disorder Hyperlipidemia Arthritis Depression Acute adjustment disorder with anxiety Surgical History History of surgery on lower extremity History of ankle surgery Family History Other Cancer Diabetes Heart attack Hypertension Social History (Updated 04/01/25 @ 09:45 by Hi Grande, RN) Smoking Status: Never smoker alcohol intake: never substance use type: denies use current occupational status: disabled Travel in the last 8 weeks?: None household members: family housing: house marital status: single 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 current occupational exposures/hazards: No caffeine: Yes Have you lived/traveled outside [place] in past 30 days?: No Contact w/someone who lives/traveled outside [place] past 30 days?: No Exposure to someone with infectious disease in past 14 days?: No Do you have a fever (greater than 100.4 F or 38 C)?: No Have you tested positive for COVID-19?: No Exposed to someone with COVID-19 in past 14 days?: No Do you have a sore throat?: No Do you have a cough?: No Do you have any weakness?: Yes Do you have any diarrhea?: Yes Are you experiencing any unusual bleeding?: No Do you have any muscle aches/pain?: No Do you have any abdominal pain?: Yes Are you experiencing loss of taste or smell?: No Other Medical History Have you received the Flu Vaccine for this season: No Have you received the Pneumonia Vaccine: No <АЛЕКСАНДР Jesus - Last Filed: 04/20/25 15:02> ROS Obtained: Yes Systems reviewed as appropriate & no additional complaints except as documented Physical Exam <АЛЕКСАНДР Jesus - Last Filed: 04/20/25 15:02> General General appearance: alert and in no apparent distress Head Head exam: atraumatic and normocephalic Eye Eye exam: Present normal appearance and EOMI ENT ENT exam: Present normal exam Chest Chest inspection: Present symmetric chest wall rise Respiratory Respiratory exam: Present normal lung sounds bilaterally; Absent wheezes or stridor Cardiovascular Cardiovascular exam: Present regular rate and normal rhythm; Absent systolic murmur Abdominal Exam Abdominal exam: Present soft; Absent distention, tenderness or guarding Extremities Exam Extremities exam: Present full ROM Neurological Exam Neurological exam: Present alert and oriented X3 Psychiatric Psychiatric exam: Present normal affect and normal mood Skin Skin exam: Present warm, dry and intact Medical Decision Making <АЛЕКСАНДР Jesus - Last Filed: 04/20/25 15:02> Medical Records Screening: Per USPSTF and CDC recommendations, given the prevalence of disease in our region, it is our hospital?s policy to screen for HIV and viral Hepatitis for all patients aged 18 and over and those with ongoing risk factors. Talha Inquiry Pt receiving controlled substance: No Vital Signs: 04/20/25 11:40 04/20/25 11:43 04/20/25 12:01 Temperature 98.1 F 98.7 F Temperature Source Oral Temporal Artery Scan Pulse Rate 100 H 89 Pulse Rate [Right] 112 H Respiratory Rate 20 18 Blood Pressure 140/88 118/67 Blood Pressure [Right Arm] 148/94 H Blood Pressure Mean [Right Arm] 112 Blood Pressure Source Automatic Cuff Blood Pressure Source [Right Arm] Automatic Cuff Blood Pressure Position Sitting Blood Pressure Position [Right Arm] Sitting 02 Sat by Pulse Oximetry 96 98 95 Oxygen Delivery Method Room Air Room Air Room Air 04/20/25 12:44 04/20/25 14:08 Temperature 98.2 F Temperature Source Oral Pulse Rate 92 H 90 Pulse Rate [Right] Respiratory Rate 15 Blood Pressure 130/86 129/82 Blood Pressure [Right Arm] Blood Pressure Mean [Right Arm] Blood Pressure Source Automatic Cuff Blood Pressure Source [Right Arm] Blood Pressure Position Supine Blood Pressure Position [Right Arm] 02 Sat by Pulse Oximetry 95 Oxygen Delivery Method Room Air Room Air Lab Data Lab Results 04/20/25 11:45: SARS-CoV-2 (PCR) Not detected, Influenza A Untype (PCR) Not detected, Influenza Type B (PCR) Not detected 04/20/25 12:06: WBC 5.7, RBC 4.93, Hgb 15.0, Hct 42.9, MCV 87.0, MCH 30.4, MCHC 35.0, RDW 13.2, Plt Count 166, MPV 11.8 H, Neut % (Auto) 71.0, Lymph % (Auto) 12.0, [place] % (Auto) 12.7 H, Eos % (Auto) 3.9, Baso % (Auto) 0.2, Neut # (Auto) 4.1, Lymph # (Auto) 0.7, [place] # (Auto) 0.7, Eos # (Auto) 0.2, Baso # (Auto) 0.0, Sodium 138, Potassium 4.1, Chloride 108 H, Carbon Dioxide 24, Anion Gap 10.1, BUN 8 L, Creatinine 1.10, Estimated Creat Clear 77, Estimated GFR 71, Est GFR ( Amer) 85, Glucose 106 H, Calcium 8.6, Total Bilirubin 1.3, AST 38, ALT 31, Alkaline Phosphatase 76, Total Protein 6.7, Albumin 4.7, Globulin 2.0, Albumin/Globulin Ratio 2.4 H, Lipase 63 04/20/25 12:07: Urine Color Yellow, Urine Appearance Clear, Urine pH 6.5, Ur Specific [place] 1.020, Urine Protein 1+ A, Urine Glucose (UA) Negative, Urine Ketones Trace, Urine Blood Negative, Urine Nitrate Negative, Urine Bilirubin 1+ A, Urine Urobilinogen 1.0, Ur Leukocyte Esterase Negative, Urine RBC Occasional, Urine WBC Occasional, Ur Squamous Epith Cells Occasional, Urine Bacteria None 04/20/25 12:06 04/20/25 12:06 Orders (Tests/Meds): ORDERS Category Date Time Status Chest XR 2 view (NOT portable) [XR chest 2V] Stat Exams 04/20/25 12:22 Completed Complete Blood Count Auto Diff Stat Lab 04/20/25 12:06 Completed Comprehensive Metabolic Panel Stat Lab 04/20/25 12:06 Completed Lipase Stat Lab 04/20/25 12:06 Completed Rapid PCR Covid and Flu A/B Stat Lab 04/20/25 11:45 Completed Urinalysis and Microscopic Stat Lab 04/20/25 12:07 Completed Medical Decision Narrative: In summary patient is a 49-year-old male who presents the emergency department for evaluation of nausea vomiting diarrhea, upper respiratory symptom. Patient is hemodynamically stable upon arrival, afebrile. Unremarkable physical exam. Differential diagnosis includes viral illness such as COVID, flu, electrolyte abnormality, pneumonia. Initial workup will be conducted with hematologic labs, chest x-ray, COVID flu. Initial workup reviewed by me unremarkable. Upon repeat evaluation patient is resting comfortable. Given this patient is appropriate for discharge home at this time with prescription for Zofran. Instructed to return to the ER for any worsening of symptoms. <Leigh Acevedo MD - Last Filed: 04/21/25 09:24> Vital Signs: 04/20/25 11:40 04/20/25 11:43 04/20/25 12:01 Temperature 98.1 F 98.7 F Temperature Source Oral Temporal Artery Scan Pulse Rate 100 H 89 Pulse Rate [Right] 112 H Respiratory Rate 20 18 Blood Pressure 140/88 118/67 Blood Pressure [Right Arm] 148/94 H Blood Pressure Mean [Right Arm] 112 Blood Pressure Source Automatic Cuff Blood Pressure Source [Right Arm] Automatic Cuff Blood Pressure Position Sitting Blood Pressure Position [Right Arm] Sitting 02 Sat by Pulse Oximetry 96 98 95 Oxygen Delivery Method Room Air Room Air Room Air 04/20/25 12:44 04/20/25 14:08 Temperature 98.2 F Temperature Source Oral Pulse Rate 92 H 90 Pulse Rate [Right] Respiratory Rate 15 Blood Pressure 130/86 129/82 Blood Pressure [Right Arm] Blood Pressure Mean [Right Arm] Blood Pressure Source Automatic Cuff Blood Pressure Source [Right Arm] Blood Pressure Position Supine Blood Pressure Position [Right Arm] 02 Sat by Pulse Oximetry 95 Oxygen Delivery Method Room Air Room Air Lab Data Lab Results 04/20/25 11:45: SARS-CoV-2 (PCR) Not detected, Influenza A Untype (PCR) Not detected, Influenza Type B (PCR) Not detected 04/20/25 12:06: WBC 5.7, RBC 4.93, Hgb 15.0, Hct 42.9, MCV 87.0, MCH 30.4, MCHC 35.0, RDW 13.2, Plt Count 166, MPV 11.8 H, Neut % (Auto) 71.0, Lymph % (Auto) 12.0, [place] % (Auto) 12.7 H, Eos % (Auto) 3.9, Baso % (Auto) 0.2, Neut # (Auto) 4.1, Lymph # (Auto) 0.7, [place] # (Auto) 0.7, Eos # (Auto) 0.2, Baso # (Auto) 0.0, Sodium 138, Potassium 4.1, Chloride 108 H, Carbon Dioxide 24, Anion Gap 10.1, BUN 8 L, Creatinine 1.10, Estimated Creat Clear 77, Estimated GFR 71, Est GFR ( Amer) 85, Glucose 106 H, Calcium 8.6, Total Bilirubin 1.3, AST 38, ALT 31, Alkaline Phosphatase 76, Total Protein 6.7, Albumin 4.7, Globulin 2.0, Albumin/Globulin Ratio 2.4 H, Lipase 63 04/20/25 12:07: Urine Color Yellow, Urine Appearance Clear, Urine pH 6.5, Ur Specific [place] 1.020, Urine Protein 1+ A, Urine Glucose (UA) Negative, Urine Ketones Trace, Urine Blood Negative, Urine Nitrate Negative, Urine Bilirubin 1+ A, Urine Urobilinogen 1.0, Ur Leukocyte Esterase Negative, Urine RBC Occasional, Urine WBC Occasional, Ur Squamous Epith Cells Occasional, Urine Bacteria None Orders (Tests/Meds): ORDERS Category Date Time Status Chest XR 2 view (NOT portable) [XR chest 2V] Stat Exams 04/20/25 12:22 Completed Complete Blood Count Auto Diff Stat Lab 04/20/25 12:06 Completed Comprehensive Metabolic Panel Stat Lab 04/20/25 12:06 Completed Lipase Stat Lab 04/20/25 12:06 Completed Rapid PCR Covid and Flu A/B Stat Lab 04/20/25 11:45 Completed Urinalysis and Microscopic Stat Lab 04/20/25 12:07 Completed Medical Decision Narrative: In summary patient is a 49-year-old male who presents the emergency department for evaluation of nausea vomiting diarrhea, upper respiratory symptom. Patient is hemodynamically stable upon arrival, afebrile. Unremarkable physical exam. Differential diagnosis includes viral illness such as COVID, flu, electrolyte abnormality, pneumonia. Initial workup will be conducted with hematologic labs, chest x-ray, COVID flu. Initial workup reviewed by me unremarkable. Upon repeat evaluation patient is resting comfortable. Given this patient is appropriate for discharge home at this time with prescription for Zofran. Instructed to return to the ER for any worsening of symptoms. I was consulted by the LESLIE, and we discussed the complexity of problems being addressed. I approved the treatment and management plan for this patient's care in the emergency department, thus performing a substantial portion of the medical decision making. Leigh Acevedo MD Critical Care <АЛЕКСАНДР Jesus - Last Filed: 04/20/25 15:02> Critical Care Time Critical Care Time: No
[2025-04-20 14:08] VITALS: BP 129/82; PULSE 90; RESP 15; TEMP 36.8; O2SAT 95
== END 2025-04-20 14:11 | disposition home or self-care (01) ==
PROVIDERS: Physician Assistant; Emergency Provider Student in an Organized Health Care Education/Training Program; PCP Nurse Practitioner
DX: R11.2 Nausea with vomiting, unspecified (principal); B34.9 Viral infection, unspecified
CPT/HCPCS: 71046; 80053; 81001; 83690; 85025; 87636; 99283; 99285